=== PATIENT | female | born 1930 | race Hispanic/Latino ===

== ENCOUNTER 2016-10-19 17:15 | Inpatient (IN) | payer MEDICARE, OTHER ==
[2016-10-19 17:26] VITALS: BMI 28.2
[2016-10-19 17:57] LABS: ADD MANUAL DIFF? NO
[2016-10-19 18:07] LABS: VENOUS BLOOD GAS BASE EXCESS -6.6 mmol/L (0.0-2.0); VENOUS BLOOD PH 7.24 (7.32-7.43)
[2016-10-19 18:10] LABS: BASO # 0.01 K/mm3 (0.0-2.0); BASO % 0.1 % (0.0-3.0); EOS # 0.1 (0.0-0.7); EOS % 1.3 % (1.5-5.0); GRAN # 5.33 (1.4-6.5); GRAN % 69.1 % (50.0-68.0); HEMATOCRIT 28.4 % (36.0-48.0); LYMPH # 1.7 (1.2-3.4); LYMPH % 21.8 % (22.0-35.0); MEAN CORPUSCULAR HEMOGLOBIN 30.8 pg (25.0-35.0); MEAN CORPUSCULAR HGB CONC 33.8 g/dl (31.0-37.0); MEAN PLATELET VOLUME 12.5 fl (7.0-11.0); MONO # 0.6 (0.1-0.6); MONO % 7.7 % (1.0-6.0); PLATELET COUNT 69 10^3/uL (120.0-450.0); RED CELL DISTRIBUTION WIDTH 15.6 % (11.5-14.5); WHITE BLOOD COUNT 7.7 10^3/ul (4.5-11.0)
[2016-10-19] MEDS ORDERED: Sodium Chloride 0.9% 1,000 ML IV ONE (18:12)
[2016-10-19 18:20] LABS: INR 1.22 (0.93-1.08); PARTIAL THROMBOPLASTIN TIME 26.6 Seconds (23.7-30.8)
[2016-10-19 18:22] LABS: ALB/GLOB RATIO 0.7 (1.1-1.8); ALKALINE PHOSPHATASE 144 U/L (38-133); ALT/SGPT 47 U/L (7-56); AMYLASE 74 U/L (35-125); AST/SGOT 49 U/L (15-39); BILIRUBIN,TOTAL 0.9 mg/dL (0.2-1.3); BLOOD UREA NITROGEN 19 mg/dL (7-21); CALCIUM 8.6 mg/dL (8.4-10.5); CARBON DIOXIDE 21 mmol/L (21-33); CHLORIDE 110 mmol/L (98-107); GFR AFRICAN-AMERICAN > 60; GLUCOSE,RANDOM 102 mg/dL (70-110); LIPASE 15 U/L (23-300); POTASSIUM 3.9 mmol/L (3.6-5.0); SODIUM 141 mmol/L (132-148); TOTAL PROTEIN 7.7 g/dL (5.8-8.3)
[2016-10-19 18:25] LABS: PH,URINE 5.5 (4.7-8.0); URINE BILIRUBIN NEGATIVE (NEGATIVE); URINE BLOOD TRACE-LYSED (NEGATIVE); URINE GLUCOSE (UA) NEGATIVE (NEGATIVE); URINE KETONE NEGATIVE (NEGATIVE); URINE LEUKOCYTE ESTERASE MODERATE Leu/uL (NEGATIVE); URINE PROTEIN NEGATIVE mg/dL (<30 mg/dL); URINE UROBILINOGEN 0.2 E.U./dL (<1 E.U./dL)
[2016-10-19 18:36] LABS: TROPONIN I < 0.01 ng/mL
[2016-10-19 18:53] LABS: URINE APPEARANCE SL CLOUDY (CLEAR); URINE COLOR YELLOW (YELLOW)
[2016-10-19 18:57] LABS: URINE RBC 0 - 2 /hpf (0-2)
[2016-10-19 18:58] LABS: URINE BACTERIA MANY (NEG); URINE EPITHELIAL CELLS 0 - 2 /hpf (0-5); URINE WBC TNTC /hpf (0-6)
[2016-10-19] MEDS ORDERED: Meropenem 1g/NS 100mL IVPB 100 ML IVPB STA (19:19)
[2016-10-19] MEDS ORDERED: Acetaminophen 160 mg/5 ml UD PO STA (19:27)
--- NOTE | 2016-10-19 19:29 | ED PDOC ---
Arrival/HPI - General Chief Complaint: Abdominal Pain Time Seen by Provider: 10/19/16 17:22 Historian: Patient - History of Present Illness Narrative History of Present Illness (Text): 10/19/16 19:25 86yo female with PMHx of myelodysplastic syndrome, Pancytopenia, hypertension, diabetes, hypothyroid BIBA for complaint of abdominal pain, chills, fever. the daughter states she was recently discharged from [facility]. States she complained of abdominal pain while she was there and was given PO abx for 4days. According to the daughter the pain became worse at home and she started having fever and chills today. Also complain of leg pain, which she states is chronic for her. Denies chest pain, SOB, cough, calf pain, nausea, vomiting, hematuria, dysuria. Past Medical History - Provider Review Nursing Documentation Reviewed: Yes - Infectious Disease Hx of Infectious Diseases: None - Tetanus Immunization Tetanus Immunization: Unknown - Reproductive Menopause: Yes - Cardiac Hx Cardiac Disorders: Yes Hx Hypertension: Yes - Pulmonary Hx Respiratory Disorders: Yes Hx Pneumonia: Yes - Neurological Hx Dizziness: Yes Hx Transient Ischemic Attacks (TIA): No - HEENT Hx HEENT Disorder: No - Renal Hx Renal Disorder: Yes Other/Comment: uti - Endocrine/Metabolic Hx Diabetes Mellitus Type 2: Yes Hx Hypothyroidism: Yes - Hematological/Oncological Hx Blood Disorders: Yes (MDS) Hx Anemia: Yes Hx Cirrhosis: Yes Other/Comment: thromocytopenia, myelodysplastic syndromehypomagnesia/ pancytopenia - Integumentary Hx Dermatological Disorder: Yes Other/Comment: 07-23-16 edema b/l lower legs +2 NON PITTING, ble redness to lower legs, 2nd toe left ft crooked had sx yrs ago took out bone, stage 2 x 2 2 CM IN DM BOTH UPPER BUTTOCKS AREA. surrounded by red skin.SACRAL PRESSURE ULCER STAGE 1. - Musculoskeletal/Rheumatological Hx Falls: Yes - Gastrointestinal Hx Gastrointestinal Disorders: Yes (GERD,CROHNS,CHOLECYSTECTOMY,ULCER) Hx Gastritis: Yes - Genitourinary/Gynecological Hx Genitourinary Disorders: Yes (VRE,ESBL,INCONTINENT,RETENTION) Hx Reproductive Disorders: No Other/Comment: hx urosepsis - Psychiatric Hx Psychophysiologic Disorder: Yes Hx Anxiety: Yes Hx Substance Use: No - Surgical History Hx Cholecystectomy: Yes Hx Orthopedic Surgery: Yes (r hip fx) - Anesthesia Hx Anesthesia: No Hx Anesthesia Reactions: No Hx Malignant Hyperthermia: No - Suicidal Assessment Feels Threatened In Home Enviroment: No Family/Social History - Physician Review Nursing Documentation Reviewed: Yes Family/Social History: Unknown Family HX Smoking Status: Never Smoked Hx Alcohol Use: Yes (WINE WITH DINNER SOMETIMES) Hx Substance Use: No Hx Substance Use Treatment: No Allergies/Home Meds Allergies/Adverse Reactions: Allergies levofloxacin [From Levaquin] Allergy (Intermediate, Verified 08/31/16 00:31) RASH Penicillins Allergy (Verified 08/31/16 00:31) URTICARIA lev Allergy (Uncoded 08/31/16 00:31) ITCHING Home Medications: Home Meds Medication Instructions Recorded Confirmed Ferrous Fumarate [Manju-Sequel] 1 tab PO DAILY 10/10/15 08/31/16 Levothyroxine [Synthroid] 75 mcg PO DAILY 10/13/15 08/31/16 Lisinopril [Zestril] 20 mg PO DAILY 10/24/15 08/31/16 Magnesium Oxide [Magnesium] 400 mg PO BID 10/24/15 08/31/16 Pantoprazole [Protonix EC Tab] 40 mg PO DAILY 10/24/15 08/31/16 rifAXIMin [Xifaxan] 550 mg PO BID 11/07/15 08/31/16 Potassium Chloride [K-Dur 20 mEq 20 meq PO DAILY 12/17/15 08/31/16 ER Tab] Spironolactone [Aldactone] 50 mg PO DAILY 12/17/15 08/31/16 Furosemide [Lasix] 20 mg PO DAILY 08/31/16 08/31/16 Review of Systems - Physician Review All systems were reviewed & negative as marked: Yes - Review of Systems Constitutional: Normal Eyes: Normal ENT: Normal Respiratory: Normal Cardiovascular: Normal Gastrointestinal: Abdominal Pain. absent: Constipation, Diarrhea, Nausea, Vomiting, Hematochezia, Hematemesis Genitourinary Female: absent: Dysuria, Frequency, Hematuria Musculoskeletal: Arthralgias (B/L leg pain) Skin: Normal Neurological: Normal Endocrine: Normal Hemo/Lymphatic: Normal Psychiatric: Normal Physical Exam Vital Signs Reviewed: Yes Vital Signs Temp Pulse Resp BP Pulse Ox 10/19/16 17:15 99.8 F H 108 H 22 162/75 H 94 L Temperature: Febrile Blood Pressure: Normal Pulse: Tachycardic Respiratory Rate: Normal Appearance: Positive for: Well-Appearing, Non-Toxic, Comfortable Pain Distress: None Mental Status: Positive for: Alert and Oriented X 3 - Systems Exam Head: Present: Atraumatic, Normocephalic Pupils: Present: PERRL Extroacular Muscles: Present: EOMI Conjunctiva: Present: Normal Mouth: Present: Moist Mucous Membranes Neck: Present: Normal Range of Motion Respiratory/Chest: Present: Clear to Auscultation, Good Air Exchange. No: Respiratory Distress, Accessory Muscle Use Cardiovascular: Present: Regular Rate and Rhythm, Normal S1, S2. No: Murmurs Abdomen: Present: Normal Bowel Sounds, Other (Soft). No: Tenderness, Distention , Peritoneal Signs, Rebound, Guarding, McBurney's Point Tender, Rovsing's Sign Present Back: Present: Normal Inspection Upper Extremity: Present: Normal Inspection. No: Cyanosis, Edema Lower Extremity: Present: Edema (3+ bipedal edema), Neurovascularly Intact. No : CALF TENDERNESS, Tenderness, Temperature Abnormalties Neurological: Present: GCS=15, CN II-XII Intact, Speech Normal Skin: Present: Warm, Dry, Normal Color. No: Rashes Psychiatric: Present: Alert, Oriented x 3, Normal Insight, Normal Concentration Medical Decision Making ED Course and Treatment: 10/19/16 19:33 Pt in ED for stated history. She was febrile in ED and Tylenol was ordered. Lab was reviewed with pancytopenia noted which is patient's baseline. Patient have UTI in the UA. She was hydrated. Will admit her for UTI. Case was DW Dr. Pena. she accepted pt to her service. Request Drs. Byrne and casie for consult Meropenem was ordered Result and plan was DW both pt and the daughter and they agreed. 10/19/16 19:56 CXR NAD - Lab Interpretations Lab Results: 10/19/16 17:45 10/19/16 17:45 Lab Results 10/19/16 18:15: Urine Color Yellow, Urine Appearance Sl cloudy, Urine pH 5.5, Ur Specific [place] 1.020, Urine Protein Negative, Urine Glucose (UA) Negative, Urine Ketones Negative, Urine Blood Trace-lysed H, Urine Nitrate Negative, Urine Bilirubin Negative, Urine Urobilinogen 0.2, Ur Leukocyte Esterase Moderate H, Urine RBC 0 - 2, Urine WBC Tntc, Ur Epithelial Cells 0 - 2, Urine Bacteria Many 10/19/16 17:45: WBC 7.7 D, RBC 3.12 L, Hgb 9.6 L, Hct 28.4 L, MCV 91.0, MCH 30.8, MCHC 33.8, RDW 15.6 H, Plt Count 69 L, MPV 12.5 H, Gran % 69.1 H, Lymph % (Auto) 21.8 L, [place] % (Auto) 7.7 H, Eos % (Auto) 1.3 L, Baso % (Auto) 0.1, Gran # 5.33, Lymph # 1.7, [place] # 0.6, Eos # 0.1, Baso # 0.01, PT 13.2 H, INR 1.22 H, APTT 26.6, pO2 46, VBG pH 7.24 L, VBG pCO2 49.0, VBG HCO3 21.0, VBG Total CO2 22.5, VBG O2 Sat (Calc) 82.6 H, VBG Base Excess -6.6 L, VBG Potassium 4.0, Glucose 101, Lactate 2.4 H, FiO2 21.0, Sodium 141.0, Potassium 3.9, Chloride 118.0 H, Carbon Dioxide 21, Anion Gap 14, BUN 19, Creatinine 1.0, Est GFR ( Amer) > 60, Est GFR (Non-Af Amer) 52, Random Glucose 102, Calcium 8.6, Total Bilirubin 0.9, AST 49 H, ALT 47, Alkaline Phosphatase 144 H, Lactate Dehydrogenase 439, Total Creatine Kinase < 20 L, Troponin I < 0.01, Total Protein 7.7, Albumin 3.2, Globulin 4.5, Albumin/Globulin Ratio 0.7 L, Amylase 74 , Lipase 15 L, Venous Blood Potassium 4.0 - RAD Interpretation Radiology Orders: 10/19/16 18:20 CHEST PORTABLE [RAD] Stat - Medication Orders Current Medication Orders: Sodium Chloride (Sodium Chloride 0.9%) 1,000 mls @ 250 mls/hr IV .Q4H ONE Stop: 10/19/16 22:11 Last Admin: 10/19/16 18:19 Dose: 250 MLS/HR eMAR Start Stop Document 04/18/17 18:19 SRE (Rec: 10/19/16 18:20 SRE [facility] [id number] Intravenous Solution Start Date 10/19/16 Start Time 18:20 End Date 10/19/16 End time 22:30 Total Infusion Time 250 Meropenem 1g/NS 100mL IVPB (Meropenem 1g/Ns 100ml Ivpb) 100 mls @ 100 mls/hr IVPB STAT STA PRN Reason: Protocol Stop: 10/19/16 20:18 Last Admin: 10/19/16 19:37 Dose: 100 MLS/HR eMAR Start Stop Document 10/19/16 19:37 KKL (Rec: 10/19/16 19:37 KKL [facility] [id number] Intravenous Solution Start Date 10/19/16 Start Time 19:37 Discontinued Medications Acetaminophen (Tylenol 160mg/5ml Oral Soln) 640 mg PO ONCE STA Stop: 10/19/16 19:28 Last Admin: 10/19/16 19:37 Dose: 640 MG Disposition/Present on Arrival - Present on Arrival Any Indicators Present on Arrival: No History of DVT/PE: No History of Uncontrolled Diabetes: No Urinary Catheter: No History of Decub. Ulcer: No History Surgical Site Infection Following: None - Disposition Have Diagnosis and Disposition been Completed?: Yes Diagnosis: Urinary tract infection, Fever, Anemia, Thrombocytopenia Disposition: HOSPITALIZED Disposition Time: 19:10 Patient Problems: Current Active Problems Problem Status Diagnosed Anemia Acute Community acquired pneumonia Acute Fever Acute Thrombocytopenia Acute Urinary tract infection Acute Condition: FAIR
[2016-10-19] MEDS ORDERED: Non Formulary Medication (Magnesium Oxide [Magnesium] 400 MG) PO SCH (20:30)
[2016-10-19] MEDS ORDERED: Pneumococcal 23-Valent Vaccine IM ONE (22:07)
--- NOTE | 2016-10-19 22:28 | HP ---
HISTORY OF PRESENT ILLNESS: The patient is an 86-year-old, known to me from multiple previous admiss ions, was recently discharged from [facility]. The patient's daughter who was accompanied by the patient and the patient states that she was having some abdominal discomfort, suprapubic discomf ort with chills. When she came home to this past Tuesday, her symptoms got worse. She was given some p.o. antibiotic upon discharge; the name is unknown. According to the daughter, the pain got worse and she started to have fever and chills. She also has leg pain, so she brought her to [facility] for further evaluation and denies any nausea or vomiting, no hemoptysis, no hematemesis. PAST MEDICAL HISTORY: Significant for: 1. Autoimmune Hepatitis. 2. Hypertension. 3. Hyperlipidemia. 4. Pancytopenia. 5. Recurrent urinary tract infection. 6. Multiple admissions for ESBL positive Escherichia coli urinary tract infection. 7. History of hepatic encephalopathy. 8. Bilateral leg chronic cellulitis and stasis dermatitis. 9. History of cirrhosis of liver. 10. Electrolyte imbalance. ALLERGIES: SHE IS ALLERGIC TO LEVAQUIN AND PENICILLIN. MEDICATIONS AT HOME: She is on Xifaxan 550 twice a day, Aldactone 50 mg daily, potassium 20 mEq ileana y, Protonix 40 daily, magnesium 400 twice a day, lisinopril 240 mg daily, levothyroxine 75 mcg daily, ferrous sulfate 325 daily. SOCIAL HISTORY: She is single, lives with her daughter who is very supportive and caring. She denie s smoking or drinking. She used to smoke when she was a teenager. REVIEW OF SYSTEMS: Significant for generalized weakness, leg pain with fever and chills and suprapub ic discomfort. PHYSICAL EXAMINATION: GENERAL: She is awake and alert, communicative, not in any acute distress. VITAL SIGNS: She has temperature 99.5, pulse 108, respirations 22, blood pressure 162/75. LUNGS: Bilateral good airflow, no rhonchi or crackle. HEART: S1, S2 audible. ABDOMEN: Soft, obese, nontender, no rebound, no guarding. NEUROLOGIC: She is awake and alert, communicative. EXTREMITIES: Bilateral leg +1 edema. LABORATORY DATA: WBC 7.7, hemoglobin 9.6, hematocrit 28.4, platelets 69. PT 13.2, INR 1.22. Chemis try: Sodium 141, potassium 3.9, chloride 110, CO2 of 21, BUN 19, creatinine 1.0, blood sugar 102. L FTs are within normal limits. AST 49, alkaline phosphatase is 144. CPK less than 20. BNP 680. Uri nalysis shows blood and moderate leukocyte, wbc's too numerous to count leg. ASSESSMENT AND PLAN: 1. Fever and chills, positive urine positive for leukocyte and wbc's, source is probably urosepsis. 2. Pancytopenia. 3. Myelodysplastic syndrome. 4. Cirrhosis of liver. 5. Hepatic encephalopathy. 6. History of hypertension. 7. Electrolyte imbalance. PLAN: The patient will be admitted on Med/Surg. Blood culture and urine cultures are sent. Since t he patient has a history of ESBL positive urinary tract infection, we will start her on meropenem. I will resume her usual medication. Out of bed to chair. Encourage physical therapy. Continue her m edication as prior coming, continue her home medications that include Xifaxan, lactulose, spironolact one 50 mg daily. Continue her on potassium 20 mEq daily, Protonix 40 daily, and magnesium 400 twice a day, lisinopril 20 mg daily, levothyroxine 75 mcg daily and Lasix [address] Byrne for consult and we will get a urology evaluation by Dr. Moore and I will reevaluate in a.m. and make fu rther recommendation. Kamaljit Pena MD cc: [phone] TT: 10/19/2016 22:27:30 me
[2016-10-19] MEDS ORDERED: Vancomycin 1gm in NS 250ml 250 ML IVPB STA (22:37)
[2016-10-20 06:54] LABS: ADD MANUAL DIFF? NO
[2016-10-20 07:07] LABS: BASO # 0.01 K/mm3 (0.0-2.0); BASO % 0.2 % (0.0-3.0); EOS # 0.1 (0.0-0.7); GRAN # 3.64 (1.4-6.5); GRAN % 73.9 % (50.0-68.0); LYMPH # 0.8 (1.2-3.4); LYMPH % 15.4 % (22.0-35.0); MEAN CELL VOLUME 90.4 fL (80.0-105.0); MEAN CORPUSCULAR HEMOGLOBIN 30.8 pg (25.0-35.0); MEAN PLATELET VOLUME 12.8 fl (7.0-11.0); MONO # 0.5 (0.1-0.6); MONO % 9.5 % (1.0-6.0); PLATELET COUNT 35 10^3/uL (120.0-450.0); RED CELL DISTRIBUTION WIDTH 15.5 % (11.5-14.5); WHITE BLOOD COUNT 4.9 10^3/ul (4.5-11.0)
[2016-10-20 07:16] LABS: BILIRUBIN,TOTAL 0.8 mg/dL (0.2-1.3); CALCIUM 7.7 mg/dL (8.4-10.5); MAGNESIUM 1.6 mg/dL (1.7-2.2); POTASSIUM 3.6 mmol/L (3.6-5.0); TOTAL PROTEIN 6.4 g/dL (5.8-8.3)
[2016-10-20 07:19] LABS: HEMATOCRIT 23.5 % (36.0-48.0)
[2016-10-20 07:22] LABS: ALB/GLOB RATIO 0.6 (1.1-1.8)
--- NOTE | 2016-10-20 08:50 | CARD ---
APPROVED REPORT EKG Measurement Heart [id number] CT 182P25 [id number] <Conclusion> Normal sinus rhythm with sinus arrhythmia Left axis deviation Right bundle branch block Septal infarct, age undetermined Abnormal ECG
[2016-10-20] MEDS: Meropenem 1g/NS 100mL IVPB 100 ML IVPB SCH ×2 (09:47→21:19)
[2016-10-20] MEDS: Pantoprazole 40 mg EC Tab PO SCH (09:49)
[2016-10-20] MEDS: Potassium Chloride 20 mEq ER Tab PO SCH (09:49)
[2016-10-20] MEDS: Levothyroxine 75 MCG TAB PO SCH (09:49)
[2016-10-20] MEDS: Magnesium Oxide 400 mg Tab UD PO SCH ×2 (09:49→17:34)
[2016-10-20] MEDS: FERROUS FUMARATE PO SCH (09:53)
--- NOTE | 2016-10-20 10:02 | RAD ---
HISTORY: admission COMPARISON: 08/09/2016 FINDINGS: LUNGS: No active pulmonary disease. PLEURA: No significant pleural effusion identified, no pneumothorax apparent. CARDIOVASCULAR: Normal. OSSEOUS STRUCTURES: No significant abnormalities. VISUALIZED UPPER ABDOMEN: Normal. OTHER FINDINGS: None. IMPRESSION: No active disease.
--- NOTE | 2016-10-20 13:22 | PN ---
DATE: 10/20/2016 SUBJECTIVE: The patient is seen and examined, lying in bed, does not look in any distress. PHYSICAL EXAMINATION: VITAL SIGNS: She is afebrile, pulse 80, respirations 20, blood pressure 116/55. LUNGS: Bilateral fair airflow, no rhonchi or crackle. HEART: S1, S2 audible. ABDOMEN: Soft, obese, nontender, no rebound, no guarding. NEUROLOGIC: The patient is awake and alert, communicative. EXTREMITIES: Bilateral leg +1 edema. LABORATORY EXAMINATION: WBC is 4.9, hemoglobin 8.0, hematocrit 23.5, platelet of 35. Chemistry: So dium 139, potassium 3.6, chloride 112, CO2 of 20, BUN 18, creatinine 1.1, blood sugar of 110, magnesi um is 1.6. Her urine culture showed gram-negative rods. ASSESSMENT: 1. Pancytopenia. 2. Myelodysplastic syndrome. 3. Chronic anemia, chronic thrombocytopenia. 4. Escherichia coli urinary tract infection. 5. History of hypertension. 6. Bilateral leg edema. PLAN: We will continue on spironolactone. She is on lactulose for autoimmune hepatitis and hepatic encephalopathy. She has been evaluated by ID and started on meropenem. We will maintain her on Xifa yaakov. We will reevaluate the patient in a.m. Kamaljit Pena MD cc: [phone] TT: 10/20/2016 13:21:12 Confirmation # [id number] Dictation # [id number] sn
--- NOTE | 2016-10-20 18:07 | CP.PCM.CON ---
History of Present Illness - History of Present Illness History of Present Illness: 86 year old female with PMH of UTI with Hafnei alvei, Myelodysplastic syndrome, DM, HTN, Hypothyroidism, history of right hip surgery, S/P cholecystectomy, liver cirrhosis, GERD, history of ESBL-producing E. coli UTI was recently admitted in a assisted. Shortly after she was discharged from there, she started complaining of abdominal pain and was given PO antibiotics which did not help. She started having fevers and chills yesterday. She denies headache or dizziness, no chest pain, no nausea or vomiting, no diarrhea. She has some dysuria, but denies flank pain. Urine cx were done which showed gram negative bacilli. Infectious Diseases consult is requested to further evaluate and manage. Review of Systems - Review of Systems All systems: reviewed and no additional remarkable complaints except (as per HPI ) Past Patient History - Infectious Disease Hx of Infectious Diseases: None - Tetanus Immunizations Tetanus Immunization: Unknown - Past Social History Smoking Status: Never Smoked - CARDIAC Hx Cardiac Disorders: Yes Hx Hypertension: Yes Hx Peripheral Edema: Yes (+3 pitting edema ble) Hx Peripheral Vascular Disease: Yes - PULMONARY Hx Respiratory Disorders: Yes Hx Pneumonia: Yes - NEUROLOGICAL Hx Neurological Disorder: (syncope) Hx Dizziness: Yes Hx Transient Ischemic Attacks (TIA): No - HEENT Hx HEENT Problems: No - RENAL Hx Chronic Kidney Disease: Yes Other/Comment: uti - ENDOCRINE/METABOLIC Hx Diabetes Mellitus Type 2: Yes Hx Hypothyroidism: Yes - HEMATOLOGICAL/ONCOLOGICAL Hx Blood Disorders: Yes (MDS) Hx Anemia: Yes Hx Cirrhosis: Yes Other/Comment: thromocytopenia, myelodysplastic syndrome, hypomagnesia/ pancytopenia - INTEGUMENTARY Hx Dermatological Problems: Yes Other/Comment: +3 pitting edema ble, ble ski discolorations, 2nd toe l ft crooked, bone removed yrs ago, stage 2 pressure ulcer r sacrum 2.5cm x 1.5cm red open wound, stage 2 left sacrum open wound 3cm x 2.5cm wound bed red and slough small 0.5cm tear in skin bed is red, multiple skin discolorations b/l arms thin skin - MUSCULOSKELETAL/RHEUMATOLOGICAL Hx Falls: Yes (past) Hx Unsteady Gait: Yes (walker) - GASTROINTESTINAL Hx Gastrointestinal Disorders: Yes (GERD,CROHNS,CHOLECYSTECTOMY,ULCER) Hx Diverticulitis: Yes Other/Comment: gastritis - GENITOURINARY/GYNECOLOGICAL Hx Genitourinary Disorders: Yes (VRE,ESBL,INCONTINENT,RETENTION) Hx Urinary Tract Infection: Yes Other/Comment: hx urosepsis - PSYCHIATRIC Hx Psychophysiologic Disorder: Yes Hx Anxiety: Yes Hx Substance Use: No - SURGICAL HISTORY Hx Cholecystectomy: Yes Hx Orthopedic Surgery: Yes (r hip fx) - ANESTHESIA Hx Anesthesia: No Hx Anesthesia Reactions: No Hx Malignant Hyperthermia: No Meds Allergies/Adverse Reactions: Allergies Allergy/AdvReac Type Severity Reaction Status Date / Time levofloxacin [From Levaquin] Allergy Intermediate RASH Verified 08/31/16 00:31 Penicillins Allergy URTICARIA Verified 08/31/16 00:31 lev Allergy ITCHING Uncoded 08/31/16 00:31 - Medications Medications: Current Medications Acetaminophen (Tylenol 325mg Tab) 650 mg PO Q6H PRN PRN Reason: Fever >100.4 F Furosemide (Lasix) 20 mg PO DAILY HEMANT Meropenem 1g/NS 100mL IVPB (Meropenem 1g/Ns 100ml Ivpb) 100 mls @ 100 mls/hr IVPB Q12 HEMANT PRN Reason: Protocol Stop: 10/27/16 10:01 Lactulose (Enulose) 20 gm PO HS HEMANT Levothyroxine Sodium (Synthroid) 75 mcg PO DAILY HEMANT Lisinopril (Zestril) 20 mg PO DAILY HEMANT Magnesium Oxide (Mag-Ox) 400 mg PO BID HEMANT Non-Formulary Medication (Ferrous Fumarate [Manju-Sequel]) 1 tab PO DAILY HEMANT Pantoprazole Sodium (Protonix Ec Tab) 40 mg PO DAILY HEMANT Potassium Chloride (K-Dur 20 Meq Er Tab) 20 meq PO DAILY HEMANT Rifaximin (Xifaxan) 550 mg PO BID HEMANT PRN Reason: Protocol Spironolactone (Aldactone) 50 mg PO DAILY HEMANT Physical Exam - Constitutional Appears: Non-toxic, No Acute Distress - Head Exam Head Exam: NORMAL INSPECTION - ENT Exam ENT Exam: Mucous Membranes Moist - Neck Exam Neck exam: Negative for: Lymphadenopathy, Meningismus - Respiratory Exam Respiratory Exam: Decreased Breath Sounds - Cardiovascular Exam Cardiovascular Exam: +S1, +S2 - GI/Abdominal Exam GI & Abdominal Exam: Soft. absent: Tenderness Results - Vital Signs Recent Vital Signs: Last Vital Signs Temp 99.8 F H 10/19/16 21:40 Pulse 108 H 10/19/16 21:40 Resp 22 10/19/16 21:40 BP 162/75 H 10/19/16 21:40 Pulse Ox 95 10/19/16 21:01 - Labs Result Diagrams: 10/20/16 06:45 10/20/16 06:45 Assessment & Plan - Assessment and Plan (Free Text) Plan: Assessment Sepsis secondary to gram negative bacilli UTI history of urinary tract infection with Citrobacter and Enterobacter, S/P treatment and clinically better history of E. faecium UTI history of healthcare-associated pneumonia history of chronic thrombocytopenia history of urinary tract infection with ESBL E. coli S/P UTI with Hafnei alvei Myelodysplastic syndrome DM HTN Hypothyroidism history of right hip surgery S/P cholecystectomy liver cirrhosis GERD Plan started MErrem pending blood and urine cx; follow up renal ultrasound Will follow clinically
[2016-10-21] MEDS: Magnesium Oxide 400 mg Tab UD PO SCH ×2 (09:32→17:29)
[2016-10-21] MEDS: Meropenem 1g/NS 100mL IVPB 100 ML IVPB SCH ×2 (09:32→21:56)
[2016-10-21] MEDS: Pantoprazole 40 mg EC Tab PO SCH (09:33)
[2016-10-21] MEDS: Levothyroxine 75 MCG TAB PO SCH (09:33)
[2016-10-21] MEDS: Potassium Chloride 20 mEq ER Tab PO SCH (09:33)
[2016-10-21] MEDS: FERROUS FUMARATE PO SCH (09:34)
--- NOTE | 2016-10-21 11:48 | RAD ---
HISTORY: stones/uti COMPARISON: No prior. FINDINGS: There are no calcifications overlying the renal silhouette, along the expected course of the ureters or in the pelvis. BOWEL: Normal. No obstruction. No free air. BONES: Normal. OTHER FINDINGS: Surgical clips in the right upper quadrant are related to prior cholecystectomy. IMPRESSION: Limited examination due to gas and fecal material overlying the renal silhouette, allowing for this, no definite radiographic evidence for nephrourolithiasis.
[2016-10-21 12:30] LABS: ADD MANUAL DIFF? NO
[2016-10-21 12:35] LABS: BASO # 0.02 K/mm3 (0.0-2.0); BASO % 0.5 % (0.0-3.0); EOS # 0.2 (0.0-0.7); EOS % 4.1 % (1.5-5.0); GRAN # 2.09 (1.4-6.5); GRAN % 54.2 % (50.0-68.0); HEMATOCRIT 25.4 % (36.0-48.0); LYMPH # 1.2 (1.2-3.4); LYMPH % 29.8 % (22.0-35.0); MEAN CORPUSCULAR HEMOGLOBIN 30.8 pg (25.0-35.0); MEAN CORPUSCULAR HGB CONC 33.9 g/dl (31.0-37.0); MEAN PLATELET VOLUME 12.9 fl (7.0-11.0); MONO # 0.4 (0.1-0.6); MONO % 11.4 % (1.0-6.0); PLATELET COUNT 46 10^3/uL (120.0-450.0); RED CELL DISTRIBUTION WIDTH 15.4 % (11.5-14.5); WHITE BLOOD COUNT 3.9 10^3/ul (4.5-11.0)
[2016-10-21 12:43] LABS: ALB/GLOB RATIO 0.6 (1.1-1.8); ALKALINE PHOSPHATASE 105 U/L (38-133); ALT/SGPT 38 U/L (7-56); AST/SGOT 30 U/L (15-39); BILIRUBIN,TOTAL 0.8 mg/dL (0.2-1.3); BLOOD UREA NITROGEN 17 mg/dL (7-21); CALCIUM 7.9 mg/dL (8.4-10.5); CARBON DIOXIDE 21 mmol/L (21-33); CHLORIDE 109 mmol/L (98-107); GFR AFRICAN-AMERICAN > 60; GLUCOSE,RANDOM 114 mg/dL (70-110); MAGNESIUM 1.7 mg/dL (1.7-2.2); POTASSIUM 3.9 mmol/L (3.6-5.0); SODIUM 138 mmol/L (132-148)
--- NOTE | 2016-10-21 13:27 | US ---
PROCEDURE: Ultrasound of the Kidneys HISTORY: UTI / stones COMPARISON: None available. TECHNIQUE: Grayscale imaging was performed. FINDINGS: RIGHT KIDNEY: Measures: 10.8 cm. Normal in size, contour and echogenicity. No stone, solid mass lesion or hydronephrosis visualized. LEFT KIDNEY: Measures: 11.0 cm. Normal in size, contour and echogenicity. No stone, solid mass lesion or hydronephrosis visualized. OTHER FINDINGS: None. IMPRESSION: No evidence of nephrolithiasis or hydronephrosis.
--- NOTE | 2016-10-21 13:30 | US ---
PROCEDURE: Ultrasound of the Bladder HISTORY: UTI/retention? COMPARISON: None available. TECHNIQUE: Grayscale imaging was performed. FINDINGS: The urinary bladder is partially distended. No free fluid in pelvis. Bilateral ureteral jets are not visualized on color flow imaging. Prevoid Volume: 175.2 cc. The patient was unable to void. IMPRESSION: Limited evaluation of the urinary bladder due to partial distention. The prevoid urinary volume is 175.2 cc. The patient was unable to void.
--- NOTE | 2016-10-21 13:45 | PN ---
DATE: 10/21/2016 SUBJECTIVE: The patient is 86 years old, seen and examined sitting in chair. Seems to be comfortabl e, not in any distress, eating and tolerating. PHYSICAL EXAMINATION: VITAL SIGNS: She is afebrile, pulse 66, respirations 20, blood pressure 108/56. LUNGS: Bilateral fair airflow, no rhonchi or crackle. HEART: S1, S2 audible. ABDOMEN: Soft, obese, nontender, no rebound, no guarding. NEUROLOGIC: She is awake and alert, communicative. EXTREMITIES: Bilateral leg +3 edema. LABORATORY EXAMINATION: There is no new lab available today. Her urine cultures are positive for Kl ebsiella pneumoniae, ESBL negative, sensitive to Cipro and cefazolin and Bactrim. She had bladder an d renal ultrasound done, the results are pending. ASSESSMENT AND PLAN: 1. Klebsiella pneumoniae urinary tract infection, extended-spectrum beta-lactamase negative. 2. Recurrent urinary tract infection. 3. Autoimmune hepatitis. 4. Multiple admissions for hepatic encephalopathy. 5. Pancytopenia. 6. Myelodysplastic syndrome. 7. History of hypertension. PLAN: We will continue on ferrous sulfate, spironolactone. She is on lactulose. She is on potassiu m supplementation, meropenem, Protonix, ____, levothyroxine. Her blood pressure is running on the lo w side, just give her 10 mg of lisinopril and we will hold if her blood pressure is below 110. Kamaljit Pena MD cc: [phone] TT: 10/21/2016 13:44:08 Confirmation # [id number] Dictation # [id number] sn
--- NOTE | 2016-10-21 21:12 | CP.PCM.PN ---
Subjective - Date & Time of Evaluation Date of Evaluation: 10/21/16 Time of Evaluation: 09:00 - Subjective Subjective: Comfortable in bed, not in distress, afebrile overnight. Objective - Vital Signs/Intake and Output Vital Signs (last 24 hours): Temp Pulse Resp BP Pulse Ox 98.4 F 72 20 121/51 L 100 10/21/16 16:00 10/21/16 16:00 10/21/16 16:00 10/21/16 16:00 10/21/16 16:00 Intake and Output: 10/21/16 10/22/16 18:59 06:59 Intake Total 740 Balance 740 - Medications Medications: Current Medications Acetaminophen (Tylenol 325mg Tab) 650 mg PO Q6H PRN PRN Reason: Fever >100.4 F Furosemide (Lasix) 20 mg PO DAILY [facility] Last Admin: 10/21/16 09:34 Dose: Not Given Meropenem 1g/NS 100mL IVPB (Meropenem 1g/Ns 100ml Ivpb) 100 mls @ 100 mls/hr IVPB Q12 [facility] PRN Reason: Protocol Stop: 10/27/16 10:01 Last Admin: 10/21/16 09:32 Dose: 100 mls/hr Lactulose (Enulose) 20 gm PO HS [facility] Last Admin: 10/20/16 21:29 Dose: 20 gm Levothyroxine Sodium (Synthroid) 75 mcg PO DAILY [facility] Last Admin: 10/21/16 09:33 Dose: 75 mcg Lisinopril (Zestril) 10 mg PO DAILY [facility] Magnesium Oxide (Mag-Ox) 400 mg PO BID [facility] Last Admin: 10/21/16 17:29 Dose: Not Given Non-Formulary Medication (Ferrous Fumarate [Manju-Sequel]) 1 tab PO DAILY [facility] Last Admin: 10/21/16 09:34 Dose: Not Given Pantoprazole Sodium (Protonix Ec Tab) 40 mg PO DAILY [facility] Last Admin: 10/21/16 09:33 Dose: 40 mg Potassium Chloride (K-Dur 20 Meq Er Tab) 20 meq PO DAILY [facility] Last Admin: 10/21/16 09:33 Dose: 20 meq Rifaximin (Xifaxan) 550 mg PO BID [facility] PRN Reason: Protocol Last Admin: 10/21/16 17:29 Dose: Not Given Spironolactone (Aldactone) 50 mg PO DAILY [facility] Last Admin: 10/21/16 09:35 Dose: Not Given - Labs Labs: 10/21/16 12:15 10/21/16 12:15 PT 13.2 Seconds (9.9-11.8) H 10/19/16 17:45 INR 1.22 (0.93-1.08) H 10/19/16 17:45 APTT 26.6 Seconds (23.7-30.8) 10/19/16 17:45 - Constitutional Appears: Non-toxic, No Acute Distress - Head Exam Head Exam: NORMAL INSPECTION - ENT Exam ENT Exam: Mucous Membranes Moist - Neck Exam Neck Exam: absent: Lymphadenopathy, Meningismus - Respiratory Exam Respiratory Exam: Decreased Breath Sounds - Cardiovascular Exam Cardiovascular Exam: +S1, +S2 - GI/Abdominal Exam GI & Abdominal Exam: Soft. absent: Tenderness Assessment and Plan - Assessment and Plan (Free Text) Plan: Assessment Sepsis secondary to Klebsiella UTI history of urinary tract infection with Citrobacter and Enterobacter, S/P treatment and clinically better history of E. faecium UTI history of healthcare-associated pneumonia history of chronic thrombocytopenia history of urinary tract infection with ESBL E. coli S/P UTI with Hafnei alvei Myelodysplastic syndrome DM HTN Hypothyroidism history of right hip surgery S/P cholecystectomy liver cirrhosis GERD Plan continue Merrem day 2; patient is refusing renal ultrasound Will continue to follow clinically
[2016-10-22] MEDS: FERROUS FUMARATE PO SCH (09:11)
--- NOTE | 2016-10-22 09:24 | PCM.URO ---
Urology Progress Note - Objective Lab Results Last 24 Hours: Laboratory Results - last 24 hr 10/21/16 12:15 WBC 3.9 L D RBC 2.79 L Hgb 8.6 L Hct 25.4 L MCV 91.0 MCH 30.8 MCHC 33.9 RDW 15.4 H Plt Count 46 L* MPV 12.9 H Gran % 54.2 Lymph % (Auto) 29.8 [place] % (Auto) 11.4 H Eos % (Auto) 4.1 Baso % (Auto) 0.5 Gran # 2.09 Lymph # 1.2 [place] # 0.4 Eos # 0.2 Baso # 0.02 Sodium 138 Potassium 3.9 Chloride 109 H Carbon Dioxide 21 Anion Gap 12 BUN 17 Creatinine 1.0 Est GFR ( Amer) > 60 Est GFR (Non-Af Amer) 52 Random Glucose 114 H Calcium 7.9 L Magnesium 1.7 Total Bilirubin 0.8 AST 30 ALT 38 Alkaline Phosphatase 105 Total Protein 7.0 Albumin 2.7 L Globulin 4.3 Albumin/Globulin Ratio 0.6 L Intake & Output: Intake & Output 10/21/16 10/22/16 10/22/16 18:59 06:59 18:59 Intake Total 740 540 Output Total 3 Balance 740 537 Intake: IV 100 Right Forearm 100 Oral 640 540 Output: Urine 3 Urine, Voided 3 Other: Voiding Method Incontinent Incontinent # Voids Urine, Voided 3 # Bowel Movements 1 1 Vital Signs: Vital Signs - 24 hr 10/21/16 10/21/16 09:34 16:00 Temperature 98.4 F Pulse Rate 72 Respiratory 20 Rate Blood Pressure 108/56 L 121/51 L O2 Sat by Pulse 100 Oximetry
[2016-10-22] MEDS: Meropenem 1g/NS 100mL IVPB 100 ML IVPB SCH (09:25)
[2016-10-22] MEDS ORDERED: POLYETHYLENE GLYCOL 3350 17 GM/Dose PACKET PO SCH (10:00)
[2016-10-22] MEDS: Potassium Chloride 20 mEq ER Tab PO SCH ×2 (10:26→10:56)
[2016-10-22] MEDS: Magnesium Oxide 400 mg Tab UD PO SCH ×3 (10:33→17:16)
[2016-10-22] MEDS: Pantoprazole 40 mg EC Tab PO SCH ×2 (10:34→11:00)
[2016-10-22] MEDS: Levothyroxine 75 MCG TAB PO SCH ×2 (10:34→11:00)
--- NOTE | 2016-10-22 13:01 | DS ---
The patient is an 86-year-old, seen and examined, lying in bed. Complained of feeling weak. Accordi ng to nurse, she refused this morning's medication. She states she is on too many medications and is protesting not to have any. PHYSICAL EXAMINATION: VITAL SIGNS: The patient is afebrile, pulse 72, respirations 20, blood pressure 121/51. LUNGS: Bilateral fair airflow, no rhonchi or crackle. HEART: S1, S2 audible. ABDOMEN: Soft, nontender, no rebound, no guarding. NEUROLOGIC: The patient is awake and alert, able to communicate. EXTREMITIES: Bilateral legs +2 edema. LABORATORY EXAMINATION: WBCs 3.9, hemoglobin 8.6, hematocrit 25.4, platelet is 46. Chemistry: [place] um 138, potassium 3.9, chloride 109, CO2 21, BUN 17, creatinine 1.0, blood sugar is 114, magnesium is 1.6. Her urine cultures are positive for E. coli, negative for ESBL. ASSESSMENT: 1. Pancytopenia. 2. Myelodysplastic syndrome. 3. Recurrent urinary tract infection. 4. Hypertension. 5. Electrolyte imbalance. 6. Deconditioning, difficulty walking. 7. Bilateral leg edema. PLAN: The patient is currently on antibiotic as recommended by ID. That is meropenem and she is get ting Protonix. She is on levothyroxine, Xifaxan and will cut down iron supplementation for now. The patient does not want to take oral medication. I will change her Lasix to IV. Continue on spironol actone. We will hold iron supplementation for now. We will reevaluate patient in a.m. Kamaljit Pena MD cc: [phone] TT: 10/22/2016 12:58:53 en
[2016-10-22 15:57] VITALS: BP 125/58; PULSE 65; RESP 18; TEMP 98.1; O2SAT 93
--- NOTE | 2016-10-22 23:05 | CP.PCM.PN ---
Subjective - Date & Time of Evaluation Date of Evaluation: 10/22/16 Time of Evaluation: 09:30 - Subjective Subjective: Comfortable in bed, not in distress, no fevers. Objective - Vital Signs/Intake and Output Vital Signs (last 24 hours): Temp Pulse Resp BP Pulse Ox 98.1 F 65 18 125/58 L 93 L 10/22/16 15:56 10/22/16 15:56 10/22/16 15:56 10/22/16 15:56 10/22/16 15:56 Intake and Output: 10/22/16 10/23/16 18:59 06:59 Intake Total 360 Balance 360 - Labs Labs: 10/21/16 12:15 10/21/16 12:15 PT 13.2 Seconds (9.9-11.8) H 10/19/16 17:45 INR 1.22 (0.93-1.08) H 10/19/16 17:45 APTT 26.6 Seconds (23.7-30.8) 10/19/16 17:45 - Constitutional Appears: Non-toxic, No Acute Distress - Head Exam Head Exam: NORMAL INSPECTION - ENT Exam ENT Exam: Mucous Membranes Moist - Neck Exam Neck Exam: absent: Lymphadenopathy, Meningismus - Respiratory Exam Respiratory Exam: Decreased Breath Sounds - Cardiovascular Exam Cardiovascular Exam: +S1, +S2 - GI/Abdominal Exam GI & Abdominal Exam: Soft. absent: Tenderness Assessment and Plan - Assessment and Plan (Free Text) Plan: Assessment Sepsis secondary to Klebsiella UTI history of urinary tract infection with Citrobacter and Enterobacter, S/P treatment and clinically better history of E. faecium UTI history of healthcare-associated pneumonia history of chronic thrombocytopenia history of urinary tract infection with ESBL E. coli S/P UTI with Hafnei alvei Myelodysplastic syndrome DM HTN Hypothyroidism history of right hip surgery S/P cholecystectomy liver cirrhosis GERD Plan continue Merrem day 3; patient is refusing renal ultrasound; would target at least 7-10 days of antibiotics Will continue to follow clinically
== END 2016-10-22 20:34 | DRG 872 ==
LOC: ED 17:15 → ERH 19:15 → 5RNO 21:15
PROVIDERS: ADMIT Internal Medicine; ATTEND Internal Medicine
DX: A41.9 Sepsis, unspecified organism (principal); N39.0 Urinary tract infection, site not specified; B96.1 Klebsiella pneumoniae [K. pneumoniae] as the cause of diseases classified elsewhere; D61.818 Other pancytopenia; K74.60 Unspecified cirrhosis of liver; K75.4 Autoimmune hepatitis; D46.9 Myelodysplastic syndrome, unspecified; I10 Essential (primary) hypertension; K21.9 Gastro-esophageal reflux disease without esophagitis; E78.5 Hyperlipidemia, unspecified; I87.2 Venous insufficiency (chronic) (peripheral); E03.9 Hypothyroidism, unspecified; R26.2 Difficulty in walking, not elsewhere classified; E11.9 Type 2 diabetes mellitus without complications; Z87.440 Personal history of urinary (tract) infections; Z87.01 Personal history of pneumonia (recurrent); Z90.49 Acquired absence of other specified parts of digestive tract; Z87.891 Personal history of nicotine dependence

== ENCOUNTER 2016-10-22 20:17 | Inpatient (IN) | payer OTHER ==
[2016-10-22] MEDS ORDERED: Meropenem 1g/NS 100mL IVPB 100 ML IVPB SCH (22:00)
[2016-10-22 23:55] VITALS: BMI 28.1
[2016-10-23] MEDS: Levothyroxine 75 MCG TAB PO SCH (05:37)
[2016-10-23] MEDS: Pantoprazole 40 mg EC Tab PO SCH (05:37)
[2016-10-23] MEDS ORDERED: FERROUS FUMARATE PO SCH (10:00)
[2016-10-23] MEDS ORDERED: Non Formulary Medication (Magnesium Oxide [Magnesium] 400 MG) PO SCH (10:00)
[2016-10-23] MEDS: Potassium Chloride 20 mEq ER Tab PO SCH (10:15)
[2016-10-23] MEDS: Magnesium Oxide 400 mg Tab UD PO SCH ×2 (10:16→17:19)
[2016-10-23] MEDS ORDERED: Meropenem 1g/NS 100mL IVPB 100 ML IVPB SCH (10:30)
--- NOTE | 2016-10-23 12:16 | HP ---
HISTORY OF PRESENT ILLNESS: The patient is an 86-year-old, seen and examined. The patient was admit bianca with fever and chills. She was found to have Klebsiella pneumoniae UTI sensitive to some p.o. an d IV antibiotics, so transferred to TCU for rehab and continuation of her antibiotic. PAST MEDICAL HISTORY Significant for: 1. Pancytopenia. 2. Myelodysplastic syndrome. 3. Chronic anemia. 4. Electrolyte imbalance. 5. Hypertension. 6. Morbid obesity. 7. Chronic bilateral leg edema. ALLERGIES: SHE IS ALLERGIC TO LEVAQUIN AND PENICILLIN. MEDICATIONS AT HOME: She is on Cefaxone for autoimmune hepatitis and hepatic encephalopathy, Aldacto ne 50 mg daily, potassium chloride 20 mEq daily, Protonix 40 daily, magnesium oxide 400 twice a day, lisinopril 20 mg daily, levothyroxine 75 mcg daily, Lasix 20 mg daily and nebulizer treatment. SOCIAL HISTORY: She lives with her daughter. History of smoking in the remote past. Drinks wine wi th dinner off and on. PHYSICAL EXAMINATION: GENERAL: She is awake and alert, communicative, anxious to go home. VITAL SIGNS: She is afebrile, pulse 70, respirations 18, blood pressure 121/58. LUNGS: Bilateral fair airflow, no rhonchi or crackle. HEART: S1, S2 audible. ABDOMEN: Soft, nontender, no rebound, no guarding. NEUROLOGIC: She is awake and alert, communicative. EXTREMITIES: Bilateral leg +2 edema. LABORATORY EXAM: There is no new lab available today. I will order one for Tuesday. ASSESSMENT: 1. Klebsiella pneumoniae urinary tract infection. 2. Hypertension. 3. Hyperlipidemia. 4. Autoimmune hepatitis. 5. History of hepatic encephalopathy. 6. Pancytopenia. 7. Myelodysplastic syndrome. 8. Hypothyroidism. PLAN: The patient MAR reviewed and found to be appropriate. Continue current medication. Blood wor k, CBC, CMP, magnesium for Tuesday. Kamaljit Pena MD cc: [phone] TT: 10/23/2016 12:15:43
--- NOTE | 2016-10-23 22:16 | CP.PCM.CON ---
History of Present Illness - History of Present Illness History of Present Illness: 86 year old female with PMH of UTI with Hafnei alvei, Myelodysplastic syndrome, DM, HTN, Hypothyroidism, history of right hip surgery, S/P cholecystectomy, liver cirrhosis, GERD, history of ESBL-producing E. coli UTI was initially admitted in [facility] because of fever and weakness. She was found to have Klebsiella UTI and was doing well with antibiotics. She is now transferred to [facility] for continued medical therapy and physical rehabilitation. Infectious Diseases consult is requested to continue her antibiotic therapy. Currently she is comfortable in bed. She denies fever or chills, no nausea or vomiting, no chest pain, no headache or dizziness, no dysuria currently or flank pain, no hematuria, no abdominal pain, no SOB, no cough or colds. Review of Systems - Review of Systems All systems: reviewed and no additional remarkable complaints except (as per HPI ) Past Patient History - Infectious Disease Hx of Infectious Diseases: None - Tetanus Immunizations Tetanus Immunization: Unknown - Past Social History Smoking Status: Never Smoked - CARDIAC Hx Cardiac Disorders: Yes Hx Hypertension: Yes - PULMONARY Hx Respiratory Disorders: Yes Hx Pneumonia: Yes - NEUROLOGICAL Hx Neurological Disorder: (syncope) Hx Dizziness: Yes Hx Transient Ischemic Attacks (TIA): No - HEENT Hx HEENT Problems: No - RENAL Hx Chronic Kidney Disease: Yes Other/Comment: uti - ENDOCRINE/METABOLIC Hx Diabetes Mellitus Type 2: Yes Hx Hypothyroidism: Yes - HEMATOLOGICAL/ONCOLOGICAL Hx Blood Disorders: Yes (MDS) Hx Anemia: Yes Hx Cirrhosis: Yes Other/Comment: thromocytopenia, myelodysplastic syndrome, hypomagnesia/ pancytopenia - INTEGUMENTARY Hx Dermatological Problems: Yes Other/Comment: +3 pitting edema ble, ble ski discolorations, 2nd toe l ft crooked, bone removed yrs ago, stage 2 pressure ulcer r sacrum 2.5cm x 1.5cm red open wound, stage 2 left sacrum open wound 3cm x 2.5cm wound bed red and slough small 0.5cm tear in skin bed is red, multiple skin discolorations b/l arms thin skin - MUSCULOSKELETAL/RHEUMATOLOGICAL Hx Falls: No - GASTROINTESTINAL Hx Gastrointestinal Disorders: Yes (GERD,CROHNS,CHOLECYSTECTOMY,ULCER) Hx Diverticulitis: Yes Other/Comment: gastritis - GENITOURINARY/GYNECOLOGICAL Hx Genitourinary Disorders: Yes (VRE,ESBL,INCONTINENT,RETENTION) Hx Urinary Tract Infection: Yes Other/Comment: hx urosepsis - PSYCHIATRIC Hx Psychophysiologic Disorder: Yes Hx Anxiety: Yes - SURGICAL HISTORY Hx Cholecystectomy: Yes Hx Orthopedic Surgery: Yes (r hip fx) - ANESTHESIA Hx Anesthesia: No Hx Anesthesia Reactions: No Hx Malignant Hyperthermia: No Meds Allergies/Adverse Reactions: Allergies Allergy/AdvReac Type Severity Reaction Status Date / Time levofloxacin [From Levaquin] Allergy Intermediate RASH Verified 10/22/16 21:10 Penicillins Allergy URTICARIA Verified 10/22/16 21:10 lev Allergy ITCHING Uncoded 10/22/16 21:10 - Medications Medications: Current Medications Acetaminophen (Tylenol 325mg Tab) 650 mg PO Q6H PRN PRN Reason: Fever >100.4 F Furosemide (Lasix) 20 mg PO DAILY [facility] Last Admin: 10/23/16 10:15 Dose: 20 mg Lactulose (Enulose) 20 gm PO [facility] Last Admin: 10/22/16 22:11 Dose: Not Given Levothyroxine Sodium (Synthroid) 75 mcg PO 0630 [facility] Last Admin: 10/23/16 05:37 Dose: 75 mcg Lisinopril (Zestril) 10 mg PO DAILY [facility] Last Admin: 10/23/16 10:17 Dose: 10 mg Magnesium Oxide (Mag-Ox) 400 mg PO BID [facility] Last Admin: 10/23/16 10:16 Dose: 400 mg Non-Formulary Medication (Ferrous Fumarate [Manju-Sequel]) 1 tab PO DAILY [facility] Pantoprazole Sodium (Protonix Ec Tab) 40 mg PO 0630 [facility] Last Admin: 10/23/16 05:37 Dose: 40 mg Potassium Chloride (K-Dur 20 Meq Er Tab) 20 meq PO DAILY [facility] Last Admin: 10/23/16 10:15 Dose: 20 meq Rifaximin (Xifaxan) 550 mg PO BID [facility] PRN Reason: Protocol Last Admin: 10/23/16 10:17 Dose: 550 mg Spironolactone (Aldactone) 50 mg PO DAILY [facility] Last Admin: 10/23/16 10:15 Dose: 50 mg Physical Exam - Constitutional Appears: Non-toxic, No Acute Distress - Head Exam Head Exam: NORMAL INSPECTION - ENT Exam ENT Exam: Mucous Membranes Moist - Neck Exam Neck exam: Negative for: Lymphadenopathy, Meningismus - Respiratory Exam Respiratory Exam: Decreased Breath Sounds - Cardiovascular Exam Cardiovascular Exam: +S1, +S2 - GI/Abdominal Exam GI & Abdominal Exam: Soft. absent: Tenderness Results - Vital Signs Recent Vital Signs: Last Vital Signs Temp 98.3 F 10/23/16 10:00 Pulse 70 10/23/16 10:17 Resp 18 10/23/16 10:00 BP 121/58 L 10/23/16 10:17 Pulse Ox 99 10/23/16 05:55 Assessment & Plan - Assessment and Plan (Free Text) Plan: Assessment Sepsis secondary to Klebsiella UTI history of urinary tract infection with Citrobacter and Enterobacter, S/P treatment and clinically better history of E. faecium UTI history of healthcare-associated pneumonia history of chronic thrombocytopenia history of urinary tract infection with ESBL E. coli S/P UTI with Hafnei alvei Myelodysplastic syndrome DM HTN Hypothyroidism history of right hip surgery S/P cholecystectomy liver cirrhosis GERD Plan continue Merrem day 4; patient is refusing renal ultrasound; would target at least 7-10 days of antibiotics Will continue to follow clinically
[2016-10-24] MEDS: Meropenem 1g/NS 100mL IVPB 100 ML IVPB SCH ×2 (05:32→17:22)
[2016-10-24] MEDS: Pantoprazole 40 mg EC Tab PO SCH (05:33)
[2016-10-24] MEDS: Levothyroxine 75 MCG TAB PO SCH (05:33)
[2016-10-24] MEDS: Potassium Chloride 20 mEq ER Tab PO SCH (10:42)
[2016-10-24] MEDS: Magnesium Oxide 400 mg Tab UD PO SCH ×2 (10:43→17:22)
--- NOTE | 2016-10-24 13:19 | CP.PCM.PN ---
Subjective - Date & Time of Evaluation Date of Evaluation: 10/24/16 Time of Evaluation: 11:55 - Subjective Subjective: Comfortable in bed, not in distress, no fevers overnight, no diarrhea. Objective - Vital Signs/Intake and Output Vital Signs (last 24 hours): Temp Pulse Resp BP Pulse Ox 97.4 F L 70 20 104/48 L 96 10/23/16 17:00 10/23/16 17:00 10/23/16 17:00 10/24/16 11:00 10/23/16 17:00 - Medications Medications: Current Medications Acetaminophen (Tylenol 325mg Tab) 650 mg PO Q6H PRN PRN Reason: Fever >100.4 F Furosemide (Lasix) 20 mg PO DAILY [facility] Last Admin: 10/24/16 11:00 Dose: 20 mg Meropenem 1g/NS 100mL IVPB (Meropenem 1g/Ns 100ml Ivpb) 100 mls @ 100 mls/hr IVPB 0600,1800 [facility] PRN Reason: Protocol Stop: 11/01/16 06:01 Last Admin: 10/24/16 05:32 Dose: 100 mls/hr Lactulose (Enulose) 20 gm PO HS [facility] Last Admin: 10/23/16 23:27 Dose: Not Given Levothyroxine Sodium (Synthroid) 75 mcg PO 0630 [facility] Last Admin: 10/24/16 05:33 Dose: 75 mcg Lisinopril (Zestril) 10 mg PO DAILY [facility] Last Admin: 10/24/16 11:00 Dose: Not Given Magnesium Oxide (Mag-Ox) 400 mg PO BID [facility] Last Admin: 10/24/16 10:43 Dose: 400 mg Non-Formulary Medication (Ferrous Fumarate [Manju-Sequel]) 1 tab PO DAILY [facility] Last Admin: 10/23/16 17:18 Dose: Not Given Pantoprazole Sodium (Protonix Ec Tab) 40 mg PO 0630 [facility] Last Admin: 10/24/16 05:33 Dose: 40 mg Potassium Chloride (K-Dur 20 Meq Er Tab) 20 meq PO DAILY [facility] Last Admin: 10/24/16 10:42 Dose: 20 meq Rifaximin (Xifaxan) 550 mg PO BID [facility] PRN Reason: Protocol Last Admin: 10/24/16 10:44 Dose: 550 mg Spironolactone (Aldactone) 50 mg PO DAILY [facility] Last Admin: 10/24/16 10:42 Dose: 50 mg - Constitutional Appears: Non-toxic, No Acute Distress - Head Exam Head Exam: NORMAL INSPECTION - ENT Exam ENT Exam: Mucous Membranes Moist - Neck Exam Neck Exam: absent: Lymphadenopathy, Meningismus - Respiratory Exam Respiratory Exam: Decreased Breath Sounds - Cardiovascular Exam Cardiovascular Exam: +S1, +S2 - GI/Abdominal Exam GI & Abdominal Exam: Soft. absent: Tenderness Assessment and Plan - Assessment and Plan (Free Text) Plan: Assessment Sepsis secondary to Klebsiella UTI, slowly improving history of urinary tract infection with Citrobacter and Enterobacter, S/P treatment and clinically better history of E. faecium UTI history of healthcare-associated pneumonia history of chronic thrombocytopenia history of urinary tract infection with ESBL E. coli S/P UTI with Hafnei alvei Myelodysplastic syndrome DM HTN Hypothyroidism history of right hip surgery S/P cholecystectomy liver cirrhosis GERD Plan continue Merrem day 5; patient is refusing renal ultrasound; would target at least 7-10 days of antibiotics Will continue to follow clinically
[2016-10-25] MEDS: Levothyroxine 75 MCG TAB PO SCH (05:45)
[2016-10-25] MEDS: Pantoprazole 40 mg EC Tab PO SCH (05:45)
[2016-10-25] MEDS: Meropenem 1g/NS 100mL IVPB 100 ML IVPB SCH ×2 (05:46→17:40)
[2016-10-25 07:46] LABS: ADD MANUAL DIFF? NO
[2016-10-25 07:49] LABS: BASO # 0.01 K/mm3 (0.0-2.0); BASO % 0.3 % (0.0-3.0); EOS # 0.1 (0.0-0.7); EOS % 2.9 % (1.5-5.0); GRAN # 1.51 (1.4-6.5); GRAN % 49.4 % (50.0-68.0); LYMPH # 1.2 (1.2-3.4); LYMPH % 37.6 % (22.0-35.0); MEAN CELL VOLUME 90.7 fL (80.0-105.0); MEAN CORPUSCULAR HGB CONC 34.2 g/dl (31.0-37.0); MEAN PLATELET VOLUME 11.9 fl (7.0-11.0); MONO # 0.3 (0.1-0.6); MONO % 9.8 % (1.0-6.0); PLATELET COUNT 50 10^3/uL (120.0-450.0); RED CELL DISTRIBUTION WIDTH 15.4 % (11.5-14.5); WHITE BLOOD COUNT 3.1 10^3/ul (4.5-11.0)
[2016-10-25 08:09] LABS: ALB/GLOB RATIO 0.6 (1.1-1.8); ALKALINE PHOSPHATASE 109 U/L (38-133); ALT/SGPT 43 U/L (7-56); AST/SGOT 48 U/L (15-39); BILIRUBIN,TOTAL 0.5 mg/dL (0.2-1.3); BLOOD UREA NITROGEN 24 mg/dL (7-21); CALCIUM 8.1 mg/dL (8.4-10.5); CARBON DIOXIDE 24 mmol/L (21-33); CHLORIDE 113 mmol/L (95-110); GFR AFRICAN-AMERICAN > 60; GLUCOSE,RANDOM 86 mg/dL (70-110); HEMATOCRIT 22.5 % (36.0-48.0); MAGNESIUM 1.5 mg/dL (1.7-2.2); POTASSIUM 4.9 mmol/L (3.6-5.0); SODIUM 144 mmol/L (132-148); TOTAL PROTEIN 6.4 g/dL (5.8-8.3)
[2016-10-25] MEDS: Potassium Chloride 20 mEq ER Tab PO SCH (10:34)
[2016-10-25] MEDS: Magnesium Oxide 400 mg Tab UD PO SCH ×2 (10:34→17:39)
[2016-10-25 12:37] LABS: HEMATOCRIT 22.6 % (36.0-48.0)
--- NOTE | 2016-10-25 13:04 | PN ---
DATE: 10/25/2016 The patient is an 86-year-old, seen and examined, very uncomfortable because complained of perineal i tch, burning. Does not want blood transfusion. She states "why I have to take it". Although her he moglobin was found to be low 7.7, that is being repeated just to exclude the lab error. PHYSICAL EXAMINATION: VITAL SIGNS: She is afebrile, pulse 70, respirations 18, blood pressure 123/48. LUNGS: Bilateral fair airflow, no rhonchi or crackle. HEART: S1, S2 audible. ABDOMEN: Soft, obese, nontender, no rebound, no guarding. NEUROLOGIC: The patient is awake and alert, communicative, moves all extremities. EXTREMITIES: Bilateral legs +2 edema. LABORATORY EXAMINATION: WBCs 3.1, hemoglobin 7.7, hematocrit 22.5, a repeat one is 7.7 with 22.6 of hematocrit. Chemistry: Sodium 144, potassium 4.9, chloride 113, CO2 24, BUN 24, creatinine 0.9, blo od sugar of 86, magnesium 1.5, calcium 8.1. ASSESSMENT: 1. Pancytopenia. 2. Symptomatic anemia. 3. Hypertension. 4. Hyperlipidemia. 5. Electrolyte imbalance. PLAN: We will continue patient on ferrous sulfate. We can increase her Aldactone to 50 b.i.d. and c an discontinue K-Dur. She will get 2 blood transfusions. Daughter by the bedside, who agreed for it and signed the consent, who is power of district attorney. Kamaljit Pena MD cc: [phone] TT: 10/25/2016 13:03:26 Confirmation # [id number] Dictation # [id number] en
--- NOTE | 2016-10-25 21:41 | CP.PCM.PN ---
Subjective - Date & Time of Evaluation Date of Evaluation: 10/25/16 Time of Evaluation: 11:20 - Subjective Subjective: Comfortable in bed, not in distress, afebrile. Objective - Vital Signs/Intake and Output Vital Signs (last 24 hours): Temp Pulse Resp BP Pulse Ox 98.2 F 67 18 123/67 100 10/25/16 16:00 10/25/16 16:00 10/25/16 16:00 10/25/16 16:00 10/25/16 16:00 Intake and Output: 10/25/16 10/26/16 18:59 06:59 Intake Total 420 Balance 420 - Medications Medications: Current Medications Acetaminophen (Tylenol 325mg Tab) 650 mg PO Q6H PRN PRN Reason: Fever >100.4 F Furosemide (Lasix) 20 mg PO DAILY [facility] Last Admin: 10/25/16 10:34 Dose: Not Given Meropenem 1g/NS 100mL IVPB (Meropenem 1g/Ns 100ml Ivpb) 100 mls @ 100 mls/hr IVPB 0600,1800 [facility] PRN Reason: Protocol Stop: 11/01/16 06:01 Last Admin: 10/25/16 17:40 Dose: 100 mls/hr Lactulose (Enulose) 20 gm PO HS [facility] Last Admin: 10/24/16 21:46 Dose: 20 gm Levothyroxine Sodium (Synthroid) 75 mcg PO 0630 [facility] Last Admin: 10/25/16 05:45 Dose: 75 mcg Lisinopril (Zestril) 10 mg PO DAILY [facility] Last Admin: 10/25/16 10:34 Dose: 10 mg Magnesium Oxide (Mag-Ox) 400 mg PO BID [facility] Last Admin: 10/25/16 17:39 Dose: 400 mg Non-Formulary Medication (Ferrous Fumarate [Manju-Sequel]) 1 tab PO DAILY [facility] Last Admin: 10/23/16 17:18 Dose: Not Given Pantoprazole Sodium (Protonix Ec Tab) 40 mg PO 0630 [facility] Last Admin: 10/25/16 05:45 Dose: 40 mg Potassium Chloride (K-Dur 20 Meq Er Tab) 20 meq PO DAILY [facility] Last Admin: 10/25/16 10:34 Dose: 20 meq Rifaximin (Xifaxan) 550 mg PO BID [facility] PRN Reason: Protocol Last Admin: 10/25/16 17:40 Dose: 550 mg Spironolactone (Aldactone) 50 mg PO BID [facility] Last Admin: 10/25/16 17:39 Dose: 50 mg - Labs Labs: 10/25/16 11:59 10/25/16 07:30 - Constitutional Appears: Non-toxic, No Acute Distress - Head Exam Head Exam: NORMAL INSPECTION - ENT Exam ENT Exam: Mucous Membranes Moist - Neck Exam Neck Exam: absent: Lymphadenopathy, Meningismus - Respiratory Exam Respiratory Exam: Decreased Breath Sounds - Cardiovascular Exam Cardiovascular Exam: +S1, +S2 - GI/Abdominal Exam GI & Abdominal Exam: Soft. absent: Tenderness Assessment and Plan - Assessment and Plan (Free Text) Plan: Assessment Sepsis secondary to Klebsiella UTI, slowly improving history of urinary tract infection with Citrobacter and Enterobacter, S/P treatment and clinically better history of E. faecium UTI history of healthcare-associated pneumonia history of chronic thrombocytopenia history of urinary tract infection with ESBL E. coli S/P UTI with Hafnei alvei Myelodysplastic syndrome DM HTN Hypothyroidism history of right hip surgery S/P cholecystectomy liver cirrhosis GERD Plan continue Merrem day 6; patient is refusing renal ultrasound; would continue to target at least 7-10 days of antibiotics Will continue to follow clinically
[2016-10-26] MEDS: Potassium Chloride 20 mEq ER Tab PO SCH (10:01)
[2016-10-26] MEDS: Magnesium Oxide 400 mg Tab UD PO SCH ×2 (10:02→17:24)
--- NOTE | 2016-10-26 10:53 | CP.PCM.PN ---
Subjective - Date & Time of Evaluation Date of Evaluation: 10/26/16 Time of Evaluation: 10:53 - Subjective Subjective: pt needs angiocath insertion . Objective - Vital Signs/Intake and Output Vital Signs (last 24 hours): Temp Pulse Resp BP Pulse Ox 98.2 F 67 18 123/67 100 10/25/16 16:00 10/25/16 16:00 10/25/16 16:00 10/25/16 16:00 10/25/16 16:00 - Medications Medications: Current Medications Acetaminophen (Tylenol 325mg Tab) 650 mg PO Q6H PRN PRN Reason: Fever >100.4 F Furosemide (Lasix) 20 mg PO DAILY [facility] Last Admin: 10/25/16 10:34 Dose: Not Given Meropenem 1g/NS 100mL IVPB (Meropenem 1g/Ns 100ml Ivpb) 100 mls @ 100 mls/hr IVPB 0600,1800 [facility] PRN Reason: Protocol Stop: 11/01/16 06:01 Last Admin: 10/25/16 17:40 Dose: 100 mls/hr Lactulose (Enulose) 20 gm PO HS [facility] Last Admin: 10/25/16 21:33 Dose: Not Given Levothyroxine Sodium (Synthroid) 75 mcg PO 0630 [facility] Last Admin: 10/25/16 05:45 Dose: 75 mcg Lisinopril (Zestril) 10 mg PO DAILY [facility] Last Admin: 10/25/16 10:34 Dose: 10 mg Magnesium Oxide (Mag-Ox) 400 mg PO BID [facility] Last Admin: 10/25/16 17:39 Dose: 400 mg Non-Formulary Medication (Ferrous Fumarate [Manju-Sequel]) 1 tab PO DAILY [facility] Last Admin: 10/23/16 17:18 Dose: Not Given Pantoprazole Sodium (Protonix Ec Tab) 40 mg PO 0630 [facility] Last Admin: 10/25/16 05:45 Dose: 40 mg Potassium Chloride (K-Dur 20 Meq Er Tab) 20 meq PO DAILY [facility] Last Admin: 10/25/16 10:34 Dose: 20 meq Rifaximin (Xifaxan) 550 mg PO BID [facility] PRN Reason: Protocol Last Admin: 10/25/16 17:40 Dose: 550 mg Spironolactone (Aldactone) 50 mg PO BID [facility] Last Admin: 10/25/16 17:39 Dose: 50 mg - Labs Labs: 10/25/16 11:59 10/25/16 07:30 Assessment and Plan - Assessment and Plan (Free Text) Assessment: 22 guage angiocath inserted in rt arm.
[2016-10-26] MEDS: Meropenem 1g/NS 100mL IVPB 100 ML IVPB SCH (17:25)
--- NOTE | 2016-10-26 19:07 | CP.PCM.PN ---
Subjective - Date & Time of Evaluation Date of Evaluation: 10/26/16 Time of Evaluation: 12:30 - Subjective Subjective: Comfortable in bed, afebrile, not in distress. Objective - Vital Signs/Intake and Output Vital Signs (last 24 hours): Temp Pulse Resp BP Pulse Ox 98 F 60 18 141/52 L 97 10/26/16 10:00 10/26/16 10:02 10/26/16 10:00 10/26/16 10:02 10/26/16 10:00 - Medications Medications: Current Medications Acetaminophen (Tylenol 325mg Tab) 650 mg PO Q6H PRN PRN Reason: Fever >100.4 F Furosemide (Lasix) 20 mg PO DAILY [facility] Last Admin: 10/26/16 10:01 Dose: 20 mg Meropenem 1g/NS 100mL IVPB (Meropenem 1g/Ns 100ml Ivpb) 100 mls @ 100 mls/hr IVPB 0600,1800 [facility] PRN Reason: Protocol Stop: 11/01/16 06:01 Last Admin: 10/26/16 17:25 Dose: 100 mls/hr Lactulose (Enulose) 20 gm PO HS [facility] Last Admin: 10/25/16 21:33 Dose: Not Given Levothyroxine Sodium (Synthroid) 75 mcg PO 0630 [facility] Last Admin: 10/25/16 05:45 Dose: 75 mcg Lisinopril (Zestril) 10 mg PO DAILY [facility] Last Admin: 10/26/16 10:02 Dose: 10 mg Magnesium Oxide (Mag-Ox) 400 mg PO BID [facility] Last Admin: 10/26/16 17:24 Dose: 400 mg Non-Formulary Medication (Ferrous Fumarate [Manju-Sequel]) 1 tab PO DAILY [facility] Last Admin: 10/23/16 17:18 Dose: Not Given Pantoprazole Sodium (Protonix Ec Tab) 40 mg PO 0630 [facility] Last Admin: 10/25/16 05:45 Dose: 40 mg Potassium Chloride (K-Dur 20 Meq Er Tab) 20 meq PO DAILY [facility] Last Admin: 10/26/16 10:01 Dose: 20 meq Rifaximin (Xifaxan) 550 mg PO BID [facility] PRN Reason: Protocol Last Admin: 10/26/16 17:25 Dose: 550 mg Spironolactone (Aldactone) 50 mg PO BID [facility] Last Admin: 10/26/16 17:24 Dose: 50 mg - Labs Labs: 10/25/16 11:59 10/25/16 07:30 - Constitutional Appears: Non-toxic, No Acute Distress - Head Exam Head Exam: NORMAL INSPECTION - Respiratory Exam Respiratory Exam: Decreased Breath Sounds - Cardiovascular Exam Cardiovascular Exam: +S1, +S2 - GI/Abdominal Exam GI & Abdominal Exam: Soft. absent: Tenderness Assessment and Plan - Assessment and Plan (Free Text) Plan: Assessment Sepsis secondary to Klebsiella UTI, slowly improving history of urinary tract infection with Citrobacter and Enterobacter, S/P treatment and clinically better history of E. faecium UTI history of healthcare-associated pneumonia history of chronic thrombocytopenia history of urinary tract infection with ESBL E. coli S/P UTI with Hafnei alvei Myelodysplastic syndrome DM HTN Hypothyroidism history of right hip surgery S/P cholecystectomy liver cirrhosis GERD Plan continue Merrem day 7; patient is refusing renal ultrasound; would continue to target at least 7-10 days of antibiotics Will continue to follow clinically
--- NOTE | 2016-10-26 19:49 | PN ---
DATE: 10/26/2016 HISTORY OF PRESENT ILLNESS: The patient is an 86-year-old, seen and examined, lying in bed. She see ms to be comfortable. No more residual or urinary discomfort. [facility] PHYSICAL EXAMINATION: VITAL SIGNS: She is afebrile, pulse 60, respirations 18, blood pressure 141/52. LUNGS: Bilateral fair airflow, no rhonchi or crackles. HEART: S1, S2 audible. ABDOMEN: Soft, nontender, no rebound, no guarding. NEUROLOGIC: The patient is awake and alert, communicative. LABORATORY DATA: There is no new lab available today. ASSESSMENT: 1. Pancytopenia. 2. Escherichia coli urinary tract infection. 3. Klebsiella pneumoniae urinary tract infection. 4. Pancytopenia. 5. Myelodysplastic syndrome. 6. Electrolyte imbalance. PLAN: Will continue patient on current medical treatment. Continue her on spironolactone, magnesium oxide, potassium. She is receiving meropenem. She is on levothyroxine and . She has a histor y of hepatic encephalopathy. The patient does not like getting poked, so I will hold for blood work for tomorrow. Will order Chem-7 and CBC for day after tomorrow. Kamaljit Pena MD cc: [phone] TT: 10/26/2016 19:48:55 Confirmation # [id number] Dictation # [id number] dn
[2016-10-27] MEDS: Meropenem 1g/NS 100mL IVPB 100 ML IVPB SCH ×3 (05:51→18:28)
[2016-10-27] MEDS: Levothyroxine 75 MCG TAB PO SCH (05:52)
[2016-10-27] MEDS: Pantoprazole 40 mg EC Tab PO SCH (05:52)
[2016-10-27] MEDS ORDERED: FERROUS FUMARATE PO SCH (08:00)
[2016-10-27] MEDS: Potassium Chloride 20 mEq ER Tab PO SCH (10:10)
[2016-10-27] MEDS: Magnesium Oxide 400 mg Tab UD PO SCH ×2 (10:11→18:24)
--- NOTE | 2016-10-27 19:56 | PN ---
DATE: 10/27/2016 SUBJECTIVE: The patient is an 86-year-old, seen and examined, sitting in chair, was upset about yest noemy's incident. She had to wait too long to get blood transfusion, however, she is doing well. PHYSICAL EXAMINATION: VITAL SIGNS: She is afebrile, pulse 71, respirations 15, blood pressure 126/55. LUNGS: Bilateral good airflow, no rhonchi or crackle. HEART: S1, S2 audible. ABDOMEN: Soft, obese, nontender, no rebound, no guarding. NEUROLOGIC: The patient is awake and alert, communicative. EXTREMITIES: Bilateral legs +2 edema. ASSESSMENT: 1. Pancytopenia. 2. Myelodysplastic syndrome. 3. Hypertension. 4. Electrolyte imbalance. PLAN: Today is day #8 of her antibiotic that she will be finishing course of 10 days on Tuesday and s he can be discharged home on either Tuesday or Tuesday. The patient also has a history of hepatic en cephalopathy and autoimmune hepatitis. Will order for CBC and CMP in a.m. and make further recommend ations after we get the results. Kamaljit Pena MD cc: [phone] TT: 10/27/2016 19:55:25 Confirmation # [id number] Dictation # [id number] kwame
--- NOTE | 2016-10-27 23:11 | CP.PCM.PN ---
Subjective - Date & Time of Evaluation Date of Evaluation: 10/27/16 Time of Evaluation: 14:20 - Subjective Subjective: Comfortable, afebrile, not in distress. Objective - Vital Signs/Intake and Output Vital Signs (last 24 hours): Temp Pulse Resp BP Pulse Ox 98.2 F 71 15 126/55 L 99 10/27/16 16:00 10/27/16 16:00 10/27/16 16:00 10/27/16 16:00 10/27/16 16:00 - Medications Medications: Current Medications Acetaminophen (Tylenol 325mg Tab) 650 mg PO Q6H PRN PRN Reason: Fever >100.4 F Furosemide (Lasix) 20 mg PO DAILY [facility] Last Admin: 10/27/16 10:10 Dose: 20 mg Meropenem 1g/NS 100mL IVPB (Meropenem 1g/Ns 100ml Ivpb) 100 mls @ 100 mls/hr IVPB 0600,1800 [facility] PRN Reason: Protocol Stop: 11/01/16 06:01 Last Admin: 10/27/16 18:28 Dose: 100 mls/hr Lactulose (Enulose) 20 gm PO HS [facility] Last Admin: 10/27/16 21:58 Dose: Not Given Levothyroxine Sodium (Synthroid) 75 mcg PO 0630 [facility] Last Admin: 10/27/16 05:52 Dose: 75 mcg Lisinopril (Zestril) 10 mg PO DAILY [facility] Last Admin: 10/27/16 10:11 Dose: Not Given Magnesium Oxide (Mag-Ox) 400 mg PO BID [facility] Last Admin: 10/27/16 18:24 Dose: 400 mg Non-Formulary Medication (Ferrous Fumarate [Manju-Sequel]) 1 tab PO 0800 [facility] Pantoprazole Sodium (Protonix Ec Tab) 40 mg PO 0630 [facility] Last Admin: 10/27/16 05:52 Dose: 40 mg Potassium Chloride (K-Dur 20 Meq Er Tab) 20 meq PO DAILY [facility] Last Admin: 10/27/16 10:10 Dose: 20 meq Rifaximin (Xifaxan) 550 mg PO BID [facility] PRN Reason: Protocol Last Admin: 10/27/16 18:25 Dose: 550 mg Spironolactone (Aldactone) 50 mg PO BID [facility] Last Admin: 10/27/16 18:23 Dose: 50 mg - Labs Labs: 10/25/16 11:59 10/25/16 07:30 - Constitutional Appears: Non-toxic, No Acute Distress - Head Exam Head Exam: NORMAL INSPECTION - ENT Exam ENT Exam: Mucous Membranes Moist - Neck Exam Neck Exam: absent: Lymphadenopathy, Meningismus - Respiratory Exam Respiratory Exam: Decreased Breath Sounds - Cardiovascular Exam Cardiovascular Exam: +S1, +S2 - GI/Abdominal Exam GI & Abdominal Exam: Soft. absent: Tenderness Assessment and Plan - Assessment and Plan (Free Text) Plan: Assessment Sepsis secondary to Klebsiella UTI, slowly improving history of urinary tract infection with Citrobacter and Enterobacter, S/P treatment and clinically better history of E. faecium UTI history of healthcare-associated pneumonia history of chronic thrombocytopenia history of urinary tract infection with ESBL E. coli S/P UTI with Hafnei alvei Myelodysplastic syndrome DM HTN Hypothyroidism history of right hip surgery S/P cholecystectomy liver cirrhosis GERD Plan continue Merrem day 8; patient is refusing renal ultrasound; should complete 7- 10 days of antibiotics Will continue to follow clinically
[2016-10-28] MEDS: Meropenem 1g/NS 100mL IVPB 100 ML IVPB SCH ×2 (05:30→17:16)
[2016-10-28] MEDS: Pantoprazole 40 mg EC Tab PO SCH (05:31)
[2016-10-28] MEDS: Levothyroxine 75 MCG TAB PO SCH (05:32)
[2016-10-28 07:03] LABS: ADD MANUAL DIFF? NO
[2016-10-28 07:18] LABS: BASO # 0.02 K/mm3 (0.0-2.0); BASO % 0.6 % (0.0-3.0); EOS # 0.1 (0.0-0.7); EOS % 2.5 % (1.5-5.0); GRAN # 1.89 (1.4-6.5); GRAN % 52.5 % (50.0-68.0); LYMPH # 1.2 (1.2-3.4); LYMPH % 33.6 % (22.0-35.0); MEAN CELL VOLUME 89.6 fL (80.0-105.0); MEAN CORPUSCULAR HEMOGLOBIN 29.8 pg (25.0-35.0); MEAN CORPUSCULAR HGB CONC 33.2 g/dl (31.0-37.0); MEAN PLATELET VOLUME 13.3 fl (7.0-11.0); MONO # 0.4 (0.1-0.6); MONO % 10.8 % (1.0-6.0); PLATELET COUNT 43 10^3/uL (120.0-450.0); RED CELL DISTRIBUTION WIDTH 16.3 % (11.5-14.5); WHITE BLOOD COUNT 3.6 10^3/ul (4.5-11.0)
[2016-10-28 07:41] LABS: ALB/GLOB RATIO 0.6 (1.1-1.8); BILIRUBIN,TOTAL 1.1 mg/dL (0.2-1.3); CALCIUM 8.2 mg/dL (8.4-10.5); POTASSIUM 5.4 mmol/L (3.6-5.0); TOTAL PROTEIN 6.9 g/dL (5.8-8.3)
[2016-10-28] MEDS: Potassium Chloride 20 mEq ER Tab PO SCH (09:50)
[2016-10-28] MEDS: Magnesium Oxide 400 mg Tab UD PO SCH ×2 (09:52→17:09)
--- NOTE | 2016-10-28 18:29 | PN ---
DATE: 10/28/2016 SUBJECTIVE: The patient is an 86-year-old, seen and examined, lying in bed, seems to be comfortable. PHYSICAL EXAMINATION: VITAL SIGNS: The patient is afebrile, pulse 68, respirations 14, blood pressure 138/63. LUNGS: Bilateral good airflow, no rhonchi or crackle. HEART: S1, S2 audible. ABDOMEN: Soft, obese, nontender, no rebound, no guarding. NEUROLOGIC: She is awake and alert, communicative, moves all extremities. EXTREMITIES: Bilateral leg +4 edema. LABORATORY EXAMINATION: WBC is 3.6, hemoglobin 10.3, hematocrit 31.0, platelet of 43. Chemistry: S odium 141, potassium 5.4, chloride 112, CO2 24, BUN 25, creatinine 1.1, blood sugar of 47. ASSESSMENT: 1. Pancytopenia. 2. Myelodysplastic syndrome. 3. Recurrent urinary tract infection. 4. History of Escherichia coli urinary tract infection. 5. Electrolyte imbalance. 6. Hypokalemia . 7. Hypothyroidism. PLAN: Continue antibiotic as recommended by ID. I will hold her spironolactone for now and continue her on Xifaxan, lisinopril, meropenem and will follow up electrolyte and CBC intermittently. Kamaljit Pena MD cc: [phone] TT: 10/28/2016 18:28:42 Confirmation # [id number] Dictation # [id number] cn
--- NOTE | 2016-10-28 22:30 | PN ---
DATE: 10/28/2016 The patient is in bed, no acute distress, nontoxic, was seen earlier today in room 321. PHYSICAL EXAMINATION: VITAL SIGNS: Temperature is 97, blood pressure is 130/60, respiratory rate of 16. HEENT: Unremarkable. NECK: Supple. LUNGS: Have decreased breath sounds. HEART: Normal S1, S2. ABDOMEN: Soft, nontender. LABORATORY DATA: Reveals the patient to have a white count of 3.6, hemoglobin of 10. Chemistries re veal the BUN of 25, creatinine of 1.1. ASSESSMENT AND PLAN: This is an 86-year-old who was seen earlier this morning in room 321 with sepsi s secondary to Klebsiella urinary tract infection, slowly improving, history of urinary tract infecti on with citrobacter enterobacter, currently on meropenem day #9. Would complete 7-10 days. Review o f the orders reveals the patient's meropenem to be active. Arden Byrne MD cc: [id number] TT: 10/28/2016 22:28:34 Confirmation # [id number] Dictation # [id number] umer
[2016-10-29] MEDS: Levothyroxine 75 MCG TAB PO SCH (05:31)
[2016-10-29] MEDS: Pantoprazole 40 mg EC Tab PO SCH (05:31)
[2016-10-29] MEDS: Meropenem 1g/NS 100mL IVPB 100 ML IVPB SCH (05:32)
[2016-10-29] MEDS: Potassium Chloride 20 mEq ER Tab PO SCH (10:38)
[2016-10-29] MEDS: Magnesium Oxide 400 mg Tab UD PO SCH ×2 (10:40→18:14)
[2016-10-29 16:04] VITALS: RESP 18; O2SAT 100
--- NOTE | 2016-10-29 18:13 | PN ---
DATE: 10/29/2016 SUBJECTIVE: The patient is an 86-year-old, seen and examined, lying in bed, seems to be comfortable, eating and tolerating. No nausea, vomiting, no diarrhea. PHYSICAL EXAMINATION: VITAL SIGNS: She is afebrile, pulse 70, respirations 18, blood pressure . LUNGS: Bilateral fair airflow, no rhonchi or crackle. HEART: S1, S2 audible. ABDOMEN: Soft, obese, nontender, no rebound, no guarding. NEUROLOGIC: The patient is awake and alert, communicative, moves all extremities. EXTREMITIES: Bilateral leg +1 edema. LABORATORY EXAMINATION: There is no new lab available today. ASSESSMENT: 1. Pancytopenia. 2. Klebsiella pneumoniae urinary tract infection, symptoms resolving. 3. Hypertension. 4. Autoimmune hepatitis. 5. Multiple admissions for hepatic encephalopathy. PLAN: We are going to discontinue meropenem after tonight's dose. We will continue on small dose of Lasix and iron supplementation. She takes lactulose at night. Continue her on Synthroid. . Kamaljit Pena MD cc: [phone] TT: 10/29/2016 18:12:52 Confirmation # [id number] Dictation # [id number] dn
--- NOTE | 2016-10-29 19:32 | PN ---
DATE: 10/29/2016 The patient is in bed in no acute distress, nontoxic, was seen earlier today. PHYSICAL EXAMINATION: VITAL SIGNS: Temperature is 98, blood pressure is 140/70, respiratory rate of 16. HEENT: Unremarkable. NECK: Supple. LUNGS: Decreased breath sounds. HEART: Normal S1, S2. ABDOMEN: Soft, nontender. LABORATORY DATA: Reveals a white count of 3.6, hemoglobin of 10, platelets of 43. Chemistries are B UN of 25, creatinine of 1.1. ASSESSMENT AND PLAN: An 86-year-old with sepsis, secondary to Klebsiella urinary tract infection, im proving, with a history of Citrobacter urinary tract infection, currently on day #10 meropenem. Revi ew of the orders reveals the patient's meropenem is now. Has completed adequate therapy. Arden Byrne MD cc: [phone] TT: 10/29/2016 19:31:58 Confirmation # [id number] Dictation # [id number] kwame
[2016-10-30] MEDS: Levothyroxine 75 MCG TAB PO SCH (05:49)
[2016-10-30] MEDS: Pantoprazole 40 mg EC Tab PO SCH (05:49)
[2016-10-30] MEDS: Magnesium Oxide 400 mg Tab UD PO SCH (10:04)
[2016-10-30 10:05] VITALS: BP 121/58
[2016-10-30 12:29] VITALS: PULSE 76; TEMP 98
--- NOTE | 2016-10-30 18:00 | PN ---
DATE: 10/30/2016 SUBJECTIVE: The patient seen earlier today in room 321, bed 1. The patient is awake and alert, doin g well and wants to be discharged today. PHYSICAL EXAMINATION: VITAL SIGNS: Temperature is 98, blood pressure is 120/50, respiratory rate of 16. HEENT: Unremarkable. NECK: Supple. LUNGS: Have decreased breath sounds. HEART: Normal S1, S2. ABDOMEN: Soft. LABORATORY DATA: Reveals the patient's white count of 3.6. Chemistries: BUN of 25, creatinine of 1 .1. Cultures are reviewed. ASSESSMENT AND PLAN: She is an 86-year-old female who was seen earlier this morning in transitional care with Klebsiella urinary tract infection that has resolved and has completed 10 days of meropenem , currently off of antibiotics, for discharge today. Long-term prognosis is poor. Arden Byrne MD cc: 350 TT: 10/30/2016 17:59:56 Confirmation # [id number] Dictation # [id number] [email or web address]
--- NOTE | 2016-10-30 22:51 | DS ---
The patient is an 86-year-old, known to me from multiple previous admissions, came in with nausea, vo miting, diarrhea, fever, chills, vaginal burning; she was found to have Klebsiella urinary tract infe ction with multidrug resistant. She was given initially meropenem and then she was transferred to [facility] to complete her course of antibiotics. PHYSICAL EXAMINATION: GENERAL: The patient is awake and alert, communicative. VITAL SIGNS: The patient is afebrile. Pulse 76, respirations 18, blood pressure 121/50. LUNGS: Bilateral good airflow, no rhonchi or crackle. HEART: S1, S2 audible. No murmur. ABDOMEN: Soft, obese, nontender, no rebound, no guarding. NEUROLOGIC: She is awake and alert, communicative. Moves all extremities. EXTREMITIES: Bilateral leg +1 edema. ASSESSMENT: 1. Multidrug resistant Klebsiella urinary tract infection. 2. Myelodysplastic syndrome. 3. Pancytopenia. 4. Autoimmune hepatitis. 5. Status post multiple admissions for hepatic encephalopathy. PLAN: The patient is being discharged home. She finished her course of antibiotic. Her lisinopril has been discontinued. We will continue on cephalexin, lactulose, magnesium oxide, levothyroxine and will follow her up as outpatient. Kamaljit Pena MD cc: [phone] TT: 10/30/2016 22:50:51 wa
== END 2016-10-30 12:57 | disposition home or self-care (01) | DRG 872 ==
LOC: TRCU 20:17
PROVIDERS: ADMIT Internal Medicine; ATTEND Internal Medicine
PROC: F07Z9FZ Gait Training/Functional Ambulation Treatment using Assistive, Adaptive, Supportive or Protective Equipment (ICD-10-PCS; principal; 2016-10-23)
PROC: F07M6ZZ Therapeutic Exercise Treatment of Musculoskeletal System - Whole Body (ICD-10-PCS; 2016-10-23)
PROC: F08Z2ZZ Grooming/Personal Hygiene Treatment (ICD-10-PCS; 2016-10-27)
DX: A41.59 Other Gram-negative sepsis (principal); L89.152 Pressure ulcer of sacral region, stage 2; D61.818 Other pancytopenia; E11.22 Type 2 diabetes mellitus with diabetic chronic kidney disease; E87.8 Other disorders of electrolyte and fluid balance, not elsewhere classified; K50.90 Crohn's disease, unspecified, without complications; D69.6 Thrombocytopenia, unspecified; N39.0 Urinary tract infection, site not specified; K57.92 Diverticulitis of intestine, part unspecified, without perforation or abscess without bleeding; E66.01 Morbid (severe) obesity due to excess calories; K74.60 Unspecified cirrhosis of liver; D46.9 Myelodysplastic syndrome, unspecified; I12.9 Hypertensive chronic kidney disease with stage 1 through stage 4 chronic kidney disease, or unspecified chronic kidney disease; K75.4 Autoimmune hepatitis; B96.20 Unspecified Escherichia coli [E. coli] as the cause of diseases classified elsewhere; E03.9 Hypothyroidism, unspecified; K21.9 Gastro-esophageal reflux disease without esophagitis; B96.1 Klebsiella pneumoniae [K. pneumoniae] as the cause of diseases classified elsewhere; Z87.440 Personal history of urinary (tract) infections; Z87.01 Personal history of pneumonia (recurrent); E78.5 Hyperlipidemia, unspecified; E87.6 Hypokalemia; N18.9 Chronic kidney disease, unspecified; Z16.24 Resistance to multiple antibiotics; Z79.899 Other long term (current) drug therapy; K72.90 Hepatic failure, unspecified without coma; Z87.891 Personal history of nicotine dependence; Z90.49 Acquired absence of other specified parts of digestive tract; R60.0 Localized edema; R55 Syncope and collapse; R42 Dizziness and giddiness; E83.42 Hypomagnesemia; K29.70 Gastritis, unspecified, without bleeding; B95.2 Enterococcus as the cause of diseases classified elsewhere; Z16.21 Resistance to vancomycin; R32 Unspecified urinary incontinence; R33.9 Retention of urine, unspecified; F41.9 Anxiety disorder, unspecified; Z87.81 Personal history of (healed) traumatic fracture; Z88.1 Allergy status to other antibiotic agents; Z88.0 Allergy status to penicillin

== ENCOUNTER 2017-04-21 10:56 | Inpatient (IN) | payer MEDICARE, OTHER ==
--- NOTE | 2017-04-21 11:26 | ED PDOC ---
Arrival/HPI - General Chief Complaint: Trauma Time Seen by Provider: 04/21/17 11:05 Historian: Patient, Family - History of Present Illness Narrative History of Present Illness (Text): 04/21/17 11:22 A 87 year old female, whose past medical history includes hypomagnesemia, pneumonia, anemia, hypokalemia, myelodysplastic syndrome, hypertension, and hyperlipidema, presents to the emergency department accompanied by family for a fall, which occured last night. The patient states she was attempting to get out of bed when she realized her legs were weaker than she thought and she slipped and fell. The patient is complaining of left hip and knee pain. The patient denies loss of consciousness or trauma to her head. She states she wants to walk, but can not. The patient denies feeling light headed, dizzy, chest pain, palpitations, shortness of breath, headaches, abdominal pain, cva tenderness, or any other complaints at this time. Time/Duration: 24 hours (x last night ) Symptom Onset: Sudden Symptom Course: Unchanged Activities at Onset: Significant (trying to get out of bed) Context: Home Past Medical History - Provider Review Nursing Documentation Reviewed: Yes - Infectious Disease Hx of Infectious Diseases: None - Tetanus Immunization Tetanus Immunization: Unknown - Cardiac Hx Hypertension: Yes - Pulmonary Hx Respiratory Disorders: Yes Hx Pneumonia: Yes - Neurological Hx Neurological Disorder: (syncope) Hx Dizziness: Yes Hx Transient Ischemic Attacks (TIA): No - HEENT Hx HEENT Disorder: No - Renal Hx Renal Disorder: Yes Other/Comment: uti - Endocrine/Metabolic Hx Hypothyroidism: Yes - Hematological/Oncological Hx Blood Disorders: Yes (MDS) Hx Anemia: Yes Hx Cirrhosis: Yes Other/Comment: thromocytopenia, myelodysplastic syndrome, hypomagnesia/ pancytopenia - Integumentary Hx Dermatological Disorder: Yes Other/Comment: +3 pitting edema ble, ble ski discolorations, 2nd toe l ft crooked, bone removed yrs ago, stage 2 pressure ulcer r sacrum 2.5cm x 1.5cm red open wound, stage 2 left sacrum open wound 3cm x 2.5cm wound bed red and slough small 0.5cm tear in skin bed is red, multiple skin discolorations b/l arms thin skin - Musculoskeletal/Rheumatological Hx Falls: No - Gastrointestinal Hx Gastrointestinal Disorders: Yes (GERD,CROHNS,CHOLECYSTECTOMY,ULCER) Hx Diverticulitis: Yes Other/Comment: gastritis - Genitourinary/Gynecological Hx Genitourinary Disorders: Yes (VRE,ESBL,INCONTINENT,RETENTION) Hx Urinary Tract Infection: Yes Other/Comment: hx urosepsis - Psychiatric Hx Psychophysiologic Disorder: Yes Hx Anxiety: Yes Hx Substance Use: No - Surgical History Hx Cholecystectomy: Yes Hx Orthopedic Surgery: Yes (r hip fx) - Anesthesia Hx Anesthesia: No Hx Anesthesia Reactions: No Hx Malignant Hyperthermia: No - Suicidal Assessment Feels Threatened In Home Enviroment: No Family/Social History - Physician Review Nursing Documentation Reviewed: Yes Family/Social History: Unknown Family HX Smoking Status: Never Smoked Hx Alcohol Use: Yes (occasional wine with dinner) Hx Substance Use: No Hx Substance Use Treatment: No Allergies/Home Meds Allergies/Adverse Reactions: Allergies levofloxacin [From Levaquin] Allergy (Intermediate, Verified 04/21/17 11:08) RASH Penicillins Allergy (Verified 04/21/17 11:08) URTICARIA lev Allergy (Uncoded 04/21/17 11:08) ITCHING Home Medications: Home Meds Medication Instructions Recorded Confirmed Ferrous Sulfate [Feosol] 325 mg PO DAILY 04/21/17 04/21/17 Furosemide [Lasix] 20 mg PO DAILY 04/21/17 04/21/17 Lactulose 20 gm PO BID 04/21/17 04/21/17 Levothyroxine [Synthroid] 75 mcg PO DAILY 04/21/17 04/21/17 Magnesium Oxide [Mag-Ox] 400 mg PO BID 04/21/17 04/21/17 Spironolactone [Aldactone] 50 mg PO DAILY 04/21/17 04/21/17 rifAXIMin [Xifaxan] 550 mg PO BID 04/21/17 04/21/17 Review of Systems - Physician Review All systems were reviewed & negative as marked: Yes - Review of Systems Constitutional: absent: Fevers Respiratory: absent: SOB Cardiovascular: absent: Chest Pain, Palpitations Gastrointestinal: absent: Abdominal Pain Musculoskeletal: Other (left hip and left knee pain ) Neurological: absent: Headache, Dizziness Physical Exam Vital Signs Reviewed: Yes Vital Signs Temp Pulse Resp BP Pulse Ox 04/21/17 13:54 75 18 108/78 99 04/21/17 12:36 79 18 106/74 99 04/21/17 11:07 97.8 F 83 17 104/81 99 Temperature: Afebrile Blood Pressure: Normal Pulse: Regular Respiratory Rate: Normal Appearance: Positive for: Well-Appearing, Non-Toxic, Comfortable Pain Distress: None Mental Status: Positive for: Alert and Oriented X 3 - Systems Exam Head: Present: Atraumatic, Normocephalic. No: Tenderness, Contusion, Swelling, Ecchymosis, Abrasion, Laceration Pupils: Present: PERRL Extroacular Muscles: Present: EOMI Conjunctiva: Present: Normal Mouth: Present: Moist Mucous Membranes Neck: Present: Normal Range of Motion. No: Meningeal Signs, MIDLINE TENDERNESS , Paraspinal Tenderness Respiratory/Chest: Present: Clear to Auscultation, Good Air Exchange. No: Respiratory Distress, Accessory Muscle Use Cardiovascular: Present: Regular Rate and Rhythm, Normal S1, S2. No: Murmurs Abdomen: Present: Normal Bowel Sounds. No: Tenderness, Distention, Peritoneal Signs Back: Present: Normal Inspection. No: CVA Tenderness, Midline Tenderness, Paraspinal Tenderness, Pain with Leg Raise Upper Extremity: Present: Normal Inspection. No: Cyanosis, Edema Lower Extremity: Present: Edema (bilateral edema ), Other (left hip tenderness; left knee tenderness; decreased ROM) Neurological: Present: GCS=15, CN II-XII Intact, Speech Normal Skin: Present: Warm, Dry, Normal Color. No: Rashes Psychiatric: Present: Alert, Oriented x 3, Normal Insight, Normal Concentration Medical Decision Making ED Course and Treatment: 04/21/17 11:26 Impression: 87 year old female with tenderness to left hip and knee. Differential Diagnosis included but are not limited to: Fall with hip / knee pain r/o fracture Plan: -- Head CT -- Pelvis CT -- Radiology: Hip left, Knee left -- Labs -- Acetaminophen -- Reassess and disposition Progress Notes: 04/21/17 12:58 PROCEDURE: CT HEAD WITHOUT CONTRAST. Licensed Occupational Therapy Assistant : Jair Cui MD Report Date : 04/21/2017 12:22:50 COMPARISON: Head CT without contrast 08/16/2016 as well as from 10/24/2015. FINDINGS: HEMORRHAGE:No intracranial hemorrhage. BRAIN:Diffuse expansion of the ventriculosulcal and cisternal spaces is appreciated with white matter lucency compatible with diffuse cerebral atrophy and chronic microangiopathy. The pattern is not significantly changed in the interval. No masses identified and dense falcine calcifications seen anteriorly with 1.6 x 1.3 cm partially calcified meningioma again appreciated at the posterior falx near the vertex, unchanged in size and appearance. There is no suspicious extra-axial fluid collection identified. Midline brain and appears stable. Posterior fossa contents remain unremarkable grossly. VENTRICLES:Unremarkable. No hydrocephalus. CALVARIUM:Unremarkable. PARANASAL SINUSES:Limited left ethmoid sinusitis is identified. MASTOID AIR CELLS:Unremarkable as visualized. No inflammatory changes. OTHER FINDINGS:None. IMPRESSION: Stable age related neuro degenerative changes are identified with dense anterior falcine calcifications again noted and likely stable 1.6 cm benign meningioma related to the posterior falx. No definite acute intracranial findings. Follow-up CT or MRI are available as clinically indicated. 04/21/17 13:03 EKG: Ordered, reviewed, and independently interpreted the EKG. Rate : 78 BPM Rhythm : NSR Interpretation : RBBB Comparison : No previous EKG for comparison. 04/21/17 13:02 Patient unable to walk. Pain controlled. Potassium and Calcium replaced. Discussed case with Dr. Pena who agrees to admit patient under her service. - Lab Interpretations Lab Results: 04/21/17 11:45 04/21/17 11:45 Lab Results 04/21/17 11:45: Blood Type A POSITIVE, Antibody Screen Negative, BBK History Checked Patient has bt 04/21/17 11:45: Sodium 144, Potassium 2.9 L* D, Chloride 110 H, Carbon Dioxide 24, Anion Gap 13, BUN 13, Creatinine 0.9, Est GFR ( Amer) > 60, Est GFR ( Non-Af Amer) 59, Random Glucose 138 H, Calcium 7.5 L 04/21/17 11:45: PT 19.1 H, INR 1.72 H, APTT 35.5 04/21/17 11:45: WBC 6.1 D, RBC 2.86 L, Hgb 9.3 L, Hct 26.6 L, MCV 93.0, MCH 32.5, MCHC 35.0, RDW 15.6 H, Plt Count 51 L, MPV 13.2 H, Gran % 61.8, Lymph % ( Auto) 26.6, [place] % (Auto) 9.6 H, Eos % (Auto) 1.7, Baso % (Auto) 0.3, Gran # 3.74, Lymph # 1.6, [place] # 0.6, Eos # 0.1, Baso # 0.02 - RAD Interpretation Radiology Orders: 04/21/17 11:16 HEAD W/O CONTRAST [CT] Stat PELVIS W/O PO OR IV CONTRAST [CT] Stat KNEE LEFT 2 VIEWS (AP & LAT) [RAD] Stat 04/21/17 11:18 Hip Left [HIP MIN 2V W/ PELVIS LT] [RAD] Stat - Medication Orders Current Medication Orders: Ferrous Sulfate (Feosol) 324 mg PO DAILY HEMANT Lactulose (Enulose) 20 gm PO HS HEMANT Levothyroxine Sodium (Synthroid) 75 mcg PO ACB HEMANT Magnesium Oxide (Mag-Ox) 400 mg PO BID HEMANT Rifaximin (Xifaxan) 550 mg PO BID HEMANT PRN Reason: Protocol Spironolactone (Aldactone) 50 mg PO DAILY HEMANT Discontinued Medications Acetaminophen (Tylenol 325mg Tab) 650 mg PO STAT STA Stop: 04/21/17 11:19 Last Admin: 04/21/17 12:38 Dose: 650 mg MAR Pain/Vitals Document 04/21/17 12:38 EQ (Rec: 04/21/17 12:38 EQ [facility] [id number]) Pain Reassessment Is This A Pain ReAssessment? No Sleep Is patient sleeping during reassessment? No Presence of Pain Presence of Pain Yes Pain Scale Used Pain Scale Used Numeric Calcium Gluconate (Calcium Gluconate Iv) 1,000 mg IVP ONCE ONE Stop: 04/21/17 12:16 Last Admin: 04/21/17 14:10 Dose: 1,000 mg IVP Administration Document 04/21/17 14:10 EQ (Rec: 04/21/17 14:31 EQ [facility] [id number]) Charges for Administration # of IVP Administrations 1 Potassium Chloride (Potassium Chloride 10 Meq/100 Ml) 10 meq in 100 mls @ 100 mls/hr IVPB ONCE ONE Stop: 04/21/17 13:39 Last Admin: 04/21/17 14:31 Dose: 100 mls/hr eMAR Start Stop Document 04/21/17 14:31 EQ (Rec: 04/21/17 14:31 EQ [facility] [id number]) Intravenous Solution Start Date 04/21/17 Start Time 14:10 Potassium Chloride (Potassium Chloride Oral Soln) 40 meq PO STAT STA Stop: 04/21/17 12:41 Last Admin: 04/21/17 14:10 Dose: 40 meq - Scribe Statement The provider has reviewed the documentation as recorded by the Rinku Elias Provider Scribe Attestation: All medical record entries made by the Scribe were at my direction and personally dictated by me. I have reviewed the chart and agree that the record accurately reflects my personal performance of the history, physical exam, medical decision making, and the department course for this patient. I have also personally directed, reviewed, and agree with the discharge instructions and disposition.? Disposition/Present on Arrival - Present on Arrival Any Indicators Present on Arrival: No History of DVT/PE: No History of Uncontrolled Diabetes: No Urinary Catheter: No History of Decub. Ulcer: No History Surgical Site Infection Following: None - Disposition Have Diagnosis and Disposition been Completed?: Yes Diagnosis: Hypokalemia, Hypocalcemia, Fall, Hip pain Disposition: HOSPITALIZED Disposition Time: 13:02 Patient Plan: Admission Condition: FAIR
[2017-04-21 12:03] LABS: BASO # 0.02 K/mm3 (0.0-2.0); BASO % 0.3 % (0.0-3.0); EOS # 0.1 (0.0-0.7); EOS % 1.7 % (1.5-5.0); GRAN # 3.74 (1.4-6.5); GRAN % 61.8 % (50.0-68.0); HEMATOCRIT 26.6 % (36.0-48.0); LYMPH # 1.6 (1.2-3.4); LYMPH % 26.6 % (22.0-35.0); MEAN CORPUSCULAR HEMOGLOBIN 32.5 pg (25.0-35.0); MEAN PLATELET VOLUME 13.2 fl (7.0-11.0); MONO # 0.6 (0.1-0.6); MONO % 9.6 % (1.0-6.0); RED CELL DISTRIBUTION WIDTH 15.6 % (11.5-14.5); WHITE BLOOD COUNT 6.1 10^3/ul (4.5-11.0)
[2017-04-21 12:07] LABS: BLOOD UREA NITROGEN 13 mg/dL (7-21); CALCIUM 7.5 mg/dL (8.4-10.5); CARBON DIOXIDE 24 mmol/L (21-33); CHLORIDE 110 mmol/L (98-107); GFR AFRICAN-AMERICAN > 60; GLUCOSE,RANDOM 138 mg/dL (70-110); SODIUM 144 mmol/L (132-148)
[2017-04-21 12:10] LABS: POTASSIUM 2.9 mmol/L (3.6-5.0)
[2017-04-21] MEDS ORDERED: Potassium Chloride 20 mEq ER Tab PO STA (12:14)
[2017-04-21 12:22] LABS: INR 1.72 (0.93-1.08)
[2017-04-21 12:23] LABS: PARTIAL THROMBOPLASTIN TIME 35.5 Seconds (25.1-36.5)
--- NOTE | 2017-04-21 12:24 | CT ---
PROCEDURE: CT HEAD WITHOUT CONTRAST. HISTORY: leg weakness COMPARISON: Head CT without contrast 08/16/2016 as well as from 10/24/2015. TECHNIQUE: Axial computed tomography images were obtained through the head/brain without intravenous contrast. Radiation dose: Total exam DLP = 770.10 mGy-cm. This CT exam was performed using one or more of the following dose reduction techniques: Automated exposure control, adjustment of the mA and/or kV according to patient size, and/or use of iterative reconstruction technique. FINDINGS: HEMORRHAGE: No intracranial hemorrhage. BRAIN: Diffuse expansion of the ventriculosulcal and cisternal spaces is appreciated with white matter lucency compatible with diffuse cerebral atrophy and chronic microangiopathy. The pattern is not significantly changed in the interval. No masses identified and dense falcine calcifications seen anteriorly with 1.6 x 1.3 cm partially calcified meningioma again appreciated at the posterior falx near the vertex, unchanged in size and appearance. There is no suspicious extra-axial fluid collection identified. Midline brain and appears stable. Posterior fossa contents remain unremarkable grossly. VENTRICLES: Unremarkable. No hydrocephalus. CALVARIUM: Unremarkable. PARANASAL SINUSES: Limited left ethmoid sinusitis is identified. MASTOID AIR CELLS: Unremarkable as visualized. No inflammatory changes. OTHER FINDINGS: None. IMPRESSION: Stable age related neuro degenerative changes are identified with dense anterior falcine calcifications again noted and likely stable 1.6 cm benign meningioma related to the posterior falx. No definite acute intracranial findings. Follow-up CT or MRI are available as clinically indicated.
--- NOTE | 2017-04-21 12:34 | CT ---
PROCEDURE: CT Pelvis without contrast HISTORY: fall, left hip pain r/o fx COMPARISON: None. TECHNIQUE: Contiguous axial images of the pelvis . No intravenous or oral contrast given. Coronal and sagittal reformats generated. Radiation dose: Total exam DLP = 780.95 mGy-cm. This CT exam was performed using one or more of the following dose reduction techniques: Automated exposure control, adjustment of the mA and/or kV according to patient size, and/or use of iterative reconstruction technique. FINDINGS: BLADDER: Trace gas identified in the nondependent urinary bladder. Clinically correlate for recent instrumentation potentially. REPRODUCTIVE ORGANS: Unremarkable. VISUALIZED BOWEL: Unremarkable. PERITONEUM: Limited pelvic ascites of uncertain origin. Midline infraumbilical abdominal hernia noted with questionable postoperative changes. LYMPH NODES: Unremarkable. No enlarged lymph nodes. BONES: Diffuse osteopenia suggests osteoporosis. No displaced fracture is appreciated with left total hip replacement hardware appearing adequately positioned at this time. No dislocation or subluxation of the hip replacement harder or the right hip joint either. degenerative changes seen at advanced at the bilateral sacroiliac joints and right hip joint. No destructive bony lesions appreciated throughout. An old healed right superior pubic ramus fracture is suspected though this is not definite. The pubic symphysis appears intact. Evaluation of the local musculature reveals no definite suspicious findings in the abductor, adductor, flexor or extensor compartments as imaged. Relatively prominent streaky changes seen in the bilateral hip subcutaneous fat in the right lower quadrant anterior abdominal wall as well as the visualized bilateral flank subcutaneous fat diffusely. Clinically correlate further. Anasarca is not excluded. Lateral thigh streaky subcutaneous fatty changes are also identified. Ground-glass opacity at the central bowel mesenteric may indicate mesenteric adenitis. No gross lymphadenopathy evident however. VASCULATURE: Mildly atherosclerotic inferior aortoiliac arterial changes without aneurysm formation. OTHER FINDINGS: None. IMPRESSION: 1. Prior left hip replacement intact grossly. No acute fracture, subluxation dislocation throughout pelvic ring. Advanced degenerative changes seen at the bilateral sacroiliac and right hip joints. 2. Mild nonspecific pelvic ascites. No definite hemoperitoneum. Ground-glass opacity at the central visualize mesenteric may reflect mesenteric adenitis. 3. Trace gas noted in the urinary bladder. Consider recent instrumentation or other etiologies. 4. Relatively prominent subcutaneous streaky changes seen in the bilateral visualized flank, hip and thigh subcutaneous fat diffusely. Possible anasarca.
[2017-04-21] MEDS ORDERED: Potassium Chloride 40 mEq/30 ml LIQ UD PO STA (12:40)
--- NOTE | 2017-04-21 14:20 | RAD ---
PROCEDURE: Left Hip and pelvis X-ray Radiographs. HISTORY: fall r/o fx COMPARISON: None. FINDINGS: BONES: Normal. No fracture. JOINTS: Left prosthesis with no fracture or loosening SOFT TISSUES: Normal. OTHER FINDINGS: None. IMPRESSION: No acute findings
--- NOTE | 2017-04-21 14:21 | RAD ---
PROCEDURE: Left Knee Radiographs. HISTORY: Pain. COMPARISON: None. FINDINGS: BONES: Normal. No fracture. JOINTS: Normal. No osteoarthritis. JOINT EFFUSION: None. OTHER FINDINGS: None. IMPRESSION: Normal radiographs of the left knee.
[2017-04-21] MEDS ORDERED: Non Formulary Medication (Ferrous Sulfate [Feosol] 325 MG) PO SCH (16:45)
[2017-04-21] MEDS: Levothyroxine 75 MCG TAB PO SCH (18:05)
[2017-04-21] MEDS: Magnesium Oxide 400 mg Tab UD PO SCH (18:05)
[2017-04-21 19:06] VITALS: BMI 32.2
--- NOTE | 2017-04-21 20:44 | CARD ---
APPROVED REPORT EKG Measurement Heart [id number] [id number] <Conclusion> Normal sinus rhythm Left axis deviation Right bundle branch block Possible Lateral infarct, age undetermined Abnormal ECG
--- NOTE | 2017-04-22 04:04 | HP ---
HISTORY OF PRESENT ILLNESS: The patient is an 87-year-old known to me from multiple previous admissions. According to daughter, she was watching TV and her remote control went underneath her, she thought it is on the table, she tried to get out of bed, she lost her balance and she fell on her knees, was complaining of pain in both knees, left more than the right. Injury happened last night when she was watching [employer]. The patient also complained of left hip pain, left knee pain. There is no history of loss of consciousness. No history of head trauma. Does not complain of feeling dizzy or lightheaded. No acute chest pain. No shortness of breath. No nausea or vomiting. No diarrhea. PAST MEDICAL HISTORY: Significant for: 1. Hypertension. 2. History of cirrhosis liver. 3. 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 4. Myelodysplastic syndrome. 5. pancytopenia. 6. Chronic anemia. 7. Chronic electrolyte imbalance. 8. Morbid obesity. 9. Chronic bilateral leg edema. ALLERGIES: SHE IS ALLERGIC TO LEVAQUIN AND PENICILLIN. MEDICATIONS AT HOME: She is on: 1. Xifaxan for intermittent hepatic encephalopathy. 2. Aldactone 50 mg daily. 3. Potassium 20 mEq daily. 4. Protonix 40 mg daily. 5. Magnesium 400 twice a day. 6. Lisinopril 20 mg daily. 7. Levothyroxine 75 mcg daily. 8. Lasix 20 mg daily. SOCIAL HISTORY: She is single lives with her daughter. History of smoking when she was young. She states she drinks wine dinner off and on. REVIEW OF SYSTEMS: Significant for left knee pain and difficulty walking. PHYSICAL EXAMINATION GENERAL: She is awake, alert and oriented. Communicative. VITAL SIGNS: She is afebrile, pulse 73, respirations 18 and blood pressure 145/60. LUNGS: Bilateral fair airflow. No rhonchi or crackle. HEART: S1 and S2 audible. ABDOMEN: Soft, obese and nontender. No rebound. No guarding. NEUROLOGIC: The patient is awake, alert and oriented. Able to answer questions. EXTREMITIES: She had left knee decreased range of motion secondary to pain. LABORATORY DATA: WBC 6.1, hemoglobin 9.3, hematocrit 26 and platelets of 51. PT 19.1, INR 1.72 and PTT 35.5. Chemistry; sodium 144, potassium 2.9, chloride 110, CO2 of 24, BUN 13, creatinine 0.9 and blood sugar 138. She has x-ray of the hip and pelvis and the knee done that shows no acute findings. CT of the pelvis shows prior left hip replacement that is intact. No acute fracture or subluxation, advanced degenerative changes and mild nonspecific pelvic ascites. No definite hemoperitoneum. X-ray of the knee, normal radiograph of the left knee and CT scan of the head; stable age related neurodegenerative changes. ASSESSMENT: 1. Status post fall, that is mechanical. 2. Left knee sprain. 3. History of hepatic encephalopathy. 4. Recurrent urinary tract infection. 5. Hypertension. 6. Bilateral leg edema. 7. Deconditioning and difficulty walking. PLAN: We will admit the patient to med/surg. The patient is deconditioned, will need TCU evaluation. Will start her on diuretics. Supplement her potassium. Followup electrolyte in a.m. Physical therapy evaluation has been requested. Kamaljit Pena MD
[2017-04-22 07:07] LABS: BASO # 0.03 K/mm3 (0.0-2.0); BASO % 0.6 % (0.0-3.0); EOS # 0.3 (0.0-0.7); EOS % 4.9 % (1.5-5.0); GRAN # 2.37 (1.4-6.5); GRAN % 46.7 % (50.0-68.0); LYMPH # 1.9 (1.2-3.4); LYMPH % 37.6 % (22.0-35.0); MEAN CELL VOLUME 93.3 fl (80.0-105.0); MEAN CORPUSCULAR HEMOGLOBIN 32.1 pg (25.0-35.0); MEAN CORPUSCULAR HGB CONC 34.5 g/dl (31.0-37.0); MEAN PLATELET VOLUME 12.7 fl (7.0-11.0); MONO # 0.5 (0.1-0.6); MONO % 10.2 % (1.0-6.0); RED CELL DISTRIBUTION WIDTH 15.8 % (11.5-14.5); WHITE BLOOD COUNT 5.1 10^3/ul (4.5-11.0)
[2017-04-22 07:16] LABS: ALB/GLOB RATIO 0.5 (1.1-1.8); ALKALINE PHOSPHATASE 137 U/L (38-126); ALT/SGPT 34 U/L (7-56); AST/SGOT 50 U/L (14-36); BILIRUBIN,TOTAL 1.8 mg/dL (0.2-1.3); BLOOD UREA NITROGEN 13 mg/dL (7-21); CALCIUM 7.5 mg/dL (8.4-10.5); CARBON DIOXIDE 27 mmol/L (21-33); CHLORIDE 111 mmol/L (98-107); GFR AFRICAN-AMERICAN > 60; GLUCOSE,RANDOM 104 mg/dL (70-110); MAGNESIUM 1.5 mg/dL (1.7-2.2); POTASSIUM 3.4 mmol/L (3.6-5.0); SODIUM 143 mmol/L (132-148); TOTAL PROTEIN 6.2 g/dL (5.8-8.3)
[2017-04-22 07:29] LABS: FREE T4 1.62 ng/dL (0.78-2.19)
[2017-04-22 07:42] LABS: HEMATOCRIT 23.5 % (36.0-48.0)
[2017-04-22 07:43] LABS: THYROID STIMULATING HORMONE 7.25 mIU/mL (0.46-4.68)
[2017-04-22] MEDS: Magnesium Oxide 400 mg Tab UD PO SCH ×2 (09:33→17:11)
[2017-04-22] MEDS: Levothyroxine 75 MCG TAB PO SCH (09:34)
[2017-04-22] MEDS ORDERED: Magnesium Sulfate 1 gm in D5W 1 GM/100 ML BAG IVPB ONE (10:04)
[2017-04-22] MEDS ORDERED: Potassium Chloride 20 mEq ER Tab PO ONE (10:05)
[2017-04-22] MEDS ORDERED: MethylPREDNISolone Depo 40 mg/ml Inj IM ONE (12:23)
[2017-04-22] MEDS ORDERED: Bupivacaine 0.5% Inj(30mL) IJ ONE (12:23)
[2017-04-22 12:53] LABS: IRON 118 ug/dL (45-180)
--- NOTE | 2017-04-22 16:59 | PN ---
DATE: SUBJECTIVE: The patient is an 87-year-old seen and examined, complaining of left knee pain, hurts to move. No nausea or vomiting. No weakness. No numbness, but has generalized weakness. PHYSICAL EXAMINATION: VITAL SIGNS: The patient is afebrile, pulse 77, respiration 20, blood pressure 133/61. LUNGS: Bilateral fair air flow. No rhonchi or crackles. HEART: S1 and S2 audible. ABDOMEN: Soft, obese, and nontender. No rebound. No guarding. NEUROLOGICAL: She is awake and alert, able to communicate. LABORATORY DATA: WBC is 5.1, hemoglobin 8.1, hematocrit 23.5, platelet 45. PT 19.1, INR 1.72. Chemistry: Sodium 143, potassium 3.4, chloride 111, CO2 27, BUN 13, creatinine 1.0, blood sugar 104, magnesium 1.5, total bilirubin 1.8. ASSESSMENT AND PLAN: 1. Status post fall. 2. Intractable left knee pain. 3. Hypertension. 4. Hypothyroidism. 5. Autoimmune hepatitis. 6. Cirrhosis of liver. 7. History of hepatic encephalopathy. PLAN: We will start the patient on magnesium supplementation. One dose of potassium has been given. We will continue on spironolactone. I will request for Dr. Leach to evaluate the patient. All her x-rays were reviewed. There is no report of fracture. The patient is going to need long rehab because she was not in great shape to begin with. She was hardly walking from bed to chair and chair to bed. We will follow up her electrolytes in a.m. Discuss with social organization professor to make arrangements for subacute rehab in where the family want. Kamaljit Pena MD
--- NOTE | 2017-04-22 21:06 | CON ---
DATE: 04/22/2017 ORTHOPEDIC CONSULTATION HISTORY OF PRESENT ILLNESS: An 87-year-old female being seen on 04/22/2017. The patient is complaining of left hip pain and left knee pain since she fell two days ago at home. X-rays of the knee showed osteoarthritis of the medial joint line of the left knee and her hip has a well-placed bipolar hip prosthesis done 15 years ago. When she fell on it, it looks like she broke the greater trochanter, it was consistent with a stable fracture, this is not severely displaced and in six weeks it should heal and that when her pain is tolerable she could get up out of bed and then may be in two to three weeks start to ambulate with a walker, but she has a stable greater trochanteric fracture left hip, otherwise the prosthesis is in good position. I will order physical therapy to up out of bed when the pain is much less, probably in a couple of days, but she should go to a subacute rehab for prolonged physical therapy until the fracture heals so she could be more independent. FINAL DIAGNOSES: Greater trochanter fracture of the left hip, paraprosthetic hip replacement, and osteoarthritis of the left knee. Giancarlo Leach DO
[2017-04-23] MEDS: Levothyroxine 100 MCG TAB PO SCH (08:38)
[2017-04-23] MEDS: Magnesium Oxide 400 mg Tab UD PO SCH ×2 (09:38→17:53)
[2017-04-23] MEDS: Potassium Chloride 20 mEq ER Tab PO SCH (11:38)
[2017-04-23 12:26] LABS: BLOOD UREA NITROGEN 13 mg/dL (7-21); CALCIUM 7.3 mg/dL (8.4-10.5); CARBON DIOXIDE 25 mmol/L (21-33); CHLORIDE 109 mmol/L (98-107); GFR AFRICAN-AMERICAN > 60; GLUCOSE,RANDOM 154 mg/dL (70-110); MAGNESIUM 1.8 mg/dL (1.7-2.2); POTASSIUM 3.6 mmol/L (3.6-5.0); SODIUM 141 mmol/L (132-148)
--- NOTE | 2017-04-23 13:35 | PN ---
DATE: SUBJECTIVE: The patient is an 87-year-old, seen and examined, lying in bed, seems to be comfortable, still has left leg pain, bilateral leg edema. PHYSICAL EXAMINATION VITAL SIGNS: The patient is afebrile, pulse 86, respirations 20, blood pressure 145/59. LUNGS: Bilateral fair airflow. No rhonchi or crackles. HEART: S1 and S2 audible. ABDOMEN: Soft, nontender. No rebound. No guarding. NEUROLOGIC: The patient is awake, alert, oriented. EXTREMITIES: Bilateral leg +2 edema. Has limited range of motion in the left knee, able to move right knee better than the left. LABORATORY DATA: WBC is 5.1, hemoglobin 8.1, hematocrit 23.5, and platelets of 45. Chemistry; sodium 143, potassium 3.4. Iron 118, TIBC 160, TSH is 7.25. ASSESSMENT: 1. Status post fall. 2. Status post hip replacement. 3. Bilateral knee osteoarthritis. 4. Autoimmune hepatitis. 5. Cirrhosis of liver. 6. History of hepatic encephalopathy. 7. Electrolyte imbalance. PLAN: We will continue the patient on magnesium supplementation and start her on potassium supplementation. Hemoglobin is 8.1 that is almost back to her baseline. We will keep on monitoring intermittently. Discharge plan for Tuesday to subacute rehab and daughter's preference is [facility]. Kamaljit Pena MD
[2017-04-24] MEDS: Potassium Chloride 20 mEq ER Tab PO SCH (09:24)
[2017-04-24] MEDS: Levothyroxine 100 MCG TAB PO SCH (09:24)
[2017-04-24] MEDS: Magnesium Oxide 400 mg Tab UD PO SCH ×2 (11:07→17:26)
--- NOTE | 2017-04-24 12:39 | PN ---
SUBJECTIVE: The patient has no complaints of any chest pain. No shortness of breath. No headaches. PHYSICAL EXAMINATION: VITAL SIGNS: Temperature is 98.5, pulse of 84, blood pressure is 130/66, respiration is 20. GENERAL: The patient is lying in bed, flat, comfortable. HEENT: No oral lesion. Anicteric sclerae. Moist mucosa. NECK: No JVD, adenopathy, or thyromegaly. CARDIOVASCULAR: S1 and S2, regular. No murmurs, rubs, or gallops. LUNGS: Clear to auscultation bilaterally. No wheeze, rales, or rhonchi. ABDOMEN: Bowel sounds are positive, soft, nontender and nondistended. EXTREMITIES: No cyanosis, clubbing or edema. LABORATORY DATA: White count of 5.1, hemoglobin 8.1 and platelet is 45. Creatinine is 0.9. ASSESSMENT: 1. Thrombocytopenia. 2. Fall. 3. Bilateral osteoarthritis of the knee. 4. Autoimmune hepatitis. 5. Cirrhosis of the liver. 6. Anemia, chronic. 7. Hypokalemia, improved. 8. Hypomagnesemia, improved. PLAN: The patient has significantly elevated saturation of iron. I do not think that the patient has received blood transfusion. The patient may need to be evaluated for hemochromatosis if not done so in the past. The patient is being followed by Dr. Leach. The patient is on Synthroid for hypothyroidism. She is on rifaximin. She is going to continue with lactulose. Heart healthy diet has been ordered as well. TCU evaluation is pending. John Mejía MD
[2017-04-25] MEDS: Potassium Chloride 20 mEq ER Tab PO SCH (09:39)
[2017-04-25] MEDS: Levothyroxine 100 MCG TAB PO SCH (09:40)
[2017-04-25] MEDS: Magnesium Oxide 400 mg Tab UD PO SCH ×2 (09:40→17:21)
[2017-04-25 11:15] LABS: MEAN CELL VOLUME 95.4 fl (80.0-105.0); MEAN CORPUSCULAR HEMOGLOBIN 32.5 pg (25.0-35.0); MEAN CORPUSCULAR HGB CONC 34.1 g/dl (31.0-37.0); MEAN PLATELET VOLUME 11.8 fl (7.0-11.0); RED CELL DISTRIBUTION WIDTH 15.8 % (11.5-14.5); WHITE BLOOD COUNT 5.1 10^3/ul (4.5-11.0)
[2017-04-25 11:19] LABS: HEMATOCRIT 22.9 % (36.0-48.0)
[2017-04-25 11:25] LABS: ALB/GLOB RATIO 0.5 (1.1-1.8); ALKALINE PHOSPHATASE 130 U/L (38-126); ALT/SGPT 30 U/L (7-56); AST/SGOT 45 U/L (14-36); BILIRUBIN,TOTAL 1.7 mg/dL (0.2-1.3); BLOOD UREA NITROGEN 17 mg/dL (7-21); CALCIUM 7.4 mg/dL (8.4-10.5); CARBON DIOXIDE 24 mmol/L (21-33); CHLORIDE 109 mmol/L (98-107); GFR AFRICAN-AMERICAN > 60; GLUCOSE,RANDOM 161 mg/dL (70-110); POTASSIUM 4.4 mmol/L (3.6-5.0); SODIUM 139 mmol/L (132-148); TOTAL PROTEIN 6.1 g/dL (5.8-8.3)
[2017-04-25 16:15] VITALS: RESP 20
[2017-04-25 17:02] VITALS: BP 150/70; PULSE 85; TEMP 98.7
[2017-04-25 17:39] VITALS: O2SAT 99
--- NOTE | 2017-04-26 04:02 | DS ---
SUBJECTIVE: The patient is an 87-year-old seen and examined, complaining of left leg pain; otherwise eating and tolerating. Complaining of generalized weakness. PHYSICAL EXAMINATION: VITAL SIGNS: She is afebrile. Pulse 79, respirations 20 and blood pressure 127/62. LUNGS: Bilateral good airflow. HEART: S1 and S2 audible. ABDOMEN: Soft, obese, nontender. No rebound, no guarding. NEUROLOGIC: She is awake and alert, has generalized weakness. Difficulty moving the left leg; however, can move right leg. Has bilateral leg edema. LABORATORY DATA: WBC is 5.1, hemoglobin 7.8, hematocrit 22.9 and platelet of 36. Chemistry: Sodium 139, potassium 4.4, chloride 109, CO2 of 24, BUN 17, creatinine 0.9, blood sugar of 161 and total bili is 1.4. ASSESSMENT AND PLAN: 1. Status post fall. 2. Left knee sprain, status post intra-articular steroid injection. 3. Deconditioning and difficulty walking. 4. Autoimmune hepatitis. 5. History of hepatic encephalopathy. 6. Pancytopenia. 7. Myelodysplastic syndrome. 8. Chronic hypokalemia. PLAN: We will transfuse the patient 1 packed RBC's. Since she becomes weak and dizzy when she goes for a physical therapy, she might feel dizzy, lightheaded and fall. Since the patient's MDS is transfusion dependent, she will get one transfusion. After that, she will be transferred to [facility]. Kamaljit Pena MD
== END 2017-04-25 18:18 | DRG 563 ==
LOC: ED 10:56 → ERH 13:02 → 3RNO 14:26
PROVIDERS: ADMIT Internal Medicine; ATTEND Internal Medicine
DX: S83.92XA Sprain of unspecified site of left knee, initial encounter (principal); L89.152 Pressure ulcer of sacral region, stage 2; D61.818 Other pancytopenia; K74.60 Unspecified cirrhosis of liver; N39.0 Urinary tract infection, site not specified; K75.4 Autoimmune hepatitis; D46.9 Myelodysplastic syndrome, unspecified; I10 Essential (primary) hypertension; W18.39XA Other fall on same level, initial encounter; E66.01 Morbid (severe) obesity due to excess calories; E83.42 Hypomagnesemia; K72.90 Hepatic failure, unspecified without coma; E03.9 Hypothyroidism, unspecified; M17.0 Bilateral primary osteoarthritis of knee; E87.6 Hypokalemia; R53.1 Weakness; D32.9 Benign neoplasm of meninges, unspecified; Z87.440 Personal history of urinary (tract) infections; Y93.89 Activity, other specified; Y92.003 Bedroom of unspecified non-institutional (private) residence as the place of occurrence of the external cause; Z87.891 Personal history of nicotine dependence; Z96.642 Presence of left artificial hip joint

== ENCOUNTER 2017-06-17 10:35 | Inpatient (IN) | payer MEDICARE, OTHER ==
[2017-06-17 10:35] VITALS: BMI 32.2
[2017-06-17] MEDS ORDERED: Sodium Chloride 0.9% 500 ML IV STA (11:39)
[2017-06-17 12:06] LABS: BASO # 0.01 K/mm3 (0.0-2.0); BASO % 0.1 % (0.0-3.0); EOS # 0.1 (0.0-0.7); EOS % 0.6 % (1.5-5.0); GRAN # 5.91 (1.4-6.5); HEMATOCRIT 30.6 % (36.0-48.0); LYMPH # 1.9 (1.2-3.4); LYMPH % 22.3 % (22.0-35.0); MEAN CELL VOLUME 97.5 fl (80.0-105.0); MEAN CORPUSCULAR HEMOGLOBIN 31.8 pg (25.0-35.0); MEAN CORPUSCULAR HGB CONC 32.7 g/dl (31.0-37.0); MEAN PLATELET VOLUME 12.5 fl (7.0-11.0); MONO # 0.6 (0.1-0.6); RED CELL DISTRIBUTION WIDTH 15.2 % (11.5-14.5); WHITE BLOOD COUNT 8.4 10^3/ul (4.5-11.0)
[2017-06-17 12:13] LABS: ALKALINE PHOSPHATASE 168 U/L (38-126); ALT/SGPT 33 U/L (7-56); AST/SGOT 50 U/L (14-36); BILIRUBIN,TOTAL 1.8 mg/dL (0.2-1.3); BLOOD UREA NITROGEN 15 mg/dL (7-21); CALCIUM 7.9 mg/dL (8.4-10.5); CARBON DIOXIDE 21 mmol/L (21-33); CHLORIDE 112 mmol/L (98-107); GFR AFRICAN-AMERICAN 51; GLUCOSE,RANDOM 83 mg/dL (70-110); POTASSIUM 4.2 mmol/L (3.6-5.0); SODIUM 141 mmol/L (132-148); TOTAL PROTEIN 7.4 g/dL (5.8-8.3)
[2017-06-17 12:20] LABS: ALB/GLOB RATIO 0.5 (1.1-1.8); LIPASE < 10 U/L (23-300)
[2017-06-17 12:21] LABS: INR 1.71 (0.93-1.08); PARTIAL THROMBOPLASTIN TIME 32.2 Seconds (25.1-36.5)
--- NOTE | 2017-06-17 12:25 | ED PDOC ---
Arrival/HPI - General Chief Complaint: Abdominal Pain Time Seen by Provider: 06/17/17 11:04 Historian: Patient - History of Present Illness Narrative History of Present Illness (Text): 06/17/17 12:10 Iona Nunes is an 87 year old female, whose past medical history includes hypertension, PNA, multiple UTI's, hypothyroidism, thromocytopenia, myelodysplastic syndrome, hypomagnesia/pancytopenia, who presents to the emergency department complaining of waking up with generalized body myalgia. She reports having 1x episode of diarrhea after taking Laxative. Patient denies shortness of breath, chest pain, abdominal pain, nausea, vomiting, or other complaints. Time/Duration: 4-6 hours Symptom Onset: Sudden Symptom Course: Unchanged Quality: Aching Activities at Onset: Rest Context: Home Past Medical History - Provider Review Nursing Documentation Reviewed: Yes - Infectious Disease Hx of Infectious Diseases: None - Tetanus Immunization Tetanus Immunization: Unknown - Cardiac Hx Hypertension: Yes - Pulmonary Hx Respiratory Disorders: Yes Hx Pneumonia: Yes - Neurological Hx Neurological Disorder: (syncope) Hx Dizziness: Yes Hx Transient Ischemic Attacks (TIA): No - HEENT Hx HEENT Disorder: No - Renal Hx Renal Disorder: Yes Other/Comment: uti - Endocrine/Metabolic Hx Hypothyroidism: Yes - Hematological/Oncological Hx Blood Disorders: Yes (MDS) Hx Anemia: Yes Hx Cirrhosis: Yes Other/Comment: thromocytopenia, myelodysplastic syndrome, hypomagnesia/ pancytopenia - Integumentary Hx Dermatological Disorder: Yes Other/Comment: +3 pitting edema ble, ble ski discolorations, 2nd toe l ft crooked, bone removed yrs ago, stage 2 pressure ulcer r sacrum 2.5cm x 1.5cm red open wound, stage 2 left sacrum open wound 3cm x 2.5cm wound bed red and slough small 0.5cm tear in skin bed is red, multiple skin discolorations b/l arms thin skin - Musculoskeletal/Rheumatological Hx Falls: No - Gastrointestinal Hx Gastrointestinal Disorders: Yes (GERD,CROHNS,CHOLECYSTECTOMY,ULCER) Hx Diverticulitis: Yes Other/Comment: gastritis - Genitourinary/Gynecological Hx Genitourinary Disorders: Yes (VRE,ESBL,INCONTINENT,RETENTION) Hx Urinary Tract Infection: Yes Other/Comment: hx urosepsis - Psychiatric Hx Psychophysiologic Disorder: Yes Hx Anxiety: Yes Hx Substance Use: No - Surgical History Hx Cholecystectomy: Yes Hx Orthopedic Surgery: Yes (r hip fx) - Anesthesia Hx Anesthesia: No Hx Anesthesia Reactions: No Hx Malignant Hyperthermia: No - Suicidal Assessment Feels Threatened In Home Enviroment: No Family/Social History - Physician Review Nursing Documentation Reviewed: Yes Family/Social History: Unknown Family HX Smoking Status: Never Smoked Hx Alcohol Use: Yes (occasional wine with dinner) Hx Substance Use: No Hx Substance Use Treatment: No Allergies/Home Meds Allergies/Adverse Reactions: Allergies levofloxacin [From Levaquin] Allergy (Intermediate, Verified 04/21/17 11:08) RASH Penicillins Allergy (Verified 04/21/17 11:08) URTICARIA lev Allergy (Uncoded 04/21/17 11:08) ITCHING Home Medications: Home Meds Medication Instructions Recorded Confirmed Ferrous Sulfate [Feosol] 325 mg PO DAILY 04/21/17 04/21/17 Furosemide [Lasix] 20 mg PO DAILY 04/21/17 04/21/17 Lactulose 20 gm PO BID 04/21/17 04/21/17 Levothyroxine [Synthroid] 75 mcg PO DAILY 04/21/17 04/21/17 Magnesium Oxide [Mag-Ox] 400 mg PO BID 04/21/17 04/21/17 Spironolactone [Aldactone] 50 mg PO DAILY 04/21/17 04/21/17 rifAXIMin [Xifaxan] 550 mg PO BID 04/21/17 04/21/17 Review of Systems - Review of Systems Constitutional: Fatigue. absent: Fevers Respiratory: absent: SOB Gastrointestinal: Diarrhea. absent: Abdominal Pain, Nausea, Vomiting Genitourinary Female: absent: Dysuria, Frequency Musculoskeletal: Myalgias Neurological: absent: Headache Endocrine: absent: Diaphoresis, Polyuria Physical Exam Vital Signs Reviewed: Yes Vital Signs Temp Pulse Resp BP Pulse Ox 06/17/17 10:35 97.6 F 64 20 104/43 L 100 Temperature: Afebrile Blood Pressure: Hypotensive Pulse: Regular Respiratory Rate: Normal Appearance: Positive for: Well-Appearing, Non-Toxic, Comfortable Pain Distress: None Mental Status: Positive for: Alert and Oriented X 3 - Systems Exam Head: Present: Atraumatic, Normocephalic Pupils: Present: PERRL Extroacular Muscles: Present: EOMI Conjunctiva: Present: Normal Respiratory/Chest: Present: Clear to Auscultation, Decreased Breath Sounds ((+) decreased breath bibasilar). No: Good Air Exchange, Respiratory Distress, Accessory Muscle Use Cardiovascular: Present: Murmurs. No: Regular Rate and Rhythm, Normal S1, S2 Abdomen: Present: Distention (distended tympanitic abdomen), Normal Bowel Sounds , Hernias (soft reducible hernia in midline). No: Tenderness, Peritoneal Signs Upper Extremity: Present: Normal Inspection, Normal ROM, NORMAL PULSES, Other ( chronic cellulitis bilaterally distally ). No: Cyanosis, Edema Lower Extremity: Present: Normal Inspection, Edema (1+ pedal edema bilaterally) Neurological: Present: GCS=15, CN II-XII Intact, Speech Normal Skin: Present: Warm, Dry, Normal Color. No: Rashes Psychiatric: Present: Alert, Oriented x 3, Normal Insight, Normal Concentration Medical Decision Making ED Course and Treatment: 06/17/17 Impression: 87 year old female with distended tympanitic abdomen, (+) decreased breath bibasilar, soft reducible hernia in midline, chronic cellulitis bilaterally distally, and 1+ pedal edema bilaterally on exam. Plan: -- EKG -- Chest X-ray -- Labs -- Urinalysis -- Tylenol, Zofran, and Sodium Chloride -- Reassess and disposition Progress Notes: - Lab Interpretations Lab Results: 06/17/17 11:45 Lab Results 06/17/17 11:45: Sodium 141, Potassium 4.2, Chloride 112 H, Carbon Dioxide 21, Anion Gap 12, BUN 15, Creatinine 1.2, Est GFR ( Amer) 51, Est GFR (Non- Af Amer) 42, Random Glucose 83, Calcium 7.9 L, Total Bilirubin 1.8 H, AST 50 H, ALT 33, Alkaline Phosphatase 168 H D, Total Protein 7.4, Albumin 2.6 L, Globulin Pending, Albumin/Globulin Ratio Pending, Lipase Pending I have reviewed the lab results: Yes - RAD Interpretation Radiology Orders: 06/17/17 12:10 obstructive series [ABD 2 VIEWS (FLAT/UP OR DECUB)] [RAD] Stat Seed Cutter: Radiologist - EKG Interpretation Interpreted by ED Physician: Yes Type: 12 lead EKG - Medication Orders Current Medication Orders: Discontinued Medications Acetaminophen (Tylenol 325mg Tab) 650 mg PO STAT STA Stop: 06/17/17 11:42 Sodium Chloride (Sodium Chloride 0.9%) 500 mls @ 999 mls/hr IV .Q31M STA Stop: 06/17/17 12:09 Ondansetron HCl (Zofran Inj) 4 mg IVP STAT STA Stop: 06/17/17 11:40 - Scribe Statement The provider has reviewed the documentation as recorded by the Scribe Julianne Warner Provider Scribe Attestation: All medical record entries made by the Scribe were at my direction and personally dictated by me. I have reviewed the chart and agree that the record accurately reflects my personal performance of the history, physical exam, medical decision making, and the department course for this patient. I have also personally directed, reviewed, and agree with the discharge instructions and disposition. Disposition/Present on Arrival - Present on Arrival History of DVT/PE: No History of Uncontrolled Diabetes: No Urinary Catheter: No History of Decub. Ulcer: Yes History Surgical Site Infection Following: None - Disposition Referrals: Shira Fonseca, [Primary Care Provider] - Follow up with primary
[2017-06-17 12:28] LABS: URINE BILIRUBIN NEGATIVE (NEGATIVE); URINE BLOOD TRACE-INTACT (NEGATIVE); URINE GLUCOSE (UA) NEGATIVE (NEGATIVE); URINE KETONE NEGATIVE (NEGATIVE); URINE LEUKOCYTE ESTERASE LARGE Leu/uL (NEGATIVE); URINE PROTEIN TRACE mg/dL (<30 mg/dL); URINE UROBILINOGEN 0.2 E.U./dL (<1 E.U./dL)
[2017-06-17 12:30] LABS: URINE APPEARANCE CLEAR (CLEAR); URINE COLOR YELLOW (YELLOW)
[2017-06-17 12:47] LABS: URINE AMORPHOUS SEDIMENT FEW; URINE BACTERIA MANY (NEG); URINE WBC TNTC /hpf (0-6)
[2017-06-17] MEDS ORDERED: Aztreonam 1 Gm in NS 100mL 100 ML IVPB STA (13:33)
[2017-06-17] MEDS ORDERED: Vancomycin 1gm in NS 250ml 1 GM/250 ML BAG IVPB STA (13:34)
--- NOTE | 2017-06-17 14:38 | RAD ---
HISTORY: routine med exam COMPARISON: 10/19/2016 FINDINGS: LUNGS: No active pulmonary disease. PLEURA: No significant pleural effusion identified, no pneumothorax apparent. CARDIOVASCULAR: Normal. OSSEOUS STRUCTURES: No significant abnormalities. VISUALIZED UPPER ABDOMEN: Normal. OTHER FINDINGS: None. IMPRESSION: No active disease.
--- NOTE | 2017-06-17 14:41 | RAD ---
HISTORY: examine gas pattern COMPARISON: No prior. FINDINGS: BOWEL: Normal. No obstruction. No free air. BONES: Normal. OTHER FINDINGS: None. IMPRESSION: No active disease.
[2017-06-17] MEDS ORDERED: Influenza Vaccine 60 mcg/0.5 mL SYR (4YR UP) IM ONE (17:02)
[2017-06-17] MEDS ORDERED: Pneumococcal 23-Valent Vaccine IM ONE (17:02)
[2017-06-17] MEDS: Levothyroxine 75 MCG TAB PO SCH (17:36)
[2017-06-17] MEDS: Magnesium Oxide 400 mg Tab UD PO SCH (17:36)
--- NOTE | 2017-06-17 18:16 | CARD ---
APPROVED REPORT EKG Measurement Heart [id number] <Conclusion> Sinus rhythm Right bundle branch block Left anterior fascicular block Bifascicular block Possible Lateral infarct, age undetermined Abnormal ECG
[2017-06-17] MEDS: Meropenem 500 MG in Sodium Chloride 0.9% 100 ML IVPB SCH (22:44)
--- NOTE | 2017-06-18 02:33 | HP ---
HISTORY OF PRESENT ILLNESS: The patient is an 87-year-old, known to me from multiple previous admissions, was brought to emergency room because of generalized aches and pains, having chills. She has episode of diarrhea. No history of shortness of breath. The patient is incontinent of urine. Denies any hematuria. PAST MEDICAL HISTORY: Significant for; 1. Hypertension. 2. Recurrent UTI. 3. Hypothyroidism. 4. Thrombocytopenia. 5. Autoimmune hepatitis. 6. Myelodysplastic syndrome. 7. Electrolyte imbalance. ALLERGIES: SHE IS ALLERGIC TO LEVAQUIN AND PENICILLIN. SOCIAL HISTORY: She is single, lives with her daughter. Denies smoking, drinking, or alcohol use. She used to smoke in the remote past. MEDICATIONS: At home she is on; 1. Xifaxan 550 twice a day. 2. Aldactone 50 mg daily. 3. Potassium 20 mEq daily. 4. Protonix 40 daily. 5. Magnesium 400 twice a day. 6. Lisinopril 20 mg daily. 7. Levothyroxine 75 daily. 8. Lasix 20 mg daily. REVIEW OF SYSTEMS: Significant for generalized weakness and body aches and pain. PHYSICAL EXAMINATION: GENERAL: She is awake, alert, oriented, communicative. VITAL SIGNS: She is afebrile. Pulse 86, respirations 18, and blood pressure 125/54. LUNGS: Bilateral fair airflow. No rhonchi or crackle. HEART: S1 and S2 audible. ABDOMEN: Soft, suprapubic discomfort, obese. NEUROLOGIC: The patient is awake, alert, oriented, able to communicate. EXTREMITIES: Bilateral legs, she has chronic stasis dermatitis, +2 edema. LABORATORY DATA: WBC is 8.4, hemoglobin 10, hematocrit 30.6, platelets of 32. PT 19.0, INR 1.71, PTT 32.2. Sodium 141, potassium 4.2, chloride 112, CO2 of 21, BUN 15, creatinine 1.2, blood sugar of 83. LFTs are within normal limits. Total bili is 1.5, albumin 2.6. ASSESSMENT: 1. Probably urosepsis. 2. Autoimmune hepatitis. 3. Hypertension. 4. Hyperlipidemia. 5. Bilateral leg edema. PLAN: We will start her on Azactam. Blood culture has been sent. Urine culture has been sent. We will monitor her electrolyte in a.m. ID consult by Dr. Byrne has been requested and will reevaluate the patient in a.m. Kamaljit Pena MD
[2017-06-18 07:41] LABS: BASO # 0.02 K/mm3 (0.0-2.0); BASO % 0.3 % (0.0-3.0); EOS # 0.1 (0.0-0.7); EOS % 1.9 % (1.5-5.0); GRAN # 4.06 (1.4-6.5); GRAN % 69.5 % (50.0-68.0); LYMPH # 1.2 (1.2-3.4); LYMPH % 19.9 % (22.0-35.0); MEAN CELL VOLUME 97.4 fl (80.0-105.0); MEAN CORPUSCULAR HEMOGLOBIN 32.5 pg (25.0-35.0); MEAN CORPUSCULAR HGB CONC 33.3 g/dl (31.0-37.0); MEAN PLATELET VOLUME 12.4 fl (7.0-11.0); MONO # 0.5 (0.1-0.6); MONO % 8.4 % (1.0-6.0); RED CELL DISTRIBUTION WIDTH 15.2 % (11.5-14.5); WHITE BLOOD COUNT 5.8 10^3/ul (4.5-11.0)
[2017-06-18 08:19] LABS: ALB/GLOB RATIO 0.5 (1.1-1.8); BILIRUBIN,TOTAL 1.4 mg/dL (0.2-1.3); CALCIUM 7.4 mg/dL (8.4-10.5); MAGNESIUM 1.3 mg/dL (1.7-2.2); POTASSIUM 4.1 mmol/L (3.6-5.0); TOTAL PROTEIN 5.9 g/dL (5.8-8.3)
[2017-06-18 08:29] LABS: HEMATOCRIT 22.5 % (36.0-48.0); PLATELET COUNT 17 10^3/uL (120.0-450.0)
[2017-06-18] MEDS: Meropenem 500 MG in Sodium Chloride 0.9% 100 ML IVPB SCH ×2 (09:00→21:47)
[2017-06-18] MEDS ORDERED: Magnesium Sulfate 1 gm in D5W 1 GM/100 ML BAG IV ONE (09:42)
[2017-06-18] MEDS: Magnesium Oxide 400 mg Tab UD PO SCH ×2 (10:07→17:43)
[2017-06-18] MEDS: Levothyroxine 75 MCG TAB PO SCH (10:07)
--- NOTE | 2017-06-18 21:45 | PN ---
DATE: SUBJECTIVE: The patient is 87-year-old, seen and examined, seemed to be confused and disoriented, wants to go home, although she was admitted last night, she thinks she is here for too long. Denies any nausea or vomiting. Eating and tolerating. Somewhat confused. PHYSICAL EXAMINATION: VITAL SIGNS: She is afebrile. Pulse 73, respirations 20, blood pressure 126/57. LUNGS: Bilateral fair airflow. No rhonchi or crackle. HEART: S1, S2 audible. ABDOMEN: Soft, obese, nontender. No rebound. No guarding. NEUROLOGIC: The patient is awake and alert, but somewhat confused and disoriented. LABORATORY EXAMINATION: WBC is 5.8, hemoglobin 7.5, hematocrit 22.5, platelet of 17. Chemistries: Sodium 136, potassium 4.1, chloride 110, CO2 of 22, BUN 17, creatinine 1.2, blood sugar 103, magnesium 1.3, total bilirubin 1.4. Urine is growing gram-negative rods and gram-positive cocci. ASSESSMENT: 1. Probably, urosepsis. 2. Autoimmune hepatitis. 3. Myelodysplastic syndrome. 4. Pancytopenia. 5. Electrolyte imbalance. 6. Hypomagnesemia. 7. Bilateral leg cellulitis. PLAN: She will be given 1 blood transfusion. Continue her on meropenem. ID consult by Dr. Byrne has been requested. We will follow up her electrolyte in a.m. Kamaljit Pena MD
[2017-06-19] MEDS: Magnesium Oxide 400 mg Tab UD PO SCH ×2 (10:44→18:36)
[2017-06-19] MEDS: Levothyroxine 75 MCG TAB PO SCH (10:44)
[2017-06-19] MEDS: Meropenem IV 1 gm in NS 50 ML IVPB SCH ×2 (10:51→21:36)
[2017-06-19 12:45] LABS: BASO # 0.01 K/mm3 (0.0-2.0); BASO % 0.1 % (0.0-3.0); EOS # 0.2 (0.0-0.7); EOS % 3.2 % (1.5-5.0); GRAN # 4.78 (1.4-6.5); GRAN % 70.3 % (50.0-68.0); HEMATOCRIT 26.1 % (36.0-48.0); LYMPH # 1.4 (1.2-3.4); LYMPH % 19.8 % (22.0-35.0); MEAN CELL VOLUME 93.5 fl (80.0-105.0); MEAN CORPUSCULAR HEMOGLOBIN 31.5 pg (25.0-35.0); MEAN CORPUSCULAR HGB CONC 33.7 g/dl (31.0-37.0); MONO # 0.5 (0.1-0.6); MONO % 6.6 % (1.0-6.0); RED CELL DISTRIBUTION WIDTH 16.9 % (11.5-14.5); WHITE BLOOD COUNT 6.8 10^3/ul (4.5-11.0)
[2017-06-19 12:47] LABS: PLATELET COUNT 18 10^3/uL (120.0-450.0)
[2017-06-19 12:54] LABS: BILIRUBIN,TOTAL 1.9 mg/dL (0.2-1.3); CALCIUM 7.7 mg/dL (8.4-10.5); MAGNESIUM 1.4 mg/dL (1.7-2.2); POTASSIUM 3.7 mmol/L (3.6-5.0); TOTAL PROTEIN 6.7 g/dL (5.8-8.3)
[2017-06-19 13:02] LABS: ALB/GLOB RATIO 0.5 (1.1-1.8)
--- NOTE | 2017-06-19 17:18 | PN ---
DATE: SUBJECTIVE: The patient is an 87-year-old, seen and examined, lying in bed, seems to be comfortable. No nausea or vomiting. No diarrhea. Eating and tolerating the food that her daughter brought from outside. She did receive blood transfusion yesterday. Refused to have blood work done this morning; however, daughter convinced her and she got later on. PHYSICAL EXAMINATION: VITAL SIGNS: She is afebrile, pulse 84, respirations 22, and blood pressure 117/62. LUNGS: Bilateral fair airflow. No rhonchi or crackle. HEART: S1 and S2 audible. ABDOMEN: Soft, obese, and nontender. No rebound. No guarding. NEUROLOGIC: The patient is awake, alert, but confused and somewhat disoriented. LABORATORY DATA: WBC 6.8, hemoglobin 8.8, hematocrit 26, and platelet of 18. Chemistries, sodium 136, potassium 3.7, chloride 109, CO2 of 22, BUN 17, creatinine 1.3, and blood sugar of 97. She is growing Klebsiella pneumoniae and enterococcus faecalis on urine culture and ESBL negative, fortunately sensitive to Cipro. THE PATIENT IS ALLERGIC TO LEVAQUIN AND PENICILLIN. ASSESSMENT: 1. Status post altered mental status. 2. Urinary tract infection with Klebsiella pneumoniae and enterococcus faecalis. 3. Myelodysplastic syndrome. 4. Hypertension. 5. Electrolyte imbalance. 6. Bilateral leg edema. 7. Deconditioning and difficulty walking. PLAN: We will continue the patient on current medications. She is on meropenem. I will request for TCU evaluation. If she is excepted, she can be transfer there to complete her course of antibiotic. Kamaljit Pena MD
--- NOTE | 2017-06-19 19:12 | CON ---
DATE: 06/19/2017 The patient is seen in room 362 bed 1. CHIEF COMPLAINT: Generalized aches and pains and chills times several days. HISTORY OF PRESENT ILLNESS: This is an 87-year-old female with hypertension, recurrent urinary tract infections, hypothyroidism, autoimmune hepatitis, myelodysplastic syndrome with multiple hospitalizations for urinary tract infections who was admitted also with a history of diabetes and liver cirrhosis, history of ESBL E. Coli urinary tract infection and the patient denies any fevers and she states she had low grade fevers, but she is complaining of chills. No chest pain, mild shortness of breath, minimal cough. No abdominal pain and no headaches. PAST MEDICAL HISTORY: Significant for diabetes mellitus, hypertension, liver cirrhosis, autoimmune hepatitis, myelodysplastic syndrome, ESBL E. Coli urinary tract infection, and hypertension. PAST SURGICAL HISTORY: Significant for cholecystectomy and right hip surgery. ALLERGIES: THE PATIENT IS ALLERGIC TO PENICILLIN AND LEVAQUIN, TYPE OF IS RASH, QUESTIONABLE RASH. MEDICATIONS AT HOME: Include the patient to be on Aldactone, Synthroid, and Lasix. PHYSICAL EXAMINATION: GENERAL: The patient is in bed in no acute distress. VITAL SIGNS: Temperature of 98, T-max was 99.5, heart rate of 70, it was up to 97, respiratory of 20, it was up to 22 and blood pressure of 121/50. HEENT: Unremarkable. NECK: Supple. LUNGS: Have decreased breath sounds. HEART: Normal S1, S2. ABDOMEN: Soft, nontender. LABORATORY EXAMINATION: Reveals the patient has a white count of 8.4, hemoglobin of 10, platelets of 32,000. The patient has 70% granulocytosis. Coagulation is noted. Chemistries reveals a BUN of 12, creatinine is 1.2 and urinalysis reveals too numerous to count WBCs and many bacteria. The patient's creatinine prior to this admission was 0.9 on and the patient's platelets prior to this admission were always low from a myelodysplastic syndrome. Review of the microbiology is a Gram-negative mary and Gram-positive cocci from 06/17/2017. The urine culture from October shows a pansensitive Klebsiella and she has had E. Coli which is ESBL in the past. The patient had a chest x-ray which shows no active disease. ASSESSMENT AND PLAN: This is an 87-year-old female with diabetes, hypertension, history of extended-spectrum beta-lactamases urinary tract infection and Escherichia coli and liver disease and recent urinary tract infections and autoimmune hepatitis and myelodysplastic syndrome who is ALLERGIC TO PENICILLIN AND LEVAQUIN, admitted with dysuria or frequency, low grade fevers and complaining of chills, mild dyspnea, mild tachycardia with number one is sepsis with Gram-negative mary and a Gram-positive cocci in the urine as the source. We will treat the patient with meropenem 1 g q. 12 h. and repeat the urinalysis and urine culture. Pending blood and urine culture results. We will follow closely with you. Arden Byrne MD
--- NOTE | 2017-06-20 09:11 | PQF UROSEP ---
This form is a permanent part of the medical record Clarification of your documentation is requested to better reflect the severity of illness and intensity of treatment of your patient. Indicators present 06/19 Urosepsis is not acceptable dx. It is either UTI, or Sepsis w/ urine as source. ID- notes- Sepsis w/ gram neg mary ^ Gram + cocci w/ urine as source. Please clarify your principle DX [] Documentation of UROSEPSIS [] Fever or hypothermia [] WBC count > 12,000/mm3 or <4000/mm3 or 10% immature neutrophils [x] Hypotension [x] Tachycardia [x] Altered mental status/confusion [x] + Urine/Blood Cultures [] Other: [] Location in the medical record that reflects the above clinical findings: [x]ID consult Treatment Provided: [x] IV Merrem PHYSICIAN'S RESPONSE Based on your medical judgment of the clinical indicators outlined above, are you treating this patient for a known or suspected: [] Sepsis from a Urinary Source [] Localized Urinary Tract Infection - pyuria or bacteria in the urine [] Other, please indicate [] [] If unable to determine, please check the box, sign and date. Present On Admission (POA) Indicator: [] Present at the time of admission [] Not present at the time of admission [] Clinically Undetermined In responding to this query, please exercise your independent professional judgment. The fact that a question is asked does not imply that any particular answer is desired or expected. Thank you for your clarification on this documentation. If you have any questions please call:[ ][phone] * Thank you, [ ]Leann Chris RN CDS personal care assistant KATIANA
[2017-06-20] MEDS: Magnesium Oxide 400 mg Tab UD PO SCH ×3 (10:15→17:14)
[2017-06-20] MEDS: Levothyroxine 75 MCG TAB PO SCH ×2 (10:15→10:38)
[2017-06-20] MEDS: Meropenem IV 1 gm in NS 50 ML IVPB SCH ×2 (10:16→22:27)
[2017-06-20 10:39] LABS: HEMATOCRIT 27.2 % (36.0-48.0); MEAN CELL VOLUME 94.4 fl (80.0-105.0); MEAN CORPUSCULAR HEMOGLOBIN 31.9 pg (25.0-35.0); MEAN CORPUSCULAR HGB CONC 33.8 g/dl (31.0-37.0); RED CELL DISTRIBUTION WIDTH 16.8 % (11.5-14.5); WHITE BLOOD COUNT 5.3 10^3/ul (4.5-11.0)
[2017-06-20 10:42] LABS: PLATELET COUNT 29 10^3/uL (120.0-450.0)
[2017-06-20 10:48] LABS: BILIRUBIN,TOTAL 1.5 mg/dL (0.2-1.3); CALCIUM 7.6 mg/dL (8.4-10.5); POTASSIUM 3.8 mmol/L (3.6-5.0); TOTAL PROTEIN 6.6 g/dL (5.8-8.3)
[2017-06-20 10:50] LABS: ALB/GLOB RATIO 0.5 (1.1-1.8)
--- NOTE | 2017-06-20 13:10 | PN ---
DATE: 06/20/2017 LOCATION: The patient is seen in room 362, bed 1. SUBJECTIVE: The patient is in no acute distress. The patient was seen earlier this morning. No fevers. No chills. PHYSICAL EXAMINATION: VITAL SIGNS: Temperature is 98, blood pressure is 120/70, and respiratory rate of 16. HEENT: Unremarkable. NECK: Supple. LUNGS: Have decreased breath sounds. HEART: Normal S1 and S2. ABDOMEN: Abdominal examination is soft and nontender. LABORATORY DATA: Laboratory examination reveals white count of 5.3, hemoglobin of 9, and platelets of 29. Chemistry reveals BUN of 19 and creatinine of 1.2. Lipase is noted. Urinalysis is reviewed. Microbiology reveals the patient has Klebsiella pneumoniae species in the urine and Enterococcus. The Klebsiella is rudd-sensitive and the Enterococcus is sensitive to ampicillin. Klebsiella pneumoniae is rudd-sensitive also to ceftriaxone. The patient is ALLERGIC TO LEVAQUIN AND PENICILLIN. ASSESSMENT AND PLAN: An 87-year-old female, with hypertension, recurrent urinary tract infection, hypothyroidism, autoimmune hepatitis, myelodysplastic syndrome, multiple hospitalizations, and urinary tract infection, was admitted with diabetes, liver cirrhosis, and history of extended-spectrum beta-lactamases, and Escherichia coli urinary tract infection now. The patient is admitted on this admission with dysuria and frequency, low-grade fevers, chills, dyspnea, and tachypnea with sepsis with gram-negative mary and gram-positive cocci identified as Enterococcus and Klebsiella in the urine. The patient is on meropenem day #2, we will treat for 7 to 10 days. Arden Byrne MD
--- NOTE | 2017-06-21 03:59 | DS ---
HISTORY OF PRESENT ILLNESS: The patient is an 87-year-old, seen and examined, doing well, eating and tolerating. No fever, no chills. Back to her baseline status. PHYSICAL EXAMINATION: VITAL SIGNS: She is afebrile. Pulse 73, respirations 20, blood pressure 117/56. LUNGS: Bilateral fair airflow. No rhonchi or crackle. HEART: S1, S2 audible. NEUROLOGIC: The patient is awake and alert. Able to communicate. EXTREMITIES: Bilateral leg, +1 edema. No ulcers. LABORATORY EXAM: WBC 5.3, hemoglobin 9.2, hematocrit 27.2, platelet 29. Chemistry; sodium 138, potassium 3.8, chloride 109, CO2 of 24, BUN 19, creatinine 1.2. Blood sugar of 155. Magnesium is 1.4. ASSESSMENT: 1. Klebsiella urinary tract infection. 2. Altered mental status seems to be back to her baseline. 3. Myelodysplastic syndrome. 4. Pancytopenia. 5. History of hypertension. 6. Electrolyte imbalance improving. 7. Bilateral edema improving. 8. Deconditioning and difficulty walking. PLAN: The patient is being discharged to TCU where she completed a course of antibiotics and received physical therapy. We will continue to monitor her electrolytes. Kamaljit Pena MD
[2017-06-21] MEDS: Magnesium Oxide 400 mg Tab UD PO SCH ×3 (09:57→19:05)
[2017-06-21] MEDS: Meropenem IV 1 gm in NS 50 ML IVPB SCH ×2 (10:00→21:06)
[2017-06-21] MEDS: Levothyroxine 75 MCG TAB PO SCH ×2 (10:00→10:40)
[2017-06-21] MEDS ORDERED: Magnesium Sulfate 1 gm in D5W 1 GM/100 ML BAG IVPB ONE (11:27)
--- NOTE | 2017-06-21 14:17 | PN ---
DATE: 06/21/2017 SUBJECTIVE: The patient is in bed in no acute distress, nontoxic. PHYSICAL EXAMINATION: VITAL SIGNS: Temperature is 98, blood pressure is 108/50, and respiratory rate of 18. HEENT: Unremarkable. NECK: Supple. LUNGS: Have decreased breath sounds. HEART: Normal S1 and S2. ABDOMEN: Soft and nontender. LABORATORY DATA: Reveals white count of 5.3, hemoglobin of 9, and platelets of 29. Chemistries are noted, BUN of 19 and creatinine of 1.2. Urinalysis is noted. ASSESSMENT AND PLAN: This is an 87-year-old female with hypertension, recurrent urinary tract infection, hypothyroidism, autoimmune hepatitis, myelodysplastic syndrome, and multiple hospitalizations, admitted with diabetes. There is cirrhosis and extended-spectrum beta-lactamases Escherichia coli in the urine with dysuria, frequency, low-grade fever, and sepsis with Enterococcus and Klebsiella, day #3 of meropenem, we will treat 7-10 days. Arden Byrne MD
--- NOTE | 2017-06-21 18:55 | PN ---
DATE: SUBJECTIVE: The patient is an 87-year-old, seen and examined, lying in bed, and seems to be comfortable. No nausea or vomiting. No diarrhea. Eating and tolerating. PHYSICAL EXAMINATION: VITAL SIGNS: The patient is afebrile, pulse 74, respirations 20, and blood pressure 105/58. LUNGS: Bilateral fair airflow. No rhonchi or crackle. HEART: S1 and S2 audible. ABDOMEN: Soft and nontender. No rebound. No guarding. NEUROLOGIC: She is awake, alert, oriented, and communicative. EXTREMITIES: Bilateral leg +1 edema with erythema. No significant ulceration. LABORATORY DATA: WBC 5.3, hemoglobin 9.2, hematocrit 27, and platelet 29. Magnesium is 1.4. She has urine culture positive for Klebsiella pneumoniae and Enterococcus faecalis. ASSESSMENT: 1. Klebsiella pneumoniae urinary tract infection. 2. Enterococcus faecalis urinary tract infection. 3. Bilateral leg edema. 4. Myelodysplastic syndrome. 5. Pancytopenia. 6. Symptomatic anemia, status post blood transfusion. PLAN: The patient is currently on IV Lasix. We will monitor her electrolyte and continue her on meropenem and Xifaxan. We will follow for CMP and magnesium level in a.m. Kamaljit Pena MD
[2017-06-22 06:55] LABS: ALB/GLOB RATIO 0.5 (1.1-1.8); BILIRUBIN,TOTAL 1.1 mg/dL (0.2-1.3); CALCIUM 7.6 mg/dL (8.4-10.5); MAGNESIUM 1.4 mg/dL (1.7-2.2); POTASSIUM 4.4 mmol/L (3.6-5.0); TOTAL PROTEIN 6.3 g/dL (5.8-8.3)
[2017-06-22 09:33] VITALS: BP 127/57; PULSE 69; RESP 18; TEMP 98; O2SAT 97
[2017-06-22] MEDS: Levothyroxine 75 MCG TAB PO SCH (09:59)
[2017-06-22] MEDS: Magnesium Oxide 400 mg Tab UD PO SCH (10:00)
[2017-06-22] MEDS: Meropenem IV 1 gm in NS 50 ML IVPB SCH (10:06)
[2017-06-22] MEDS ORDERED: Magnesium Oxide 400 mg Tab UD PO SCH (14:00)
--- NOTE | 2017-06-22 22:49 | PN ---
DATE: 06/22/2017 SUBJECTIVE: The patient is seen in bed, in no acute distress, nontoxic, was seen early this morning in room 362, bed 1, and doing much better. PHYSICAL EXAMINATION: VITAL SIGNS: Temperature is 98, blood pressure is 112/70, respiratory rate of 18. HEENT: Unremarkable. NECK: Supple. LUNGS: Have decreased breath sounds. HEART: Normal S1 and S2. ABDOMEN: Soft and nontender. LABORATORY DATA: Reveals the patient's white count is 5.3, hemoglobin of 9, and coagulation is noted and chemistries are noted. Microbiology is reviewed. Klebsiella and Enterococcus in the urine. Blood cultures are negative. ASSESSMENT AND PLAN: This is an 87-year-old female with hypertension, recurrent urinary tract infection, hypothyroidism, autoimmune hepatitis, myelodysplastic syndrome, multiple hospitalizations, admitted with diabetes, cirrhosis, extended-spectrum beta-lactamases Escherichia coli in the urine and dysuria, frequency, and sepsis with Enterococcus and Klebsiella, day number 4 of therapy, will complete 7 to 10 days. Arden Byrne MD
--- NOTE | 2017-06-23 07:36 | DS ---
HISTORY OF PRESENT ILLNESS: The patient is 87 years old, seen and examined, lying in bed, seems to be comfortable. No nausea, vomiting, or diarrhea. Eating and tolerating. PHYSICAL EXAMINATION: VITAL SIGNS: She is afebrile, pulse 69, respirations 18, blood pressure 127/57. LUNGS: Bilateral fair airflow. No rhonchi or crackle. HEART: S1, S2 audible. ABDOMEN: Soft, nontender. No rebound. No guarding. NEUROLOGIC: The patient is awake, alert, oriented, and communicative. LABORATORY DATA: Sodium 139, potassium 4.4, chloride 110, CO2 of 25, BUN 17, creatinine 1.1, blood sugar of 81, magnesium is 1.4. ASSESSMENT AND PLAN: 1. Klebsiella pneumoniae urinary tract infection. 2. Enterococcus faecalis urinary tract infection. 3. History of hypertension. 4. Autoimmune hepatitis. 5. History of encephalopathy. 6. Myelodysplastic syndrome. 7. Symptomatic anemia, status post blood transfusion. 8. Electrolyte imbalance. 9. History of cirrhosis liver. PLAN: The patient is on meropenem. She will be receiving seven days of meropenem. She had midline placed and will complete her course of antibiotic at home. Insurance company has been contacted and arrangements has been made, so she will be discharged today. Finish the course of antibiotic at home. Kamaljit Pena MD
--- NOTE | 2017-06-23 11:45 | PQF SEPSIS ---
This form is a permanent part of the medical record DR. SILVERIO, Please clarify if Sepsis is present on admission. Clarification of your documentation is requested to better reflect the severity of illness and intensity of treatment of your patient. Indicators present [] Temp < 96.8 or > 100.4 [] WBC count > 12,000/mm3 or <000/mm3 or 10% immature neutrophils [] Heart Rate > 90 [] Respiratory Rate > 20 [] Fever or hypothermia [] Chills [] Positive blood cultures [] Hypotension [] Metabolic acidosis (Elevated lactate level, anion gap or reduced blood pH) [] Acute confusion /Altered Mental Status [] Shock [] Other: [] Location in the medical record that reflects the above clinical findings: [] ID consult and PN Treatment Provided: [] PHYSICIAN'S RESPONSE Based on your medical judgment of the clinical indicators outlined above, are you treating this patient for a known or suspected: [] Sepsis / Septicemia Please specify organism if known [] [] SIRS (Systemic Inflammatory Response Syndrome) [] Severe Sepsis (Sepsis with Associated Organ Dysfunction) [] Fever of Unknown Origin [] Other, please indicate: [] [] If Unable to Determine, please check the box, sign and date. Present On Admission (POA) Indicator: [] Present at the time of admission [] Not present at the time of admission [] Clinically Undetermined In responding to this query, please exercise your independent professional judgment. The fact that a question is asked does not imply that any particular answer is desired or expected. Thank you for your clarification on this documentation. If you have any questions please call:[ ] * Thank you, [X ] JAVI WOMACKcollection manager KATIANA
== END 2017-06-22 15:59 | disposition home or self-care (01) | DRG 872 ==
LOC: ED 10:35 → ERH 13:50 → 3RSO 15:24 → 3RNO 06-18 19:41
PROVIDERS: ADMIT Internal Medicine; ATTEND Internal Medicine
PROC: 05H633Z Insertion of Infusion Device into Left Subclavian Vein, Percutaneous Approach (ICD-10-PCS; principal; 2017-06-22)
PROC: B547ZZA Ultrasonography of Left Subclavian Vein, Guidance (ICD-10-PCS; 2017-06-22)
DX: A41.9 Sepsis, unspecified organism (principal); L89.152 Pressure ulcer of sacral region, stage 2; D61.818 Other pancytopenia; L03.115 Cellulitis of right lower limb; E83.42 Hypomagnesemia; E11.9 Type 2 diabetes mellitus without complications; D46.9 Myelodysplastic syndrome, unspecified; K75.4 Autoimmune hepatitis; N39.0 Urinary tract infection, site not specified; L03.116 Cellulitis of left lower limb; B96.1 Klebsiella pneumoniae [K. pneumoniae] as the cause of diseases classified elsewhere; E03.9 Hypothyroidism, unspecified; I10 Essential (primary) hypertension; R26.2 Difficulty in walking, not elsewhere classified; E78.5 Hyperlipidemia, unspecified; B95.2 Enterococcus as the cause of diseases classified elsewhere; K74.60 Unspecified cirrhosis of liver; Z87.440 Personal history of urinary (tract) infections; Z87.01 Personal history of pneumonia (recurrent); Z87.891 Personal history of nicotine dependence; Z88.0 Allergy status to penicillin

== ENCOUNTER 2017-07-24 19:21 | Inpatient (IN) | payer MEDICARE, OTHER ==
[2017-07-24 19:32] VITALS: BMI 28.8
[2017-07-24] MEDS ORDERED: Morphine 2 mg/ml ISec IVP STA (19:52)
[2017-07-24] MEDS: Sodium Chloride 0.9% 1,000 ML IV SCH (20:33)
[2017-07-24 20:41] LABS: VENOUS BLOOD GAS BASE EXCESS -3.1 mmol/L (0.0-2.0); VENOUS BLOOD GAS PO2 35 mm/Hg (30-55); VENOUS BLOOD PH 7.24 (7.32-7.43)
[2017-07-24 20:43] LABS: BASO # 0.01 K/mm3 (0.0-2.0); BASO % 0.2 % (0.0-3.0); EOS # 0.2 (0.0-0.7); EOS % 3.1 % (1.5-5.0); GRAN # 3.24 (1.4-6.5); GRAN % 56.4 % (50.0-68.0); HEMOGLOBIN 9.5 g/dL (12.0-16.0); LYMPH # 2.1 (1.2-3.4); LYMPH % 36.6 % (22.0-35.0); MEAN CELL VOLUME 93.1 fl (80.0-105.0); MEAN CORPUSCULAR HGB CONC 33.3 g/dl (31.0-37.0); MEAN PLATELET VOLUME 13.1 fl (7.0-11.0); MONO # 0.2 (0.1-0.6); MONO % 3.7 % (1.0-6.0); RBC 3.06 10^6/uL (3.5-6.1); RED CELL DISTRIBUTION WIDTH 15.5 % (11.5-14.5); WHITE BLOOD COUNT 5.7 10^3/ul (4.5-11.0)
[2017-07-24 20:59] LABS: INR 1.74 (0.93-1.08); PARTIAL THROMBOPLASTIN TIME 26.4 Seconds (25.1-36.5); PROTHROMBIN TIME 20.1 SECONDS (9.4-12.5)
[2017-07-24 21:03] LABS: TROPONIN I 0.02 ng/mL
[2017-07-24] MEDS ORDERED: Vancomycin 1gm in NS 250ml 1 GM/250 ML BAG IVPB STA (21:04)
[2017-07-24] MEDS ORDERED: Aztreonam 1 Gm in NS 100mL 100 ML IVPB STA (21:04)
[2017-07-24 21:08] LABS: ALB/GLOB RATIO 0.5 (1.1-1.8); ALBUMIN 2.5 g/dL (3.0-4.8)
--- NOTE | 2017-07-24 21:12 | ED PDOC ---
Arrival/HPI - General Historian: Patient - History of Present Illness Symptom Onset: Gradual Symptom Course: Unchanged Activities at Onset: Light Context: Home - General Chief Complaint: Abdominal Pain Time Seen by Provider: 07/24/17 19:24 - History of Present Illness Narrative History of Present Illness (Text): 07/24/17 19:35 Iona Nunes is an 87 year old female, whose past medical history includes hypertensino, recurrent UTIs, hypothyroidism, thrombocytopenia, autoimmune hepatitis, myelodysplastic syndrome, and diabetes, who presents to the Emergency department complaining of abdominal pain. Patient states she has been experiencing RLQ abdominal pain since 16:00 today with associated nausea and vomiting. Patient was recently admitted to the hospital for 06/17/2017 for UTI. Patient denies any fever, chills, chest pain, shortness of breath, diarrhea, urinary symptoms, back pain, neck pain, headache, dizziness, or any other complaints. ([place]) Past Medical History - Provider Review Nursing Documentation Reviewed: Yes - Infectious Disease Hx of Infectious Diseases: None - Tetanus Immunization Tetanus Immunization: Unknown - Cardiac Hx Hypertension: Yes - Pulmonary Hx Respiratory Disorders: Yes Hx Pneumonia: Yes - Neurological Hx Neurological Disorder: (syncope) Hx Dizziness: Yes Hx Transient Ischemic Attacks (TIA): No - HEENT Hx HEENT Disorder: No - Renal Hx Renal Disorder: Yes Other/Comment: uti - Endocrine/Metabolic Hx Hypothyroidism: Yes - Hematological/Oncological Hx Blood Disorders: Yes (MDS) Hx Anemia: Yes Hx Cirrhosis: Yes Other/Comment: thromocytopenia, myelodysplastic syndrome, hypomagnesia/ pancytopenia - Integumentary Hx Dermatological Disorder: Yes Other/Comment: +3 pitting edema ble, ble ski discolorations, 2nd toe l ft crooked, bone removed yrs ago, stage 2 pressure ulcer r sacrum 2.5cm x 1.5cm red open wound, stage 2 left sacrum open wound 3cm x 2.5cm wound bed red and slough small 0.5cm tear in skin bed is red, multiple skin discolorations b/l arms thin skin - Musculoskeletal/Rheumatological Hx Falls: No - Gastrointestinal Hx Gastrointestinal Disorders: Yes (GERD,CROHNS,CHOLECYSTECTOMY,ULCER) Hx Diverticulitis: Yes Other/Comment: gastritis - Genitourinary/Gynecological Hx Genitourinary Disorders: Yes (VRE,ESBL,INCONTINENT,RETENTION) Hx Urinary Tract Infection: Yes Other/Comment: hx urosepsis - Psychiatric Hx Psychophysiologic Disorder: Yes Hx Anxiety: Yes Hx Substance Use: No - Surgical History Hx Cholecystectomy: Yes Hx Orthopedic Surgery: Yes (r hip fx) - Anesthesia Hx Anesthesia: No Hx Anesthesia Reactions: No Hx Malignant Hyperthermia: No - Suicidal Assessment Feels Threatened In Home Enviroment: No Family/Social History - Physician Review Nursing Documentation Reviewed: Yes Family/Social History: Unknown Family HX Smoking Status: Never Smoked Hx Alcohol Use: Yes (occasional wine with dinner) Hx Substance Use: No Hx Substance Use Treatment: No Allergies/Home Meds Allergies/Adverse Reactions: Allergies levofloxacin [From Levaquin] Allergy (Intermediate, Verified 04/21/17 11:08) RASH Penicillins Allergy (Verified 04/21/17 11:08) URTICARIA lev Allergy (Uncoded 04/21/17 11:08) ITCHING Home Medications: Home Meds Medication Instructions Recorded Confirmed Ferrous Sulfate [Feosol] 325 mg PO DAILY 04/21/17 07/24/17 Furosemide [Lasix] 20 mg PO DAILY 04/21/17 07/24/17 Lactulose 20 gm PO BID 04/21/17 07/24/17 Levothyroxine [Synthroid] 75 mcg PO DAILY 04/21/17 07/24/17 Magnesium Oxide [Mag-Ox] 400 mg PO BID 04/21/17 07/24/17 Spironolactone [Aldactone] 50 mg PO DAILY 04/21/17 07/24/17 rifAXIMin [Xifaxan] 550 mg PO BID 04/21/17 07/24/17 Review of Systems - Physician Review All systems were reviewed & negative as marked: Yes - Review of Systems Constitutional: Normal. absent: Fevers Eyes: Normal ENT: Normal Respiratory: Normal. absent: SOB, Cough Cardiovascular: Normal Gastrointestinal: Abdominal Pain, Nausea, Vomiting. absent: Diarrhea Genitourinary Female: Normal. absent: Dysuria, Frequency, Hematuria, Urine Output Changes Musculoskeletal: Normal. absent: Back Pain, Neck Pain Skin: Normal. absent: Rash Neurological: Normal. absent: Headache, Dizziness Endocrine: Normal Hemo/Lymphatic: Normal Psychiatric: Normal Physical Exam Vital Signs Reviewed: Yes Temperature: Afebrile Blood Pressure: Hypotensive Pulse: Regular Respiratory Rate: Normal Appearance: Positive for: Well-Appearing, Non-Toxic, Comfortable Pain Distress: None Mental Status: Positive for: Alert and Oriented X 3 - Systems Exam Head: Present: Atraumatic, Normocephalic Pupils: Present: PERRL Extroacular Muscles: Present: EOMI Conjunctiva: Present: Normal Mouth: Present: Moist Mucous Membranes Neck: Present: Normal Range of Motion Respiratory/Chest: Present: Clear to Auscultation, Good Air Exchange. No: Respiratory Distress, Accessory Muscle Use Cardiovascular: Present: Regular Rate and Rhythm, Normal S1, S2. No: Murmurs Abdomen: Present: Tenderness (RLQ tenderness), Normal Bowel Sounds. No: Distention, Peritoneal Signs Back: Present: Normal Inspection Upper Extremity: Present: Normal Inspection. No: Cyanosis, Edema Lower Extremity: Present: Normal Inspection. No: Edema Neurological: Present: GCS=15, CN II-XII Intact, Speech Normal Skin: Present: Warm, Dry, Normal Color. No: Rashes Psychiatric: Present: Alert, Oriented x 3, Normal Insight, Normal Concentration Vital Signs Temp Pulse Pulse Resp BP Pulse Ox 07/25/17 18:34 99.3 F 81 20 120/55 L 95 07/25/17 18:00 82 07/25/17 17:20 87 110/50 L 07/25/17 15:49 98.3 F 71 68 20 122/59 L 07/25/17 12:10 84 100/43 L 07/25/17 08:05 89 90/43 L 07/25/17 06:18 84 18 85/40 L 96 07/25/17 05:32 100 H 18 85/50 L 95 07/25/17 04:15 100.2 F H 07/25/17 03:00 100.2 F H 105 H 18 100/43 L 100 07/25/17 01:19 109 H 18 107/50 L 100 07/24/17 22:01 110 H 18 140/56 L 97 07/24/17 20:54 101.9 F H 07/24/17 19:34 77 20 113/34 L 97 Medical Decision Making - Lab Interpretations I have reviewed the lab results: Yes - RAD Interpretation Art Glass Setter: Radiologist - EKG Interpretation Interpreted by ED Physician: Yes Type: 12 lead EKG ED Course and Treatment: 07/25/17 07:30 Patient has been admitted. Seen by ICU staff. Additional IV fluids requested and ordered. (Tushar Ansari) 07/24/17 19:35 Impression: 87 year old female complaining of RLQ pain, nausea, and vomiting. Differential Diagnosis included but are not limited to: UTI vs. sepsis Plan: -- CT Abdomen and Pelvis -- EKG -- Chest X-ray -- Labs, blood cultures -- Urinalysis, urine cultures -- IV fluids -- Zofran -- Morphine -- Reassess and disposition Prior Visits: Notes and results from previous visits were reviewed. On 06/17/2017, pt was seen in the Emergency department for generalized body aches and diarrhea. Pt was admitted to the hospital for further evaluation of UTI. Progress Notes: Reviewed EKG, sinus rhythm at 66 bpm. Sinus arrhythmia. LAD. RBBB. Non-specific ST/T wave changes. 07/24/17 20:30 Chest X-ray reviewed, shows no acute processes. 07/24/17 20:54 Code Sepsis called. 07/24/17 22:[address] Mejía, who is aware and agrees with plan. Accepts pt in to his service. Pt will be admitted to Telemetry for sepsis. 07/25/17 02:06 CT Abdomen and Pelvis shows: Limitations: Lack of intravenous contrast. Motion artifact - mild. Lower thorax: Mild cardiomegaly. Coronary artery calcifications. Minimal atelectasis/scarring. Small hiatal hernia. ABDOMEN: Liver: Unremarkable. Gallbladder and bile ducts: Cholecystectomy. No significant ductal dilation. Pancreas: Unremarkable. No ductal dilation. Spleen: Borderline splenomegaly, AP dimension. Adrenals: No mass. Kidneys and ureters: Too small to characterize lesion within LEFT kidney. No renal calculi. No hydronephrosis. Stomach and bowel: [id number] mural thickening of large bowel. No obstruction. Appendix: No definite findings to suggest acute appendicitis. PELVIS: Bladder: Collapsed bladder around Baltazar catheter. No stones. Reproductive: Unremarkable as visualized. Subperitoneal space: Minimal stranding in presacral space. ABDOMEN and PELVIS: Intraperitoneal space: Small free fluid within abdomen and pelvis. No free air. Moderate to extensive stranding throughout mesentery. Bones/joints: Mild degenerative changes of spine. LEFT hip arthroplasty. No acute fracture. Soft tissues: Focal eventration midline anterior abdominal wall with postsurgical changes, stable. Moderate to extensive diffuse stranding within subcutaneous tissues. Vasculature: Unremarkable. No aneurysm. Lymph nodes: No pathologically enlarged lymph nodes. Other findings: IMPRESSION: 1. Colitis, nonspecific. Consider inflammatory or infectious etiologies. 2. Diffuse anasarca. 3. Incidental/non-acute findings are described above. pt refused repeat vbg 07/25/17 07:18 ([place]) - Lab Interpretations Microbiology Results: Microbiology Results 07/24/17 21:40 Urine,Clean Catch Urine Culture - Final Escherichia Coli Enterococcus Faecalis 07/24/17 20:00 Blood-Venous Blood Culture - Preliminary NO GROWTH AFTER 48 HOURS 07/24/17 20:25 Blood-Venous Blood Culture - Preliminary NO GROWTH AFTER 48 HOURS Lab Results: 07/24/17 20:25 07/24/17 20:25 Lab Results 07/24/17 21:40: Urine Color Yellow, Urine Appearance Clear, Urine pH 6.0, Ur Specific [place] 1.015, Urine Protein Negative, Urine Glucose (UA) Negative, Urine Ketones Negative, Urine Blood Negative, Urine Nitrate Negative, Urine Bilirubin Negative, Urine Urobilinogen 0.2, Ur Leukocyte Esterase Small H, Urine RBC Negative, Urine WBC 5 - 10, Ur Epithelial Cells 3 - 4, Urine Bacteria Many 07/24/17 20:25: pO2 35, VBG pH 7.24 L, VBG pCO2 59.0, VBG HCO3 25.3, VBG Total CO2 27.1, VBG O2 Sat (Calc) 61.5, VBG Base Excess -3.1 L, VBG Potassium 2.5 L*, Sodium 141.0, Chloride 112.0 H, Glucose 165 H, Lactate 4.8 H*, FiO2 21.0, Venous Blood Potassium 2.5 L* 07/24/17 20:25: Sodium 142, Chloride 109 H, Potassium 2.6 L* D, Carbon Dioxide 22, Anion Gap 13, BUN 14, Creatinine 1.3 H, Est GFR ( Amer) 47, Est GFR ( Non-Af Amer) 39, Random Glucose 156 H, Calcium 8.0 L, Total Bilirubin 1.5 H, AST 47 H, ALT 34, Alkaline Phosphatase 149 H, Lactate Dehydrogenase 443, Total Creatine Kinase 21 L, Troponin I 0.02 D, Total Protein 7.7, Albumin 2.5 L, Globulin 5.2, Albumin/Globulin Ratio 0.5 L, Amylase 81, Lipase 18 L 07/24/17 20:25: PT 20.1 H, INR 1.74 H, APTT 26.4 07/24/17 20:25: WBC 5.7, RBC 3.06 L, Hgb 9.5 L, Hct 28.5 L, MCV 93.1, MCH 31.0, MCHC 33.3, RDW 15.5 H, Plt Count 52 L, MPV 13.1 H, Gran % 56.4, Lymph % (Auto) 36.6 H, [place] % (Auto) 3.7, Eos % (Auto) 3.1, Baso % (Auto) 0.2, Gran # 3.24, Lymph # 2.1, [place] # 0.2, Eos # 0.2, Baso # 0.01 - RAD Interpretation Radiology Orders: 07/24/17 19:38 CHEST PORTABLE [RAD] Stat 07/24/17 19:51 ABD & PELVIS W/O PO OR IV CONT [CT] Stat - Medication Orders Current Medication Orders: Acetaminophen (Tylenol 325mg Tab) 650 mg PO Q4H PRN PRN Reason: Fever >100.5 F Last Admin: 07/25/17 04:15 Dose: 650 mg MAR Pain/Vitals Document 07/25/17 04:15 AD (Rec: 07/25/17 05:39 AD [id number]) Vitals Temperature (97.6 F-99.6 F) 100.2 F Temperature Source Oral Furosemide (Lasix) 20 mg PO DAILY HEMANT Meropenem 500 mg/ Sodium (Chloride) 100 mls @ 100 mls/hr IVPB Q12 HEMANT PRN Reason: Protocol Last Admin: 07/27/17 10:08 Dose: 100 mls/hr eMAR Start Stop Document 07/27/17 10:08 ML (Rec: 07/27/17 10:08 ML [id number]) Intravenous Solution Start Date 07/27/17 Start Time 10:08 End Date 07/27/17 End time 10:35 Total Infusion Time 27 Levalbuterol HCl (Xopenex) 0.63 mg IH TIDRESP COUNTS INCLUDE 234 BEDS AT THE [facility] Last Admin: 07/27/17 14:15 Dose: 0.63 mg Levothyroxine Sodium (Synthroid) 75 mcg PO ACB COUNTS INCLUDE 234 BEDS AT THE [facility] Last Admin: 07/27/17 09:55 Dose: 75 mcg Magnesium Oxide (Mag-Ox) 400 mg PO DAILY COUNTS INCLUDE 234 BEDS AT THE [facility] Last Admin: 07/27/17 09:55 Dose: 400 mg Ondansetron HCl (Zofran Inj) 4 mg IVP Q6H PRN PRN Reason: Nausea/Vomiting Pantoprazole Sodium (Protonix Ec Tab) 40 mg PO ACB HEMANT Potassium Phos/Sodium Phos (Neutra-Phos) 1 pkt PO BID COUNTS INCLUDE 234 BEDS AT THE [facility] Last Admin: 07/27/17 09:55 Dose: 1 pkt Vancomycin HCl (Vancocin 25 Mg/Ml (Oral Use)) 125 mg PO QID HEMANT PRN Reason: Protocol Last Admin: 07/27/17 15:34 Dose: Not Given Non-Admin Reason: Patient Refused Discontinued Medications Furosemide (Lasix) 40 mg IVP ONCE ONE Stop: 07/27/17 09:28 Last Admin: 07/27/17 09:56 Dose: 40 mg MAR Blood Pressure Document 07/27/17 09:56 ML (Rec: 07/27/17 09:56 ML [id number]) Blood Pressure Blood Pressure (100/60-150/90) 142/76 IVP Administration Document 07/27/17 09:56 ML (Rec: 07/27/17 09:56 ML [id number]) Charges for Administration # of IVP Administrations 1 Sodium Chloride (Sodium Chloride 0.9%) 1,000 mls @ 80 mls/hr IV .[id number] COUNTS INCLUDE 234 BEDS AT THE [facility] Last Admin: 07/26/17 22:00 Dose: Aztreonam (Azactam 1 Gm) 100 mls @ 100 mls/hr IVPB STAT STA PRN Reason: Protocol Stop: 07/24/17 22:03 Last Admin: 07/24/17 21:10 Dose: 100 mls/hr eMAR Start Stop Document 07/24/17 21:10 OCS (Rec: 07/24/17 21:29 OCS [id number]) Intravenous Solution Start Date 07/24/17 Start Time 21:28 End Date 07/24/17 End time 22:28 Total Infusion Time 60 Vancomycin HCl (Vancomycin 1gm) 1 gm in 250 mls @ 167 mls/hr IVPB STAT STA PRN Reason: Protocol Stop: 07/24/17 22:33 Last Admin: 07/24/17 22:52 Dose: 167 mls/hr eMAR Start Stop Document 07/24/17 22:52 OCS (Rec: 07/24/17 22:54 OCS [id number]) Intravenous Solution Start Date 07/24/17 Start Time 22:52 End Date 07/25/17 End time 00:22 Total Infusion Time 90 Potassium Chloride (Potassium Chloride 20 Meq/100 Ml) 20 meq in 100 mls @ 50 mls/hr IVPB Q2H HEMANT Stop: 07/25/17 01:44 Last Admin: 07/25/17 01:00 Dose: 50 mls/hr eMAR Start Stop Document 07/25/17 01:00 AD (Rec: 07/25/17 01:00 AD [id number]) Intravenous Solution Start Date 07/25/17 Start Time 01:00 Metronidazole (Flagyl) 500 mg in 100 mls @ 100 mls/hr IVPB STAT STA PRN Reason: Protocol Stop: 07/25/17 03:05 Last Admin: 07/25/17 03:40 Dose: 100 mls/hr eMAR Start Stop Document 07/25/17 03:40 AD (Rec: 07/25/17 03:41 AD [id number]) Intravenous Solution Start Date 07/25/17 Start Time 03:41 Sodium Chloride (Sodium Chloride 0.9%) 1,000 mls @ 100 mls/hr IV .Q10H STA Stop: 07/25/17 13:45 Last Admin: 07/25/17 03:46 Dose: 100 mls/hr eMAR Start Stop Document 07/25/17 03:46 AD (Rec: 07/25/17 04:23 AD [id number]) Intravenous Solution Start Date 07/25/17 Start Time 03:46 Lactated Ringer's (Lactated Ringer's) 1,000 mls @ 1,000 mls/hr IV .Q1H HEMANT Stop: 07/25/17 07:15 Last Admin: 07/25/17 07:15 Dose: Lactated Ringer's (Lactated Ringer's) 1,000 mls @ 1,000 mls/hr IV .Q1H ONE Stop: 07/25/17 08:29 Last Admin: 07/25/17 08:48 Dose: 1,000 mls/hr eMAR Start Stop Document 07/25/17 08:48 RDS (Rec: 07/25/17 08:48 RDS [id number]) Intravenous Solution Start Date 07/25/17 Start Time 08:48 Potassium Chloride (Potassium Chloride 10 Meq/100 Ml) 10 meq in 100 mls @ 50 mls/hr IVPB ONCE ONE Stop: 07/25/17 21:02 Last Admin: 07/25/17 23:30 Dose: 50 mls/hr eMAR Start Stop Document 07/25/17 23:30 CDL (Rec: 07/26/17 00:53 CDL [id number]) Intravenous Solution Start Date 07/25/17 Start Time 23:30 End Date 07/26/17 End time 01:30 Total Infusion Time 120 Magnesium Sulfate 2 gm/ Sodium (Chloride) 104 mls @ 102 mls/hr IVPB Q2H HEMANT Stop: 07/26/17 12:02 Last Admin: 07/26/17 11:27 Dose: 102 mls/hr eMAR Start Stop Document 07/26/17 11:27 MM (Rec: 07/26/17 11:27 MM [id number]) Intravenous Solution Start Date 07/26/17 Start Time 11:27 End Date 07/26/17 End time 12:27 Total Infusion Time 60 Metronidazole (Flagyl) 500 mg in 100 mls @ 100 mls/hr IVPB Q8 HEMANT PRN Reason: Protocol Last Admin: 07/26/17 11:26 Dose: 100 mls/hr eMAR Start Stop Document 07/26/17 11:26 MM (Rec: 07/26/17 11:26 MM [id number]) Intravenous Solution Start Date 07/26/17 Start Time 11:26 End Date 07/26/17 End time 12:26 Total Infusion Time 60 Potassium Chloride (Potassium Chloride 10 Meq/100 Ml) 10 meq in 100 mls @ 50 mls/hr IVPB ONCE ONE Stop: 07/27/17 12:28 Last Admin: 07/27/17 12:51 Dose: Not Given Non-Admin Reason: Patient Refused Levothyroxine Sodium (Synthroid) 75 mcg PO DAILY COUNTS INCLUDE 234 BEDS AT THE [facility] Last Admin: 07/25/17 19:01 Dose: 75 mcg Lorazepam (Ativan) 1 mg PO ONCE ONE PRN Reason: Protocol Stop: 07/25/17 00:12 Last Admin: 07/25/17 01:01 Dose: 1 mg Magnesium Oxide (Mag-Ox) 400 mg PO TID COUNTS INCLUDE 234 BEDS AT THE [facility] Last Admin: 07/26/17 18:22 Dose: Not Given Non-Admin Reason: Patient Refused Morphine Sulfate (Morphine) 2 mg IVP STAT STA Stop: 07/24/17 19:53 Last Admin: 07/24/17 20:34 Dose: 2 mg MAR Pain Assessment Document 07/24/17 20:34 OCS (Rec: 07/24/17 20:34 OCS [id number]) Pain Reassessment Is this a pain reassessment? Yes Sleep Is patient sleeping during reassessment? No Presence of Pain Presence of Pain Yes Location Pain Location Body Site Abdomen Description Description Constant Intensity of Pain at present 10 Aggravating Factors ADL's IVP Administration Document 07/24/17 20:34 OCS (Rec: 07/24/17 20:34 OCS [id number]) Charges for Administration # of IVP Administrations 1 Ondansetron HCl (Zofran Inj) 4 mg IVP STAT STA Stop: 07/24/17 19:41 Last Admin: 07/24/17 20:34 Dose: 4 mg IVP Administration Document 07/24/17 20:34 OCS (Rec: 07/24/17 20:34 OCS [id number]) Charges for Administration # of IVP Administrations 1 Pantoprazole Sodium (Protonix Inj) 40 mg IVP DAILY COUNTS INCLUDE 234 BEDS AT THE [facility] Last Admin: 07/27/17 09:56 Dose: 40 mg IVP Administration Document 07/27/17 09:56 ML (Rec: 07/27/17 09:56 ML [id number]) Charges for Administration # of IVP Administrations 1 Potassium Chloride (K-Dur 20 Meq Er Tab) 40 meq PO ONCE ONE Stop: 07/26/17 09:02 Last Admin: 07/26/17 11:47 Dose: 40 meq Potassium Chloride (K-Dur 20 Meq Er Tab) 40 meq PO ONCE ONE Stop: 07/27/17 09:19 Last Admin: 07/27/17 11:44 Dose: 40 meq Vancomycin HCl (Vancocin 25 Mg/Ml (Oral Use)) 125 mg PO QID COUNTS INCLUDE 234 BEDS AT THE [facility] PRN Reason: Protocol Last Admin: 07/26/17 22:30 Dose: 125 mg - Scribe Statement The provider has reviewed the documentation as recorded by the Scribe - Scribe Statement Leeanne Meza All medical record entries made by the Scribe were at my direction and personally dictated by me. I have reviewed the chart and agree that the record accurately reflects my personal performance of the history, physical exam, medical decision making, and the department course for this patient. I have also personally directed, reviewed, and agree with the discharge instructions and disposition. ([place]) Disposition/Present on Arrival - Present on Arrival Any Indicators Present on Arrival: No History of DVT/PE: No History of Uncontrolled Diabetes: No Urinary Catheter: No History of Decub. Ulcer: No History Surgical Site Infection Following: None - Disposition Have Diagnosis and Disposition been Completed?: Yes Disposition Time: 22:15 - Disposition Diagnosis: Dehydration, Abdominal pain, Hypokalemia, Sepsis Disposition: HOSPITALIZED Condition: SERIOUS
[2017-07-24 22:26] LABS: URINE BILIRUBIN NEGATIVE (NEGATIVE); URINE BLOOD NEGATIVE (NEGATIVE); URINE GLUCOSE (UA) NEGATIVE (NEGATIVE); URINE LEUKOCYTE ESTERASE SMALL Leu/uL (NEGATIVE); URINE NITRATE NEGATIVE (NEGATIVE); URINE PROTEIN NEGATIVE mg/dL (<30 mg/dL); URINE UROBILINOGEN 0.2 E.U./dL (<1 E.U./dL)
[2017-07-24 22:34] LABS: URINE APPEARANCE CLEAR (CLEAR); URINE COLOR YELLOW (YELLOW)
[2017-07-24 22:55] LABS: URINE BACTERIA MANY (NEG); URINE RBC NEGATIVE /hpf (0-2)
--- NOTE | 2017-07-25 02:02 | CT ---
EXAM: CT Abdomen and Pelvis Without Intravenous Contrast CLINICAL HISTORY: 87 years old, female; Pain; Abdominal pain; Generalized; Prior surgery; Additional info: Abd pain TECHNIQUE: Axial computed tomography images of the abdomen and pelvis without intravenous contrast. All CT scans at this facility use one or more dose reduction techniques, viz.: automated exposure control; ma/kV adjustment per patient size (including targeted exams where dose is matched to indication; i.e. head); or iterative reconstruction technique. Coronal and sagittal reformatted images were created and reviewed. COMPARISON: CT - 07/24/2016 FINDINGS: Limitations: Lack of intravenous contrast. Motion artifact - mild. Lower thorax: Mild cardiomegaly. Coronary artery calcifications. Minimal atelectasis/scarring. Small hiatal hernia. ABDOMEN: Liver: Unremarkable. Gallbladder and bile ducts: Cholecystectomy. No significant ductal dilation. Pancreas: Unremarkable. No ductal dilation. Spleen: Borderline splenomegaly, AP dimension. Adrenals: No mass. Kidneys and ureters: Too small to characterize lesion within LEFT kidney. No renal calculi. No hydronephrosis. Stomach and bowel: [id number] mural thickening of large bowel. No obstruction. Appendix: No definite findings to suggest acute appendicitis. PELVIS: Bladder: Collapsed bladder around Baltazar catheter. No stones. Reproductive: Unremarkable as visualized. Subperitoneal space: Minimal stranding in presacral space. ABDOMEN and PELVIS: Intraperitoneal space: Small free fluid within abdomen and pelvis. No free air. Moderate to extensive stranding throughout mesentery. Bones/joints: Mild degenerative changes of spine. LEFT hip arthroplasty. No acute fracture. Soft tissues: Focal eventration midline anterior abdominal wall with postsurgical changes, stable. Moderate to extensive diffuse stranding within subcutaneous tissues. Vasculature: Unremarkable. No aneurysm. Lymph nodes: No pathologically enlarged lymph nodes. Other findings: IMPRESSION: 1. Colitis, nonspecific. Consider inflammatory or infectious etiologies. 2. Diffuse anasarca. 3. Incidental/non-acute findings are described above.
[2017-07-25] MEDS ORDERED: metroNIDAZOLE IV 500 mg/100 ml 500 MG/100 ML BAG IVPB STA (02:06)
[2017-07-25] MEDS ORDERED: Sodium Chloride 0.9% 1,000 ML IV STA ×2 (03:46→07:30)
[2017-07-25] MEDS: Lactated Ringer's 1,000 ML IV SCH ×2 (06:17→07:15)
[2017-07-25] MEDS ORDERED: Lactated Ringer's 1,000 ML IV ONE (07:30)
--- NOTE | 2017-07-25 07:53 | CP.PCM.CON ---
<Makayla Alvarez - Last Filed: 07/25/17 07:44> History of Present Illness - History of Present Illness History of Present Illness: ICU Consult Note for Owen Pathak PGY2 This is a 87yo F with PMH of HTN, hypothyroidism, autoimmune hepatitis, MDS, DM who came to ED for abdominal pain x 2 days. It is located in the RLQ and patient complains of nausea and vomiting. She denies any bloody or bilious fluid in her emesis. Patient was resting comfortably in bed and is A&O x 3. She denies having chest pain, shortness of breath, fever/chills, dizziness, headache , diarrhea, numbness/tingling, dysuria or hematuria. In the ED, patient was found to be dehydrated, but responsive to fluids. CT abd/pelvis was indicative for colitis with diffuse anasarca. Past medical history: HTN, hypothyrodism, MDS, DM, recurrent UTI, thrombocytopenia and autoimmune hepatitis. Past surgical history: cholecystectomy, R Hip fracture s/p Home meds: As per MAR Allergies: PCN, levaquin Social history: Denies tobacco or drug use. Drinks 1 glass of wine occasionally. Lives with daughter Review of Systems - Review of Systems Review of Systems: 12 point ROS reviewed As per HPI Past Patient History - Infectious Disease Hx of Infectious Diseases: None - Tetanus Immunizations Tetanus Immunization: Unknown - Past Social History Smoking Status: Never Smoked - CARDIAC Hx Hypertension: Yes - PULMONARY Hx Respiratory Disorders: Yes Hx Pneumonia: Yes - NEUROLOGICAL Hx Neurological Disorder: (syncope) Hx Dizziness: Yes Hx Transient Ischemic Attacks (TIA): No - HEENT Hx HEENT Problems: No - RENAL Hx Chronic Kidney Disease: Yes Other/Comment: uti - ENDOCRINE/METABOLIC Hx Hypothyroidism: Yes - HEMATOLOGICAL/ONCOLOGICAL Hx Blood Disorders: Yes (MDS) Hx Anemia: Yes Hx Cirrhosis: Yes Other/Comment: thromocytopenia, myelodysplastic syndrome, hypomagnesia/ pancytopenia - INTEGUMENTARY Hx Dermatological Problems: Yes Other/Comment: +3 pitting edema ble, ble ski discolorations, 2nd toe l ft crooked, bone removed yrs ago, stage 2 pressure ulcer r sacrum 2.5cm x 1.5cm red open wound, stage 2 left sacrum open wound 3cm x 2.5cm wound bed red and slough small 0.5cm tear in skin bed is red, multiple skin discolorations b/l arms thin skin - MUSCULOSKELETAL/RHEUMATOLOGICAL Hx Falls: No - GASTROINTESTINAL Hx Gastrointestinal Disorders: Yes (GERD,CROHNS,CHOLECYSTECTOMY,ULCER) Hx Diverticulitis: Yes Other/Comment: gastritis - GENITOURINARY/GYNECOLOGICAL Hx Genitourinary Disorders: Yes (VRE,ESBL,INCONTINENT,RETENTION) Hx Urinary Tract Infection: Yes Other/Comment: hx urosepsis - PSYCHIATRIC Hx Psychophysiologic Disorder: Yes Hx Anxiety: Yes Hx Substance Use: No - SURGICAL HISTORY Hx Cholecystectomy: Yes Hx Orthopedic Surgery: Yes (r hip fx) - ANESTHESIA Hx Anesthesia: No Hx Anesthesia Reactions: No Hx Malignant Hyperthermia: No Meds Allergies/Adverse Reactions: Allergies Allergy/AdvReac Type Severity Reaction Status Date / Time levofloxacin [From Levaquin] Allergy Intermediate RASH Verified 04/21/17 11:08 Penicillins Allergy URTICARIA Verified 04/21/17 11:08 lev Allergy ITCHING Uncoded 04/21/17 11:08 - Medications Medications: Current Medications Acetaminophen (Tylenol 325mg Tab) 650 mg PO Q4H PRN PRN Reason: Fever >100.5 F Last Admin: 07/25/17 04:15 Dose: 650 mg Sodium Chloride (Sodium Chloride 0.9%) 1,000 mls @ 80 mls/hr IV .[id number] HEMANT Last Admin: 07/24/17 20:33 Dose: 80 mls/hr Sodium Chloride (Sodium Chloride 0.9%) 1,000 mls @ 100 mls/hr IV .Q10H STA Stop: 07/25/17 13:45 Last Admin: 07/25/17 03:46 Dose: 100 mls/hr Lactated Ringer's (Lactated Ringer's) 1,000 mls @ 1,000 mls/hr IV .Q1H ONE Stop: 07/25/17 08:29 Sodium Chloride (Sodium Chloride 0.9%) 1,000 mls @ 999 mls/hr IV .Q1H1M STA Stop: 07/25/17 08:30 Ondansetron HCl (Zofran Inj) 4 mg IVP Q6H PRN PRN Reason: Nausea/Vomiting Physical Exam - Constitutional Appears: No Acute Distress - Head Exam Head Exam: ATRAUMATIC, NORMAL INSPECTION, NORMOCEPHALIC - Eye Exam Eye Exam: Normal appearance, PERRL Pupil Exam: NORMAL ACCOMODATION, PERRL - ENT Exam ENT Exam: Mucous Membranes Dry - Respiratory Exam Respiratory Exam: Clear to Auscultation Bilateral, NORMAL BREATHING PATTERN. absent: Rales, Rhonchi, Wheezes - Cardiovascular Exam Cardiovascular Exam: REGULAR RHYTHM, +S1, +S2. absent: Gallop, Rubs, Systolic Murmur - GI/Abdominal Exam GI & Abdominal Exam: Hyperactive Bowel Sounds, Soft, Tenderness (diffuse ). absent: Mass, Rebound, Rigid - Extremities Exam Extremities exam: Positive for: pedal edema Additional comments: chronic venous stasis. - Neurological Exam Neurological exam: Alert, CN II-XII Intact, Oriented x3 - Psychiatric Exam Psychiatric exam: Normal Affect, Normal Mood - Skin Skin Exam: Dry, Warm Results - Vital Signs Recent Vital Signs: Last Vital Signs Temp 100.2 F H 07/25/17 04:15 Pulse 84 07/25/17 06:18 Resp 18 07/25/17 06:18 BP 85/40 L 07/25/17 06:18 Pulse Ox 96 07/25/17 06:18 - Labs Result Diagrams: 07/24/17 20:25 07/24/17 20:25 Assessment & Plan - Assessment and Plan (Free Text) Assessment: This is a 87yo F with PMH of HTN, hypothyroidism, autoimmune hepatitis, MDS, DM who came to ED for abdominal pain x 2 days who was found to have colitis and diffuse anasarca on CT. Upon evaluation, her SBP was in the 90s-100s and patient appeared dry. She is mentating well and comfortable on room air. We recommend to repeat lactate, continue IV fluids, antibiotics for her colitis. Patient is hemodynamically stable and does not require ICU at this time. Case seen, discussed and reviewed with attending. Owen Alvarez PGY2 <Rodolfo Porter - Last Filed: 07/25/17 08:06> Meds - Medications Medications: Current Medications Acetaminophen (Tylenol 325mg Tab) 650 mg PO Q4H PRN PRN Reason: Fever >100.5 F Last Admin: 07/25/17 04:15 Dose: 650 mg Sodium Chloride (Sodium Chloride 0.9%) 1,000 mls @ 80 mls/hr IV .[id number] [facility] Last Admin: 07/24/17 20:33 Dose: 80 mls/hr Sodium Chloride (Sodium Chloride 0.9%) 1,000 mls @ 100 mls/hr IV .Q10H STA Stop: 07/25/17 13:45 Last Admin: 07/25/17 03:46 Dose: 100 mls/hr Lactated Ringer's (Lactated Ringer's) 1,000 mls @ 1,000 mls/hr IV .Q1H ONE Stop: 07/25/17 08:29 Sodium Chloride (Sodium Chloride 0.9%) 1,000 mls @ 999 mls/hr IV .Q1H1M STA Stop: 07/25/17 08:30 Ondansetron HCl (Zofran Inj) 4 mg IVP Q6H PRN PRN Reason: Nausea/Vomiting Results - Vital Signs Recent Vital Signs: Last Vital Signs Temp 100.2 F H 07/25/17 04:15 Pulse 84 07/25/17 06:18 Resp 18 07/25/17 06:18 BP 85/40 L 07/25/17 06:18 Pulse Ox 96 07/25/17 06:18 - Labs Result Diagrams: 07/24/17 20:25 07/24/17 20:25 Assessment & Plan - Assessment and Plan (Free Text) Assessment: Patient seen and examined, with resident, agree with note with following additions/exceptions: Patient is 87yo female with PMHx HTN, hypothyroidism, autoimmune hepatitis, MDS , DM who came to ED for abdominal pain x 2 days, found ot have colitis. Currently afebrile, HD stable, SBP 90-100, AAox2, NAD, comfortable. Recommend: Aggressive IVF hydration, pt clinically markedly dry, IV Antibiotics, erpeat lactate, Fortune I/Os, stable, monitor on telemetry.
--- NOTE | 2017-07-25 08:26 | RAD ---
HISTORY: abd pain COMPARISON: 06/17/2017. FINDINGS: LUNGS: Low lung volumes which may be related to poor inspiratory effort. There is mild pulmonary venous congestion. No focal consolidation. PLEURA: No significant pleural effusion identified, no pneumothorax apparent. CARDIOVASCULAR: There is persistent mild cardiomegaly. OSSEOUS STRUCTURES: No significant abnormalities. VISUALIZED UPPER ABDOMEN: Normal. OTHER FINDINGS: None. IMPRESSION: No active pulmonary disease. Mild cardiomegaly and pulmonary venous congestion.
--- NOTE | 2017-07-25 09:46 | CARD ---
APPROVED REPORT EKG Measurement Heart [id number] <Conclusion> Sinus rhythm RBBB LAD PRWP V 1 - 6. Possible ALMI, old NSSTW changes No change
[2017-07-25] MEDS: Sodium Chloride 0.9% 1,000 ML IV SCH ×3 (10:12→23:08)
[2017-07-25] MEDS ORDERED: Levothyroxine 75 MCG TAB PO SCH (16:00)
[2017-07-25] MEDS ORDERED: Aztreonam 1 Gm in NS 100mL 100 ML IVPB SCH (22:00)
[2017-07-25] MEDS: Meropenem 500 MG in Sodium Chloride 0.9% 100 ML IVPB SCH (23:07)
--- NOTE | 2017-07-26 02:02 | HP ---
HISTORY OF PRESENT ILLNESS: The patient is [id number], known to me from multiple previous admission. The patient stated she has good supper last night, but after couple of hours, she vomited. Since than, she has been feeling very weak, dizzy, and she almost passed out, so daughter called ambulance and she was brought to emergency room. Denies any chest pain. No shortness of breath. Right now complained of feeling weak and dizzy and having no appetite. The patient is incontinent. No complain of diarrhea now. PAST MEDICAL HISTORY: Significant for; 1. Hypertension. 2. Electrolyte imbalance. 3. Hypothyroidism. 4. Autoimmune hepatitis. 5. Myelodysplastic syndrome. 6. Recurrent UTI. 7. Thrombocytopenia. 8. Chronic anemia. PAST SURGICAL HISTORY: Significant for ; 1. Right hip fracture status post open reduction and internal fixation. 2. Status post cholecystectomy. ALLERGIES: SHE IS ALLERGIC TO PENICILLIN AND LEVAQUIN. MEDICATION AT: At home, she is on spironolactone, Suboxone, lactulose, ferrous sulfate, magnesium oxide and levothyroxine. SOCIAL HISTORY: She is single, lives with her daughter. History of smoking in the past and drinks wine with her dinner. PHYSICAL EXAMINATION: GENERAL: She is awake, alert, and oriented. VITAL SIGNS: She is afebrile. Pulse 81, respirations 20, and blood pressure 120/55. LUNGS: Bilateral fair airflow. No rhonchi or crackles. HEART: S1 and S2 audible. ABDOMEN: Soft and nontender. Slight suprapubic and left lower quadrant discomfort. NEUROLOGICAL: She is awake, alert, oriented, communicative. LABORATORY DATA: WBC 5.7, hemoglobin 11.5, hematocrit 28.5, and platelet 52. Chemistry; sodium 142, potassium 2.6, chloride 109, CO2 22, BUN 14, creatinine 1.3, blood sugar of 156. Total bili 1.5, alk phos 149, albumin 2.5. Urinalysis, small leukocyte. CT scan of the abdomen and pelvis shows colitis with diffuse anasarca. ASSESSMENT: 1. Colitis with history of episode of nausea, vomiting and dehydration. 2. Electrolyte imbalance. 3. Hypokalemia. 4. Autoimmune hepatitis. 5. Hypertension. 6. Hypothyroidism. PLAN: We will sent stool for C. diff. Start her on Azactam and Flagyl, will supplement her potassium. We will follow up electrolytes in a.m., GI consult for Dr. Davis has been requested. Kamaljit Pena MD
[2017-07-26 06:33] LABS: BASO # 0.02 K/mm3 (0.0-2.0); BASO % 0.3 % (0.0-3.0); EOS # 0.1 (0.0-0.7); EOS % 1.9 % (1.5-5.0); GRAN # 5.72 (1.4-6.5); GRAN % 76.8 % (50.0-68.0); LYMPH % 13.3 % (22.0-35.0); MEAN CELL VOLUME 93.4 fl (80.0-105.0); MEAN CORPUSCULAR HEMOGLOBIN 31.3 pg (25.0-35.0); MEAN CORPUSCULAR HGB CONC 33.5 g/dl (31.0-37.0); MEAN PLATELET VOLUME 12.7 fl (7.0-11.0); MONO # 0.6 (0.1-0.6); MONO % 7.7 % (1.0-6.0); RBC 2.43 10^6/uL (3.5-6.1); WHITE BLOOD COUNT 7.4 10^3/ul (4.5-11.0)
[2017-07-26 07:08] LABS: HEMOGLOBIN 7.6 g/dL (12.0-16.0)
[2017-07-26 07:11] LABS: ALB/GLOB RATIO 0.4 (1.1-1.8); ALBUMIN 1.9 g/dL (3.0-4.8); CALCIUM 6.9 mg/dL (8.4-10.5)
[2017-07-26] MEDS: Levothyroxine 75 MCG TAB PO SCH (08:16)
[2017-07-26] MEDS ORDERED: Potassium Chloride 20 mEq ER Tab PO ONE (09:01)
[2017-07-26] MEDS ORDERED: metroNIDAZOLE IV 500 mg/100 ml 500 MG/100 ML BAG IVPB SCH (09:15)
[2017-07-26 09:41] LABS: HEMOGLOBIN 8.6 g/dL (12.0-16.0)
[2017-07-26] MEDS: Magnesium Sulfate 2 GM in Sodium Chloride 0.9% 100 ML IVPB SCH ×2 (11:26→11:27)
[2017-07-26] MEDS: Magnesium Oxide 400 mg Tab UD PO SCH ×3 (11:26→18:22)
[2017-07-26 12:17] LABS: TOTAL IRON BINDING CAPACITY 134 ug/dL (265-497)
[2017-07-26 12:18] LABS: IRON 42 ug/dL (45-180)
[2017-07-26 12:19] LABS: T4 3.6 ug/dL (5.5-11.0)
[2017-07-26 12:50] LABS: % IRON SATURATION 31 % (20-55)
--- NOTE | 2017-07-26 13:24 | CP.PCM.CON ---
<Melinda Nieves - Last Filed: 07/26/17 13:24> History of Present Illness - History of Present Illness History of Present Illness: seen and examined at the bedside earlier today, chart reviewed. Request for GI consult is for colitis. HPI: This is an 87-year-old female with a past medical history of autoimmune hepatitis, myelodysplastic syndrome, thrombocytopenia, chronic anemia and hypertension known to our service from the various admissions was brought to the emergency room with complaints of vomiting. The patient tolerated dinner and after a couple hours had episodes of vomiting. The patient complained of feeling weak and dizzy and she was brought to the emergency room by ambulance. The patient is awake alert and aware of surroundings but a poor historian. History obtained from chart and an nursing. The patient did state she did have abdominal pain currently denying diarrhea but as per staff patient is having diarrhea. No reports of melena or bright red blood per rectum. The patient did have nausea yesterday but denies any nausea today and abdominal pain has improved. Patient reports having a bowel movement this morning. Denies shortness of breath, chest pain, weight loss or loss of appetite. On admission the patient had a CT scan of abdomen and pelvis with no contrast, reports reviewed and this revealed nonspecific colitis, there was mild to moderate mural thickening of the large bowel obstruction. Consider inflammatory or infectious etiologies. The patient denies any recent illnesses or antibiotic use. Also noted to have diffuse anasarca , no pathological enlarged lymph nodes , the liver was unremarkable. See [employer] for full report. Past medical history: GERD, hypothyroidism, thrombocytopenia, or go in the liver cirrhosis, chronic anemia, diabetes mellitus, recurrent UTI, hypertension , myelodysplastic syndrome Past surgical history: Cholecystectomy, right hip fracture with open reduction and internal fixation Allergies: Penicillin and Levaquin Social history: History of smoking, occasional wine with dinner, denies drugs. Family history: Noncontributory at this time Medications: Reviewed as per MAR ROS: Systems reviewed positive findings see HPI Past Patient History - Infectious Disease Hx of Infectious Diseases: None - Tetanus Immunizations Tetanus Immunization: Unknown - Past Social History Smoking Status: Smoker Currrent Status Unknown - CARDIAC Hx Cardiac Disorders: Yes Hx Circulatory Problems: Yes Hx Hypercholesterolemia: Yes Hx Hypertension: Yes Hx Peripheral Edema: Yes Hx Peripheral Vascular Disease: Yes - PULMONARY Hx Respiratory Disorders: Yes Hx Pneumonia: Yes - NEUROLOGICAL Hx Neurological Disorder: Yes (syncope) Hx Dizziness: Yes - HEENT Hx HEENT Problems: No - RENAL Hx Chronic Kidney Disease: Yes Hx Renal Failure: Yes Other/Comment: uti - ENDOCRINE/METABOLIC Hx Endocrine Disorders: Yes Hx Diabetes Mellitus Type 2: Yes Hx Hypothyroidism: Yes - HEMATOLOGICAL/ONCOLOGICAL Hx Blood Disorders: Yes (MDS) Hx Anemia: Yes Hx Cirrhosis: Yes Other/Comment: thromocytopenia, myelodysplastic syndrome, hypomagnesia/ pancytopenia - INTEGUMENTARY Hx Dermatological Problems: Yes Other/Comment: +3 pitting edema ble, ble ski discolorations, 2nd toe l ft crooked, bone removed yrs ago,pressure ulcer sacrum, multiple skin discolorations b/l arms thin skin - MUSCULOSKELETAL/RHEUMATOLOGICAL Hx Musculoskeletal Disorders: Yes Hx Falls: No Hx Unsteady Gait: Yes - GASTROINTESTINAL Hx Gastrointestinal Disorders: Yes (GERD,CROHNS,CHOLECYSTECTOMY,ULCER) Hx Diverticulitis: Yes Other/Comment: gastritis - GENITOURINARY/GYNECOLOGICAL Hx Genitourinary Disorders: Yes (VRE,ESBL,INCONTINENT,RETENTION) Hx Urinary Tract Infection: Yes Other/Comment: hx urosepsis - PSYCHIATRIC Hx Psychophysiologic Disorder: Yes Hx Anxiety: Yes Other/Comment: ALCOHOL USE OCCASIONALLY - SURGICAL HISTORY Hx Cholecystectomy: Yes Hx Orthopedic Surgery: Yes (r hip fx) - ANESTHESIA Hx Anesthesia: No Hx Anesthesia Reactions: No Hx Malignant Hyperthermia: No Meds Allergies/Adverse Reactions: Allergies Allergy/AdvReac Type Severity Reaction Status Date / Time levofloxacin [From Levaquin] Allergy Intermediate RASH Verified 04/21/17 11:08 Penicillins Allergy URTICARIA Verified 04/21/17 11:08 lev Allergy ITCHING Uncoded 04/21/17 11:08 - Medications Medications: Current Medications Acetaminophen (Tylenol 325mg Tab) 650 mg PO Q4H PRN PRN Reason: Fever >100.5 F Last Admin: 07/25/17 04:15 Dose: 650 mg Sodium Chloride (Sodium Chloride 0.9%) 1,000 mls @ 80 mls/hr IV .[id number] HEM[facility] Last Admin: 07/25/17 23:08 Dose: 80 mls/hr Meropenem 500 mg/ Sodium (Chloride) 100 mls @ 100 mls/hr IVPB Q12 [facility] PRN Reason: Protocol Last Admin: 07/25/17 23:07 Dose: 100 mls/hr Metronidazole (Flagyl) 500 mg in 100 mls @ 100 mls/hr IVPB Q8 [facility] PRN Reason: Protocol Last Admin: 07/26/17 11:26 Dose: 100 mls/hr Levothyroxine Sodium (Synthroid) 75 mcg PO ACB [facility] Last Admin: 07/26/17 08:16 Dose: 75 mcg Magnesium Oxide (Mag-Ox) 400 mg PO TID [facility] Last Admin: 07/26/17 11:26 Dose: 400 mg Ondansetron HCl (Zofran Inj) 4 mg IVP Q6H PRN PRN Reason: Nausea/Vomiting Pantoprazole Sodium (Protonix Inj) 40 mg IVP DAILY [facility] Last Admin: 07/26/17 11:26 Dose: 40 mg Physical Exam - Constitutional Appears: No Acute Distress - Head Exam Head Exam: NORMOCEPHALIC - Eye Exam Eye Exam: Normal appearance. absent: Scleral icterus - ENT Exam ENT Exam: Mucous Membranes Moist - Neck Exam Neck exam: Positive for: Normal Inspection - Respiratory Exam Respiratory Exam: Decreased Breath Sounds, NORMAL BREATHING PATTERN. absent: Respiratory Distress - Cardiovascular Exam Cardiovascular Exam: +S1, +S2 - GI/Abdominal Exam GI & Abdominal Exam: Distended, Hernia (umbilical, soft nontender), Normal Bowel Sounds, Soft, Tenderness (midabdominal). absent: Guarding ( no rebound or gding), Organomegaly, Rebound - Extremities Exam Extremities exam: Positive for: pedal pulses present. Negative for: calf tenderness (chronic lower extremity edema with erythema) - Neurological Exam Neurological exam: Alert, Oriented x3 - Skin Skin Exam: Dry, Warm Results - Vital Signs Recent Vital Signs: Last Vital Signs Temp 98.2 F 07/26/17 12:00 Pulse 75 07/26/17 12:00 Resp 21 07/26/17 12:00 BP 124/61 07/26/17 12:00 Pulse Ox 99 07/26/17 06:00 - Labs Result Diagrams: 07/26/17 08:59 07/26/17 05:20 Labs: Laboratory Results - last 24 hr 07/26/17 07/26/17 07/26/17 05:20 05:20 08:59 WBC 7.4 D RBC 2.43 L Hgb 7.6 L 8.6 L Hct 22.7 L 25.9 L MCV 93.4 MCH 31.3 MCHC 33.5 RDW 16.0 H Plt Count 36 L* MPV 12.7 H Gran % 76.8 H Lymph % (Auto) 13.3 L [place] % (Auto) 7.7 H Eos % (Auto) 1.9 Baso % (Auto) 0.3 Gran # 5.72 Lymph # 1.0 L [place] # 0.6 Eos # 0.1 Baso # 0.02 Sodium 140 Potassium 3.1 L Chloride 113 H Carbon Dioxide 21 Anion Gap 9 L BUN 22 H Creatinine 1.6 H Est GFR ( Amer) 37 Est GFR (Non-Af Amer) 30 Random Glucose 86 Lactic Acid Calcium 6.9 L* Magnesium 1.0 L* Iron TIBC % Saturation Total Bilirubin 1.5 H AST 39 H ALT 24 Alkaline Phosphatase 87 Total Protein 6.3 Albumin 1.9 L Globulin 4.4 Albumin/Globulin Ratio 0.4 L Thyroxine (T4) TSH 3rd Generation Crossmatch BBK History Checked 07/26/17 07/26/17 07/26/17 11:30 11:30 11:30 WBC RBC Hgb Hct MCV MCH MCHC RDW Plt Count MPV Gran % Lymph % (Auto) [place] % (Auto) Eos % (Auto) Baso % (Auto) Gran # Lymph # [place] # Eos # Baso # Sodium Potassium Chloride Carbon Dioxide Anion Gap BUN Creatinine Est GFR ( Amer) Est GFR (Non-Af Amer) Random Glucose Lactic Acid 2.7 H Calcium Magnesium Iron 42 L TIBC 134 L % Saturation 31 Total Bilirubin AST ALT Alkaline Phosphatase Total Protein Albumin Globulin Albumin/Globulin Ratio Thyroxine (T4) TSH 3rd Generation Crossmatch See Detail BBK History Checked Patient has bt 07/26/17 11:30 WBC RBC Hgb Hct MCV MCH MCHC RDW Plt Count MPV Gran % Lymph % (Auto) [place] % (Auto) Eos % (Auto) Baso % (Auto) Gran # Lymph # [place] # Eos # Baso # Sodium Potassium Chloride Carbon Dioxide Anion Gap BUN Creatinine Est GFR ( Amer) Est GFR (Non-Af Amer) Random Glucose Lactic Acid Calcium Magnesium Iron TIBC % Saturation Total Bilirubin AST ALT Alkaline Phosphatase Total Protein Albumin Globulin Albumin/Globulin Ratio Thyroxine (T4) 3.6 L TSH 3rd Generation 2.63 Crossmatch BBK History Checked Assessment & Plan - Assessment and Plan (Free Text) Assessment: Assessment: Colitis, rule out infectious versus inflammatory, patient had episodes of vomiting and nausea and having loose stools rule out C. difficile Electrolyte imbalance Chronic anemia, patient's hemoglobin noted a decrease, could be dilutional, patient is for repeat H&H Autoimmune hepatitis History of diabetes mellitus Hypertension Thrombocytopenia History of myelodysplastic syndrome Plan: Continue clear liquid diet, patient continues consider advancing diet slowly monitor H&H and transfuse as necessary and monitor for GI bleed Continue antibiotics as per ID, on meropenem on oral vancomycin Continue GI prophylaxis Continue DVT prophylaxis Stool for C. difficile pending Thank you for this consult and for allowing us to participate in your patient's care, further recommendations upon clinical course. Seen and discussed with Dr. Davis. <Rocael Davis V - Last Filed: 07/27/17 22:22> Meds - Medications Medications: Current Medications Acetaminophen (Tylenol 325mg Tab) 650 mg PO Q4H PRN PRN Reason: Fever >100.5 F Last Admin: 07/25/17 04:15 Dose: 650 mg Sodium Chloride (Sodium Chloride 0.9%) 1,000 mls @ 80 mls/hr IV .[id number] [facility] Last Admin: 07/25/17 23:08 Dose: 80 mls/hr Meropenem 500 mg/ Sodium (Chloride) 100 mls @ 100 mls/hr IVPB Q12 [facility] PRN Reason: Protocol Last Admin: 07/26/17 22:30 Dose: 100 mls/hr Levothyroxine Sodium (Synthroid) 75 mcg PO ACB [facility] Last Admin: 07/26/17 08:16 Dose: 75 mcg Magnesium Oxide (Mag-Ox) 400 mg PO TID [facility] Last Admin: 07/26/17 18:22 Dose: Not Given Ondansetron HCl (Zofran Inj) 4 mg IVP Q6H PRN PRN Reason: Nausea/Vomiting Pantoprazole Sodium (Protonix Inj) 40 mg IVP DAILY [facility] Last Admin: 07/26/17 11:26 Dose: 40 mg Vancomycin HCl (Vancocin 25 Mg/Ml (Oral Use)) 125 mg PO QID [facility] PRN Reason: Protocol Last Admin: 07/26/17 22:30 Dose: 125 mg Results - Vital Signs Recent Vital Signs: Last Vital Signs Temp 97.9 F 07/27/17 00:01 Pulse 84 07/27/17 00:01 Resp 19 07/27/17 00:01 BP 139/59 L 07/27/17 00:01 Pulse Ox 99 07/27/17 00:01 - Labs Result Diagrams: 07/27/17 06:45 07/27/17 06:45 Labs: Laboratory Results - last 24 hr 07/26/17 07/26/17 07/26/17 05:20 05:20 06:30 WBC 7.4 D RBC 2.43 L Hgb 7.6 L Hct 22.7 L MCV 93.4 MCH 31.3 MCHC 33.5 RDW 16.0 H Plt Count 36 L* MPV 12.7 H Gran % 76.8 H Lymph % (Auto) 13.3 L [place] % (Auto) 7.7 H Eos % (Auto) 1.9 Baso % (Auto) 0.3 Gran # 5.72 Lymph # 1.0 L [place] # 0.6 Eos # 0.1 Baso # 0.02 Sodium 140 Potassium 3.1 L Chloride 113 H Carbon Dioxide 21 Anion Gap 9 L BUN 22 H Creatinine 1.6 H Est GFR ( Amer) 37 Est GFR (Non-Af Amer) 30 Random Glucose 86 Lactic Acid Calcium 6.9 L* Magnesium 1.0 L* Iron TIBC % Saturation Ferritin 207.0 Total Bilirubin 1.5 H AST 39 H ALT 24 Alkaline Phosphatase 87 Total Protein 6.3 Albumin 1.9 L Globulin 4.4 Albumin/Globulin Ratio 0.4 L Vitamin B12 740 Folate 18.6 Procalcitonin Thyroxine (T4) TSH 3rd Generation Influenza Typ A,B (EIA) Blood Type Antibody Screen Crossmatch BBK History Checked 07/26/17 07/26/17 07/26/17 08:59 11:30 11:30 WBC RBC Hgb 8.6 L Hct 25.9 L MCV MCH MCHC RDW Plt Count MPV Gran % Lymph % (Auto) [place] % (Auto) Eos % (Auto) Baso % (Auto) Gran # Lymph # [place] # Eos # Baso # Sodium Potassium Chloride Carbon Dioxide Anion Gap BUN Creatinine Est GFR ( Amer) Est GFR (Non-Af Amer) Random Glucose Lactic Acid Calcium Magnesium Iron 42 L TIBC 134 L % Saturation 31 Ferritin Total Bilirubin AST ALT Alkaline Phosphatase Total Protein Albumin Globulin Albumin/Globulin Ratio Vitamin B12 Folate Procalcitonin Thyroxine (T4) TSH 3rd Generation Influenza Typ A,B (EIA) Blood Type A POSITIVE Antibody Screen Negative Crossmatch See Detail BBK History Checked Patient has bt 07/26/17 07/26/17 07/26/17 11:30 11:30 11:30 WBC RBC Hgb Hct MCV MCH MCHC RDW Plt Count MPV Gran % Lymph % (Auto) [place] % (Auto) Eos % (Auto) Baso % (Auto) Gran # Lymph # [place] # Eos # Baso # Sodium Potassium Chloride Carbon Dioxide Anion Gap BUN Creatinine Est GFR ( Amer) Est GFR (Non-Af Amer) Random Glucose Lactic Acid 2.7 H Calcium Magnesium Iron TIBC % Saturation Ferritin Total Bilirubin AST ALT Alkaline Phosphatase Total Protein Albumin Globulin Albumin/Globulin Ratio Vitamin B12 Folate Procalcitonin 8.66 H Thyroxine (T4) 3.6 L TSH 3rd Generation 2.63 Influenza Typ A,B (EIA) Blood Type Antibody Screen Crossmatch BBK History Checked 07/26/17 15:05 WBC RBC Hgb Hct MCV MCH MCHC RDW Plt Count MPV Gran % Lymph % (Auto) [place] % (Auto) Eos % (Auto) Baso % (Auto) Gran # Lymph # [place] # Eos # Baso # Sodium Potassium Chloride Carbon Dioxide Anion Gap BUN Creatinine Est GFR ( Amer) Est GFR (Non-Af Amer) Random Glucose Lactic Acid Calcium Magnesium Iron TIBC % Saturation Ferritin Total Bilirubin AST ALT Alkaline Phosphatase Total Protein Albumin Globulin Albumin/Globulin Ratio Vitamin B12 Folate Procalcitonin Thyroxine (T4) TSH 3rd Generation Influenza Typ A,B (EIA) Negative for flu a/b Blood Type Antibody Screen Crossmatch BBK History Checked Attending/Attestation - Attestation I have personally seen and examined this patient.: Yes I have fully participated in the care of the patient.: Yes I have reviewed all pertinent clinical information: Yes Notes (Text): This is an addendum to GI consult report dictated by Melinda Nieves APN.The patient was seen and examined earlier. Medical records, lab studies, imagings were reviewed. Last 24 hours events reviewed. Agreed with the above treatment plan as outlined in Melinda Nieves APN's notes the with the addition of the following on examination abdomen softly distended mild tenderness in the suprapubic and right lower quadrant area on deep palpation CT scan was reviewed Requested for stool for C. difficile pending Agree with the empiric by mouth antibiotics episode of vomiting earlier Etiology of cirrhosis is unclear autoimmune markers and hepatitis profile was negative. 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
[2017-07-26] MEDS: Vancomycin 25 MG/ML PO SCH ×3 (14:08→22:30)
--- NOTE | 2017-07-26 14:48 | PN ---
DATE: SUBJECTIVE: The patient is an 87-year-old seen and examined, lying in bed, seems to be doing better. No more nausea. Wants to eat, still has abdominal pain but no episode of vomiting anymore. Does not have diarrhea, has Indwelling catheter draining clear urine. PHYSICAL EXAMINATION: VITAL SIGNS: The patient is afebrile. Pulse 75, respirations 21, blood pressure 124/61. LUNGS: Bilateral good airflow. No rhonchi or crackle. HEART: S1 and S2, audible. ABDOMEN: Soft. Slight right lower and right quadrant palpable discomfort. NEUROLOGIC: She is awake and alert. Able to communicate. EXTREMITIES: Bilateral legs +1 edema. LABORATORY DATA: WBC 7.4, hemoglobin 7.6, hematocrit 22.7, and platelet of 36. Chemistry; sodium 140, potassium 3.1, chloride 113, CO2 21, BUN 22, creatinine 1.6, blood sugar of 86, calcium 6.9, magnesium 1.0. Blood cultures are negative. ASSESSMENT: 1. Nonspecific colitis. 2. Electrolyte imbalance. 3. Myelodysplastic syndrome. 4. Pancytopenia. PLAN: Currently, the patient is on metronidazole. Stool for C. diff is pending. Continue her on IV fluid. Followup her electrolytes. She is on meropenem. We will start her on clear liquid diet and we will advance as tolerated. Kamaljit Pena MD
[2017-07-26 17:38] LABS: FOLATE 18.6 ng/mL
[2017-07-26] MEDS: Sodium Chloride 0.9% 1,000 ML IV SCH (22:00)
[2017-07-26] MEDS: Meropenem 500 MG in Sodium Chloride 0.9% 100 ML IVPB SCH (22:30)
--- NOTE | 2017-07-27 06:29 | CON ---
DATE: 07/26/2017 LOCATION: The patient in bed, seen earlier this morning, in [facility], bed 1. CHIEF COMPLAINT: Weakness times several days. HISTORY OF PRESENT ILLNESS: This is an 87-year-old female with hypertension, recurrent urinary tract infections, hypothyroidism, autoimmune hepatitis, myelodysplastic syndrome and history of ESBL E. coli urinary tract infection and has a history of cholecystectomy, right hip surgery, ALLERGIC TO PENICILLIN AND LEVAQUIN, questionable rash, who was admitted to the emergency room with a diagnosis of sepsis. The patient this morning states that she is feeling weak and she did have fevers and occasional chills. No chest pain. No shortness of breath. There is no abdominal pain. However, she did vomit, had been feeling weak and dizzy, but no chest pain and . No shortness of breath. No dysuria or frequency at this time. No diarrhea. She does complain of urinary incontinence. PAST MEDICAL HISTORY: Significant for hypertension, hypothyroidism, autoimmune hepatitis and myelodysplastic syndrome, anemia, recurrent urinary tract infection, ESBL E. coli urinary tract infection. PAST SURGICAL HISTORY: Significant for right hip surgery and cholecystectomy. The patient is ALLERGIC TO PENICILLIN AND LEVAQUIN. PHYSICAL EXAMINATION: VITAL SIGNS: Temperature is 101.9, respiratory rate of 21, heart rate was up to 110 down to 90 and blood pressure is noted at 120/50. HEENT: Unremarkable. NECK: Supple. LUNGS: Have decreased breath sounds. HEART: Normal S1 and S2. ABDOMEN: Soft, nontender. LABORATORY DATA: Laboratory examination reveals the patient's white count is 7.4, hemoglobin of 7.6, platelets of 36,000. Chemistries reveals a BUN of 22, creatinine is 1.6 and it was 1.3, but prior to that the patient's creatinine had been essentially normal. LFTs are noted. Procalcitonin is 8.66. The patient's urinalysis is noted, 5 to 10, and the serology, influenza is negative. Microbiology reveals that blood cultures are no growth. Urine cultures, gram negative mary and a gram positive cocci. The patient had a CAT scan of the abdomen, which revealed colitis, diffuse anasarca and the chest x-ray was noted to be poor inspiratory effort. No focal consolidation. ASSESSMENT AND PLAN: This is an 87-year-old female with hypertension, recurrent urinary tract infection, hypothyroidism, autoimmune hepatitis and myelodysplastic syndrome, anemia with tachycardia, dyspnea, fevers, positive urine cultures, urinary symptoms with sepsis with urine as the source. We will repeat a urinalysis and we will treat the patient with meropenem. The patient also started on vancomycin and stool for Clostridium difficile. She did have an episode of diarrhea earlier. We will repeat urinalysis and urine culture. We will make further recommendations. We will follow with you. Arden Byrne MD
[2017-07-27 07:03] LABS: PH,URINE 5.5 (4.7-8.0); URINE BILIRUBIN NEGATIVE (NEGATIVE); URINE BLOOD SMALL (NEGATIVE); URINE GLUCOSE (UA) NEGATIVE (NEGATIVE); URINE LEUKOCYTE ESTERASE LARGE Leu/uL (NEGATIVE); URINE NITRATE NEGATIVE (NEGATIVE); URINE PROTEIN NEGATIVE mg/dL (<30 mg/dL); URINE UROBILINOGEN 0.2 E.U./dL (<1 E.U./dL)
[2017-07-27 07:04] LABS: URINE COLOR DARK YELLOW (YELLOW)
[2017-07-27 07:05] LABS: URINE APPEARANCE SL CLOUDY (CLEAR)
[2017-07-27 07:22] LABS: BASO # 0.01 K/mm3 (0.0-2.0); BASO % 0.2 % (0.0-3.0); EOS # 0.5 (0.0-0.7); EOS % 7.1 % (1.5-5.0); GRAN # 4.03 (1.4-6.5); GRAN % 62.1 % (50.0-68.0); LYMPH # 1.4 (1.2-3.4); LYMPH % 21.6 % (22.0-35.0); MEAN CELL VOLUME 91.1 fl (80.0-105.0); MEAN CORPUSCULAR HEMOGLOBIN 30.8 pg (25.0-35.0); MEAN CORPUSCULAR HGB CONC 33.8 g/dl (31.0-37.0); MEAN PLATELET VOLUME 12.9 fl (7.0-11.0); MONO # 0.6 (0.1-0.6); RBC 2.47 10^6/uL (3.5-6.1); WHITE BLOOD COUNT 6.5 10^3/ul (4.5-11.0)
[2017-07-27 07:40] LABS: HEMOGLOBIN 7.6 g/dL (12.0-16.0)
[2017-07-27 07:42] LABS: URINE BACTERIA MOD (NEG); URINE WBC 25 - 30 /hpf (0-6)
[2017-07-27 07:44] LABS: URINE COARSE GRANULAR CAST TRACE /hpf (0-2); URINE FINE GRANULAR CAST 0 - 2 /hpf (0-2)
[2017-07-27 07:45] LABS: ALB/GLOB RATIO 0.4 (1.1-1.8); ALBUMIN 1.8 g/dL (3.0-4.8); CALCIUM 7.1 mg/dL (8.4-10.5); MAGNESIUM 1.8 mg/dL (1.7-2.2)
[2017-07-27] MEDS ORDERED: Potassium Chloride 20 mEq ER Tab PO ONE (09:18)
[2017-07-27] MEDS: Potassium & Sodium Phosphate PO SCH ×3 (09:55→18:13)
[2017-07-27] MEDS: Magnesium Oxide 400 mg Tab UD PO SCH (09:55)
[2017-07-27] MEDS: Levothyroxine 75 MCG TAB PO SCH (09:55)
[2017-07-27] MEDS ORDERED: Magnesium Oxide 400 mg Tab UD PO SCH (10:00)
[2017-07-27] MEDS: Meropenem 500 MG in Sodium Chloride 0.9% 100 ML IVPB SCH ×2 (10:08→21:40)
[2017-07-27] MEDS: Levalbuterol 0.63 MG/3 ML Inhal Soln UD IH SCH ×3 (14:15→21:10)
--- NOTE | 2017-07-27 14:21 | CP.PCM.PN ---
<Melinda Nieves - Last Filed: 07/27/17 14:20> Subjective - Date & Time of Evaluation Date of Evaluation: 07/27/17 Time of Evaluation: 09:45 - Subjective Subjective: Seen and examined at the bedside earlier today, chart review. Patient denies nausea, vomiting, no abdominal pain, patient reports his better. No reports of diarrhea, tolerating clear liquid. Patient at times uncooperative with blood work. Objective - Vital Signs/Intake and Output Vital Signs (last 24 hours): Temp Pulse Resp BP Pulse Ox 98.4 F 91 H 17 138/62 98 07/27/17 12:40 07/27/17 14:00 07/27/17 12:40 07/27/17 12:40 07/27/17 06:00 Intake and Output: 07/27/17 07/27/17 06:59 18:59 Intake Total 140 Output Total 400 Balance -260 - Medications Medications: Current Medications Acetaminophen (Tylenol 325mg Tab) 650 mg PO Q4H PRN PRN Reason: Fever >100.5 F Last Admin: 07/25/17 04:15 Dose: 650 mg Furosemide (Lasix) 20 mg PO DAILY [facility] Meropenem 500 mg/ Sodium (Chloride) 100 mls @ 100 mls/hr IVPB Q12 [facility] PRN Reason: Protocol Last Admin: 07/27/17 10:08 Dose: 100 mls/hr Levalbuterol HCl (Xopenex) 0.63 mg IH TIDRESP [facility] Levothyroxine Sodium (Synthroid) 75 mcg PO ACB [facility] Last Admin: 07/27/17 09:55 Dose: 75 mcg Magnesium Oxide (Mag-Ox) 400 mg PO DAILY [facility] Last Admin: 07/27/17 09:55 Dose: 400 mg Ondansetron HCl (Zofran Inj) 4 mg IVP Q6H PRN PRN Reason: Nausea/Vomiting Pantoprazole Sodium (Protonix Ec Tab) 40 mg PO ACB [facility] Potassium Phos/Sodium Phos (Neutra-Phos) 1 pkt PO BID [facility] Last Admin: 07/27/17 09:55 Dose: 1 pkt Vancomycin HCl (Vancocin 25 Mg/Ml (Oral Use)) 125 mg PO QID [facility] PRN Reason: Protocol - Labs Labs: 07/27/17 06:45 07/27/17 06:45 PT 20.1 SECONDS (9.4-12.5) H 07/24/17 20:25 INR 1.74 (0.93-1.08) H 07/24/17 20:25 APTT 26.4 Seconds (25.1-36.5) 07/24/17 20:25 - Constitutional Appears: No Acute Distress - Head Exam Head Exam: NORMOCEPHALIC - Eye Exam Eye Exam: Normal appearance. absent: Scleral icterus - ENT Exam ENT Exam: Mucous Membranes Moist - Respiratory Exam Respiratory Exam: NORMAL BREATHING PATTERN. absent: Respiratory Distress - Cardiovascular Exam Cardiovascular Exam: +S2 - GI/Abdominal Exam GI & Abdominal Exam: Distended, Soft, Hernia (umbilical hernia, nontender on palpation), Normal Bowel Sounds. absent: Guarding, Tenderness, Rebound - Extremities Exam Extremities Exam: absent: Calf Tenderness Additional comments: bilateral lower leg's edema with discoloration, this is chronic - Neurological Exam Neurological Exam: Alert, Awake, Oriented x3 (noncompliant at times) - Skin Skin Exam: Dry, Warm Assessment and Plan - Assessment and Plan (Free Text) Assessment: Assessment: Colitis, rule out infectious versus inflammatory, patient had episodes of vomiting and nausea and having loose stools rule out C. difficile UTI, positive Escherichia coli Electrolyte imbalance Chronic anemia, patient's hemoglobin noted a decrease, could be dilutional, patient is for repeat H&H Autoimmune hepatitis History of diabetes mellitus Hypertension Thrombocytopenia History of myelodysplastic syndrome Plan: on clears, advance diet as tolerated we will try full liquids for lunch monitor H&H and transfuse as necessary and monitor for GI bleed Continue antibiotics as per ID, on meropenem on oral vancomycin Continue GI prophylaxis Continue DVT prophylaxis Stool for C. difficile pending check ammonia level this a.m. Pending 1 unit of packed RBC transfusion As per ID Seen and discussed with Dr. Davis. <Rocael Davis V - Last Filed: 07/27/17 22:20> Objective - Vital Signs/Intake and Output Vital Signs (last 24 hours): Temp Pulse Resp BP Pulse Ox 98.6 F 82 18 134/62 98 07/27/17 14:51 07/27/17 14:51 07/27/17 14:51 07/27/17 14:51 07/27/17 06:00 Intake and Output: 07/27/17 07/28/17 18:59 06:59 Intake Total 995 Output Total 1350 Balance -355 - Medications Medications: Current Medications Acetaminophen (Tylenol 325mg Tab) 650 mg PO Q4H PRN PRN Reason: Fever >100.5 F Last Admin: 07/25/17 04:15 Dose: 650 mg Furosemide (Lasix) 20 mg PO DAILY [facility] Meropenem 500 mg/ Sodium (Chloride) 100 mls @ 100 mls/hr IVPB Q12 [facility] PRN Reason: Protocol Last Admin: 07/27/17 21:40 Dose: 100 mls/hr Levalbuterol HCl (Xopenex) 0.63 mg IH TIDRESP [facility] Last Admin: 07/27/17 14:15 Dose: 0.63 mg Levothyroxine Sodium (Synthroid) 75 mcg PO ACB [facility] Last Admin: 07/27/17 09:55 Dose: 75 mcg Magnesium Oxide (Mag-Ox) 400 mg PO DAILY [facility] Last Admin: 07/27/17 09:55 Dose: 400 mg Ondansetron HCl (Zofran Inj) 4 mg IVP Q6H PRN PRN Reason: Nausea/Vomiting Pantoprazole Sodium (Protonix Ec Tab) 40 mg PO ACB [facility] Potassium Phos/Sodium Phos (Neutra-Phos) 1 pkt PO BID [facility] Last Admin: 07/27/17 18:13 Dose: Not Given Vancomycin HCl (Vancocin 25 Mg/Ml (Oral Use)) 125 mg PO QID [facility] PRN Reason: Protocol Last Admin: 07/27/17 21:33 Dose: Not Given - Labs Labs: 07/27/17 06:45 07/27/17 06:45 PT 20.1 SECONDS (9.4-12.5) H 07/24/17 20:25 INR 1.74 (0.93-1.08) H 07/24/17 20:25 APTT 26.4 Seconds (25.1-36.5) 07/24/17 20:25 Attending/Attestation - Attestation I have personally seen and examined this patient.: Yes I have fully participated in the care of the patient.: Yes I have reviewed all pertinent clinical information, including history, physical exam and plan: Yes Notes (Text): This is an addendum to GI progress report dictated by Melinda Nieves APN.The patient was seen and examined earlier. Medical records, lab studies, imagings were reviewed. Last 24 hours events reviewed. Agreed with the above treatment plan as outlined in Melinda Nieves APN's notes the with the addition of the following Patient's son was at bedside at the time of examination Abdomen softly distended mild tenderness right lower quadrant and suprapubic area on deep palpation The etiology for cirrhosis is unclear R Kleeman markers and hepatitis profile Negative Refused blood blood test today. Requested ammonia level Stool for C differential still pending patient is empirically on vancomycin by mouth 07/27/17 22:18
[2017-07-27 14:52] VITALS: RESP 18
[2017-07-27] MEDS: Vancomycin 25 MG/ML PO SCH ×4 (15:34→21:33)
--- NOTE | 2017-07-27 18:17 | PN ---
DATE: SUBJECTIVE: The patient is an 87-year-old, seen and examined, lying in bed, frustrated, wants to eat, says she is hungry, no bowel movements since she came in, no diarrhea, no nausea. PHYSICAL EXAMINATION: VITAL SIGNS: She is afebrile, pulse 70, respirations 18, blood pressure 131/56. LUNGS: Bilateral fair airflow. No rhonchi or crackles. HEART: S1 and S2 audible. ABDOMEN: Soft, nontender. No rebound. Bowel sounds are positive. NEUROLOGIC: She is awake and alert, able to communicate. LABORATORY EXAMINATION: WBC 6.5, hemoglobin 7.6, hematocrit 32.5, platelet of 40. Chemistry: Sodium 138, potassium 3.5, chloride 114, CO2 of 20, BUN 23, creatinine 1.5, blood sugar of 71. ASSESSMENT: 1. Nonspecific colitis. 2. Gastritis. 3. E. coli and Enterococcus urinary tract infection. 4. Autoimmune hepatitis. 5. Pancytopenia. 6. Myelodysplastic syndrome. 7. Electrolyte imbalance. PLAN: We will supplement her potassium, give her magnesium, she is on meropenem. We will advance her diet and we will discontinue her telemetry, and we will follow up her electrolytes in a.m. Kamaljit Pena MD
--- NOTE | 2017-07-27 23:48 | PN ---
DATE: 07/24/2017 SUBJECTIVE: The patient in seen earlier today in 275, bed 1, in no acute distress. Nontoxic. No fevers. No chills. PHYSICAL EXAMINATION: VITAL SIGNS: Temperature is 98, blood pressure is 130/80, respiratory rate 18, heart rate 83. HEENT: Unremarkable. NECK: Supple. LUNGS: Have decreased breath sounds. HEART: Normal S1 and S2. ABDOMEN: Soft, nontender. LABORATORY DATA: Reveals a white count of 6.5, hemoglobin 7, and platelets of 40. Anticoagulation is noted and chemistries reveal a BUN of 23, creatinine of 1.5 and procalcitonin is 8.66. Urinalysis is negative, wbc's 25 to 30. Influenza is negative. Microbiology reveals a urine culture has E. coli and enterococcus. The blood cultures are no growth at three days. The E. coli is sensitive to cefazolin and Cipro and cefepime and enterococcus faecalis sensitive to ampicillin. ALLERGIES: THE PATIENT IS ALLERGIC TO PENICILLIN AND LEVAQUIN. MEDICATIONS: The patient is on meropenem and p.o. vancomycin. ASSESSMENT AND PLAN: An 87-year-old female with hypertension, recurrent urinary tract infection, hypothyroidism, autoimmune hepatitis, myelodysplastic syndrome, history of extended-spectrum beta-lactamase Escherichia coli urinary tract infection, history of cholecystectomy, right hip surgery, allergic to penicillin and Levaquin, questionable rash who was admitted to emergency room with a diagnosis of sepsis and the patient was found to have dyspnea, fevers, tachycardia. Sepsis with Escherichia coli and enterococcus in urine as the source, currently on vancomycin and meropenem. The patient with limited options as the patient is allergic to penicillin and Levaquin. This cystitis will need 7 days of antibiotics, if pyelonephritis will need 14 days of antibiotics. We will follow closely with you. Arden Byrne MD
[2017-07-28 06:27] LABS: BASO # 0.02 K/mm3 (0.0-2.0); BASO % 0.3 % (0.0-3.0); EOS # 0.4 (0.0-0.7); EOS % 6.3 % (1.5-5.0); GRAN # 4.04 (1.4-6.5); HEMOGLOBIN 9.2 g/dL (12.0-16.0); LYMPH # 1.3 (1.2-3.4); LYMPH % 21.3 % (22.0-35.0); MEAN CELL VOLUME 92.5 fl (80.0-105.0); MEAN CORPUSCULAR HEMOGLOBIN 31.5 pg (25.0-35.0); MEAN CORPUSCULAR HGB CONC 34.1 g/dl (31.0-37.0); MEAN PLATELET VOLUME 13.1 fl (7.0-11.0); MONO # 0.4 (0.1-0.6); MONO % 7.1 % (1.0-6.0); RBC 2.92 10^6/uL (3.5-6.1); WHITE BLOOD COUNT 6.2 10^3/ul (4.5-11.0)
[2017-07-28 07:02] LABS: ALB/GLOB RATIO 0.5 (1.1-1.8); ALBUMIN 1.9 g/dL (3.0-4.8); CALCIUM 7.4 mg/dL (8.4-10.5); MAGNESIUM 1.7 mg/dL (1.7-2.2)
[2017-07-28] MEDS: Levalbuterol 0.63 MG/3 ML Inhal Soln UD IH SCH ×3 (07:55→21:40)
[2017-07-28] MEDS: Pantoprazole 40 mg EC Tab PO SCH (08:45)
[2017-07-28] MEDS: Levothyroxine 75 MCG TAB PO SCH (08:46)
[2017-07-28] MEDS: Meropenem 500 MG in Sodium Chloride 0.9% 100 ML IVPB SCH ×2 (10:10→22:03)
[2017-07-28] MEDS: Potassium & Sodium Phosphate PO SCH ×2 (10:11→17:12)
[2017-07-28] MEDS: Magnesium Oxide 400 mg Tab UD PO SCH (10:11)
[2017-07-28] MEDS: Vancomycin 25 MG/ML PO SCH ×4 (10:11→22:01)
--- NOTE | 2017-07-28 12:44 | PN ---
DATE: SUBJECTIVE: The patient is an 87-year-old, seen and examined, lying in bed. She states she does not have bowel movements for 3 days. She is awake and alert, able to communicate and answer appropriately. Does not have abdominal pain. Craving for regular food. Her daughter bring out . PHYSICAL EXAMINATION: VITAL SIGNS: She is afebrile, pulse is 83, respirations are 18, and blood pressure is 120/60. LUNGS: Bilateral fair airflow. No rhonchi or crackles. HEART: S1 and S2 audible. ABDOMEN: Soft. Bowel sounds are positive. No rebound or guarding. NEUROLOGIC: She is awake and alert, able to communicate. EXTREMITIES: Bilateral legs +2 edema. LABORATORY EXAMINATION: WBC of 6.2, hemoglobin of 9.2, hematocrit of 27, and platelet of 44. Chemistry: Sodium of 137, potassium of 4.6, chloride of 113, CO2 of 21, BUN of 22, creatinine of 1.4, blood sugar of 127, and phosphorus of 2.4. Urine positive for Escherichia coli and Enterococcus faecalis. ESBL negative. ASSESSMENT AND PLAN: 1. Colitis improving. 2. Autoimmune hepatitis. 3. History of hepatic encephalopathy. 4. Electrolyte imbalance. 5. Pancytopenia. 6. Enterococcus faecalis urinary tract infection. PLAN: We will supplement potassium and start her on lactulose. She has been started on cefixime and we will monitor electrolytes. We will follow up the patient in a.m. According to daughter, she is going to have surgery next week and she want mother to be in subacute rehab or anyone . Kamaljit Pena MD
--- NOTE | 2017-07-28 14:14 | PN ---
DATE: 07/28/2017 SUBJECTIVE: The patient is in bed in no acute distress. The patient is seen earlier today. PHYSICAL EXAMINATION: VITAL SIGNS: Temperature is 98, blood pressure is 140/70, and respiratory rate is 18. HEENT: Unremarkable. NECK: Supple. LUNGS: Have decreased breath sounds. HEART: Normal S1 and S2. ABDOMEN: Soft and nontender. LABORATORY EXAMINATION: Reveals white count of 6.2 and hemoglobin of 9. Chemistries reveals BUN of 22 and creatinine of 1.4. Procalcitonin is 8.6. Urinalysis is noted and serology is noted. Microbiology reveals urine culture is E. coli and Enterococcus. Blood cultures are no growth. ASSESSMENT AND PLAN: An 87-year-old female with hypertension, recurrent urinary tract infection, hypothyroidism, autoimmune hepatitis, myelodysplastic syndrome, history of extended-spectrum beta-lactamase Escherichia coli urinary tract infection, history of cholecystectomy, right hip surgery, ALLERGY TO PENICILLIN AND LEVAQUIN, and questionable rash, was admitted with the diagnosis of: 1. Sepsis where the patient found to have dyspnea, fever, and tachycardia with Escherichia coli and Enterococcus and urine as the source. The patient is currently on vancomycin and meropenem due to her ALLERGIES TO PENICILLIN AND LEVAQUIN, and the patient is on p.o. vancomycin for the Clostridium difficile that the patient had and IV meropenem day #4, will complete 7 days of therapy, day #4, 7 days of meropenem. I am going to treat with p.o. vancomycin x14 days if the stool for C. diff is positive. Stool workup is still pending. Arden Byrne MD
--- NOTE | 2017-07-28 15:38 | CP.PCM.PN ---
<Melinda Nieves - Last Filed: 07/28/17 15:38> Subjective - Date & Time of Evaluation Date of Evaluation: 07/28/17 Time of Evaluation: 10:00 - Subjective Subjective: Seen and examined at the bedside earlier today, chart review. Patient denies nausea or vomiting no reports of bowel movement or diarrhea. Ammonia level this morning is 44. Patient denies shortness of breath chest pain, abdominal pain getting better. No acute overnight events reported. Patient refuses oral Vancomycin. Objective - Vital Signs/Intake and Output Vital Signs (last 24 hours): Temp Pulse Resp BP Pulse Ox 97.8 F 86 18 141/79 96 07/28/17 12:00 07/28/17 12:00 07/28/17 12:00 07/28/17 12:00 07/28/17 06:00 Intake and Output: 07/28/17 07/28/17 06:59 18:59 Intake Total 100 Output Total 700 Balance -600 - Medications Medications: Current Medications Acetaminophen (Tylenol 325mg Tab) 650 mg PO Q4H PRN PRN Reason: Fever >100.5 F Last Admin: 07/25/17 04:15 Dose: 650 mg Furosemide (Lasix) 20 mg PO DAILY [facility] Last Admin: 07/28/17 10:10 Dose: 20 mg Meropenem 500 mg/ Sodium (Chloride) 100 mls @ 100 mls/hr IVPB Q12 [facility] PRN Reason: Protocol Last Admin: 07/28/17 10:10 Dose: 100 mls/hr Levalbuterol HCl (Xopenex) 0.63 mg IH TIDRESP [facility] Last Admin: 07/28/17 14:02 Dose: 0.63 mg Levothyroxine Sodium (Synthroid) 75 mcg PO ACB [facility] Last Admin: 07/28/17 08:46 Dose: 75 mcg Magnesium Oxide (Mag-Ox) 400 mg PO DAILY [facility] Last Admin: 07/28/17 10:11 Dose: 400 mg Ondansetron HCl (Zofran Inj) 4 mg IVP Q6H PRN PRN Reason: Nausea/Vomiting Pantoprazole Sodium (Protonix Ec Tab) 40 mg PO ACB [facility] Last Admin: 07/28/17 08:45 Dose: 40 mg Potassium Phos/Sodium Phos (Neutra-Phos) 1 pkt PO BID [facility] Last Admin: 07/28/17 10:11 Dose: 1 pkt Rifaximin (Xifaxan) 550 mg PO BID [facility] PRN Reason: Protocol Last Admin: 07/28/17 11:58 Dose: 550 mg Vancomycin HCl (Vancocin 25 Mg/Ml (Oral Use)) 125 mg PO QID [facility] PRN Reason: Protocol Last Admin: 07/28/17 13:52 Dose: 125 mg - Labs Labs: 07/28/17 05:10 07/28/17 05:10 PT 20.1 SECONDS (9.4-12.5) H 07/24/17 20:25 INR 1.74 (0.93-1.08) H 07/24/17 20:25 APTT 26.4 Seconds (25.1-36.5) 07/24/17 20:25 - Constitutional Appears: No Acute Distress - Eye Exam Eye Exam: Normal appearance. absent: Scleral icterus - Neck Exam Neck Exam: Normal Inspection - Respiratory Exam Respiratory Exam: NORMAL BREATHING PATTERN. absent: Respiratory Distress - Cardiovascular Exam Cardiovascular Exam: +S1, +S2 - GI/Abdominal Exam GI & Abdominal Exam: Soft, Normal Bowel Sounds. absent: Guarding, Tenderness, Rebound - Extremities Exam Extremities Exam: absent: Calf Tenderness Additional comments: bilateral lower extremity edema - Neurological Exam Neurological Exam: Alert, Awake, Oriented x3 Additional comments: no asterixis Assessment and Plan - Assessment and Plan (Free Text) Assessment: Assessment: Colitis, rule out infectious versus inflammatory, patient had episodes of vomiting and nausea and having loose stools rule out C. difficile Elevated ammonia UTI, positive Escherichia coli Electrolyte imbalance Chronic anemia, patient's hemoglobin noted a decrease, could be dilutional, patient is for repeat H&H Autoimmune hepatitis History of diabetes mellitus Hypertension Thrombocytopenia History of myelodysplastic syndrome Plan: on heart healthy monitor H&H and transfuse as necessary and monitor for GI bleed Continue antibiotics as per ID, on meropenem give dose of lactulose and start Xifaxan 550 mg twice a day on oral vancomycin Continue GI prophylaxis Continue DVT prophylaxis check ammonia level a.m. case discussed with Dr. Pena. Seen and discussed with Dr. Davis. <Rocael Davis V - Last Filed: 07/28/17 22:12> Objective - Vital Signs/Intake and Output Vital Signs (last 24 hours): Temp Pulse Resp BP Pulse Ox 97.8 F 86 18 141/79 96 07/28/17 12:00 07/28/17 12:00 07/28/17 12:00 07/28/17 12:00 07/28/17 06:00 - Medications Medications: Current Medications Acetaminophen (Tylenol 325mg Tab) 650 mg PO Q4H PRN PRN Reason: Fever >100.5 F Last Admin: 07/25/17 04:15 Dose: 650 mg Furosemide (Lasix) 20 mg PO DAILY [facility] Last Admin: 07/28/17 10:10 Dose: 20 mg Meropenem 500 mg/ Sodium (Chloride) 100 mls @ 100 mls/hr IVPB Q12 [facility] PRN Reason: Protocol Last Admin: 07/28/17 10:10 Dose: 100 mls/hr Levalbuterol HCl (Xopenex) 0.63 mg IH TIDRESP [facility] Last Admin: 07/28/17 14:02 Dose: 0.63 mg Levothyroxine Sodium (Synthroid) 75 mcg PO ACB [facility] Last Admin: 07/28/17 08:46 Dose: 75 mcg Magnesium Oxide (Mag-Ox) 400 mg PO DAILY [facility] Last Admin: 07/28/17 10:11 Dose: 400 mg Ondansetron HCl (Zofran Inj) 4 mg IVP Q6H PRN PRN Reason: Nausea/Vomiting Pantoprazole Sodium (Protonix Ec Tab) 40 mg PO ACB [facility] Last Admin: 07/28/17 08:45 Dose: 40 mg Potassium Phos/Sodium Phos (Neutra-Phos) 1 pkt PO BID [facility] Last Admin: 07/28/17 17:12 Dose: 1 pkt Rifaximin (Xifaxan) 550 mg PO BID [facility] PRN Reason: Protocol Last Admin: 07/28/17 17:12 Dose: 550 mg Vancomycin HCl (Vancocin 25 Mg/Ml (Oral Use)) 125 mg PO QID [facility] PRN Reason: Protocol Last Admin: 07/28/17 17:12 Dose: 125 mg - Labs Labs: 07/28/17 05:10 07/28/17 05:10 PT 20.1 SECONDS (9.4-12.5) H 07/24/17 20:25 INR 1.74 (0.93-1.08) H 07/24/17 20:25 APTT 26.4 Seconds (25.1-36.5) 07/24/17 20:25 Attending/Attestation - Attestation I have personally seen and examined this patient.: Yes I have fully participated in the care of the patient.: Yes I have reviewed all pertinent clinical information, including history, physical exam and plan: Yes Notes (Text): This is an addendum to GI progress report dictated by Melinda Nieves APN.The patient was seen and examined earlier. Medical records, lab studies, imagings were reviewed. Last 24 hours events reviewed. Agreed with the above treatment plan as outlined in Melinda Nieves APN's notes the with the addition of the following Elevated ammonia level Clinically no asterixis Abdomen softly distended no tenderness No further episodes of diarrhea We will give 1 dose of lactulose then followed by xifaxan History of recurrent UTI and taken antibiotics as per ID Cryptogenic cirrhosis autoimmune markers and hepatitis profile were negative 07/28/17 22:07
[2017-07-29 04:54] VITALS: PULSE 83; TEMP 98; O2SAT 97
[2017-07-29] MEDS: Levalbuterol 0.63 MG/3 ML Inhal Soln UD IH SCH ×2 (07:55→13:27)
[2017-07-29] MEDS: Pantoprazole 40 mg EC Tab PO SCH (08:43)
[2017-07-29] MEDS: Levothyroxine 75 MCG TAB PO SCH (08:43)
--- NOTE | 2017-07-29 10:22 | CP.PCM.PN ---
Subjective - Date & Time of Evaluation Date of Evaluation: 07/29/17 Time of Evaluation: 09:15 - Subjective Subjective: S&E at bedside, chart reviewed, no acute event reported last night. Patient denies diarrhea, and nursing unaware of any BM, patient given dose of Lactulose yesterday, and on xifaxin. Ammonia < 9 today. Abdominal pain better. Tolerating oral intake, no SOB, CP, N/V or overt GI bleeding. Objective - Vital Signs/Intake and Output Vital Signs (last 24 hours): Temp Pulse Resp BP Pulse Ox 98.0 F 83 18 124/60 97 07/29/17 04:53 07/29/17 04:53 07/29/17 04:53 07/29/17 04:53 07/29/17 04:53 Intake and Output: 07/29/17 07/29/17 06:59 18:59 Output Total 500 Balance -500 - Medications Medications: Current Medications Acetaminophen (Tylenol 325mg Tab) 650 mg PO Q4H PRN PRN Reason: Fever >100.5 F Last Admin: 07/29/17 02:07 Dose: 650 mg Furosemide (Lasix) 20 mg PO DAILY [facility] Last Admin: 07/28/17 10:10 Dose: 20 mg Meropenem 500 mg/ Sodium (Chloride) 100 mls @ 100 mls/hr IVPB Q12 [facility] PRN Reason: Protocol Last Admin: 07/28/17 22:03 Dose: 100 mls/hr Levalbuterol HCl (Xopenex) 0.63 mg IH TIDRESP [facility] Last Admin: 07/29/17 07:55 Dose: 0.63 mg Levothyroxine Sodium (Synthroid) 75 mcg PO ACB [facility] Last Admin: 07/29/17 08:43 Dose: 75 mcg Magnesium Oxide (Mag-Ox) 400 mg PO DAILY [facility] Last Admin: 07/28/17 10:11 Dose: 400 mg Ondansetron HCl (Zofran Inj) 4 mg IVP Q6H PRN PRN Reason: Nausea/Vomiting Pantoprazole Sodium (Protonix Ec Tab) 40 mg PO ACB [facility] Last Admin: 07/29/17 08:43 Dose: 40 mg Potassium Phos/Sodium Phos (Neutra-Phos) 1 pkt PO BID [facility] Last Admin: 07/28/17 17:12 Dose: 1 pkt Rifaximin (Xifaxan) 550 mg PO BID [facility] PRN Reason: Protocol Last Admin: 07/28/17 17:12 Dose: 550 mg Vancomycin HCl (Vancocin 25 Mg/Ml (Oral Use)) 125 mg PO QID [facility] PRN Reason: Protocol Last Admin: 07/28/17 22:01 Dose: 125 mg - Labs Labs: 07/28/17 05:10 07/28/17 05:10 PT 20.1 SECONDS (9.4-12.5) H 07/24/17 20:25 INR 1.74 (0.93-1.08) H 07/24/17 20:25 APTT 26.4 Seconds (25.1-36.5) 07/24/17 20:25 - Constitutional Appears: No Acute Distress - Eye Exam Eye Exam: Normal appearance. absent: Scleral icterus - ENT Exam ENT Exam: Mucous Membranes Moist - Neck Exam Neck Exam: Normal Inspection - Respiratory Exam Respiratory Exam: Decreased Breath Sounds, NORMAL BREATHING PATTERN. absent: Respiratory Distress - Cardiovascular Exam Cardiovascular Exam: +S1, +S2 - GI/Abdominal Exam GI & Abdominal Exam: Soft, Tenderness (mild mid abdomen tenderness, no rebound or guarding), Normal Bowel Sounds. absent: Guarding, Rebound - Extremities Exam Extremities Exam: Pedal Edema. absent: Calf Tenderness Additional comments: bilateral lower extermity edema - Neurological Exam Neurological Exam: Alert, Awake, Oriented x3 - Skin Skin Exam: Dry, Warm Assessment and Plan - Assessment and Plan (Free Text) Assessment: Assessment: Colitis, rule out infectious versus inflammatory, patient had episodes of vomiting and nausea and having loose stools rule out C. difficile Elevated ammonia UTI, positive Escherichia coli Electrolyte imbalance Chronic anemia, patient's hemoglobin noted a decrease, could be dilutional, patient is for repeat H&H Autoimmune hepatitis History of diabetes mellitus Hypertension Thrombocytopenia History of myelodysplastic syndrome Plan: on heart healthy monitor H&H and transfuse as necessary and monitor for GI bleed Continue antibiotics as per ID, on meropenem continue Xifaxan 550 mg twice a day on oral vancomycin Continue GI prophylaxis Continue DVT prophylaxis Seen and discussed with Dr. Davis.
[2017-07-29] MEDS: Meropenem 500 MG in Sodium Chloride 0.9% 100 ML IVPB SCH (12:19)
[2017-07-29] MEDS: Potassium & Sodium Phosphate PO SCH (12:19)
[2017-07-29] MEDS: Magnesium Oxide 400 mg Tab UD PO SCH (12:20)
[2017-07-29] MEDS: Vancomycin 25 MG/ML PO SCH (12:22)
[2017-07-29 12:28] VITALS: BP 100/71
--- NOTE | 2017-07-29 19:11 | CP.PCM.PN ---
Subjective - Date & Time of Evaluation Date of Evaluation: 07/29/17 Time of Evaluation: 10:20 - Subjective Subjective: Complaining of occasional abdominal pain, no fevers. Objective - Vital Signs/Intake and Output Vital Signs (last 24 hours): Temp Pulse Resp BP Pulse Ox 98.0 F 83 18 124/60 97 07/29/17 04:53 07/29/17 04:53 07/29/17 04:53 07/29/17 04:53 07/29/17 04:53 Intake and Output: 07/29/17 07/29/17 06:59 18:59 Output Total 500 Balance -500 - Medications Medications: Current Medications Acetaminophen (Tylenol 325mg Tab) 650 mg PO Q4H PRN PRN Reason: Fever >100.5 F Last Admin: 07/29/17 02:07 Dose: 650 mg Furosemide (Lasix) 20 mg PO DAILY [facility] Last Admin: 07/28/17 10:10 Dose: 20 mg Meropenem 500 mg/ Sodium (Chloride) 100 mls @ 100 mls/hr IVPB Q12 [facility] PRN Reason: Protocol Last Admin: 07/28/17 22:03 Dose: 100 mls/hr Levalbuterol HCl (Xopenex) 0.63 mg IH TIDRESP [facility] Last Admin: 07/29/17 07:55 Dose: 0.63 mg Levothyroxine Sodium (Synthroid) 75 mcg PO ACB [facility] Last Admin: 07/29/17 08:43 Dose: 75 mcg Magnesium Oxide (Mag-Ox) 400 mg PO DAILY [facility] Last Admin: 07/28/17 10:11 Dose: 400 mg Ondansetron HCl (Zofran Inj) 4 mg IVP Q6H PRN PRN Reason: Nausea/Vomiting Pantoprazole Sodium (Protonix Ec Tab) 40 mg PO ACB [facility] Last Admin: 07/29/17 08:43 Dose: 40 mg Potassium Phos/Sodium Phos (Neutra-Phos) 1 pkt PO BID [facility] Last Admin: 07/28/17 17:12 Dose: 1 pkt Rifaximin (Xifaxan) 550 mg PO BID [facility] PRN Reason: Protocol Last Admin: 07/28/17 17:12 Dose: 550 mg Vancomycin HCl (Vancocin 25 Mg/Ml (Oral Use)) 125 mg PO QID [facility] PRN Reason: Protocol Last Admin: 07/28/17 22:01 Dose: 125 mg - Labs Labs: 07/28/17 05:10 07/28/17 05:10 PT 20.1 SECONDS (9.4-12.5) H 07/24/17 20:25 INR 1.74 (0.93-1.08) H 07/24/17 20:25 APTT 26.4 Seconds (25.1-36.5) 07/24/17 20:25 - Constitutional Appears: Non-toxic - Head Exam Head Exam: NORMAL INSPECTION - ENT Exam ENT Exam: Mucous Membranes Moist - Neck Exam Neck Exam: absent: Meningismus - Respiratory Exam Respiratory Exam: Decreased Breath Sounds - Cardiovascular Exam Cardiovascular Exam: +S1, +S2 - GI/Abdominal Exam GI & Abdominal Exam: Soft. absent: Tenderness Assessment and Plan - Assessment and Plan (Free Text) Plan: Assessment Sepsis secondary to E. coli and E. faecalis UTI, slowly improving history of urinary tract infection with Citrobacter and Enterobacter, S/P treatment and clinically better history of E. faecium UTI history of healthcare-associated pneumonia history of chronic thrombocytopenia history of urinary tract infection with ESBL E. coli S/P UTI with Hafnei alvei Myelodysplastic syndrome DM HTN Hypothyroidism history of right hip surgery S/P cholecystectomy liver cirrhosis GERD Plan continue Merrem day 5 to complete 7 days of therapy
--- NOTE | 2017-07-30 00:55 | DS ---
HISTORY OF PRESENT ILLNESS: The patient is an 87-year-old, seen and examined, lying in bed, seems to be comfortable. Eating and tolerating. No nausea or vomiting. No diarrhea. Did not have bowel movement today. Seems to be comprehending, answering appropriately. PHYSICAL EXAMINATION: VITAL SIGNS: She is afebrile. Pulse 83, respirations 18 and blood pressure 124/60. LUNGS: Bilateral good airflow. No rhonchi or crackle. HEART: S1 and S2 audible. ABDOMEN: Soft, obese and nontender. No rebound. No guarding. NEUROLOGIC: She is awake and alert. Able to move all extremity. Has lower extremity weakness, because of not ambulating for some time. LABORATORY DATA: Her ammonia level is less than 9. Magnesium is 1.7. ASSESSMENT: 1. Nonspecific colitis. 2. History of autoimmune hepatitis. 3. Hypertension. 4. Bilateral leg edema. 5. Deconditioning and difficulty walking. 6. Pancytopenia. 7. Myelodysplastic syndrome. 8. Enterococcus faecalis and Escherichia coli, urinary tract infection. Repeat urine cultures are negative. PLAN: The patient is hemodynamically stable. She needs 3-4 more days of antibiotics. She has been accepted in [facility]. She will be transferred to [facility], where she will finish her course of antibiotic and she will resume all her medication as she was taking in [facility]. Kamaljit Pena MD
== END 2017-07-29 17:14 | DRG 872 ==
LOC: ED 19:21 → ERH 23:20 → 2RSO 07-25 18:11 → 2A 07-27 18:42
PROVIDERS: ADMIT Internal Medicine; ATTEND Internal Medicine
PROC: 30233N1 Transfusion of Nonautologous Red Blood Cells into Peripheral Vein, Percutaneous Approach (ICD-10-PCS; principal; 2017-07-27)
DX: A41.9 Sepsis, unspecified organism (principal); L89.152 Pressure ulcer of sacral region, stage 2; D61.818 Other pancytopenia; E11.22 Type 2 diabetes mellitus with diabetic chronic kidney disease; E11.51 Type 2 diabetes mellitus with diabetic peripheral angiopathy without gangrene; N30.90 Cystitis, unspecified without hematuria; D46.9 Myelodysplastic syndrome, unspecified; B96.20 Unspecified Escherichia coli [E. coli] as the cause of diseases classified elsewhere; K21.9 Gastro-esophageal reflux disease without esophagitis; I12.9 Hypertensive chronic kidney disease with stage 1 through stage 4 chronic kidney disease, or unspecified chronic kidney disease; E03.9 Hypothyroidism, unspecified; K52.9 Noninfective gastroenteritis and colitis, unspecified; K75.4 Autoimmune hepatitis; N18.9 Chronic kidney disease, unspecified; E87.6 Hypokalemia; K74.69 Other cirrhosis of liver; K29.70 Gastritis, unspecified, without bleeding; B95.2 Enterococcus as the cause of diseases classified elsewhere; R26.2 Difficulty in walking, not elsewhere classified; Z87.01 Personal history of pneumonia (recurrent); Z88.3 Allergy status to other anti-infective agents; Z88.0 Allergy status to penicillin; Z87.891 Personal history of nicotine dependence

== ENCOUNTER 2017-08-16 12:58 | Inpatient (IN) | payer MEDICARE, OTHER ==
[2017-08-16 13:08] VITALS: BMI 26.6
[2017-08-16] MEDS ORDERED: Sodium Chloride 0.9% 1,000 ML IV SCH (13:45)
[2017-08-16 13:59] LABS: BASO # 0.01 K/mm3 (0.0-2.0); BASO % 0.3 % (0.0-3.0); EOS # 0.2 (0.0-0.7); EOS % 4.4 % (1.5-5.0); GRAN # 1.44 (1.4-6.5); GRAN % 39.8 % (50.0-68.0); HEMOGLOBIN 9.1 g/dL (12.0-16.0); LYMPH # 1.8 (1.2-3.4); LYMPH % 48.6 % (22.0-35.0); MEAN CELL VOLUME 92.5 fl (80.0-105.0); MEAN CORPUSCULAR HEMOGLOBIN 30.8 pg (25.0-35.0); MEAN CORPUSCULAR HGB CONC 33.3 g/dl (31.0-37.0); MEAN PLATELET VOLUME 12.7 fl (7.0-11.0); MONO # 0.3 (0.1-0.6); MONO % 6.9 % (1.0-6.0); RBC 2.95 10^6/uL (3.5-6.1); RED CELL DISTRIBUTION WIDTH 15.3 % (11.5-14.5); WHITE BLOOD COUNT 3.6 10^3/ul (4.5-11.0)
[2017-08-16 14:01] LABS: VENOUS BLOOD GAS BASE EXCESS 1.4 mmol/L (0.0-2.0); VENOUS BLOOD GAS PO2 180 mm/Hg (30-55); VENOUS BLOOD PH 7.46 (7.32-7.43)
[2017-08-16 14:09] LABS: INR 1.69 (0.93-1.08); PROTHROMBIN TIME 19.7 SECONDS (9.4-12.5)
[2017-08-16 14:10] LABS: PARTIAL THROMBOPLASTIN TIME 36.1 Seconds (25.1-36.5)
[2017-08-16 14:13] LABS: ALB/GLOB RATIO 0.5 (1.1-1.8); ALBUMIN 2.3 g/dL (3.0-4.8); ALT/SGPT 49 U/L (7-56); AST/SGOT 72 U/L (14-36); BLOOD UREA NITROGEN 18 mg/dL (7-21); CALCIUM 8.1 mg/dL (8.4-10.5); GFR AFRICAN-AMERICAN > 60; GFR NON-AFRICAN AMERICAN 52; MAGNESIUM 1.4 mg/dL (1.7-2.2)
--- NOTE | 2017-08-16 14:15 | ED PDOC ---
Arrival/HPI - General Chief Complaint: Weakness/Neurological Deficit Time Seen by Provider: 08/16/17 13:02 Historian: Patient - History of Present Illness Narrative History of Present Illness (Text): 08/16/17 14:20 An 87 year old female, whose past medical history includes recurrent UTIs, hypothyroidism, thrombocytopenia, diabetes and hypertension, was sent [place] to the emergency department for evaluation of increased lethargy and decreased responsiveness. Patient with noted recent UTI and history of Cirrhosis from unknown cause. Family denies any recent fever. Denies any other complaints at this time. Symptom Onset: Sudden Symptom Course: Unchanged Activities at Onset: Rest Context: Other ([place]) Past Medical History - Provider Review Nursing Documentation Reviewed: Yes - Infectious Disease Hx of Infectious Diseases: None - Tetanus Immunization Tetanus Immunization: Unknown - Cardiac Hx Cardiac Disorders: Yes Hx Hypertension: Yes - Pulmonary Hx Respiratory Disorders: Yes Hx Pneumonia: Yes - Neurological Hx Neurological Disorder: (syncope) Hx Dizziness: Yes Hx Transient Ischemic Attacks (TIA): No - HEENT Hx HEENT Disorder: No - Renal Hx Renal Disorder: Yes Other/Comment: uti - Endocrine/Metabolic Hx Hypothyroidism: Yes - Hematological/Oncological Hx Blood Disorders: Yes (MDS) Hx Anemia: Yes Hx Cirrhosis: Yes Other/Comment: thromocytopenia, myelodysplastic syndrome, hypomagnesia/ pancytopenia - Integumentary Hx Dermatological Disorder: Yes - Musculoskeletal/Rheumatological Hx Musculoskeletal Disorders: Yes Hx Falls: Yes - Gastrointestinal Hx Gastrointestinal Disorders: Yes (GERD,CROHNS,CHOLECYSTECTOMY,ULCER) Hx Diverticulitis: Yes Other/Comment: gastritis - Genitourinary/Gynecological Hx Genitourinary Disorders: Yes (VRE,ESBL,INCONTINENT,RETENTION) Hx Urinary Tract Infection: Yes Other/Comment: hx urosepsis - Psychiatric Hx Psychophysiologic Disorder: Yes Hx Anxiety: Yes Hx Substance Use: No - Surgical History Hx Cholecystectomy: Yes Hx Orthopedic Surgery: Yes (r hip fx) - Anesthesia Hx Anesthesia: No Hx Anesthesia Reactions: No Hx Malignant Hyperthermia: No - Suicidal Assessment Feels Threatened In Home Enviroment: No Family/Social History - Physician Review Nursing Documentation Reviewed: Yes Family/Social History: No Known Family HX Smoking Status: Never Smoked Hx Alcohol Use: Yes (occasional wine with dinner) Hx Substance Use: No Hx Substance Use Treatment: No Allergies/Home Meds Allergies/Adverse Reactions: Allergies levofloxacin [From Levaquin] Allergy (Intermediate, Verified 08/16/17 13:30) RASH Penicillins Allergy (Verified 08/16/17 13:30) URTICARIA lev Allergy (Uncoded 08/16/17 13:30) ITCHING Home Medications: Home Meds Medication Instructions Recorded Confirmed Furosemide [Lasix] 20 mg PO DAILY 04/21/17 08/16/17 Lactulose 20 gm PO BID 04/21/17 08/16/17 Levothyroxine [Synthroid] 75 mcg PO DAILY 04/21/17 08/16/17 Magnesium Oxide [Mag-Ox] 400 mg PO BID 04/21/17 08/16/17 rifAXIMin [Xifaxan] 550 mg PO BID 04/21/17 08/16/17 Aluminum Hydroxide/Magnesium H 30 ml PO Q4 PRN 08/16/17 08/16/17 [Maalox 30 ml] Levalbuterol HCl [Xopenex] 3 ml NEB TID 08/16/17 08/16/17 Loperamide HCl [Anti-Diarrheal] 4 mg PO PRN PRN 08/16/17 08/16/17 Ondansetron [Zofran Tab] 4 mg PO Q4 PRN 08/16/17 08/16/17 Pantoprazole [Protonix EC Tab] 40 mg PO DAILY 08/16/17 08/16/17 Vancomycin [Vancocin (ORAL OR 125 mg PO QID 08/16/17 08/16/17 RECTAL USE)] Review of Systems - Physician Review All systems were reviewed & negative as marked: Yes - Review of Systems Systems not reviewed;Unavailable: Acuity of Condition Constitutional: Other (increased lethargy, decreased responsiveness). absent: Fevers Physical Exam Vital Signs Reviewed: Yes Vital Signs Temp Pulse Resp BP Pulse Ox 08/16/17 13:33 96.1 F L 82 18 170/72 H 97 Temperature: Afebrile Blood Pressure: Hypertensive Pulse: Regular Respiratory Rate: Normal Appearance: Positive for: Comfortable, Other (lethargic; slightly jaundiced; arousable) Pain Distress: None Mental Status: Positive for: other (arousable) Finger Stick Blood Glucose: 98 - Systems Exam Head: Present: Atraumatic, Normocephalic Mouth: Present: Dry Respiratory/Chest: Present: Other (decreased efforts). No: Respiratory Distress , Accessory Muscle Use Cardiovascular: Present: Regular Rate and Rhythm, Normal S1, S2. No: Murmurs Abdomen: Present: Normal Bowel Sounds, Other (no palpable masses; liver edge not palpable). No: Tenderness, Distention, Peritoneal Signs Upper Extremity: Present: Normal Inspection. No: Cyanosis, Edema Lower Extremity: Present: Other (minimal strength) Neurological: Present: GCS=15, CN II-XII Intact Skin: Present: Other (slightly jaundiced; decreased skin turgor) Psychiatric: Present: Lethargic (arousable) Medical Decision Making ED Course and Treatment: 08/16/17 14:12 Impression: An 87 year old female with increased lethargy and decreased responsiveness, sent from [place]. Plan: -- EKG -- chest xray -- Urinalysis -- labs -- IV fluids -- Reassess and disposition Prior Visits: Notes and results from previous visits were reviewed. Patient was last seen in the emergency department on 07/24/17 for evaluation of RLQ abdominal pain, nausea and vomiting. Progress Notes: 08/16/17 14:51 EKG: Ordered, reviewed, and independently interpreted the EKG. Rate : 62 BPM Rhythm : NSR Interpretation : right bundle branch block 08/16/17 14:58 chest xray Creator : Bette Mccracken MD IMPRESSION: Ill-defined airspace disease in the right mid lung could represent developing pneumonia. Follow-up is advised. Right PICC line terminates in the axillary vein. - Lab Interpretations Lab Results: 08/16/17 13:40 08/16/17 13:40 Lab Results 08/16/17 15:15: pCO2 31 L, pO2 104.0 H, HCO3 23.1, ABG pH 7.48 H, ABG Total CO2 24.1, ABG O2 Saturation 98.9 H, ABG O2 Content 11.2 L, ABG Base Excess -0.1, ABG Hemoglobin 8.1 L, ABG Carboxyhemoglobin 2.0 H, POC ABG HHb (Measured) 1.1, ABG Methemoglobin 0.2, ABG O2 Capacity 11.3 L, Hgb O2 Saturation 96.7, FiO2 21.0 08/16/17 14:45: Urine Color Yellow, Urine Appearance Clear, Urine pH 7.0, Ur Specific Call 1.015, Urine Protein Negative, Urine Glucose (UA) Negative, Urine Ketones 15 H, Urine Blood Negative, Urine Nitrate Negative, Urine Bilirubin Negative, Urine Urobilinogen 0.2, Ur Leukocyte Esterase Small H, Urine RBC 0 - 2, Urine WBC 25 - 30, Ur Epithelial Cells 4 - 5, Urine Bacteria Large 08/16/17 13:49: POC Glucose (mg/dL) 98 08/16/17 13:40: Ammonia 125 H 08/16/17 13:40: Sodium 142, Chloride 112 H, Potassium 4.1, Carbon Dioxide 23, Anion Gap 11, BUN 18, Creatinine 1.0, Est GFR ( Amer) > 60, Est GFR (Non- Af Amer) 52, Random Glucose 92, Calcium 8.1 L, Phosphorus 3.0, Magnesium 1.4 L, Total Bilirubin 1.6 H, AST 72 H D, ALT 49, Alkaline Phosphatase 148 H, Total Protein 7.1, Albumin 2.3 L, Globulin 4.8, Albumin/Globulin Ratio 0.5 L 08/16/17 13:40: pO2 180 H, VBG pH 7.46 H, VBG pCO2 35.0 L, VBG HCO3 24.9, VBG Total CO2 26.0, VBG O2 Sat (Calc) 99.2 H, VBG Base Excess 1.4, VBG Potassium 4.6 , Sodium 141.0, Chloride 114.0 H, Glucose 99, Lactate 1.4, FiO2 21.0, Venous Blood Potassium 4.6 08/16/17 13:40: PT 19.7 H, INR 1.69 H, APTT 36.1 08/16/17 13:40: WBC 3.6 L D, RBC 2.95 L, Hgb 9.1 L, Hct 27.3 L, MCV 92.5, MCH 30.8, MCHC 33.3, RDW 15.3 H, Plt Count 50 L, MPV 12.7 H, Gran % 39.8 L, Lymph % (Auto) 48.6 H, [place] % (Auto) 6.9 H, Eos % (Auto) 4.4, Baso % (Auto) 0.3, Gran # 1.44, Lymph # (Auto) 1.8, [place] # (Auto) 0.3, Eos # (Auto) 0.2, Baso # (Auto) 0.01 I have reviewed the lab results: Yes - RAD Interpretation Radiology Orders: 08/16/17 13:11 CHEST PORTABLE [RAD] Stat 08/16/17 15:39 HEAD W/O CONTRAST [CT] Stat - EKG Interpretation Interpreted by ED Physician: Yes Type: 12 lead EKG - Medication Orders Current Medication Orders: Sodium Chloride (Sodium Chloride 0.9%) 1,000 mls @ 100 mls/hr IV .Q10H [facility] Last Admin: 08/16/17 13:40 Dose: 100 mls/hr eMAR Start Stop Document 08/16/17 13:40 SZA (Rec: 08/16/17 14:10 SZA [id number]) Intravenous Solution Start Date 08/16/17 Start Time 13:40 Ciprofloxacin (Cipro 400mg/200ml Dsw) 400 mg in 200 mls @ 133.333 mls/hr IVPB Q12 [facility] PRN Reason: Protocol Stop: 08/17/17 15:16 Cefepime HCl (Maxipime 1gm) 1 gm in 100 mls @ 100 mls/hr IVPB [facility] PRN Reason: Protocol Stop: 08/16/17 16:14 Lactulose (Enulose) 10 gm PO STAT [facility] - Scribe Statement The provider has reviewed the documentation as recorded by the Rinku Duarte Provider Scribe Attestation: All medical record entries made by the Scribe were at my direction and personally dictated by me. I have reviewed the chart and agree that the record accurately reflects my personal performance of the history, physical exam, medical decision making, and the department course for this patient. I have also personally directed, reviewed, and agree with the discharge instructions and disposition. Disposition/Present on Arrival - Present on Arrival Any Indicators Present on Arrival: No History of DVT/PE: No History of Uncontrolled Diabetes: No Urinary Catheter: No History of Decub. Ulcer: Yes History Surgical Site Infection Following: None - Disposition Have Diagnosis and Disposition been Completed?: Yes Diagnosis: Urinary tract infection, Pneumonia, Hepatic encephalopathy Disposition: HOSPITALIZED Disposition Time: 14:00 Patient Plan: Discharge Condition: IMPROVED Forms: [employer] ([employer] ([place])
--- NOTE | 2017-08-16 14:56 | RAD ---
HISTORY: Sepsis Patient COMPARISON: 07/24/2017 FINDINGS: The right PICC line terminates in the axillary vein. LUNGS: There are low lung volumes. There is ill-defined airspace disease in the right mid lung. No focal consolidation. PLEURA: No significant pleural effusion identified, no pneumothorax apparent. CARDIOVASCULAR: Normal. OSSEOUS STRUCTURES: No significant abnormalities. VISUALIZED UPPER ABDOMEN: Normal. OTHER FINDINGS: None. IMPRESSION: Ill-defined airspace disease in the right mid lung could represent developing pneumonia. Follow-up is advised. Right PICC line terminates in the axillary vein.
[2017-08-16 15:07] LABS: URINE BILIRUBIN NEGATIVE (NEGATIVE); URINE BLOOD NEGATIVE (NEGATIVE); URINE GLUCOSE (UA) NEGATIVE (NEGATIVE); URINE LEUKOCYTE ESTERASE SMALL Leu/uL (NEGATIVE); URINE NITRATE NEGATIVE (NEGATIVE); URINE PROTEIN NEGATIVE mg/dL (<30 mg/dL); URINE UROBILINOGEN 0.2 E.U./dL (<1 E.U./dL)
[2017-08-16 15:14] LABS: URINE APPEARANCE CLEAR (CLEAR); URINE COLOR YELLOW (YELLOW)
[2017-08-16] MEDS ORDERED: Cefepime 1gm in NS 100ml 1 GM/100 ML BAG IVPB STA (15:15)
[2017-08-16 15:27] LABS: ARTERIAL BLOOD GAS HCO3 23.1 mmol/L (21-28); ARTERIAL BLOOD GAS HEMOGLOBIN 8.1 g/dL (11.7-17.4); ARTERIAL BLOOD GAS O2 CAPACITY 11.3 mL/dl (16-24); ARTERIAL BLOOD GAS O2 CONTENT 11.2 ML/dl (15-23); ARTERIAL BLOOD GAS O2 SAT 98.9 % (95-98); ARTERIAL BLOOD GAS PCO2 31 mm/Hg (35-45); ARTERIAL BLOOD GAS PH 7.48 (7.35-7.45); ARTERIAL BLOOD GAS TCO2 24.1 mmol.L (22-28)
[2017-08-16 15:44] LABS: URINE BACTERIA LARGE (NEG); URINE RBC 0 - 2 /hpf (0-2); URINE WBC 25 - 30 /hpf (0-6)
[2017-08-16] MEDS: Pantoprazole 40 mg EC Tab PO SCH (16:30)
[2017-08-16] MEDS ORDERED: NS IVPB SCH (16:30)
[2017-08-16] MEDS ORDERED: MEROPENEM IVPB SCH (16:30)
[2017-08-16] MEDS ORDERED: Meropenem 1g/100 mL NS IVPB IVPB SCH (16:45)
--- NOTE | 2017-08-16 16:45 | CT ---
PROCEDURE: CT HEAD WITHOUT CONTRAST. HISTORY: mental status change COMPARISON: None available. TECHNIQUE: Axial computed tomography images were obtained through the head/brain without intravenous contrast. Radiation dose: Total exam DLP = 1028.82 mGy-cm. This CT exam was performed using one or more of the following dose reduction techniques: Automated exposure control, adjustment of the mA and/or kV according to patient size, and/or use of iterative reconstruction technique. FINDINGS: HEMORRHAGE: No intracranial hemorrhage. BRAIN: Approximately 1.4 cm peripherally calcified mass arising from the superior falx cerebrum re- at the posterior vertex, unchanged from previous. Likely meningioma. No other intracranial mass identified. Moderate diffuse age-appropriate cerebral atrophy. No evidence of acute infarct. VENTRICLES: Mild ventricular dilatation proportionate to the degree of parenchymal atrophy. CALVARIUM: Unremarkable. PARANASAL SINUSES: Unremarkable as visualized. No significant inflammatory changes. MASTOID AIR CELLS: Unremarkable as visualized. No inflammatory changes. OTHER FINDINGS: None. IMPRESSION: Stable small peripherally calcified meningioma of the posterior falx cerebrum re-. No intra-axial mass. No intracranial hemorrhage or evidence of acute infarct.
[2017-08-16] MEDS: Levothyroxine 75 MCG TAB PO SCH (17:00)
[2017-08-16] MEDS ORDERED: Lactulose 10 gm/15 ml (Rectal Use) PR ONE (17:13)
[2017-08-16] MEDS ORDERED: Sodium Chloride 0.9% 1,000 ML IV STA (17:14)
[2017-08-16] MEDS: Magnesium Oxide 400 mg Tab UD PO SCH (20:31)
[2017-08-16] MEDS: Sodium Chloride 0.9% 1,000 ML IV SCH (21:28)
[2017-08-16] MEDS ORDERED: Ciprofloxacin 400mg/200ml D5W 400 MG/200 ML BAG IVPB SCH (22:00)
[2017-08-16] MEDS ORDERED: Meropenem 500 MG in Sodium Chloride 0.9% 50 ML IVPB SCH (22:00)
--- NOTE | 2017-08-17 03:36 | HP ---
HISTORY OF PRESENT ILLNESS: The patient is an 87-year-old known to me from multiple previous admissions, was recently sent to subacute rehab after she was had an episode of gastroenteritis and UTI. While the patient was in [facility], she was found to be lethargic and was found to have UTI, so was sent to the emergency room for further evaluation. It was getting hard to arouse her and since she has history of hepatic encephalopathy and multiple UTIs, so she was brought to the emergency room for further evaluation. PAST MEDICAL HISTORY: She has past medical history significant for; 1. Hypertension. 2. Recurrent UTI. 3. Pancytopenia. 4. Myelodysplastic syndrome. 5. Autoimmune hepatitis. 6. Hypothyroidism. 7. Electrolyte imbalance. 8. Deconditioning and difficulty walking. 9. Bilateral chronic leg edema, stasis dermatitis. ALLERGIES: SHE IS ALLERGIC TO LEVAQUIN AND SHE IS ALLERGIC TO PENICILLIN. MEDICATIONS: In the senior care; 1. She is on Xifaxan 550 twice a day. 2. She is on levothyroxine 75 mcg daily. 3. Protonix 40 mg daily. 4. Lactulose 20 g twice a day. 5. Loperamide as needed. SOCIAL HISTORY: She used to smoke, but quit many many years ago. Lives with her daughter. Currently, she was in subacute rehab. REVIEW OF SYSTEMS: Sleepy, but arousable. PHYSICAL EXAMINATION: VITAL SIGNS: She is afebrile. Pulse 82 and blood pressure 170/72. LUNGS: Bilateral good airflow. No rhonchi or crackle. HEART: S1 and S2, audible. ABDOMEN: Soft and nontender. No rebound. Obese. No hepatosplenomegaly. EXTREMITIES: Bilateral legs +2 edema. LABORATORY DATA: WBC is 3.6, hemoglobin 9.1, hematocrit 27.3, and platelets of 50. PT 19.7 and INR 1.69. Chemistry; sodium 142, potassium 4.1, chloride 112, CO2 of 23, BUN 18, creatinine 1.0 and blood sugar of 92. LFTs are within normal limits. ALT 49, AST 72, total bilirubin 1.6, magnesium 1.4. Urinalysis shows small leukocyte esterase and positive ketone, large bacteria. Ammonia level is 125. ASSESSMENT: 1. Hepatic encephalopathy. 2. Urinary tract infection. 3. Altered mental status. 4. Autoimmune hepatitis. 5. Hypertension. 6. Morbid obesity. 7. Deconditioning. 8. Pancytopenia. 9. Myelodysplastic syndrome. PLAN: So, the plan is we will start the patient on cefepime. ID consult by Dr. Byrne and resume her usual medications. Follow up electrolytes. Out of bed to chair. We will follow up the patient with you. Kamaljit Pena MD
--- NOTE | 2017-08-17 08:19 | CARD ---
APPROVED REPORT EKG Measurement Heart [id number] <Conclusion> Normal sinus rhythm Left axis deviation Right bundle branch block PRWP, possibly lead placement NSSTW changes
[2017-08-17] MEDS: Levothyroxine 75 MCG TAB PO SCH ×3 (09:39→11:53)
[2017-08-17] MEDS: Pantoprazole 40 mg EC Tab PO SCH ×3 (09:39→11:53)
[2017-08-17] MEDS: Magnesium Oxide 400 mg Tab UD PO SCH ×4 (09:39→18:52)
[2017-08-17 13:25] LABS: HEMOGLOBIN 8.9 g/dL (12.0-16.0); MEAN CELL VOLUME 93.9 fl (80.0-105.0); MEAN CORPUSCULAR HEMOGLOBIN 30.4 pg (25.0-35.0); MEAN CORPUSCULAR HGB CONC 32.4 g/dl (31.0-37.0); MEAN PLATELET VOLUME 12.9 fl (7.0-11.0); RBC 2.93 10^6/uL (3.5-6.1); RED CELL DISTRIBUTION WIDTH 15.2 % (11.5-14.5); WHITE BLOOD COUNT 4.9 10^3/ul (4.5-11.0)
[2017-08-17 13:37] LABS: ALB/GLOB RATIO 0.4 (1.1-1.8); ALBUMIN 2.1 g/dL (3.0-4.8); ALT/SGPT 39 U/L (7-56); AST/SGOT 61 U/L (14-36); BLOOD UREA NITROGEN 19 mg/dL (7-21); CALCIUM 8.2 mg/dL (8.4-10.5); GFR AFRICAN-AMERICAN > 60; GFR NON-AFRICAN AMERICAN 52
[2017-08-17] MEDS: Vancomycin 1gm in NS 250ml 1 GM/250 ML BAG IVPB SCH (20:48)
[2017-08-17] MEDS: Meropenem 1g/NS 100mL IVPB 1 GM/100 ML PIGGYBACK IVPB SCH (22:53)
--- NOTE | 2017-08-18 06:20 | CON ---
DATE: 08/17/2017 LOCATION: Patient is seen this morning in room 577, bed 2. CHIEF COMPLAINT: Weakness times several days. HISTORY OF PRESENT ILLNESS: This is an 87-year-old female with a history of hypothyroidism, thrombocytopenia, diabetes mellitus, hypertension, multiple recurrent urinary tract infections, and also with liver cirrhosis, history of ESBL E. coli urinary tract infection with a history of right hip surgery, history of cholecystectomy, ALLERGY TO PENICILLIN AND LEVAQUIN. Patient has a history of autoimmune hepatitis and myelodysplastic syndrome, admitted to the emergency room with the diagnoses of urinary tract infection, pneumonia. Infectious Disease consultation requested. Patient is a poor historian. There has been no fevers reported, although the patient has been reported to have hypothermia, and she was weak and has difficulty communicating. PAST MEDICAL HISTORY: Significant for myelodysplastic syndrome, hypertension, diabetes, recurrent urinary tract infections, autoimmune hepatitis, liver cirrhosis, and history of ESBL E. coli urinary tract infection. PAST SURGICAL HISTORY: Significant for right hip surgery, cholecystectomy. ALLERGIES: PATIENT IS ALLERGIC TO PENICILLIN AND LEVAQUIN. MEDICATIONS: Reveals the patient to be on Xopenex, loperamide, Zofran, Lasix, and Synthroid. PHYSICAL EXAMINATION: GENERAL: Patient is in bed, appearing chronically ill and weak. VITAL SIGNS: Temperature of 97.2, is down to 96.1, heart rate of 95, respiratory rate of 20, with a blood pressure of 160/80. HEENT: Unremarkable. NECK: Supple. LUNGS: Have decreased breath sounds. HEART: Normal S1 and S2. ABDOMEN: Soft and nontender. LABORATORY DATA: Reveals a white count of 3.6, hemoglobin of 9, platelets of 50,000. Coagulation is noted in the blood. Chemistry reveals a BUN of 19, creatinine of 1.0, ALT is mildly elevated at 61, alkaline phosphatase is 146. Urinalysis is noted to have large bacteria, 25-30 wbc's. The blood cultures are no growth. The urine cultures, Gram-positive cocci greater than 100,000 colonies. ASSESSMENT AND PLAN: This is an 87-year-old female with hypothyroidism, thrombocytopenia, diabetes, hypertension, recurrent urinary tract infections, liver cirrhosis, autoimmune hepatitis, extended-spectrum beta-lactamase Escherichia coli urinary tract infection, myelodysplastic syndrome, admitted with tachycardia and leukopenia, change in mental status with airspace disease in the mid-lung field and history of renal insufficiency. Had a CAT scan of the head. Positive urinalysis with sepsis with the urine as the source and healthcare associated pneumonia. We will treat the patient with vancomycin and meropenem. Pending rudd culture results, procalcitonin. We will adjust the vancomycin to once daily, as the patient has renal insufficiency. We will make further recommendations based on culture results and procalcitonin and clinical response. The patient's blood cultures and urine cultures are pending the Gram-positive cocci in the urine, and we will make further recommendations upon availability. Overall prognosis is quite poor for this patient who is end stage, we will consider hospice setting. Arden Byrne MD
[2017-08-18] MEDS: Meropenem 1g/NS 100mL IVPB 1 GM/100 ML PIGGYBACK IVPB SCH ×3 (06:32→21:32)
--- NOTE | 2017-08-18 08:46 | PN ---
DATE: 08/17/2017 SUBJECTIVE: Patient is 85-year-old, found to be unresponsive yesterday, ammonia level was 125, got lactulose and had bowel movements. Seemed to be more alert today, looks pale. PHYSICAL EXAMINATION: VITAL SIGNS: She is afebrile. Pulse 95, respirations 20, blood pressure 158/94. LUNGS: Bilateral fair airflow. No rhonchi or crackles. HEART: S1 and S2 audible. ABDOMEN: Soft, obese, nontender. No rebound. No guarding. NEUROLOGIC: She is awake and alert, able to communicate. EXTREMITIES: Bilateral legs, +1 edema. LABORATORY DATA: WBC is 4.9, hemoglobin 8.9, hematocrit 27.5, platelets of 52. Chemistry: Sodium 145, potassium 4.2, chloride 112, CO2 of 25, BUN 19, creatinine 1.0, and blood sugar is 88. Ammonia level is less than 9. Urine shows gram-positive cocci. Blood culture is negative. ASSESSMENT AND PLAN: 1. Hepatic encephalopathy. 2. Autoimmune hepatitis. 3. Pancytopenia. 4. Myelodysplastic syndrome. 5. Electrolyte imbalance. PLAN: So, we will continue the patient on lactulose for now. She is on meropenem and continue her on IV fluids. Has been started on liquid diet. We will get swallowing evaluation. If she can swallow better, we can advance her diet after swallowing evaluation. Kamaljit Pena MD
[2017-08-18] MEDS: Pantoprazole 40 mg EC Tab PO SCH (09:40)
[2017-08-18] MEDS: Levothyroxine 75 MCG TAB PO SCH (09:40)
[2017-08-18] MEDS: Magnesium Oxide 400 mg Tab UD PO SCH ×2 (09:40→17:55)
[2017-08-18] MEDS: Vancomycin 1gm in NS 250ml 1 GM/250 ML BAG IVPB SCH (09:40)
[2017-08-18] MEDS: Sodium Chloride 0.9% 1,000 ML IV SCH (09:42)
--- NOTE | 2017-08-18 09:54 | PQF SEPSIS ---
This form is a permanent part of the medical record Dr. Pena, ID furniture sales consultant noted sepsis due to UTI and pneumonia in his consult. Please refer to sepsis criteria sited in consult. Please document if you concur with this diagnosis POA, was it ruled out, undetermined. Clarification of your documentation is requested to better reflect the severity of illness and intensity of treatment of your patient. Indicators present [x] Temp < 96.8 or > 100.4 Temp 96.1 [x] WBC count > 12,000/mm3 or <000/mm3 or 10% immature neutrophils WBC of 3.6 [x] Heart Rate > 90 HR 95 [] Respiratory Rate > 20 [] Fever or hypothermia [] Chills [] Positive blood cultures [] Hypotension [] Metabolic acidosis (Elevated lactate level, anion gap or reduced blood pH) [x] Acute confusion /Altered Mental Status [] Shock [x] Other: Urine culture, pneumonia on CXR Location in the medical record that reflects the above clinical findings: [] Treatment Provided: [] PHYSICIAN'S RESPONSE Based on your medical judgment of the clinical indicators outlined above, are you treating this patient for a known or suspected: [] Sepsis / Septicemia Please specify organism if known [] [] SIRS (Systemic Inflammatory Response Syndrome) [] Severe Sepsis (Sepsis with Associated Organ Dysfunction) [] Fever of Unknown Origin [] Other, please indicate: [] [x] If Unable to Determine, please check the box, sign and date.confused because ofhepatic encephalopathy Present On Admission (POA) Indicator: [x] Present at the time of admission [] Not present at the time of admission [] Clinically Undetermined In responding to this query, please exercise your independent professional judgment. The fact that a question is asked does not imply that any particular answer is desired or expected. Thank you for your clarification on this documentation. If you have any questions please call:[ ] * Thank you, [ ]Dionicio Yousif [facility] #[id number] [employer] [place]
[2017-08-18 23:17] VITALS: O2SAT 98
--- NOTE | 2017-08-18 23:48 | PN ---
DATE: SUBJECTIVE: Patient is 87 years old, seen and examined, lying in bed, seemed to be comfortable. She is awake, alert, oriented, eating, demanding for solid food and does not like some liquid food. OBJECTIVE: VITAL SIGNS: She is afebrile, pulse 92, respirations 20, blood pressure 101/57. LUNGS: Bilateral fair airflow. No rhonchi or crackle. HEART: S1 and S2 audible. ABDOMEN: Soft, nontender. No rebound, no guarding. Obese. EXTREMITIES: Bilateral legs, +1 edema. LABORATORY DATA: Blood sugar is 191, procalcitonin is 0.18. Total bili 1.6. ASSESSMENT: 1. Hepatic encephalopathy. 2. Status post altered mental status. 3. Myelodysplastic syndrome. 4. Pancytopenia. 5. Hypertension. 6. Recurrent urinary tract infections. PLAN: So, plan is, we will advance the patient's diet, discontinue IV fluid, continue on Xifaxan and levothyroxine. We will monitor her magnesium and electrolyte in a.m. Patient's family does not want her to go to . The are demanding for . Discussed with social worker health services and we will make a plan for discharge in a.m. Kamaljit Pena MD
--- NOTE | 2017-08-19 02:11 | PN ---
DATE: 08/18/2017 SUBJECTIVE: Patient is in bed. Nontoxic. No fevers. No chills. PHYSICAL EXAMINATION: VITAL SIGNS: Temperature is 98, blood pressure is 150/70, respiratory rate is 20, heart rate of 90. HEENT: Unremarkable. NECK: Supple. LUNGS: Have decreased breath sounds. HEART: Normal S1 and S2. ABDOMEN: Soft. LABORATORY EXAMINATION: Reveals a white count of 4.9, hemoglobin of 8, platelets of 52. Chemistry revealed BUN of 19, creatinine of 1.0, procalcitonin is 0.18. Urinalysis is noted. Microbiology reveals VRE in the urine. The blood cultures are negative. Review of orders reveals the patient to be on vancomycin and meropenem. ASSESSMENT AND PLAN: This is an 87-year-old female who was seen earlier this morning, patient's daughter at the bedside, with a history of hypothyroidism, thrombocytopenia, diabetes, hypertension, multiple urinary tract infections, liver cirrhosis, history of extended-spectrum beta-lactamase Escherichia coli and myelodysplastic syndrome, admitted with change in mental status with airspace disease in mid lung and history of renal insufficiency, and a positive urinalysis with vancomycin-resistant enterococci in the urine, most likely not the pathogen that is causing it; and patient with sepsis and health-care associated pneumonia, possible vancomycin-resistant enterococci in the urine. Mental status is somewhat improved. Patient's procalcitonin is 0.18, speaks against bacterial pneumonia and we will continue with the meropenem for now. Patient with hepatic encephalopathy, autoimmune hepatitis, pancytopenia, myelodysplastic disorder, on day #2 of meropenem. We will discontinue the vancomycin and place the patient on vancomycin-resistant enterococci precautions. Long-term prognosis is poor; should consider hospice and supportive care . Arden Byrne MD
[2017-08-19 07:53] LABS: ALB/GLOB RATIO 0.4 (1.1-1.8); ALBUMIN 1.7 g/dL (3.0-4.8); CALCIUM 7.6 mg/dL (8.4-10.5); MAGNESIUM 1.4 mg/dL (1.7-2.2)
[2017-08-19 08:20] VITALS: BP 100/43; PULSE 86; RESP 20; TEMP 97.7
[2017-08-19] MEDS ORDERED: Magnesium Sulfate 1 gm in D5W 1 GM/100 ML BAG IVPB ONE (08:53)
[2017-08-19] MEDS: Magnesium Oxide 400 mg Tab UD PO SCH (10:53)
[2017-08-19] MEDS: Pantoprazole 40 mg EC Tab PO SCH (10:54)
[2017-08-19] MEDS: Meropenem 1g/NS 100mL IVPB 1 GM/100 ML PIGGYBACK IVPB SCH (10:54)
--- NOTE | 2017-08-19 23:26 | PN ---
DATE: 08/19/2017 SUBJECTIVE: Patient is in bed, in no acute distress. Patient was seen early this morning in room 571. PHYSICAL EXAMINATION: VITAL SIGNS: Temperature of 97, blood pressure is 100/40, respiratory rate of 16. HEENT: Unremarkable. NECK: Supple. LUNGS: Have decreased breath sounds. HEART: Normal S1 and S2. ABDOMEN: Soft, nontender. LABORATORY EXAMINATION: Reveals a white count of 4.9, hemoglobin of 8. BUN of 20, creatinine of 1.3, procalcitonin is 0.18. Urinalysis is noted. Microbiology reveals VRE in the urine. Her blood cultures are negative. ASSESSMENT AND PLAN: This is an 87-year-old female, who was seen early this morning, who is ALLERGIC TO PENICILLIN AND LEVAQUIN with a history of hypothyroidism, thrombocytopenia, diabetes, hypertension, multiple urinary tract infections, liver cirrhosis, history of extended-spectrum beta-lactamase Escherichia coli, myelodysplastic syndrome; admitted with change in mental status, airspace disease in mid lung, and history of renal insufficiency, positive urinalysis and vancomycin-resistant enterococci and patient considered being discharged home on hospice and supportive care and patient%s daughter agrees considering it and we will discuss with PMD. Arden Byrne MD
--- NOTE | 2017-08-20 08:16 | DS ---
HISTORY OF PRESENT ILLNESS: The patient is 87 years old, seen and examined lying in bed, seemed to be comfortable. No nausea or vomiting. No diarrhea. Eating and tolerating. PHYSICAL EXAMINATION: VITAL SIGNS: The patient is afebrile, pulse 86, respirations 20, blood pressure 100/43. LUNGS: Bilateral fair airflow. No rhonchi or crackle. HEART: S1 and S2 audible. ABDOMEN: Soft, obese, nontender. No rebound. No guarding. NEUROLOGIC: The patient is awake and alert, communicative. LABORATORY EXAM: Sodium 141, potassium 3.8, chloride 113, CO2 of 22, BUN 20, creatinine 1.3, blood sugar of 92. ASSESSMENT: 1. Status post metabolic encephalopathy. 2. Status post hepatic encephalopathy. 3. Autoimmune hepatitis. 4. Hypertension. 5. Pancytopenia. 6. Myelodysplastic syndrome. PLAN: The patient is back to her normal self. She will be discharged to subacute rehab that is [facility] and I will follow up the patient there. Kamaljit Pena MD
== END 2017-08-19 18:29 | disposition home or self-care (01) | DRG 871 ==
LOC: ED 12:58 → ERH 16:09 → 5RSO 08-17 02:46
PROVIDERS: ADMIT Internal Medicine; ATTEND Internal Medicine
DX: A41.9 Sepsis, unspecified organism (principal); J18.9 Pneumonia, unspecified organism; D61.818 Other pancytopenia; K50.90 Crohn's disease, unspecified, without complications; C94.6 Myelodysplastic disease, not elsewhere classified; E11.9 Type 2 diabetes mellitus without complications; E66.01 Morbid (severe) obesity due to excess calories; K72.90 Hepatic failure, unspecified without coma; N39.0 Urinary tract infection, site not specified; D46.9 Myelodysplastic syndrome, unspecified; E03.9 Hypothyroidism, unspecified; K21.9 Gastro-esophageal reflux disease without esophagitis; I10 Essential (primary) hypertension; I87.2 Venous insufficiency (chronic) (peripheral); K74.60 Unspecified cirrhosis of liver; K75.4 Autoimmune hepatitis; N28.9 Disorder of kidney and ureter, unspecified; Y95 Nosocomial condition; Z88.0 Allergy status to penicillin; Z90.49 Acquired absence of other specified parts of digestive tract; Z87.891 Personal history of nicotine dependence; Z87.440 Personal history of urinary (tract) infections; Z87.01 Personal history of pneumonia (recurrent); Z88.1 Allergy status to other antibiotic agents; Z68.26 Body mass index [BMI] 26.0-26.9, adult

== ENCOUNTER 2017-08-29 17:27 | Inpatient (IN) | payer MEDICARE, OTHER ==
[2017-08-29 17:27] VITALS: BMI 26.6
[2017-08-29] MEDS ORDERED: Vancomycin 1gm in NS 250ml 1 GM/250 ML BAG IVPB STA (17:52)
[2017-08-29] MEDS ORDERED: Meropenem 500 MG in Sodium Chloride 0.9% 100 ML IVPB STA (17:52)
--- NOTE | 2017-08-29 17:59 | ED PDOC ---
Arrival/HPI - General Time Seen by Provider: 08/29/17 17:40 Historian: Patient, EMS - History of Present Illness Narrative History of Present Illness (Text): 08/29/17 18:02 An 87 year old female, whose past medical history includes recurrent UTIs, thrombocytopenia, hypertension, liver cirrhosis, hepatic encephalopathy and diabetes, was brought in by EMS to the emergency department [facility]. Patient is baseline alert, but forgetful. Patient awake and confused. Limited history. Symptom Onset: Sudden Symptom Course: Unchanged Activities at Onset: Rest Context: Other ([facility]) Past Medical History - Provider Review Nursing Documentation Reviewed: Yes - Infectious Disease Hx of Infectious Diseases: None - Tetanus Immunization Tetanus Immunization: Unknown - Cardiac Hx Hypertension: Yes - Pulmonary Hx Respiratory Disorders: Yes Hx Pneumonia: Yes - Neurological Hx Neurological Disorder: (syncope) Hx Dizziness: Yes Hx Transient Ischemic Attacks (TIA): No - HEENT Hx HEENT Disorder: No - Renal Hx Renal Disorder: Yes Other/Comment: uti - Endocrine/Metabolic Hx Hypothyroidism: Yes - Hematological/Oncological Hx Blood Disorders: Yes (MDS) Hx Anemia: Yes Hx Cirrhosis: Yes Other/Comment: thromocytopenia, myelodysplastic syndrome, hypomagnesia/ pancytopenia - Integumentary Hx Dermatological Disorder: Yes - Musculoskeletal/Rheumatological Hx Falls: Yes - Gastrointestinal Hx Gastrointestinal Disorders: Yes (GERD,CROHNS,CHOLECYSTECTOMY,ULCER) Hx Diverticulitis: Yes Other/Comment: gastritis - Genitourinary/Gynecological Hx Genitourinary Disorders: Yes (VRE,ESBL,INCONTINENT,RETENTION) Hx Urinary Tract Infection: Yes Other/Comment: hx urosepsis - Psychiatric Hx Psychophysiologic Disorder: Yes Hx Anxiety: Yes Hx Substance Use: No - Surgical History Hx Cholecystectomy: Yes Hx Orthopedic Surgery: Yes (r hip fx) - Anesthesia Hx Anesthesia: No Hx Anesthesia Reactions: No Hx Malignant Hyperthermia: No - Suicidal Assessment Feels Threatened In Home Enviroment: No Family/Social History - Physician Review Nursing Documentation Reviewed: Yes Family/Social History: No Known Family HX Smoking Status: Unknown If Ever Smoked Hx Alcohol Use: Yes (occasional wine with dinner) Hx Substance Use: No Hx Substance Use Treatment: No Allergies/Home Meds Allergies/Adverse Reactions: Allergies levofloxacin [From Levaquin] Allergy (Intermediate, Verified 08/16/17 13:30) RASH Penicillins Allergy (Verified 08/16/17 13:30) URTICARIA lev Allergy (Uncoded 08/16/17 13:30) ITCHING Home Medications: Home Meds Medication Instructions Recorded Confirmed Lactulose 20 gm PO BID 04/21/17 08/29/17 Magnesium Oxide [Mag-Ox] 400 mg PO BID 04/21/17 08/29/17 rifAXIMin [Xifaxan] 550 mg PO BID 04/21/17 08/29/17 Ondansetron [Zofran Tab] 4 mg PO Q4 PRN 08/16/17 08/29/17 Pantoprazole [Protonix EC Tab] 40 mg PO DAILY 08/16/17 08/29/17 Review of Systems - Review of Systems Systems not reviewed;Unavailable: Altered Mental Status (confused) Physical Exam Vital Signs Reviewed: Yes Vital Signs Temp Pulse Resp BP Pulse Ox 08/29/17 17:54 98.9 F 83 18 150/74 100 Temperature: Afebrile Blood Pressure: Normal Pulse: Regular Respiratory Rate: Normal Appearance: Positive for: Comfortable Pain Distress: None Mental Status: Positive for: Confused (awake) Finger Stick Blood Glucose: 105 - Systems Exam Head: Present: Atraumatic, Normocephalic Pupils: Present: PERRL Extroacular Muscles: Present: EOMI Conjunctiva: Present: Normal Mouth: Present: Moist Mucous Membranes Neck: Present: Normal Range of Motion Respiratory/Chest: Present: Clear to Auscultation, Good Air Exchange. No: Respiratory Distress, Accessory Muscle Use Cardiovascular: Present: Regular Rate and Rhythm, Normal S1, S2. No: Murmurs Abdomen: Present: Normal Bowel Sounds. No: Tenderness, Distention, Peritoneal Signs Back: Present: Normal Inspection Upper Extremity: Present: Normal Inspection. No: Cyanosis, Edema Lower Extremity: Present: Edema (+3 edema b/l) Neurological: Present: GCS=15, CN II-XII Intact Skin: Present: Warm, Dry, Normal Color. No: Rashes Psychiatric: Present: Alert, Other (confused) Medical Decision Making ED Course and Treatment: 08/29/17 17:56 Impression: An 87 year old female with AMS. Plan: -- EKG -- chest xray -- CT head -- labs -- Urinalysis -- Merrem IV, Vancomycin -- Reassess and disposition Prior Visits: Notes and results from previous visits were reviewed. Patient was last seen in the emergency department on 08/16/17 for evaluation of increased lethargy and decreased responsiveness. Patient was admitted for UTI, PNA and hepatic encephalopathy. Progress Notes: 08/29/17 17:57 EKG: Ordered, reviewed, and independently interpreted the EKG. Rate : 84 BPM Rhythm : NSR Interpretation : right bundle branch block old Comparison : No interval change from previous EKG on 08/16/[address] Head Without Intravenous Contrast FINDINGS: Limitations: Motion artifact - mild. Brain: Moderate atrophy. No definite intracranial hemorrhage. 1.3 x 1.2 x 1.1 cm partially calcified mass along posterior falx, likely meningioma, grossly stable. Several scattered foci of decreased attenuation within periventricular/subcortical white matter. No definite edema. Ventricles: No hydrocephalus. Bones/joints: No acute fracture. Soft tissues: Small right parotid calcification. Vasculature: Atherosclerotic disease of intracranial arteries. Sinuses: No acute sinusitis. Mastoid air cells: No mastoid effusion. Orbits: Unremarkable as visualized. IMPRESSION: 1. Nonspecific white matter changes. Acute infarction may be CT occult within first 24 hours. If a focal deficit persists, consider followup CT or MRI for further evaluation. 2. Incidental/non-acute findings are described above. Dictated and Authenticated by: Dov Young MD 08/29/2017 9:26 PM Eastern Time ([place] & [place]) 08/29/17 22:03 Chest xray- No active disease, as read by me. 08/29/17 22:[address] vanessa khan for admission. emprica antibiotics ordered as per previous urine culture - Lab Interpretations Lab Results: 08/29/17 18:50 08/29/17 18:50 Lab Results 08/29/17 18:50: pO2 71 H, VBG pH 7.43, VBG pCO2 36.0 L, VBG HCO3 23.9, VBG Total CO2 25.0, VBG O2 Sat (Calc) 95.7 H, VBG Base Excess -0.1 L, VBG Potassium 5.6 H, Sodium 142.0, Chloride 117.0 H, Glucose 98, Lactate 1.8, FiO2 21.0, Venous Blood Potassium 5.6 H 08/29/17 18:50: Ammonia 54 H 08/29/17 18:50: Sodium 144, Chloride 114 H, Potassium 5.4 H, Carbon Dioxide 24, Anion Gap 12, BUN 27 H, Creatinine 1.2, Est GFR ( Amer) 51, Est GFR (Non- Af Amer) 42, Random Glucose 100, Calcium 8.7, Magnesium 1.7, Total Bilirubin 1.8 H, AST 76 H D, ALT 45, Alkaline Phosphatase 193 H D, Lactate Dehydrogenase 487, Total Creatine Kinase 24 L, Troponin I < 0.01 D, Total Protein 7.4, Albumin 2.2 L, Globulin 5.3, Albumin/Globulin Ratio 0.4 L 08/29/17 18:50: PT 17.5 H, INR 1.52 H, APTT 32.9 08/29/17 18:50: WBC 4.9, RBC 2.53 L, Hgb 7.9 L, Hct 23.8 L, MCV 94.1, MCH 31.2, MCHC 33.2, RDW 15.7 H, Plt Count 59 L, MPV 13.1 H, Gran % 59.0, Lymph % (Auto) 31.8, [place] % (Auto) 7.0 H, Eos % (Auto) 1.8, Baso % (Auto) 0.4, Gran # 2.87, Lymph # (Auto) 1.6, [place] # (Auto) 0.3, Eos # (Auto) 0.1, Baso # (Auto) 0.02 08/29/17 17:49: POC Glucose (mg/dL) 110 I have reviewed the lab results: Yes - RAD Interpretation Radiology Orders: 08/29/17 17:50 CHEST PORTABLE [RAD] Stat 08/29/17 17:51 HEAD W/O CONTRAST [CT] Stat - EKG Interpretation Interpreted by ED Physician: Yes Type: 12 lead EKG - Medication Orders Current Medication Orders: Lactulose (Enulose) 20 gm PO BID [facility] Last Admin: 08/29/17 21:24 Dose: Not Given Non-Admin Reason: Patient Lethargic Lisinopril (Zestril) 10 mg PO DAILY [facility] Magnesium Oxide (Mag-Ox) 400 mg PO BID [facility] Last Admin: 08/29/17 21:24 Dose: Not Given Non-Admin Reason: Patient Lethargic Pantoprazole Sodium (Protonix Ec Tab) 40 mg PO DAILY [facility] Rifaximin (Xifaxan) 550 mg PO BID [facility] PRN Reason: Protocol Last Admin: 08/29/17 21:24 Dose: Not Given Non-Admin Reason: Patient Lethargic Discontinued Medications Meropenem 500 mg/ Sodium (Chloride) 100 mls @ 100 mls/hr IVPB STAT STA PRN Reason: Protocol Stop: 08/29/17 18:51 Vancomycin HCl (Vancomycin 1gm) 1 gm in 250 mls @ 167 mls/hr IVPB STAT STA PRN Reason: Protocol Stop: 08/29/17 19:21 Last Admin: 08/29/17 19:00 Dose: 167 mls/hr eMAR Start Stop Document 08/29/17 19:00 GMI (Rec: 08/29/17 19:00 GMI [id number]) Intravenous Solution Start Date 08/29/17 Start Time 18:40 Lactulose (Enulose) 20 gm PO STAT ST[facility] Stop: 08/29/17 19:33 Last Admin: 08/29/17 19:45 Dose: Not Given Non-Admin Reason: Patient Lethargic - Scribe Statement The provider has reviewed the documentation as recorded by the Rinku Duarte Provider Scribe Attestation: All medical record entries made by the Rinku were at my direction and personally dictated by me. I have reviewed the chart and agree that the record accurately reflects my personal performance of the history, physical exam, medical decision making, and the department course for this patient. I have also personally directed, reviewed, and agree with the discharge instructions and disposition. Disposition/Present on Arrival - Present on Arrival Any Indicators Present on Arrival: No History of DVT/PE: No History of Uncontrolled Diabetes: No Urinary Catheter: No History Surgical Site Infection Following: None - Disposition Have Diagnosis and Disposition been Completed?: Yes Diagnosis: Hepatic encephalopathy, Altered mental status Disposition: HOSPITALIZED Disposition Time: 10:00 Condition: STABLE
[2017-08-29 19:07] LABS: BASO # 0.02 K/mm3 (0.0-2.0); BASO % 0.4 % (0.0-3.0); EOS # 0.1 (0.0-0.7); EOS % 1.8 % (1.5-5.0); GRAN # 2.87 (1.4-6.5); HEMOGLOBIN 7.9 g/dL (12.0-16.0); LYMPH # 1.6 (1.2-3.4); LYMPH % 31.8 % (22.0-35.0); MEAN CELL VOLUME 94.1 fl (80.0-105.0); MEAN CORPUSCULAR HEMOGLOBIN 31.2 pg (25.0-35.0); MEAN CORPUSCULAR HGB CONC 33.2 g/dl (31.0-37.0); MEAN PLATELET VOLUME 13.1 fl (7.0-11.0); MONO # 0.3 (0.1-0.6); RBC 2.53 10^6/uL (3.5-6.1); RED CELL DISTRIBUTION WIDTH 15.7 % (11.5-14.5); WHITE BLOOD COUNT 4.9 10^3/ul (4.5-11.0)
[2017-08-29 19:17] LABS: VENOUS BLOOD GAS BASE EXCESS -0.1 mmol/L (0.0-2.0); VENOUS BLOOD GAS PO2 71 mm/Hg (30-55); VENOUS BLOOD PH 7.43 (7.32-7.43)
[2017-08-29 19:19] LABS: INR 1.52 (0.93-1.08); PARTIAL THROMBOPLASTIN TIME 32.9 Seconds (25.1-36.5); PROTHROMBIN TIME 17.5 SECONDS (9.4-12.5)
[2017-08-29 19:22] LABS: ALB/GLOB RATIO 0.4 (1.1-1.8); ALBUMIN 2.2 g/dL (3.0-4.8); ALT/SGPT 45 U/L (7-56); AST/SGOT 76 U/L (14-36); BLOOD UREA NITROGEN 27 mg/dL (7-21); CALCIUM 8.7 mg/dL (8.4-10.5); GFR AFRICAN-AMERICAN 51; GFR NON-AFRICAN AMERICAN 42; MAGNESIUM 1.7 mg/dL (1.7-2.2)
[2017-08-29 19:31] LABS: TROPONIN I < 0.01 ng/mL
[2017-08-29] MEDS: Magnesium Oxide 400 mg Tab UD PO SCH (21:24)
--- NOTE | 2017-08-29 21:27 | CT ---
EXAM: CT Head Without Intravenous Contrast CLINICAL HISTORY: 87 years old, female; Signs and symptoms; Altered mental status/memory loss; Age related cognitive decline; Additional info: AMS TECHNIQUE: Axial computed tomography images of the head/brain without intravenous contrast. All CT scans at this facility use one or more dose reduction techniques, viz.: automated exposure control; ma/kV adjustment per patient size (including targeted exams where dose is matched to indication; i.e. head); or iterative reconstruction technique. Coronal and sagittal reformatted images were created and reviewed. COMPARISON: CT - HEAD W/O CONTRAST 2017-08-16 16:22 FINDINGS: Limitations: Motion artifact - mild. Brain: Moderate atrophy. No definite intracranial hemorrhage. 1.3 x 1.2 x 1.1 cm partially calcified mass along posterior falx, likely meningioma, grossly stable. Several scattered foci of decreased attenuation within periventricular/subcortical white matter. No definite edema. Ventricles: No hydrocephalus. Bones/joints: No acute fracture. Soft tissues: Small right parotid calcification. Vasculature: Atherosclerotic disease of intracranial arteries. Sinuses: No acute sinusitis. Mastoid air cells: No mastoid effusion. Orbits: Unremarkable as visualized. IMPRESSION: 1. Nonspecific white matter changes. Acute infarction may be CT occult within first 24 hours. If a focal deficit persists, consider followup CT or MRI for further evaluation. 2. Incidental/non-acute findings are described above.
--- NOTE | 2017-08-30 01:51 | CP.PCM.PN ---
Subjective - Date & Time of Evaluation Date of Evaluation: 08/30/17 Time of Evaluation: 01:34 - Subjective Subjective: S:Nurse calls and `requests to get a consent for blood transfusion. States that patient is confused and we have to get consent from a family member on phone. Medical record was reviewed. O: Last Vital Signs 3 Temp 98.9 F 08/29/17 17:54 Pulse 83 08/29/17 17:54 Resp 20 08/30/17 01:06 BP 150/74 08/29/17 17:54 Pulse Ox 100 08/29/17 17:54 Stable. Not in distress. LUNG: Normal breathing pattern. A: Anemia. Informed consent. P: A telephone consent was obtained from Alisia Nunes which was witnessed by primary nurse. Alisia had no questions to ask me after my discussion with her. Objective - Vital Signs/Intake and Output Vital Signs (last 24 hours): Temp Pulse Resp BP Pulse Ox 98.9 F 83 20 150/74 100 08/29/17 17:54 08/29/17 17:54 08/30/17 01:06 08/29/17 17:54 08/29/17 17:54 - Medications Medications: Current Medications Lactulose (Enulose) 20 gm PO BID [facility] Last Admin: 08/29/17 21:24 Dose: Not Given Lisinopril (Zestril) 10 mg PO DAILY [facility] Magnesium Oxide (Mag-Ox) 400 mg PO BID [facility] Last Admin: 08/29/17 21:24 Dose: Not Given Pantoprazole Sodium (Protonix Ec Tab) 40 mg PO DAILY [facility] Rifaximin (Xifaxan) 550 mg PO BID [facility] PRN Reason: Protocol Last Admin: 08/29/17 21:24 Dose: Not Given - Labs Labs: PT 17.5 SECONDS (9.4-12.5) H 08/29/17 18:50 INR 1.52 (0.93-1.08) H 08/29/17 18:50 APTT 32.9 Seconds (25.1-36.5) 08/29/17 18:50
--- NOTE | 2017-08-30 06:21 | HP ---
HISTORY OF PRESENT ILLNESS: The patient is an 87-year-old, who was recently transferred to [facility]. She was found to be lethargic, has been on lactulose. Her blood work was ordered, but this morning I got a call from the nurse that the patient is increasingly lethargic. So family was very concerned. Because of above reason, nurse was directed to sent her to Emergency Room. No history of nausea or vomiting. No history of diarrhea. She is having almost one bowel movement a day. No history of fever or chills. No hemoptysis, no hematemesis, no rectal bleeding. PAST MEDICAL HISTORY: Significant for, 1. Recurrent UTI. 2. Urinary incontinence. 3. Thrombocytopenia. 4. Pancytopenia. 5. Myelodysplastic syndrome. 6. Hypertension. 7. Cirrhosis of liver. 8. History of autoimmune hepatitis, multiple admission for hepatic encephalopathy. 9. Electrolyte imbalance. ALLERGIES: SHE IS ALLERGIC TO LEVAQUIN AND PENICILLIN. MEDICATIONS AT HOME: She is on Zofran 4 mg q. 6, Xifaxan 550 b.i.d., Protonix 40 mg daily, magnesium 400 mg daily, lisinopril 10 mg daily, lactulose 20 gm twice a day. SOCIAL HISTORY: She lives with her daughter. Occasionally drinks wine. She used to smoke in the remote past. PHYSICAL EXAMINATION: GENERAL: Sleepy, but arousable. VITAL SIGNS: She is afebrile, pulse 83, respirations 18, blood pressure 150/74. LUNGS: Bilateral good air flow. No rhonchi or crackles. HEART: S1 and S2 audible. ABDOMEN: Soft, nontender, no rebound, no guarding. NEUROLOGIC: She is sleepy, but arousable. Open eyes on verbal commands. EXTREMITIES: Bilateral legs, +2 edema. LABORATORY DATA: WBC 4.9, hemoglobin 7.9, hematocrit 23.8, platelets of 59. PT 17.5, INR 1.52 and PTT is 32.9. Chemistry: Sodium 144, potassium 5.4, chloride 114, CO2 of 24, BUN 27, creatinine 1.2, blood sugar of 100. LFTs are within normal limits. Total bilirubin 1.8, AST 76, alkaline phosphatase is 193. Ammonia is 54. ASSESSMENT AND PLAN: 1. Probably, hepatic encephalopathy, rule out underlying urinary tract infection. 2. Hypertension. 3. Pancytopenia. 4. Myelodysplastic syndrome. 5. Autoimmune hepatitis. 6. Morbid obesity. PLAN: The patient will be placed in observation, and follow up CT scan of the head, start her on her usual medications. We will follow up her ammonia level and electrolytes in a.m., and we will give her 1 blood transfusion. Kamaljit Pena MD
--- NOTE | 2017-08-30 07:37 | RAD ---
HISTORY: ams COMPARISON: Portable chest 08/16/2017 FINDINGS: Prior midline right PICC not identified. Clinically correlate. LUNGS: Patient slightly rotated toward the right with persistent low lung volume appreciated. Limited right perihilar patchy infiltrate remains difficult to exclude with none otherwise evident. PLEURA: No significant pleural effusion identified, no pneumothorax apparent. CARDIOVASCULAR: Stable cardiomediastinal silhouette. No pulmonary vascular derangement identified. OSSEOUS STRUCTURES: No significant abnormalities. VISUALIZED UPPER ABDOMEN: Surgical clips noted at the right upper quadrant abdomen. OTHER FINDINGS: None. IMPRESSION: Limited right perihilar infiltrate or atelectasis remains difficult to exclude with none otherwise evident. Right PICC not identified
[2017-08-30 07:41] LABS: BASO # 0.02 K/mm3 (0.0-2.0); BASO % 0.4 % (0.0-3.0); EOS # 0.1 (0.0-0.7); EOS % 2.6 % (1.5-5.0); GRAN # 3.25 (1.4-6.5); GRAN % 65.2 % (50.0-68.0); HEMOGLOBIN 8.5 g/dL (12.0-16.0); LYMPH # 1.2 (1.2-3.4); LYMPH % 24.8 % (22.0-35.0); MEAN CELL VOLUME 91.1 fl (80.0-105.0); MEAN CORPUSCULAR HEMOGLOBIN 30.2 pg (25.0-35.0); MEAN CORPUSCULAR HGB CONC 33.2 g/dl (31.0-37.0); MONO # 0.4 (0.1-0.6); RBC 2.81 10^6/uL (3.5-6.1); RED CELL DISTRIBUTION WIDTH 15.8 % (11.5-14.5)
[2017-08-30 07:55] LABS: ALB/GLOB RATIO 0.4 (1.1-1.8); CALCIUM 8.4 mg/dL (8.4-10.5)
[2017-08-30] MEDS: Sodium Chloride 0.9% 1,000 ML IV SCH (11:10)
[2017-08-30] MEDS: Magnesium Oxide 400 mg Tab UD PO SCH (11:31)
[2017-08-30] MEDS: Pantoprazole 40 mg EC Tab PO SCH (11:31)
[2017-08-30] MEDS ORDERED: Lactulose 10 gm/15 ml (Rectal Use) PR ONE (12:17)
--- NOTE | 2017-08-30 12:34 | CARD ---
APPROVED REPORT EKG Measurement Heart [id number] <Conclusion> Wide QRS rhythm Left axis deviation Right bundle branch block Possible Lateral infarct, age undetermined Abnormal ECG
--- NOTE | 2017-08-30 12:34 | RAD ---
HISTORY: RULE OUT pneumonia COMPARISON: 08/29/2017 FINDINGS: LUNGS: No active pulmonary disease. PLEURA: No significant pleural effusion identified, no pneumothorax apparent. CARDIOVASCULAR: Normal. OSSEOUS STRUCTURES: No significant abnormalities. VISUALIZED UPPER ABDOMEN: Normal. OTHER FINDINGS: None. IMPRESSION: No active disease.
[2017-08-30 15:11] LABS: URINE BILIRUBIN NEGATIVE (NEGATIVE); URINE BLOOD NEGATIVE (NEGATIVE); URINE GLUCOSE (UA) NEGATIVE (NEGATIVE); URINE LEUKOCYTE ESTERASE NEGATIVE Leu/uL (NEGATIVE); URINE NITRATE NEGATIVE (NEGATIVE); URINE PROTEIN NEGATIVE mg/dL (<30 mg/dL); URINE UROBILINOGEN 0.2 E.U./dL (<1 E.U./dL)
[2017-08-30 15:13] LABS: URINE APPEARANCE CLEAR (CLEAR); URINE COLOR YELLOW (YELLOW)
--- NOTE | 2017-08-30 15:24 | CP.PCM.CON ---
<Luiza Grijalva - Last Filed: 08/30/17 15:32> History of Present Illness - History of Present Illness History of Present Illness: Initial PGY4 GI Consult Iona Nunes is a 87F w/ hx of of autoimmune hepatitis, cryptogenic cirrhosis , myelodysplastic syndrome, thrombocytopenia, chronic anemia and hypertension who presented from the long term due to increase confusion and AMS. Pt is not able to give any information and all relevant information is obtained from EMR and staff. Pt was recently discharged from [facility] for colitis and UTI. She again came back to the ER for lethargy and confusion ~ 10days ago. Urine cultures from that time reveal VRE. Pt was diagnosed with colitis of unknown etiology on CT in Jul. She was subsequently treated with abx. There is no none prior endoscopies or colonoscopies. She was previously diagnosed with autoimmune hepatitis. Since admission, she was started on rectal lactulose. she is unable to take an PO meds due to aspiration risk. Currently, she cannot give any information due to AMS. RN denies any BRBPR, melena, or hematemesis. Pt had 1 large BM today as per RN. Her hgb was found to be 7.5, baseline 8.5-9. She received 1 unit PRBC. She is currently on merrem for VRE? Past medical history: GERD, hypothyroidism, thrombocytopenia, or go in the liver cirrhosis, chronic anemia, diabetes mellitus, recurrent UTI, hypertension , myelodysplastic syndrome Past surgical history: Cholecystectomy, right hip fracture with open reduction and internal fixation Social history: History of smoking, occasional wine with dinner, denies drugs. Family history: Noncontributory at this time Endoscopy Hx: unknown Past Patient History - Infectious Disease Hx of Infectious Diseases: None - Tetanus Immunizations Tetanus Immunization: Unknown - Past Social History Smoking Status: Unknown If Ever Smoked - CARDIAC Hx Hypertension: Yes - PULMONARY Hx Respiratory Disorders: Yes Hx Pneumonia: Yes - NEUROLOGICAL Hx Neurological Disorder: (syncope) Hx Dizziness: Yes Hx Transient Ischemic Attacks (TIA): No - HEENT Hx HEENT Problems: No - RENAL Hx Chronic Kidney Disease: Yes Other/Comment: uti - ENDOCRINE/METABOLIC Hx Hypothyroidism: Yes - HEMATOLOGICAL/ONCOLOGICAL Hx Blood Disorders: Yes (myelodysplastic syndrome) Hx Anemia: Yes Hx Cirrhosis: Yes (autoimmune hepatitis/hep encephalopathy) - INTEGUMENTARY Hx Dermatological Problems: Yes - MUSCULOSKELETAL/RHEUMATOLOGICAL Hx Falls: Yes - GASTROINTESTINAL Hx Gastrointestinal Disorders: Yes (GERD,CROHNS,CHOLECYSTECTOMY,ULCER) Hx Diverticulitis: Yes Other/Comment: gastritis - GENITOURINARY/GYNECOLOGICAL Hx Genitourinary Disorders: Yes (VRE,ESBL,INCONTINENT,RETENTION) Hx Urinary Tract Infection: Yes Other/Comment: hx urosepsis - PSYCHIATRIC Hx Psychophysiologic Disorder: Yes Hx Anxiety: Yes - SURGICAL HISTORY Hx Cholecystectomy: Yes Hx Orthopedic Surgery: Yes (r hip fx) - ANESTHESIA Hx Anesthesia: No Hx Anesthesia Reactions: No Hx Malignant Hyperthermia: No Meds Allergies/Adverse Reactions: Allergies Allergy/AdvReac Type Severity Reaction Status Date / Time levofloxacin [From Levaquin] Allergy Intermediate RASH Verified 08/16/17 13:30 Penicillins Allergy URTICARIA Verified 08/16/17 13:30 lev Allergy ITCHING Uncoded 08/16/17 13:30 - Medications Medications: Current Medications Sodium Chloride (Sodium Chloride 0.9%) 1,000 mls @ 60 mls/hr IV .[id number] [facility] Last Admin: 08/30/17 11:10 Dose: 60 mls/hr Meropenem 500 mg/ Sodium (Chloride) 50 mls @ 100 mls/hr IVPB Q12 [facility] PRN Reason: Protocol Stop: 09/06/17 14:01 Lactulose (Enulose) 20 gm PO BID [facility] Last Admin: 08/30/17 11:31 Dose: Not Given Lisinopril (Zestril) 10 mg PO DAILY [facility] Last Admin: 08/30/17 11:30 Dose: Not Given Magnesium Oxide (Mag-Ox) 400 mg PO BID [facility] Last Admin: 08/30/17 11:31 Dose: Not Given Pantoprazole Sodium (Protonix Ec Tab) 40 mg PO DAILY [facility] Last Admin: 08/30/17 11:31 Dose: Not Given Rifaximin (Xifaxan) 550 mg PO BID [facility] PRN Reason: Protocol Last Admin: 08/30/17 11:30 Dose: Not Given Physical Exam - Constitutional Appears: Confused, Chronically Ill - Head Exam Head Exam: ATRAUMATIC, NORMOCEPHALIC - Eye Exam Eye Exam: Normal appearance - Neck Exam Neck exam: Positive for: Normal Inspection - Respiratory Exam Respiratory Exam: Clear to Auscultation Bilateral, NORMAL BREATHING PATTERN. absent: Rales, Rhonchi, Wheezes, Respiratory Distress - Cardiovascular Exam Cardiovascular Exam: REGULAR RHYTHM, +S1, +S2 - GI/Abdominal Exam GI & Abdominal Exam: Distended, Hyperactive Bowel Sounds. absent: Guarding, Organomegaly, Rebound, Rigid, Tenderness - Extremities Exam Extremities exam: Positive for: joint swelling, pedal edema - Neurological Exam Neurological exam: Altered - Psychiatric Exam Additional comments: could not assess due to AMS - Skin Skin Exam: Dry, Intact, Normal Color, Warm Results - Vital Signs Recent Vital Signs: Last Vital Signs Temp 97.5 F L 08/30/17 11:07 Pulse 83 08/30/17 11:30 Resp 20 08/30/17 11:07 BP 160/77 H 08/30/17 11:30 Pulse Ox 100 08/30/17 11:07 - Labs Result Diagrams: 08/30/17 07:00 08/30/17 07:00 Labs: Laboratory Results - last 24 hr 08/29/17 08/30/17 08/30/17 23:45 07:00 07:00 WBC RBC Hgb Hct MCV MCH MCHC RDW Plt Count MPV Gran % Lymph % (Auto) [place] % (Auto) Eos % (Auto) Baso % (Auto) Gran # Lymph # (Auto) [place] # (Auto) Eos # (Auto) Baso # (Auto) Sodium 144 Potassium 5.2 H Chloride 117 H Carbon Dioxide 21 Anion Gap 12 BUN 26 H Creatinine 1.2 Est GFR ( Amer) 51 Est GFR (Non-Af Amer) 42 Random Glucose 82 Calcium 8.4 Total Bilirubin 2.1 H AST 74 H ALT 42 Alkaline Phosphatase 168 H Ammonia 84 H Total Protein 7.0 Albumin 2.0 L Globulin 5.0 Albumin/Globulin Ratio 0.4 L Urine Color Urine Appearance Urine pH Ur Specific [place] Urine Protein Urine Glucose (UA) Urine Ketones Urine Blood Urine Nitrate Urine Bilirubin Urine Urobilinogen Ur Leukocyte Esterase Blood Type A POSITIVE Antibody Screen Negative Crossmatch See Detail BBK History Checked Patient has bt 08/30/17 08/30/17 07:00 14:45 WBC 5.0 RBC 2.81 L Hgb 8.5 L Hct 25.6 L MCV 91.1 D MCH 30.2 MCHC 33.2 RDW 15.8 H Plt Count 70 L MPV 12.0 H Gran % 65.2 Lymph % (Auto) 24.8 [place] % (Auto) 7.0 H Eos % (Auto) 2.6 Baso % (Auto) 0.4 Gran # 3.25 Lymph # (Auto) 1.2 [place] # (Auto) 0.4 Eos # (Auto) 0.1 Baso # (Auto) 0.02 Sodium Potassium Chloride Carbon Dioxide Anion Gap BUN Creatinine Est GFR ( Amer) Est GFR (Non-Af Amer) Random Glucose Calcium Total Bilirubin AST ALT Alkaline Phosphatase Ammonia Total Protein Albumin Globulin Albumin/Globulin Ratio Urine Color Yellow Urine Appearance Clear Urine pH 7.0 Ur Specific [place] 1.010 Urine Protein Negative Urine Glucose (UA) Negative Urine Ketones Trace H Urine Blood Negative Urine Nitrate Negative Urine Bilirubin Negative Urine Urobilinogen 0.2 Ur Leukocyte Esterase Negative Blood Type Antibody Screen Crossmatch BBK History Checked Assessment & Plan - Assessment and Plan (Free Text) Assessment: This is an 87-year-old female with a past medical history of autoimmune hepatitis, myelodysplastic syndrome, thrombocytopenia, chronic anemia and hypertension, cryptogenic cirrhosis who presents with toxic metabolic encephalopathy TME, etiology likely multifactorial 2/2 Hepatic encephalopathy vs VRE Decompensated Cryptogenic cirrhosis HE 2/2 to above Normocytic Anemia Plan: -continue lactulose AK q 6 hrs until 2 BM daily -start xifaxan, once the pt is able to swallow safely -aspiration precautions -NPO -recommend abd U/S to evaluate ascities -may benefit from therapeutic abdominal paracentesis, once acute infection and HE resolves -recommend restricted blood transfusion -hgb >8 -maintain 2 large bore IVs -trend H/H -MELD 08/30/17 -zach restart diet after passing swallow eval from GI standpoint <Kishan Ball - Last Filed: 08/30/17 19:38> Meds - Medications Medications: Current Medications Sodium Chloride (Sodium Chloride 0.9%) 1,000 mls @ 60 mls/hr IV .[id number] [facility] Last Admin: 08/30/17 11:10 Dose: 60 mls/hr Meropenem 500 mg/ Sodium (Chloride) 50 mls @ 100 mls/hr IVPB Q12 [facility] PRN Reason: Protocol Stop: 09/06/17 14:01 Last Admin: 08/30/17 15:55 Dose: 100 mls/hr Lactulose (Enulose) 20 gm PO BID [facility] Last Admin: 08/30/17 16:05 Dose: 20 gm Lisinopril (Zestril) 10 mg PO DAILY [facility] Last Admin: 08/30/17 11:30 Dose: Not Given Magnesium Oxide (Mag-Ox) 400 mg PO BID [facility] Last Admin: 08/30/17 11:31 Dose: Not Given Pantoprazole Sodium (Protonix Ec Tab) 40 mg PO DAILY [facility] Last Admin: 08/30/17 11:31 Dose: Not Given Rifaximin (Xifaxan) 550 mg PO BID [facility] PRN Reason: Protocol Last Admin: 08/30/17 11:30 Dose: Not Given Results - Vital Signs Recent Vital Signs: Last Vital Signs Temp 97.3 F L 08/30/17 16:00 Pulse 83 08/30/17 16:00 Resp 20 08/30/17 16:00 BP 156/76 H 08/30/17 16:00 Pulse Ox 100 08/30/17 16:00 - Labs Result Diagrams: 08/30/17 07:00 08/30/17 07:00 Labs: Laboratory Results - last 24 hr 08/29/17 08/30/17 08/30/17 23:45 07:00 07:00 WBC RBC Hgb Hct MCV MCH MCHC RDW Plt Count MPV Gran % Lymph % (Auto) [place] % (Auto) Eos % (Auto) Baso % (Auto) Gran # Lymph # (Auto) [place] # (Auto) Eos # (Auto) Baso # (Auto) Sodium 144 Potassium 5.2 H Chloride 117 H Carbon Dioxide 21 Anion Gap 12 BUN 26 H Creatinine 1.2 Est GFR ( Amer) 51 Est GFR (Non-Af Amer) 42 Random Glucose 82 Calcium 8.4 Total Bilirubin 2.1 H AST 74 H ALT 42 Alkaline Phosphatase 168 H Ammonia 84 H Total Protein 7.0 Albumin 2.0 L Globulin 5.0 Albumin/Globulin Ratio 0.4 L Procalcitonin Urine Color Urine Appearance Urine pH Ur Specific [place] Urine Protein Urine Glucose (UA) Urine Ketones Urine Blood Urine Nitrate Urine Bilirubin Urine Urobilinogen Ur Leukocyte Esterase Blood Type A POSITIVE Antibody Screen Negative Crossmatch See Detail BBK History Checked Patient has bt 08/30/17 08/30/17 08/30/17 07:00 09:30 14:45 WBC 5.0 RBC 2.81 L Hgb 8.5 L Hct 25.6 L MCV 91.1 D MCH 30.2 MCHC 33.2 RDW 15.8 H Plt Count 70 L MPV 12.0 H Gran % 65.2 Lymph % (Auto) 24.8 [place] % (Auto) 7.0 H Eos % (Auto) 2.6 Baso % (Auto) 0.4 Gran # 3.25 Lymph # (Auto) 1.2 [place] # (Auto) 0.4 Eos # (Auto) 0.1 Baso # (Auto) 0.02 Sodium Potassium Chloride Carbon Dioxide Anion Gap BUN Creatinine Est GFR ( Amer) Est GFR (Non-Af Amer) Random Glucose Calcium Total Bilirubin AST ALT Alkaline Phosphatase Ammonia Total Protein Albumin Globulin Albumin/Globulin Ratio Procalcitonin 0.16 L Urine Color Yellow Urine Appearance Clear Urine pH 7.0 Ur Specific [place] 1.010 Urine Protein Negative Urine Glucose (UA) Negative Urine Ketones Trace H Urine Blood Negative Urine Nitrate Negative Urine Bilirubin Negative Urine Urobilinogen 0.2 Ur Leukocyte Esterase Negative Blood Type Antibody Screen Crossmatch BBK History Checked Attending/Attestation - Attestation I have personally seen and examined this patient.: Yes I have fully participated in the care of the patient.: Yes I have reviewed all pertinent clinical information: Yes Notes (Text): 08/30/17 19:35 87 year old female with h/o Cirrhosis c/b hepatic encephalopathy admitted with recurrence. Prior workup for chronic liver diseases have been negative and their is no h/o alcoholism. She doesn't have any recent h/o colonoscopy, but recurrent CT findings consistent with colitis, raise the possibility that she could have UC +/- PSC as a cause her disease. Management probably wouldn't change regardless. Would recommend treatment of encephalopathy with rifaxamin and lactulose. Check stool cultures/C.diff to r/o infectious colitis and check fecal calprotectin. Abdominal us to ro ascites. Supportive measures.
[2017-08-30] MEDS: Meropenem 500 MG in Sodium Chloride 0.9% 50 ML IVPB SCH (15:55)
--- NOTE | 2017-08-30 16:38 | CP.PCM.CON ---
History of Present Illness - History of Present Illness History of Present Illness: 87 year old female with PMH of UTI with Hafnei alvei, Myelodysplastic syndrome, DM, HTN, Hypothyroidism, history of right hip surgery, S/P cholecystectomy, liver cirrhosis, GERD, history of ESBL-producing E. coli UTI was brought in from the alf because of lethargy and forgetfulness. There was no note of fever, no vomiting, no loss of consciousness, no vomiting, no diarrhea. When I saw the patient, she is still somewhat lethargic. No fever is noted so far on this admission. Infectious Diseases consult is requested to further evaluate and manage. Review of Systems - Review of Systems All systems: reviewed and no additional remarkable complaints except (as per HPI ) Past Patient History - Infectious Disease Hx of Infectious Diseases: None - Tetanus Immunizations Tetanus Immunization: Unknown - Past Social History Smoking Status: Unknown If Ever Smoked - CARDIAC Hx Hypertension: Yes - PULMONARY Hx Respiratory Disorders: Yes Hx Pneumonia: Yes - NEUROLOGICAL Hx Neurological Disorder: (syncope) Hx Dizziness: Yes Hx Transient Ischemic Attacks (TIA): No - HEENT Hx HEENT Problems: No - RENAL Hx Chronic Kidney Disease: Yes Other/Comment: uti - ENDOCRINE/METABOLIC Hx Hypothyroidism: Yes - HEMATOLOGICAL/ONCOLOGICAL Hx Blood Disorders: Yes (myelodysplastic syndrome) Hx Anemia: Yes Hx Cirrhosis: Yes (autoimmune hepatitis/hep encephalopathy) - INTEGUMENTARY Hx Dermatological Problems: Yes - MUSCULOSKELETAL/RHEUMATOLOGICAL Hx Falls: Yes - GASTROINTESTINAL Hx Gastrointestinal Disorders: Yes (GERD,CROHNS,CHOLECYSTECTOMY,ULCER) Hx Diverticulitis: Yes Other/Comment: gastritis - GENITOURINARY/GYNECOLOGICAL Hx Genitourinary Disorders: Yes (VRE,ESBL,INCONTINENT,RETENTION) Hx Urinary Tract Infection: Yes Other/Comment: hx urosepsis - PSYCHIATRIC Hx Psychophysiologic Disorder: Yes Hx Anxiety: Yes - SURGICAL HISTORY Hx Cholecystectomy: Yes Hx Orthopedic Surgery: Yes (r hip fx) - ANESTHESIA Hx Anesthesia: No Hx Anesthesia Reactions: No Hx Malignant Hyperthermia: No Meds Allergies/Adverse Reactions: Allergies Allergy/AdvReac Type Severity Reaction Status Date / Time levofloxacin [From Levaquin] Allergy Intermediate RASH Verified 08/16/17 13:30 Penicillins Allergy URTICARIA Verified 08/16/17 13:30 lev Allergy ITCHING Uncoded 08/16/17 13:30 - Medications Medications: Current Medications Sodium Chloride (Sodium Chloride 0.9%) 1,000 mls @ 60 mls/hr IV .[id number] [facility] Lactulose (Enulose) 20 gm PO BID [facility] Last Admin: 08/29/17 21:24 Dose: Not Given Lisinopril (Zestril) 10 mg PO DAILY [facility] Magnesium Oxide (Mag-Ox) 400 mg PO BID [facility] Last Admin: 08/29/17 21:24 Dose: Not Given Pantoprazole Sodium (Protonix Ec Tab) 40 mg PO DAILY [facility] Rifaximin (Xifaxan) 550 mg PO BID [facility] PRN Reason: Protocol Last Admin: 08/29/17 21:24 Dose: Not Given Physical Exam - Constitutional Appears: Chronically Ill, Other (somewhat lethargic) - Head Exam Head Exam: NORMAL INSPECTION - Neck Exam Neck exam: Negative for: Meningismus - Respiratory Exam Respiratory Exam: Decreased Breath Sounds - Cardiovascular Exam Cardiovascular Exam: +S1, +S2 - GI/Abdominal Exam GI & Abdominal Exam: Distended, Soft. absent: Tenderness Results - Vital Signs Recent Vital Signs: Last Vital Signs Temp 97.6 F 08/30/17 06:49 Pulse 84 08/30/17 06:49 Resp 22 08/30/17 06:49 BP 157/69 H 08/30/17 06:49 Pulse Ox 100 08/29/17 17:54 - Labs Result Diagrams: 08/30/17 07:00 08/30/17 07:00 Labs: Laboratory Results - last 24 hr 08/29/17 08/30/17 08/30/17 23:45 07:00 07:00 WBC RBC Hgb Hct MCV MCH MCHC RDW Plt Count MPV Gran % Lymph % (Auto) [place] % (Auto) Eos % (Auto) Baso % (Auto) Gran # Lymph # (Auto) [place] # (Auto) Eos # (Auto) Baso # (Auto) Sodium 144 Potassium 5.2 H Chloride 117 H Carbon Dioxide 21 Anion Gap 12 BUN 26 H Creatinine 1.2 Est GFR ( Amer) 51 Est GFR (Non-Af Amer) 42 Random Glucose 82 Calcium 8.4 Total Bilirubin 2.1 H AST 74 H ALT 42 Alkaline Phosphatase 168 H Ammonia 84 H Total Protein 7.0 Albumin 2.0 L Globulin 5.0 Albumin/Globulin Ratio 0.4 L Blood Type A POSITIVE Antibody Screen Negative Crossmatch See Detail BBK History Checked Patient has bt 08/30/17 07:00 WBC 5.0 RBC 2.81 L Hgb 8.5 L Hct 25.6 L MCV 91.1 D MCH 30.2 MCHC 33.2 RDW 15.8 H Plt Count 70 L MPV 12.0 H Gran % 65.2 Lymph % (Auto) 24.8 [place] % (Auto) 7.0 H Eos % (Auto) 2.6 Baso % (Auto) 0.4 Gran # 3.25 Lymph # (Auto) 1.2 [place] # (Auto) 0.4 Eos # (Auto) 0.1 Baso # (Auto) 0.02 Sodium Potassium Chloride Carbon Dioxide Anion Gap BUN Creatinine Est GFR ( Amer) Est GFR (Non-Af Amer) Random Glucose Calcium Total Bilirubin AST ALT Alkaline Phosphatase Ammonia Total Protein Albumin Globulin Albumin/Globulin Ratio Blood Type Antibody Screen Crossmatch BBK History Checked Assessment & Plan - Assessment and Plan (Free Text) Plan: Assessment probable hepatic metabolic encephalopathy, R/O SBP, R/O UTI history of sepsis secondary to E. coli and E. faecalis UTI, slowly improving history of urinary tract infection with Citrobacter and Enterobacter, S/P treatment and clinically better history of E. faecium UTI history of healthcare-associated pneumonia history of chronic thrombocytopenia history of urinary tract infection with ESBL E. coli S/P UTI with Hafnei alvei Myelodysplastic syndrome DM HTN Hypothyroidism history of right hip surgery S/P cholecystectomy liver cirrhosis GERD Plan gave a dose of IV Vanco and started Merrem pending blood and urine cx Ammonia level is elevated overall prognosis is poor
--- NOTE | 2017-08-31 00:32 | PN ---
DATE: SUBJECTIVE: Patient is 87 years old, seen and examined, lethargic, will hardly open eyes on verbal command. Her belly seems to be distended. Patient is currently n.p.o. Discussed with the nurse. She will be given lactulose enema stat. PHYSICAL EXAMINATION: GENERAL: She is sleepy, hardly arousable. VITAL SIGNS: She is afebrile, pulse 83, respirations 20, blood pressure 157/76. LUNGS: Bilateral fair airflow. No rhonchi or crackle. HEART: S1, S2 audible. ABDOMEN: Slightly distended. NEUROLOGIC: She is lethargic. LABORATORY DATA: WBC is 5.0, hemoglobin 8.5, hematocrit 25.6, platelet of 70. PT 17.5, INR 1.5. Total chemistry: Sodium 144, potassium 5.2, chloride 117, CO2 of 21, BUN 26, creatinine 1.2, blood sugar of 82. Her procalcitonin 0.16, ammonia level 84. ASSESSMENT: 1. Autoimmune hepatitis. 2. Hepatic encephalopathy. 3. Recurrent urinary tract infection. 4. Pancytopenia. 5. Myelodysplastic syndrome. PLAN: We will continue . I just had a discussion with the patient's nurse. Patient seems to have woken up after she was given lactulose and she had a big bowel movement. We will get a swallow evaluation and we will follow up her CBC, CMP and ammonia level in the a.m. Kamaljit Pena MD
--- NOTE | 2017-08-31 06:45 | CP.PCM.PN ---
<Clay Mckenzie - Last Filed: 08/31/17 08:54> Subjective - Date & Time of Evaluation Date of Evaluation: 08/31/17 Time of Evaluation: 06:39 - Subjective Subjective: GI Progress note - Connie Mckenzie PGY2 Patient seen and examined at bedside this morning. No acute overnight events or new complaints reported. She is on contact precautions due to VRE in the urine. Per nursing, she reportedly had 1 bowel movement yesterday and no bowel movements overnight or as of this morning. 12 point ROS unable to be conducted due to patient mental status. Objective - Vital Signs/Intake and Output Vital Signs (last 24 hours): Temp Pulse Resp BP Pulse Ox 97.3 F L 83 20 156/76 H 100 08/30/17 16:00 08/30/17 16:00 08/30/17 16:00 08/30/17 16:00 08/30/17 16:00 - Medications Medications: Current Medications Sodium Chloride (Sodium Chloride 0.9%) 1,000 mls @ 60 mls/hr IV .[id number] [facility] Last Admin: 08/30/17 11:10 Dose: 60 mls/hr Meropenem 500 mg/ Sodium (Chloride) 50 mls @ 100 mls/hr IVPB Q12 [facility] PRN Reason: Protocol Stop: 09/06/17 14:01 Last Admin: 08/30/17 15:55 Dose: 100 mls/hr Lactulose (Enulose) 20 gm PO BID [facility] Last Admin: 08/30/17 16:05 Dose: 20 gm Lisinopril (Zestril) 10 mg PO DAILY [facility] Last Admin: 08/30/17 11:30 Dose: Not Given Magnesium Oxide (Mag-Ox) 400 mg PO BID [facility] Last Admin: 08/30/17 11:31 Dose: Not Given Pantoprazole Sodium (Protonix Ec Tab) 40 mg PO DAILY [facility] Last Admin: 08/30/17 11:31 Dose: Not Given Rifaximin (Xifaxan) 550 mg PO BID [facility] PRN Reason: Protocol Last Admin: 08/30/17 11:30 Dose: Not Given - Labs Labs: 08/30/17 07:00 08/30/17 07:00 PT 17.5 SECONDS (9.4-12.5) H 08/29/17 18:50 INR 1.52 (0.93-1.08) H 08/29/17 18:50 APTT 32.9 Seconds (25.1-36.5) 08/29/17 18:50 - Constitutional Appears: Confused, Chronically Ill - Head Exam Head Exam: ATRAUMATIC, NORMOCEPHALIC - Eye Exam Eye Exam: EOMI Pupil Exam: PERRL - Respiratory Exam Respiratory Exam: absent: Rales, Rhonchi, Wheezes - Cardiovascular Exam Cardiovascular Exam: +S1, +S2. absent: Gallop, JVD, Rubs - GI/Abdominal Exam GI & Abdominal Exam: Distended, Soft. absent: Guarding, Rigid, Tenderness Additional comments: distended abdomen hepatosplenomegaly - Extremities Exam Additional comments: lower extremity erythema bilaterally - Neurological Exam Additional comments: arousable but not oriented - Skin Skin Exam: Dry, Intact, Warm Additional comments: lower extremity cellulitis Assessment and Plan - Assessment and Plan (Free Text) Plan: 87yo female with history of autoimmune hepatitis, myelodysplastic syndrome, thrombocytopenia, chronic anemia, hypertension and cryptogenic cirrhosis presents with toxic metabolic encephalopathy 1. Toxic metabolic encephalopathy likely multifactorial secondary to hepatic encephalopathy vs VRE 2. Decompensated Cryptogenic cirrhosis 3. Hepatic encephalopathy 4. Normocytic Anemia Plan: -continue lactulose FL q 6 hrs until 2-3 bowel movements daily -start xifaxan once patient is able to swallow safely -Abdominal duplex pending to evaluate portal vein -IR consulted for paracentesis; pending cytology, culture, albumin, total protein -aspiration precautions -NPO -Recommend restricted blood transfusion with goal Hgb > 7; no overt signs of bleeding -maintain 2 large bore IVs -trend H/H -MELD score 16 -Child Houser Class C -2g sodium diet -cdiff culture -fecal calprotectin -Swallow evaluation Patient seen and case discussed with attending Dr. Curry <Angelia Curry - Last Filed: 08/31/17 15:24> Objective - Vital Signs/Intake and Output Vital Signs (last 24 hours): Temp Pulse Resp BP Pulse Ox 97.6 F 79 20 143/64 95 08/31/17 07:30 08/31/17 07:30 08/31/17 07:30 08/31/17 07:30 08/31/17 07:30 - Medications Medications: Current Medications Sodium Chloride (Sodium Chloride 0.9%) 1,000 mls @ 60 mls/hr IV .[id number] [facility] Last Admin: 08/30/17 11:10 Dose: 60 mls/hr Meropenem 500 mg/ Sodium (Chloride) 50 mls @ 100 mls/hr IVPB Q12 [facility] PRN Reason: Protocol Stop: 09/06/17 14:01 Last Admin: 08/31/17 12:45 Dose: 100 mls/hr Lisinopril (Zestril) 10 mg PO DAILY [facility] Last Admin: 08/30/17 11:30 Dose: Not Given Magnesium Oxide (Mag-Ox) 400 mg PO BID [facility] Last Admin: 08/30/17 11:31 Dose: Not Given Pantoprazole Sodium (Protonix Ec Tab) 40 mg PO DAILY [facility] Last Admin: 08/30/17 11:31 Dose: Not Given Rifaximin (Xifaxan) 550 mg PO BID [facility] PRN Reason: Protocol Last Admin: 08/30/17 11:30 Dose: Not Given - Labs Labs: 08/31/17 07:45 08/31/17 07:45 PT 18.2 SECONDS (9.4-12.5) H 08/31/17 07:45 INR 1.57 (0.93-1.08) H 08/31/17 07:45 APTT 32.9 Seconds (25.1-36.5) 08/29/17 18:50 Attending/Attestation - Attestation I have personally seen and examined this patient.: Yes I have fully participated in the care of the patient.: Yes I have reviewed all pertinent clinical information, including history, physical exam and plan: Yes Notes (Text): 08/31/17 14:39 Patient seen with director of medical services. This is a 87 year old female with history of autoimmune hepatitis (not biopsy proven), myelodysplastic syndrome ?, thrombocytopenia, chronic anemia, hypertension and cryptogenic cirrhosis presents with toxic metabolic encephalopathy. Will continue lactulose q 1 hour till 2 BM/day and get abdominal duplex to rule out PVT. IR consulted for tense ascites and paracentesis; pending cytology, culture, albumin, total protein. NPO Recommend restricted blood transfusion with goal Hgb > 7; no overt signs of bleeding. Current MELD score 16
[2017-08-31 08:09] LABS: HEMOGLOBIN 8.3 g/dL (12.0-16.0); MEAN CELL VOLUME 93.7 fl (80.0-105.0); MEAN CORPUSCULAR HEMOGLOBIN 30.6 pg (25.0-35.0); MEAN CORPUSCULAR HGB CONC 32.7 g/dl (31.0-37.0); MEAN PLATELET VOLUME 12.3 fl (7.0-11.0); RBC 2.71 10^6/uL (3.5-6.1); WHITE BLOOD COUNT 4.3 10^3/ul (4.5-11.0)
[2017-08-31 08:18] LABS: INR 1.57 (0.93-1.08); PROTHROMBIN TIME 18.2 SECONDS (9.4-12.5)
[2017-08-31 08:21] LABS: ALB/GLOB RATIO 0.4 (1.1-1.8); CALCIUM 8.3 mg/dL (8.4-10.5)
[2017-08-31] MEDS: Magnesium Oxide 400 mg Tab UD PO SCH ×2 (09:16→17:08)
--- NOTE | 2017-08-31 10:04 | US ---
PROCEDURE: Portal vein duplex ultrasound. CLINICAL HISTORY: Deteriorating liver function. Evaluate for portal vein thrombosis. PHYSICIAN(S): Denzel Weston M.D. FINDINGS: The exam is very limited by the patient's inability to cooperate, breathing pattern, and bowel gas. Limited imaging of the extrahepatic portal vein is patent with hepatopetal flow. Limited images of the central hepatic veins are patent No obvious ascites. IMPRESSION: 1. Very limited study. 2. Patent portal vein with hepatopetal flow
[2017-08-31] MEDS: Meropenem 500 MG in Sodium Chloride 0.9% 50 ML IVPB SCH ×2 (12:45→21:09)
[2017-08-31] MEDS: Lactulose 10 gm/15 ml (Rectal Use) PR SCH ×2 (12:46→17:17)
--- NOTE | 2017-08-31 15:00 | CP.PCM.PN ---
Subjective - Date & Time of Evaluation Date of Evaluation: 08/31/17 Time of Evaluation: 12:15 - Subjective Subjective: Comfortable, no fevers, not in distress, more awake today compared to yesterday. Objective - Vital Signs/Intake and Output Vital Signs (last 24 hours): Temp Pulse Resp BP Pulse Ox 97.3 F L 83 20 156/76 H 100 08/30/17 16:00 08/30/17 16:00 08/30/17 16:00 08/30/17 16:00 08/30/17 16:00 - Medications Medications: Current Medications Sodium Chloride (Sodium Chloride 0.9%) 1,000 mls @ 60 mls/hr IV .[id number] [facility] Last Admin: 08/30/17 11:10 Dose: 60 mls/hr Meropenem 500 mg/ Sodium (Chloride) 50 mls @ 100 mls/hr IVPB Q12 [facility] PRN Reason: Protocol Stop: 09/06/17 14:01 Last Admin: 08/30/17 15:55 Dose: 100 mls/hr Lactulose (Enulose) 20 gm PO BID [facility] Last Admin: 08/30/17 16:05 Dose: 20 gm Lactulose (Generlac) 200 gm [place] Q6H [facility] Lisinopril (Zestril) 10 mg PO DAILY [facility] Last Admin: 08/30/17 11:30 Dose: Not Given Magnesium Oxide (Mag-Ox) 400 mg PO BID [facility] Last Admin: 08/30/17 11:31 Dose: Not Given Pantoprazole Sodium (Protonix Ec Tab) 40 mg PO DAILY [facility] Last Admin: 08/30/17 11:31 Dose: Not Given Rifaximin (Xifaxan) 550 mg PO BID [facility] PRN Reason: Protocol Last Admin: 08/30/17 11:30 Dose: Not Given - Labs Labs: 08/31/17 07:45 08/31/17 07:45 PT 18.2 SECONDS (9.4-12.5) H 08/31/17 07:45 INR 1.57 (0.93-1.08) H 08/31/17 07:45 APTT 32.9 Seconds (25.1-36.5) 08/29/17 18:50 - Constitutional Appears: Chronically Ill - Head Exam Head Exam: NORMAL INSPECTION - ENT Exam ENT Exam: Mucous Membranes Moist - Neck Exam Neck Exam: absent: Meningismus - Respiratory Exam Respiratory Exam: Decreased Breath Sounds - Cardiovascular Exam Cardiovascular Exam: +S1, +S2 - GI/Abdominal Exam GI & Abdominal Exam: Distended, Soft. absent: Tenderness Assessment and Plan - Assessment and Plan (Free Text) Plan: Assessment probable hepatic metabolic encephalopathy, R/O UTI history of sepsis secondary to E. coli and E. faecalis UTI, slowly improving history of urinary tract infection with Citrobacter and Enterobacter, S/P treatment and clinically better history of E. faecium UTI history of healthcare-associated pneumonia history of chronic thrombocytopenia history of urinary tract infection with ESBL E. coli S/P UTI with Hafnei alvei Myelodysplastic syndrome DM HTN Hypothyroidism history of right hip surgery S/P cholecystectomy liver cirrhosis GERD Plan gave a dose of IV Vanco and continue Merrem day 2; blood cx are negative, follow up urine cx Ammonia level is elevated but is now decreased - continue Rifaximin and lactulose overall prognosis is poor
[2017-08-31] MEDS: Pantoprazole 40 mg EC Tab PO SCH (17:08)
--- NOTE | 2017-08-31 22:09 | PN ---
DATE: SUBJECTIVE: The patient is an 87-year-old, seen and examined. Much more awake, alert, oriented. Willing to eat and asking for food. No nausea, vomiting, or diarrhea. PHYSICAL EXAMINATION VITAL SIGNS: She is afebrile, pulse 79, respirations 20, blood pressure 143/64. HEENT: Bilateral good airflow. No rhonchi or crackle. HEART: S1 and S2 audible. ABDOMEN: Soft, nontender. No rebound. No guarding. NEUROLOGIC: She is awake and alert, able to communicate. She has generalized weakness. EXTREMITIES: Bilateral legs +1 edema. LABORATORY DATA: WBC 4.3, hemoglobin hematocrit 25.4, platelets 56. PT 10.2, INR 1.57. Chemistry: Sodium 146, potassium 5.1, chloride 116, CO2 of 22, BUN 27, creatinine 1.2, blood sugar of 56. Her blood cultures are negative. Urine is pending. She has abdominal sonogram done that shows patent portal vein with . ASSESSMENT: 1. Status post hepatic encephalopathy. 2. Autoimmune hepatitis. 3. History of hypertension. 4. History of recurrent urinary tract infection. PLAN: We can start the patient on soft food. We will follow up electrolytes in the a.m. If she remains stable, we will make discharge plans in the a.m. Kamaljit Pena MD
[2017-09-01] MEDS: Sodium Chloride 0.9% 1,000 ML IV SCH (03:31)
[2017-09-01 08:39] LABS: MEAN CORPUSCULAR HEMOGLOBIN 30.1 pg (25.0-35.0); MEAN PLATELET VOLUME 12.3 fl (7.0-11.0); RBC 2.66 10^6/uL (3.5-6.1); RED CELL DISTRIBUTION WIDTH 15.6 % (11.5-14.5); WHITE BLOOD COUNT 4.4 10^3/ul (4.5-11.0)
[2017-09-01 08:46] LABS: CALCIUM 8.1 mg/dL (8.4-10.5)
--- NOTE | 2017-09-01 08:52 | CP.PCM.PN ---
<Clay Mckenzie - Last Filed: 09/01/17 08:48> Subjective - Date & Time of Evaluation Date of Evaluation: 09/01/17 Time of Evaluation: 08:48 - Subjective Subjective: GI progress note - Connie Mckenzie PGY2 Patient seen and examined at bedside this morning. No acute overnight events or new complaints reported. She reportedly had 1 bowel movement overnight and none yet as of this morning. She is more awake, alert and oriented and has been able to tolerate oral intake. She denies abdominal pain, nausea, vomiting, fever, chills. Objective - Vital Signs/Intake and Output Vital Signs (last 24 hours): Temp Pulse Resp BP Pulse Ox 98.4 F 80 19 145/68 99 09/01/17 07:50 09/01/17 07:50 09/01/17 07:50 09/01/17 07:50 09/01/17 07:50 Intake and Output: 09/01/17 09/01/17 06:59 18:59 Intake Total 720 Output Total 0 Balance 720 - Medications Medications: Current Medications Sodium Chloride (Sodium Chloride 0.9%) 1,000 mls @ 60 mls/hr IV .[id number] [facility] Last Admin: 09/01/17 03:31 Dose: 60 mls/hr Meropenem 500 mg/ Sodium (Chloride) 50 mls @ 100 mls/hr IVPB Q12 [facility] PRN Reason: Protocol Stop: 09/06/17 14:01 Last Admin: 08/31/17 21:09 Dose: 100 mls/hr Lactulose (Enulose) 20 gm PO BID [facility] Last Admin: 08/31/17 17:08 Dose: 20 gm Lisinopril (Zestril) 10 mg PO DAILY [facility] Last Admin: 08/31/17 17:09 Dose: 10 mg Magnesium Oxide (Mag-Ox) 400 mg PO BID [facility] Last Admin: 08/31/17 17:08 Dose: 400 mg Pantoprazole Sodium (Protonix Ec Tab) 40 mg PO DAILY [facility] Last Admin: 08/31/17 17:08 Dose: 40 mg Rifaximin (Xifaxan) 550 mg PO BID [facility] PRN Reason: Protocol Last Admin: 08/31/17 17:08 Dose: 550 mg - Labs Labs: 09/01/17 08:20 09/01/17 08:20 PT 18.2 SECONDS (9.4-12.5) H 08/31/17 07:45 INR 1.57 (0.93-1.08) H 08/31/17 07:45 APTT 32.9 Seconds (25.1-36.5) 08/29/17 18:50 - Constitutional Appears: No Acute Distress, Chronically Ill - Head Exam Head Exam: ATRAUMATIC, NORMOCEPHALIC - Eye Exam Eye Exam: EOMI Pupil Exam: PERRL - ENT Exam ENT Exam: Mucous Membranes Moist - Neck Exam Neck Exam: Normal Inspection - Respiratory Exam Respiratory Exam: absent: Rales, Rhonchi, Wheezes - Cardiovascular Exam Cardiovascular Exam: +S1, +S2. absent: Clicks, Gallop, Rubs - GI/Abdominal Exam GI & Abdominal Exam: Distended, Soft. absent: Firm, Guarding, Rigid, Tenderness Additional comments: hepatosplenomegaly distended abdomen - Extremities Exam Extremities Exam: Pedal Edema Additional comments: bilateral lower extremity cellulitis - Neurological Exam Neurological Exam: Alert, Awake, Oriented x3 - Psychiatric Exam Psychiatric exam: Normal Affect, Normal Mood - Skin Skin Exam: Dry, Intact, Normal Color, Warm Assessment and Plan - Assessment and Plan (Free Text) Plan: 87yo female with history of autoimmune hepatitis, myelodysplastic syndrome, thrombocytopenia, chronic anemia, hypertension and cryptogenic cirrhosis presents with toxic metabolic encephalopathy 1. Decompensated Cryptogenic cirrhosis 2. Hepatic encephalopathy 3. Normocytic Anemia Plan: -continue lactulose titrated to 2-3 bowel movements daily -continue xifaxan 550mg PO BID -Recommend restricted blood transfusion with goal Hgb > 7; no overt signs of bleeding -2g sodium diet -fecal calprotectin pending -Prior MELD score of 16 -Child Houser Class C -No further GI intervention anticipated at this time, we will sign off this case. Please reconsult as deemed necessary, thank you for this consult. Patient seen and case discussed with attending Dr. Ball <Kishan Ball - Last Filed: 09/01/17 10:26> Objective - Vital Signs/Intake and Output Vital Signs (last 24 hours): Temp Pulse Resp BP Pulse Ox 98.4 F 80 19 145/68 99 09/01/17 07:50 09/01/17 07:50 09/01/17 07:50 09/01/17 07:50 09/01/17 07:50 Intake and Output: 09/01/17 09/01/17 06:59 18:59 Intake Total 720 Output Total 0 Balance 720 - Medications Medications: Current Medications Sodium Chloride (Sodium Chloride 0.9%) 1,000 mls @ 60 mls/hr IV .[id number] [facility] Last Admin: 09/01/17 03:31 Dose: 60 mls/hr Lactulose (Enulose) 20 gm PO BID [facility] Last Admin: 08/31/17 17:08 Dose: 20 gm Lisinopril (Zestril) 10 mg PO DAILY [facility] Last Admin: 08/31/17 17:09 Dose: 10 mg Magnesium Oxide (Mag-Ox) 400 mg PO BID [facility] Last Admin: 08/31/17 17:08 Dose: 400 mg Pantoprazole Sodium (Protonix Ec Tab) 40 mg PO DAILY [facility] Last Admin: 08/31/17 17:08 Dose: 40 mg Rifaximin (Xifaxan) 550 mg PO BID [facility] PRN Reason: Protocol Last Admin: 08/31/17 17:08 Dose: 550 mg - Labs Labs: 09/01/17 08:20 09/01/17 08:20 PT 18.2 SECONDS (9.4-12.5) H 08/31/17 07:45 INR 1.57 (0.93-1.08) H 08/31/17 07:45 APTT 32.9 Seconds (25.1-36.5) 08/29/17 18:50 Attending/Attestation - Attestation I have personally seen and examined this patient.: Yes I have fully participated in the care of the patient.: Yes I have reviewed all pertinent clinical information, including history, physical exam and plan: Yes Notes (Text): 09/01/17 10:25 87 year old female with h/o Cirrhosis c/b hepatic encephalopathy admitted with recurrence. She is now improved with mental status back to baseline. Continue lactulose/rifaxamin. Check fecal calprotectin if possible as it may be a clue to colitis/UC/PSC possible etiology. Consider diuretics per primary. No ascites on abdominal US. Will sign off.
[2017-09-01] MEDS: Pantoprazole 40 mg EC Tab PO SCH (11:50)
[2017-09-01] MEDS: Magnesium Oxide 400 mg Tab UD PO SCH ×2 (11:51→19:47)
--- NOTE | 2017-09-01 14:23 | PN ---
DATE: SUBJECTIVE: The patient is 87 years old seen and examined, fully awake, alert, oriented, communicative, eating and tolerating. PHYSICAL EXAMINATION VITAL SIGNS: She is afebrile. Pulse 80, respirations 19, blood pressure 145/60. LUNGS: Bilateral good air flow. No rhonchi or crackles. HEART: S1 and S2 audible. ABDOMEN: Soft, nontender, no rebound, no guarding. Her belly, she has tympanitic tone in the middle, but because of ventral hernia and her sides she has dull percussion note. NEUROLOGICAL: She is awake and alert, able to communicate. EXTREMITIES: Bilateral leg +2 edema. LABORATORY DATA: WBC is 4.4, hemoglobin 8, hematocrit 25, platelet of 44. PT 18.2, INR 1.57. Chemistry: Sodium 145, potassium 4.0, chloride 118, CO2 22, BUN 25, creatinine 1.2, blood sugar of 75. Her total bili 1.8, alkaline phosphatase is 158. Her ammonia level is 9. ASSESSMENT: 1. Status post hepatic encephalopathy. 2. Pancytopenia. 3. Thrombocytopenia. 4. Myelodysplastic syndrome. 5. Autoimmune hepatitis. PLAN: Currently, the patient is on magnesium supplement. She is on lactulose. Since the patient is eating and tolerating, we will discontinue her IV fluids. She is on Xifaxan. We will put her back on Lasix and spironolactone. The patient is scheduled to have possible paracentesis done to rule out SBP. We will follow up her electrolytes in the a.m. Kamaljit Pena MD
--- NOTE | 2017-09-01 15:18 | CP.PCM.PN ---
Subjective - Date & Time of Evaluation Date of Evaluation: 09/01/17 Time of Evaluation: 11:00 - Subjective Subjective: Comfortable, no fevers, more awake. Objective - Vital Signs/Intake and Output Vital Signs (last 24 hours): Temp Pulse Resp BP Pulse Ox 98.4 F 80 19 145/68 99 09/01/17 07:50 09/01/17 11:51 09/01/17 07:50 09/01/17 11:51 09/01/17 07:50 Intake and Output: 09/01/17 09/01/17 06:59 18:59 Intake Total 720 Output Total 0 Balance 720 - Medications Medications: Current Medications Furosemide (Lasix) 40 mg IVP DAILY [facility] Lactulose (Enulose) 20 gm PO BID [facility] Last Admin: 09/01/17 11:49 Dose: 20 gm Lisinopril (Zestril) 10 mg PO DAILY [facility] Last Admin: 09/01/17 11:51 Dose: 10 mg Magnesium Oxide (Mag-Ox) 400 mg PO BID [facility] Last Admin: 09/01/17 11:51 Dose: 400 mg Pantoprazole Sodium (Protonix Ec Tab) 40 mg PO DAILY [facility] Last Admin: 09/01/17 11:50 Dose: 40 mg Rifaximin (Xifaxan) 550 mg PO BID [facility] PRN Reason: Protocol Last Admin: 09/01/17 11:49 Dose: 550 mg Spironolactone (Aldactone) 25 mg PO DAILY [facility] - Labs Labs: 09/01/17 08:20 09/01/17 08:20 PT 18.2 SECONDS (9.4-12.5) H 08/31/17 07:45 INR 1.57 (0.93-1.08) H 08/31/17 07:45 APTT 32.9 Seconds (25.1-36.5) 08/29/17 18:50 - Constitutional Appears: Chronically Ill - Head Exam Head Exam: NORMAL INSPECTION - Respiratory Exam Respiratory Exam: Decreased Breath Sounds - Cardiovascular Exam Cardiovascular Exam: +S1, +S2 - GI/Abdominal Exam GI & Abdominal Exam: Soft. absent: Tenderness Assessment and Plan - Assessment and Plan (Free Text) Plan: Assessment probable hepatic metabolic encephalopathy, no evidence of sepsis history of sepsis secondary to E. coli and E. faecalis UTI, slowly improving history of urinary tract infection with Citrobacter and Enterobacter, S/P treatment and clinically better history of E. faecium UTI history of healthcare-associated pneumonia history of chronic thrombocytopenia history of urinary tract infection with ESBL E. coli S/P UTI with Hafnei alvei Myelodysplastic syndrome DM HTN Hypothyroidism history of right hip surgery S/P cholecystectomy liver cirrhosis GERD Plan will d/c antibiotics overall prognosis is poor
[2017-09-01 18:57] LABS: BODY FLUID TYPE PERITONEAL
--- NOTE | 2017-09-01 18:57 | US ---
PROCEDURE: Ultrasound guided paracentesis. HISTORY: Autoimmune cirrhosis. Ascites with abdominal pain and distension. Needs paracentesis. PHYSICIAN(S): Denzel Weston MD. TECHNIQUE: The relative risks and indications for the procedure were explained to the patient's family and informed written consent obtained. Sonography of the abdomen was performed in a supine position. This revealed a small to moderate amount of non-loculated ascites, greatest in the right lower quadrant. A puncture site was selected and the area was prepped and draped in the usual sterile fashion. 1% Xylocaine was used to anesthetize the skin and soft tissues. A 7 [place]ian paracentesis catheter was trocared into the right lower quadrantand 3700 cc of clear, straw-colored fluid aspirated. The appropriate labs were sent. IMPRESSION: Ultrasound-guided paracentesis in the right lower quadrant. 3700 cc of fluid were aspirated. Labs were sent
[2017-09-01 20:02] LABS: BF GROSS APPEARANCE CLEAR (CLEAR)
[2017-09-01 20:03] LABS: BODY FLUID TOTAL COUNT 100 (0-0)
[2017-09-02 08:01] VITALS: O2SAT 98
[2017-09-02 08:01] LABS: BASO # 0.02 K/mm3 (0.0-2.0); BASO % 0.4 % (0.0-3.0); EOS # 0.2 (0.0-0.7); EOS % 4.6 % (1.5-5.0); GRAN # 2.29 (1.4-6.5); GRAN % 50.1 % (50.0-68.0); HEMOGLOBIN 7.8 g/dL (12.0-16.0); LYMPH # 1.7 (1.2-3.4); LYMPH % 36.1 % (22.0-35.0); MEAN CELL VOLUME 93.4 fl (80.0-105.0); MEAN CORPUSCULAR HEMOGLOBIN 30.4 pg (25.0-35.0); MEAN CORPUSCULAR HGB CONC 32.5 g/dl (31.0-37.0); MEAN PLATELET VOLUME 10.8 fl (7.0-11.0); MONO # 0.4 (0.1-0.6); MONO % 8.8 % (1.0-6.0); RBC 2.57 10^6/uL (3.5-6.1); RED CELL DISTRIBUTION WIDTH 15.2 % (11.5-14.5); WHITE BLOOD COUNT 4.6 10^3/ul (4.5-11.0)
[2017-09-02 08:16] LABS: ALB/GLOB RATIO 0.4 (1.1-1.8); ALBUMIN 1.8 g/dL (3.0-4.8); CALCIUM 7.8 mg/dL (8.4-10.5)
[2017-09-02] MEDS: Magnesium Oxide 400 mg Tab UD PO SCH ×2 (10:41→17:49)
[2017-09-02] MEDS: Pantoprazole 40 mg EC Tab PO SCH (10:42)
[2017-09-02 15:27] VITALS: RESP 18
[2017-09-02 16:34] VITALS: TEMP 98
[2017-09-02 18:35] VITALS: BP 141/63; PULSE 80
--- NOTE | 2017-09-05 09:47 | DS ---
HISTORY OF PRESENT ILLNESS: The patient is 87-year-old, seen and examined, fully awake, alert, oriented, communicative, eating and tolerating. No fever, no chills. No nausea, no vomiting. No diarrhea. PHYSICAL EXAMINATION VITAL SIGNS: She is afebrile, pulse 83, respirations 20, blood pressure 131/60. LUNGS: Bilateral good airflow. No rhonchi or crackle. HEART: S1 and S2 audible. ABDOMEN: Soft, nontender. No rebound, no guarding. NEUROLOGIC: She is awake, alert, oriented, able to communicate. Has generalized weakness. EXTREMITIES: Bilateral legs, +1 edema. LABORATORY DATA: WBC is 4.6, hemoglobin 7.8, hematocrit 24, platelets 36,000. Chemistry: Sodium 143, potassium 4.4, chloride 117, CO2 21, BUN 20, creatinine 1.1, blood sugar of 93. Total bilirubin 1.3. ASSESSMENT 1. Status post hepatic encephalopathy. 2. Status post paracentesis and 3700 mL fluid was drained. 3. Autoimmune hepatitis. 4. Cirrhosis of liver. 5. Coagulopathy. 6. Myelodysplastic syndrome. 7. Pancytopenia. PLAN: Currently, the patient is on spironolactone. She is on lactulose 20 g twice a day, Lasix 40 mg daily, magnesium, Xifaxan and lisinopril. We will continue that. She will be discharged to [facility]. Kamaljit Pena MD
== END 2017-09-02 21:27 | DRG 441 ==
LOC: ED 17:27 → ERH 22:04 → 5RSO 08-30 01:03
PROVIDERS: ADMIT Internal Medicine; ATTEND Internal Medicine
PROC: 0W9G3ZZ Drainage of Peritoneal Cavity, Percutaneous Approach (ICD-10-PCS; principal; 2017-09-01 16:00)
DX: K72.90 Hepatic failure, unspecified without coma (principal); N18.6 End stage renal disease; G92 Toxic encephalopathy; D61.818 Other pancytopenia; R18.8 Other ascites; E11.22 Type 2 diabetes mellitus with diabetic chronic kidney disease; E11.51 Type 2 diabetes mellitus with diabetic peripheral angiopathy without gangrene; I12.0 Hypertensive chronic kidney disease with stage 5 chronic kidney disease or end stage renal disease; E66.01 Morbid (severe) obesity due to excess calories; L97.819 Non-pressure chronic ulcer of other part of right lower leg with unspecified severity; E11.622 Type 2 diabetes mellitus with other skin ulcer; D46.9 Myelodysplastic syndrome, unspecified; K75.4 Autoimmune hepatitis; K74.69 Other cirrhosis of liver; I25.10 Atherosclerotic heart disease of native coronary artery without angina pectoris; E78.5 Hyperlipidemia, unspecified; E03.9 Hypothyroidism, unspecified; K21.9 Gastro-esophageal reflux disease without esophagitis; K29.70 Gastritis, unspecified, without bleeding; E83.59 Other disorders of calcium metabolism; Z86.73 Personal history of transient ischemic attack (TIA), and cerebral infarction without residual deficits; Z99.2 Dependence on renal dialysis; Z87.01 Personal history of pneumonia (recurrent); Z90.49 Acquired absence of other specified parts of digestive tract; Z87.440 Personal history of urinary (tract) infections; Z98.61 Coronary angioplasty status; Z87.891 Personal history of nicotine dependence

== ENCOUNTER 2017-09-06 21:17 | Inpatient (IN) | payer MEDICARE, OTHER ==
--- NOTE | 2017-09-06 21:41 | ED PDOC ---
Arrival/HPI - General Time Seen by Provider: 09/06/17 21:38 Historian: Patient, Other (PMD) - History of Present Illness Narrative History of Present Illness (Text): 09/06/17 21:38 A 87 year old female, whose past medical history includes diabetes, hypertension , hypothyroidism, recurrent UTI's, hepatic encephalopathy, liver cirrhosis, thrombocytopenia, myelodysplastic syndrome and GERD, sent into the emergency department by PMD for abnormal labs. Dr. Pena reports a potassium of 5.8, hemoglobin of 7.7 and ammonia of 260's. On evaluation, patient denies any pain or discomfort. Patient denies any fever, chills, nausea, vomiting, diarrhea, abdominal pain, urinary changes, vaginal bleeding, hematuria, hematochezia, chest pain, shortness of breath, headache, dizziness, weakness or any other complaints. Limited history by patient. Daughter arrives and gives history of patient being more weak and confused. PMD: Dr. Pena Past Medical History - Provider Review Nursing Documentation Reviewed: Yes - Infectious Disease Hx of Infectious Diseases: None - Tetanus Immunization Tetanus Immunization: Unknown - Cardiac Hx Hypertension: Yes - Pulmonary Hx Respiratory Disorders: Yes Hx Pneumonia: Yes - Neurological Hx Neurological Disorder: (syncope) Hx Dizziness: Yes Hx Transient Ischemic Attacks (TIA): No - HEENT Hx HEENT Disorder: No - Renal Hx Renal Disorder: Yes Other/Comment: uti - Endocrine/Metabolic Hx Diabetes Mellitus Type 2: Yes - Hematological/Oncological Hx Blood Disorders: Yes (myelodysplastic syndrome) Hx Anemia: Yes Hx Cirrhosis: Yes (autoimmune hepatitis/hep encephalopathy) - Integumentary Hx Dermatological Disorder: Yes - Musculoskeletal/Rheumatological Hx Falls: Yes - Gastrointestinal Hx Gastrointestinal Disorders: Yes (GERD,CROHNS,CHOLECYSTECTOMY,ULCER) Hx Diverticulitis: Yes Other/Comment: gastritis - Genitourinary/Gynecological Hx Genitourinary Disorders: Yes (VRE,ESBL,INCONTINENT,RETENTION) Hx Urinary Tract Infection: Yes Other/Comment: hx urosepsis - Psychiatric Hx Psychophysiologic Disorder: Yes Hx Anxiety: Yes Hx Substance Use: No - Surgical History Hx Cholecystectomy: Yes Hx Orthopedic Surgery: Yes (r hip fx) - Anesthesia Hx Anesthesia: No Hx Anesthesia Reactions: No Hx Malignant Hyperthermia: No - Suicidal Assessment Feels Threatened In Home Enviroment: No Family/Social History - Physician Review Nursing Documentation Reviewed: Yes Family/Social History: No Known Family HX Smoking Status: Unknown If Ever Smoked Hx Alcohol Use: Yes (occasional wine with dinner) Hx Substance Use: No Hx Substance Use Treatment: No Allergies/Home Meds Allergies/Adverse Reactions: Allergies levofloxacin [From Levaquin] Allergy (Intermediate, Verified 09/06/17 21:49) RASH Penicillins Allergy (Verified 09/06/17 21:50) URTICARIA lev Allergy (Uncoded 09/06/17 21:50) ITCHING Home Medications: Home Meds Medication Instructions Recorded Confirmed Lactulose 20 gm PO BID 04/21/17 08/29/17 Magnesium Oxide [Mag-Ox] 400 mg PO BID 04/21/17 08/29/17 rifAXIMin [Xifaxan] 550 mg PO BID 04/21/17 08/29/17 Ondansetron [Zofran Tab] 4 mg PO Q4 PRN 08/16/17 08/29/17 Pantoprazole [Protonix EC Tab] 40 mg PO DAILY 08/16/17 08/29/17 Review of Systems - Physician Review All systems were reviewed & negative as marked: Yes - Review of Systems Constitutional: Other (Abnormal labs). absent: Fevers, Night Sweats Respiratory: absent: SOB Cardiovascular: absent: Chest Pain Gastrointestinal: absent: Abdominal Pain, Diarrhea, Nausea, Vomiting, Hematochezia Genitourinary Female: absent: Dysuria, Frequency, Hematuria, Urine Output Changes, Vaginal Bleeding Neurological: absent: Headache, Dizziness, Focal Weakness Physical Exam Vital Signs Pulse Resp BP Pulse Ox 09/06/17 21:40 76 18 125/54 L 100 Appearance: Positive for: Well-Appearing, Non-Toxic, Comfortable Pain Distress: None Mental Status: Positive for: Alert and Oriented X 3 - Systems Exam Head: Present: Atraumatic, Normocephalic Pupils: Present: PERRL Extroacular Muscles: Present: EOMI Conjunctiva: Present: Normal (pink in color) Mouth: Present: Moist Mucous Membranes Neck: Present: Normal Range of Motion Respiratory/Chest: Present: Clear to Auscultation, Good Air Exchange. No: Respiratory Distress, Accessory Muscle Use Cardiovascular: Present: Regular Rate and Rhythm, Normal S1, S2. No: Murmurs Abdomen: Present: Distention (slightly distended), Normal Bowel Sounds. No: Tenderness, Peritoneal Signs Back: Present: Normal Inspection Upper Extremity: Present: Normal Inspection, NORMAL PULSES. No: Cyanosis, Edema Lower Extremity: Present: Normal Inspection, Edema (+2 pitting edema bilaterally ), NORMAL PULSES. No: CALF TENDERNESS Neurological: Present: GCS=15, CN II-XII Intact, Speech Normal. No: Other ( icterus) Skin: Present: Warm, Dry, Normal Color. No: Rashes, Other (Jaundice) Psychiatric: Present: Alert, Oriented x 3, Normal Insight, Normal Concentration Medical Decision Making ED Course and Treatment: 09/06/17 21:38 Impression: A 87 year old female sent in for abnormal labs. Patient denies any complaints. Differential Diagnosis included but are not limited to: Hepatic encephalopathy vs. Ascites vs. Anemia chronic disease Plan: -- Chest xray -- EKG -- Labs -- Blood and Urine culture -- Urinalysis -- Reassess and disposition Progress Notes: Reviewed EKG, NSR at 77 bpm. RBBB. No change from previous EKG on 08/29/2017. 09/06/17 23:[address] Pena and will be admitted to Remote Telemetry for Hepatic Encephalpathy and Ascites. CXR no infiltrates. Lactulose ordered. Hgb 10. Potassium normal range. - Lab Interpretations Lab Results: 09/06/17 22:20 09/06/17 22:20 Lab Results 09/06/17 22:20: pO2 34, VBG pH 7.28 L, VBG pCO2 49.0, VBG HCO3 23.0, VBG Total CO2 24.5, VBG O2 Sat (Calc) 67.8 H, VBG Base Excess -4.1 L, VBG Potassium 5.0, Sodium 140.0, Chloride 114.0 H, Glucose 137 H, Lactate 2.0, FiO2 21.0, Venous Blood Potassium 5.0 09/06/17 22:20: Sodium 141, Chloride 113 H, Potassium 4.8, Carbon Dioxide 23, Anion Gap 11, BUN 23 H, Creatinine 1.2, Est GFR ( Amer) 51, Est GFR (Non- Af Amer) 42, Random Glucose 141 H, Calcium 8.6, Phosphorus 3.5, Magnesium 1.6 L , Total Bilirubin 1.3, AST 81 H, ALT 45, Alkaline Phosphatase 195 H D, Lactate Dehydrogenase 536, Total Creatine Kinase 26 L, Troponin I < 0.01, Total Protein 7.6, Albumin 2.2 L, Globulin 5.4, Albumin/Globulin Ratio 0.4 L 09/06/17 22:20: PT 16.8 H, INR 1.46 H, APTT 33.8 09/06/17 22:20: WBC 4.5, RBC 3.57, Hgb 10.9 L D, Hct 33.1 L, MCV 92.7, MCH 30.5 , MCHC 32.9, RDW 16.0 H, Plt Count 56 L, MPV 14.0 H, Gran % 47.4 L, Lymph % ( Auto) 38.8 H, Preble % (Auto) 7.1 H, Eos % (Auto) 5.8 H, Baso % (Auto) 0.9, Gran # 2.14, Lymph # (Auto) 1.8, Preble # (Auto) 0.3, Eos # (Auto) 0.3, Baso # (Auto) 0.04 - RAD Interpretation Radiology Orders: 09/06/17 21:57 CXR [CHEST PORTABLE] [RAD] Stat - EKG Interpretation Interpreted by ED Physician: Yes Type: 12 lead EKG - Medication Orders Current Medication Orders: Ondansetron HCl (Zofran Inj) 4 mg IVP Q4H PRN PRN Reason: Nausea/Vomiting - Scribe Statement The provider has reviewed the documentation as recorded by the Tanishaibfabián Hirsch Provider Scribe Attestation: All medical record entries made by the Scribfabián were at my direction and personally dictated by me. I have reviewed the chart and agree that the record accurately reflects my personal performance of the history, physical exam, medical decision making, and the department course for this patient. I have also personally directed, reviewed, and agree with the discharge instructions and disposition. Disposition/Present on Arrival - Present on Arrival Any Indicators Present on Arrival: No History of DVT/PE: No History of Uncontrolled Diabetes: No Urinary Catheter: No History Surgical Site Infection Following: None - Disposition Have Diagnosis and Disposition been Completed?: Yes Diagnosis: Hepatic encephalopathy, Ascites Disposition Time: 23:22 Patient Plan: Admission Condition: FAIR Referrals: Kamaljit Pena MD [Primary Care Provider] - Follow up with primary
[2017-09-06 21:49] VITALS: BMI 30.2
[2017-09-06 22:35] LABS: BASO # 0.04 K/mm3 (0.0-2.0); BASO % 0.9 % (0.0-3.0); EOS # 0.3 (0.0-0.7); EOS % 5.8 % (1.5-5.0); GRAN # 2.14 (1.4-6.5); GRAN % 47.4 % (50.0-68.0); HEMOGLOBIN 10.9 g/dL (12.0-16.0); LYMPH # 1.8 (1.2-3.4); LYMPH % 38.8 % (22.0-35.0); MEAN CELL VOLUME 92.7 fl (80.0-105.0); MEAN CORPUSCULAR HEMOGLOBIN 30.5 pg (25.0-35.0); MEAN CORPUSCULAR HGB CONC 32.9 g/dl (31.0-37.0); MONO # 0.3 (0.1-0.6); MONO % 7.1 % (1.0-6.0); RBC 3.57 10^6/uL (3.5-6.1); WHITE BLOOD COUNT 4.5 10^3/ul (4.5-11.0)
[2017-09-06 22:38] LABS: VENOUS BLOOD GAS BASE EXCESS -4.1 mmol/L (0.0-2.0); VENOUS BLOOD GAS PO2 34 mm/Hg (30-55); VENOUS BLOOD PH 7.28 (7.32-7.43)
[2017-09-06 22:46] LABS: INR 1.46 (0.93-1.08); PARTIAL THROMBOPLASTIN TIME 33.8 Seconds (25.1-36.5); PROTHROMBIN TIME 16.8 SECONDS (9.4-12.5)
[2017-09-06 22:53] LABS: ALB/GLOB RATIO 0.4 (1.1-1.8); ALBUMIN 2.2 g/dL (3.0-4.8); ALT/SGPT 45 U/L (7-56); AST/SGOT 81 U/L (14-36); BLOOD UREA NITROGEN 23 mg/dL (7-21); CALCIUM 8.6 mg/dL (8.4-10.5); GFR AFRICAN-AMERICAN 51; GFR NON-AFRICAN AMERICAN 42
[2017-09-06 22:58] LABS: TROPONIN I < 0.01 ng/mL
[2017-09-07] MEDS: Pantoprazole 40 mg EC Tab PO SCH (05:19)
--- NOTE | 2017-09-07 06:25 | HP ---
HISTORY OF PRESENT ILLNESS: The patient is an 87-year-old female, known to me from multiple previous admissions, had blood work done today and I got a call from the [facility] that her potassium is 5.8, her hemoglobin was found to be 7.7 in the emergency room and also her ammonia level was 269. The patient was found to be little lethargic, so she was sent to emergency room for further evaluation. According to the daughter, she has a good day yesterday; however, today she was little lethargic, did not eat that well. No history of fever, no chills. No nausea or vomiting. No diarrhea. The patient was recently admitted with hepatic encephalopathy. She was found to have cirrhotic ascites, has had paracentesis done and 3700 mL of the fluid was removed. PAST MEDICAL HISTORY: Significant for: 1. Pancytopenia. 2. Myelodysplastic syndrome. 3. Autoimmune hepatitis. 4. Hepatic encephalopathy, multiple admissions for that. 5. Electrolyte imbalance. 6. Morbid obesity. 7. Deconditioning, difficulty walking. 8. Bilateral leg edema. 9. Hypothyroidism. ALLERGY: SHE IS ALLERGIC TO LEVAQUIN AND PENICILLIN. MEDICATIONS: At home, she is on Xifaxan 550 twice a day, Aldactone 25 mg daily, Protonix 40 mg daily, magnesium 400 mg twice a day, lisinopril 10 mg daily, lactulose 20 g twice a day, Lasix 40 mg daily. SOCIAL HISTORY: She lives with her daughter. Used to smoke in the remote past, and used to drink wine with her dinner. PHYSICAL EXAMINATION: GENERAL: She is sleepy, but arousable, somewhat confused. VITAL SIGNS: She is afebrile, pulse 76, respirations 18, blood pressure 125/54. LUNGS: Bilateral fair airflow. Decreased breath sounds at bases. HEART: S1 and S2 audible. ABDOMEN: Soft. Nontender. No rebound. No guarding. NEUROLOGIC: The patient is awake, alert, oriented, communicative. LABORATORY EXAM: WBC is 4.5, hemoglobin 10.9, hematocrit 33.1, platelets 56. PT 16.8, INR 1.46. Chemistry: Sodium 141, potassium 4.8, chloride 113, CO2 23, BUN 23, creatinine 1.2, blood sugar of 141, magnesium 1.6, AST 81, ALT 45, alk phos 195. LDH is 536. X-ray of chest is unremarkable. ASSESSMENT: 1. Hepatic encephalopathy. 2. Cirrhosis of liver. 3. Hypertension. 4. Autoimmune hepatitis. 5. Pancytopenia. 6. History of anemia. PLAN: The patient will be admitted. We will start her on spironolactone. We will continue lactulose, start her on Lasix and start her on Xifaxan, and request Dr. Denzel Weston to reevaluate for paracentesis. GI evaluation by Dr. Curry is requested. Kamaljit Pena MD
[2017-09-07 07:36] LABS: VENOUS BLOOD GAS BASE EXCESS -2.4 mmol/L (0.0-2.0); VENOUS BLOOD GAS PO2 50 mm/Hg (30-55); VENOUS BLOOD PH 7.33 (7.32-7.43)
[2017-09-07 07:38] LABS: BASO # 0.02 K/mm3 (0.0-2.0); BASO % 0.4 % (0.0-3.0); EOS # 0.3 (0.0-0.7); EOS % 5.7 % (1.5-5.0); GRAN # 1.87 (1.4-6.5); GRAN % 41.1 % (50.0-68.0); HEMOGLOBIN 8.8 g/dL (12.0-16.0); LYMPH % 44.7 % (22.0-35.0); MEAN CELL VOLUME 91.7 fl (80.0-105.0); MEAN CORPUSCULAR HEMOGLOBIN 30.3 pg (25.0-35.0); MEAN CORPUSCULAR HGB CONC 33.1 g/dl (31.0-37.0); MONO # 0.4 (0.1-0.6); MONO % 8.1 % (1.0-6.0); RBC 2.9 10^6/uL (3.5-6.1); RED CELL DISTRIBUTION WIDTH 15.7 % (11.5-14.5); WHITE BLOOD COUNT 4.6 10^3/ul (4.5-11.0)
[2017-09-07 07:47] LABS: ALB/GLOB RATIO 0.4 (1.1-1.8); ALBUMIN 1.8 g/dL (3.0-4.8); CALCIUM 8.3 mg/dL (8.4-10.5)
--- NOTE | 2017-09-07 08:49 | RAD ---
HISTORY: Gibson altered mental status. COMPARISON: 08/30/2017. FINDINGS: LUNGS: No active pulmonary disease. PLEURA: No significant pleural effusion identified, no pneumothorax apparent. CARDIOVASCULAR: No radiographic findings to suggest acute or significant cardiovascular disease. OSSEOUS STRUCTURES: No significant abnormalities. VISUALIZED UPPER ABDOMEN: Normal. OTHER FINDINGS: None. IMPRESSION: No active disease. No significant interval change compared to the prior examination(s).
[2017-09-07] MEDS ORDERED: Magnesium Sulfate 1 gm in D5W 1 GM/100 ML BAG IV ONE (09:17)
--- NOTE | 2017-09-07 09:28 | CP.PCM.CON ---
<Romi Franco - Last Filed: 09/07/17 18:48> History of Present Illness - History of Present Illness History of Present Illness: GI Fellow PGY4 Consult Note This is a 87yF with pmhx of of autoimmune hepatitis, cryptogenic cirrhosis, myelodysplastic syndrome, thrombocytopenia, chronic anemia and hypertension who presented from PCP for abnormal labs. Pt was just discharged from [facility] a few days ago for ascites and HE and had a paracentesis with 3700 cc removed and neg for SBP. Pt is not able to give any pertinent information today, she and all relevant information is obtained from EMR and staff. There is no none prior endoscopies or colonoscopies. She was previously diagnosed with autoimmune hepatitis. RN denies any BRBPR, melena, or hematemesis. Her hgb was found to be 10, baseline 8.5-9. Pt is on lasix and spironolactone and lactulose as outpt. ROS: A 12pt ROS was negative except as above Past medical history: GERD, hypothyroidism, thrombocytopenia, liver cirrhosis, chronic anemia, diabetes mellitus, recurrent UTI, hypertension, myelodysplastic syndrome Past surgical history: Cholecystectomy, right hip fracture with open reduction and internal fixation Social history: History of smoking, occasional wine with dinner, denies drugs Family history: Noncontributory at this time Endoscopy Hx: unknown Past Patient History - Infectious Disease Hx of Infectious Diseases: None - Tetanus Immunizations Tetanus Immunization: Unknown - Past Social History Smoking Status: Unknown If Ever Smoked - CARDIAC Hx Hypertension: Yes - PULMONARY Hx Respiratory Disorders: Yes Hx Pneumonia: Yes - NEUROLOGICAL Hx Neurological Disorder: (syncope) Hx Dizziness: Yes Hx Transient Ischemic Attacks (TIA): No - HEENT Hx HEENT Problems: No - RENAL Hx Chronic Kidney Disease: Yes Other/Comment: uti - ENDOCRINE/METABOLIC Hx Diabetes Mellitus Type 2: Yes - HEMATOLOGICAL/ONCOLOGICAL Hx Blood Disorders: Yes (myelodysplastic syndrome) Hx Anemia: Yes Hx Cirrhosis: Yes (autoimmune hepatitis/hep encephalopathy) - INTEGUMENTARY Hx Dermatological Problems: Yes - MUSCULOSKELETAL/RHEUMATOLOGICAL Hx Falls: Yes - GASTROINTESTINAL Hx Gastrointestinal Disorders: Yes (GERD,CROHNS,CHOLECYSTECTOMY,ULCER) Hx Diverticulitis: Yes Other/Comment: gastritis - GENITOURINARY/GYNECOLOGICAL Hx Genitourinary Disorders: Yes (VRE,ESBL,INCONTINENT,RETENTION) Hx Urinary Tract Infection: Yes Other/Comment: hx urosepsis - PSYCHIATRIC Hx Psychophysiologic Disorder: Yes Hx Anxiety: Yes - SURGICAL HISTORY Hx Cholecystectomy: Yes Hx Orthopedic Surgery: Yes (r hip fx) - ANESTHESIA Hx Anesthesia: No Hx Anesthesia Reactions: No Hx Malignant Hyperthermia: No Meds Allergies/Adverse Reactions: Allergies Allergy/AdvReac Type Severity Reaction Status Date / Time levofloxacin [From Levaquin] Allergy Intermediate RASH Verified 09/06/17 21:49 Penicillins Allergy URTICARIA Verified 09/06/17 21:50 lev Allergy ITCHING Uncoded 09/06/17 21:50 - Medications Medications: Current Medications Furosemide (Lasix) 40 mg IVP DAILY [facility] Magnesium Sulfate/Dextrose (Magnesium Sulfate 1 Gm/100 Ml D5w) 1 gm in 100 mls @ 100 mls/hr IV ONCE ONE Stop: 09/07/17 10:16 Lactulose (Enulose) 20 gm PO BID [facility] Lisinopril (Zestril) 10 mg PO DAILY [facility] Magnesium Oxide (Mag-Ox) 400 mg PO BID [facility] Ondansetron HCl (Zofran Inj) 4 mg IVP Q4H PRN PRN Reason: Nausea/Vomiting Pantoprazole Sodium (Protonix Ec Tab) 40 mg PO 0600 [facility] Last Admin: 09/07/17 05:19 Dose: Not Given Rifaximin (Xifaxan) 550 mg PO BID [facility] PRN Reason: Protocol Spironolactone (Aldactone) 25 mg PO DAILY [facility] Physical Exam - Constitutional Appears: Non-toxic, No Acute Distress, Confused - Head Exam Head Exam: ATRAUMATIC, NORMAL INSPECTION, NORMOCEPHALIC - Eye Exam Eye Exam: EOMI, Normal appearance, PERRL Pupil Exam: PERRL - ENT Exam ENT Exam: Mucous Membranes Moist - Neck Exam Neck exam: Positive for: Normal Inspection - Respiratory Exam Respiratory Exam: Clear to Auscultation Bilateral, NORMAL BREATHING PATTERN - Cardiovascular Exam Cardiovascular Exam: REGULAR RHYTHM - GI/Abdominal Exam GI & Abdominal Exam: Distended, Firm, Normal Bowel Sounds, Tenderness - Rectal Exam Rectal Exam: Deferred - Extremities Exam Extremities exam: Positive for: pedal edema, tenderness - Back Exam Back exam: NORMAL INSPECTION - Neurological Exam Neurological exam: Alert - Psychiatric Exam Psychiatric exam: Agitated - Skin Skin Exam: Dry, Erythema, Intact, Normal Color, Warm Results - Vital Signs Recent Vital Signs: Last Vital Signs Temp 98.6 F 09/07/17 08:38 Pulse 86 09/07/17 08:38 Resp 20 09/07/17 08:38 BP 114/61 09/07/17 08:38 Pulse Ox 100 09/07/17 08:38 - Labs Result Diagrams: 09/07/17 07:00 09/07/17 07:00 Labs: Laboratory Results - last 24 hr 09/06/17 09/07/17 09/07/17 23:11 07:00 07:00 WBC RBC Hgb Hct MCV MCH MCHC RDW Plt Count MPV Gran % Lymph % (Auto) Robeson % (Auto) Eos % (Auto) Baso % (Auto) Gran # Lymph # (Auto) Robeson # (Auto) Eos # (Auto) Baso # (Auto) pO2 VBG pH VBG pCO2 VBG HCO3 VBG Total CO2 VBG O2 Sat (Calc) VBG Base Excess VBG Potassium Sodium 143 Chloride 114 H Glucose Lactate FiO2 Potassium 4.7 Carbon Dioxide 23 Anion Gap 11 BUN 23 H Creatinine 1.2 Est GFR ( Amer) 51 Est GFR (Non-Af Amer) 42 Random Glucose 101 Calcium 8.3 L Magnesium 1.6 L Total Bilirubin 1.3 AST 65 H ALT 42 Alkaline Phosphatase 157 H Ammonia 84 H Total Protein 6.6 Albumin 1.8 L Globulin 4.8 Albumin/Globulin Ratio 0.4 L Venous Blood Potassium Blood Type A POSITIVE Antibody Screen Negative BBK History Checked Patient has bt 09/07/17 09/07/17 09/07/17 07:00 07:00 07:00 WBC 4.6 RBC 2.90 L Hgb 8.8 L D Hct 26.6 L MCV 91.7 MCH 30.3 MCHC 33.1 RDW 15.7 H Plt Count 34 L* MPV 13.0 H Gran % 41.1 L Lymph % (Auto) 44.7 H Robeson % (Auto) 8.1 H Eos % (Auto) 5.7 H Baso % (Auto) 0.4 Gran # 1.87 Lymph # (Auto) 2.0 Robeson # (Auto) 0.4 Eos # (Auto) 0.3 Baso # (Auto) 0.02 pO2 50 VBG pH 7.33 VBG pCO2 45.0 VBG HCO3 23.7 VBG Total CO2 25.1 VBG O2 Sat (Calc) 87.3 H VBG Base Excess -2.4 L VBG Potassium 4.7 Sodium 139.0 Chloride 116.0 H Glucose 98 Lactate 1.4 FiO2 21.0 Potassium Carbon Dioxide Anion Gap BUN Creatinine Est GFR ( Amer) Est GFR (Non-Af Amer) Random Glucose Calcium Magnesium Total Bilirubin AST ALT Alkaline Phosphatase Ammonia 49 H Total Protein Albumin Globulin Albumin/Globulin Ratio Venous Blood Potassium 4.7 Blood Type Antibody Screen BBK History Checked Assessment & Plan - Assessment and Plan (Free Text) Assessment: This is an 87-year-old female with a past medical history of autoimmune hepatitis, myelodysplastic syndrome, thrombocytopenia, chronic anemia and hypertension, cryptogenic cirrhosis who presents with abdominal distention and mild confusion. 1. Decompensated cirrhosis secondary to ascites and HE, MELD 13 2. Acites 3. HE stage 2 4. Anemia P Plan: -MELD 13 -continue lactulose bid until 2-3 BM daily -continue xifaxan 550mg bid -recommend abd U/S to evaluate ascities -may benefit from therapeutic abdominal paracentesis, will need to send fluid studies to r/o SBP -If more than 5L removed, will need albumin repletion -Anemia stable with hgb 10.6 -Low salt diet -Lasix and spironolactone 100mg daily, hold lisinopril -Will continue to follow closely <Angelia Curry - Last Filed: 09/07/17 19:22> Meds - Medications Medications: Current Medications Amlodipine Besylate (Norvasc) 10 mg PO DAILY [facility] Last Admin: 09/07/17 18:02 Dose: 10 mg Furosemide (Lasix) 40 mg IVP DAILY [facility] Last Admin: 09/07/17 10:56 Dose: 40 mg Lactulose (Enulose) 20 gm PO BID [facility] Last Admin: 09/07/17 18:02 Dose: 20 gm Magnesium Oxide (Mag-Ox) 400 mg PO BID [facility] Last Admin: 09/07/17 18:01 Dose: 400 mg Ondansetron HCl (Zofran Inj) 4 mg IVP Q4H PRN PRN Reason: Nausea/Vomiting Pantoprazole Sodium (Protonix Ec Tab) 40 mg PO 0600 [facility] Last Admin: 09/07/17 05:19 Dose: Not Given Rifaximin (Xifaxan) 550 mg PO BID [facility] PRN Reason: Protocol Last Admin: 09/07/17 18:01 Dose: 550 mg Spironolactone (Aldactone) 100 mg PO DAILY [facility] Results - Vital Signs Recent Vital Signs: Last Vital Signs Temp 99.7 F H 09/07/17 16:00 Pulse 89 09/07/17 16:00 Resp 20 09/07/17 16:00 BP 162/67 H 09/07/17 18:02 Pulse Ox 99 09/07/17 16:00 - Labs Result Diagrams: 09/07/17 07:00 09/07/17 07:00 Labs: Laboratory Results - last 24 hr 09/06/17 09/07/17 09/07/17 23:11 07:00 07:00 WBC RBC Hgb Hct MCV MCH MCHC RDW Plt Count MPV Gran % Lymph % (Auto) Robeson % (Auto) Eos % (Auto) Baso % (Auto) Gran # Lymph # (Auto) Robeson # (Auto) Eos # (Auto) Baso # (Auto) pO2 VBG pH VBG pCO2 VBG HCO3 VBG Total CO2 VBG O2 Sat (Calc) VBG Base Excess VBG Potassium Sodium 143 Chloride 114 H Glucose Lactate FiO2 Potassium 4.7 Carbon Dioxide 23 Anion Gap 11 BUN 23 H Creatinine 1.2 Est GFR ( Amer) 51 Est GFR (Non-Af Amer) 42 Random Glucose 101 Calcium 8.3 L Magnesium 1.6 L Total Bilirubin 1.3 AST 65 H ALT 42 Alkaline Phosphatase 157 H Ammonia 84 H Total Protein 6.6 Albumin 1.8 L Globulin 4.8 Albumin/Globulin Ratio 0.4 L Venous Blood Potassium Blood Type A POSITIVE Antibody Screen Negative BBK History Checked Patient has bt 09/07/17 09/07/17 09/07/17 07:00 07:00 07:00 WBC 4.6 RBC 2.90 L Hgb 8.8 L D Hct 26.6 L MCV 91.7 MCH 30.3 MCHC 33.1 RDW 15.7 H Plt Count 34 L* MPV 13.0 H Gran % 41.1 L Lymph % (Auto) 44.7 H Robeson % (Auto) 8.1 H Eos % (Auto) 5.7 H Baso % (Auto) 0.4 Gran # 1.87 Lymph # (Auto) 2.0 Robeson # (Auto) 0.4 Eos # (Auto) 0.3 Baso # (Auto) 0.02 pO2 50 VBG pH 7.33 VBG pCO2 45.0 VBG HCO3 23.7 VBG Total CO2 25.1 VBG O2 Sat (Calc) 87.3 H VBG Base Excess -2.4 L VBG Potassium 4.7 Sodium 139.0 Chloride 116.0 H Glucose 98 Lactate 1.4 FiO2 21.0 Potassium Carbon Dioxide Anion Gap BUN Creatinine Est GFR ( Amer) Est GFR (Non-Af Amer) Random Glucose Calcium Magnesium Total Bilirubin AST ALT Alkaline Phosphatase Ammonia 49 H Total Protein Albumin Globulin Albumin/Globulin Ratio Venous Blood Potassium 4.7 Blood Type Antibody Screen BBK History Checked Attending/Attestation - Attestation I have personally seen and examined this patient.: Yes I have fully participated in the care of the patient.: Yes I have reviewed all pertinent clinical information: Yes Notes (Text): 09/07/17 19:15 Patient seen with GI fellow. This is a 87 year old female with history of autoimmune hepatitis (not biopsy proven), myelodysplastic syndrome ?, thrombocytopenia, chronic anemia, hypertension and cryptogenic cirrhosis presents with fluid overload. Discharged few days ago. Will increase aldactone to 100 mg po daily and lasix at 40 mg po daily. Will continue lactulose daily- titrate to till 2 BM/day. Current MELD score 17. Low salt diet.
[2017-09-07] MEDS: Magnesium Oxide 400 mg Tab UD PO SCH ×2 (10:58→18:01)
--- NOTE | 2017-09-07 12:20 | PN ---
DATE: SUBJECTIVE: The patient is 87 years old seen and examined, lying in bed, complained of aches and pains, complained of back pain, complained of leg pain. PHYSICAL EXAMINATION VITAL SIGNS: She is afebrile, pulse 86, respirations 20, blood pressure 114/61. LUNGS: Bilateral clear air flow. No rhonchi or crackles. HEART: S1 and S2 audible. ABDOMEN: Soft. No rebound, no guarding. EXTREMITIES: Bilateral legs, +2 edema. NEUROLOGIC: She does have ascites. LABORATORY EXAM: WBC is 4.6, hemoglobin 8.8, hematocrit 26.6, platelets of 34,000. Chemistry: Sodium 143, potassium 4.7, chloride 114, CO2 23, BUN 23, creatinine 1.2, blood sugar of 101, magnesium 1.6, total bili 1.3. Ammonia level last night was 84, it is 49 now. ASSESSMENT 1. Status post hepatic encephalopathy. 2. Cirrhosis of liver. 3. Autoimmune hepatitis. 4. Anemia. 5. Pancytopenia. 6. Myelodysplastic syndrome. 7. Hypomagnesemia. 8. Bilateral leg edema. PLAN: Continue the patient on spironolactone, lactulose, Lasix and magnesium. Dr. Denzel Weston to evaluate the patient if she needs paracentesis. We will follow up her CBC and CMP in the morning. Kamaljit Pena MD
--- NOTE | 2017-09-07 17:15 | CARD ---
APPROVED REPORT EKG Measurement Heart [id number] <Conclusion> Sinus rhythm Left axis deviation Right bundle branch block Septal infarct, age undetermined Possible Lateral infarct, age undetermined Abnormal ECG
[2017-09-08 06:25] LABS: BASO # 0.02 K/mm3 (0.0-2.0); BASO % 0.4 % (0.0-3.0); EOS # 0.2 (0.0-0.7); EOS % 5.2 % (1.5-5.0); GRAN # 1.98 (1.4-6.5); GRAN % 42.8 % (50.0-68.0); HEMOGLOBIN 8.2 g/dL (12.0-16.0); LYMPH % 42.3 % (22.0-35.0); MEAN CELL VOLUME 92.3 fl (80.0-105.0); MEAN CORPUSCULAR HEMOGLOBIN 30.3 pg (25.0-35.0); MEAN CORPUSCULAR HGB CONC 32.8 g/dl (31.0-37.0); MEAN PLATELET VOLUME 10.8 fl (7.0-11.0); MONO # 0.4 (0.1-0.6); MONO % 9.3 % (1.0-6.0); RBC 2.71 10^6/uL (3.5-6.1); RED CELL DISTRIBUTION WIDTH 15.8 % (11.5-14.5); WHITE BLOOD COUNT 4.6 10^3/ul (4.5-11.0)
[2017-09-08] MEDS: Pantoprazole 40 mg EC Tab PO SCH (06:34)
[2017-09-08 07:05] LABS: ALB/GLOB RATIO 0.4 (1.1-1.8); ALBUMIN 1.7 g/dL (3.0-4.8); CALCIUM 8.2 mg/dL (8.4-10.5)
--- NOTE | 2017-09-08 09:04 | CP.PCM.PN ---
<Romi Franco - Last Filed: 09/08/17 09:04> Subjective - Date & Time of Evaluation Date of Evaluation: 09/08/17 Time of Evaluation: 07:00 - Subjective Subjective: GI Fellow PGY4 Progress Note Pt seen and evaluated at bedside, pt doing okay with no complaints. Pt a little confused and frustrated. +BM ROS: A 12pt ROS was negative except as above. Objective - Vital Signs/Intake and Output Vital Signs (last 24 hours): Temp Pulse Resp BP Pulse Ox 97.5 F L 81 20 110/48 L 100 09/08/17 08:17 09/08/17 08:17 09/08/17 08:17 09/08/17 08:17 09/08/17 08:17 Intake and Output: 09/08/17 09/08/17 06:59 18:59 Intake Total 420 Balance 420 - Medications Medications: Current Medications Amlodipine Besylate (Norvasc) 10 mg PO DAILY [facility] Last Admin: 09/07/17 18:02 Dose: 10 mg Furosemide (Lasix) 40 mg IVP DAILY [facility] Last Admin: 09/07/17 10:56 Dose: 40 mg Lactulose (Enulose) 20 gm PO BID [facility] Last Admin: 09/07/17 18:02 Dose: 20 gm Magnesium Oxide (Mag-Ox) 400 mg PO BID [facility] Last Admin: 09/07/17 18:01 Dose: 400 mg Ondansetron HCl (Zofran Inj) 4 mg IVP Q4H PRN PRN Reason: Nausea/Vomiting Pantoprazole Sodium (Protonix Ec Tab) 40 mg PO 0600 [facility] Last Admin: 09/08/17 06:34 Dose: Not Given Rifaximin (Xifaxan) 550 mg PO BID [facility] PRN Reason: Protocol Last Admin: 09/07/17 18:01 Dose: 550 mg Spironolactone (Aldactone) 100 mg PO DAILY [facility] - Labs Labs: 09/08/17 05:30 09/08/17 05:30 PT 16.8 SECONDS (9.4-12.5) H 09/06/17 22:20 INR 1.46 (0.93-1.08) H 09/06/17 22:20 APTT 33.8 Seconds (25.1-36.5) 09/06/17 22:20 - Constitutional Appears: Non-toxic, No Acute Distress - Head Exam Head Exam: ATRAUMATIC, NORMAL INSPECTION, NORMOCEPHALIC - Eye Exam Eye Exam: EOMI, Normal appearance, PERRL Pupil Exam: PERRL - ENT Exam ENT Exam: Mucous Membranes Dry - Respiratory Exam Respiratory Exam: Clear to Ausculation Bilateral, NORMAL BREATHING PATTERN - Cardiovascular Exam Cardiovascular Exam: REGULAR RHYTHM - GI/Abdominal Exam GI & Abdominal Exam: Distended, Soft, Normal Bowel Sounds. absent: Rigid, Tenderness - Extremities Exam Extremities Exam: Pedal Edema - Neurological Exam Neurological Exam: Alert, Awake - Psychiatric Exam Psychiatric exam: Agitated - Skin Skin Exam: Dry, Intact, Normal Color, Warm Assessment and Plan - Assessment and Plan (Free Text) Assessment: This is an 87-year-old female with a past medical history of autoimmune hepatitis, myelodysplastic syndrome, thrombocytopenia, chronic anemia and hypertension, cryptogenic cirrhosis who presents with abdominal distention and mild confusion. 1. Decompensated cirrhosis secondary to ascites and HE, MELD 13 on admission 2. Acites 3. HE stage 2 4. Anemia Plan: -continue lactulose bid until 2-3 BM daily -continue xifaxan 550mg bid -recommend therapeutic abdominal paracentesis, will need to send fluid studies to r/o SBP -If more than 5L removed, will need albumin repletion -Anemia stable with hgb, no bleeding -Low salt diet -Lasix and spironolactone 100mg daily, hold lisinopril -Fecal calprotectini -Will continue to follow closely <Kishan Ball - Last Filed: 09/08/17 09:07> Objective - Vital Signs/Intake and Output Vital Signs (last 24 hours): Temp Pulse Resp BP Pulse Ox 97.5 F L 81 20 110/48 L 100 09/08/17 08:17 09/08/17 08:17 09/08/17 08:17 09/08/17 08:17 09/08/17 08:17 Intake and Output: 09/08/17 09/08/17 06:59 18:59 Intake Total 420 Balance 420 - Medications Medications: Current Medications Amlodipine Besylate (Norvasc) 10 mg PO DAILY [facility] Last Admin: 09/07/17 18:02 Dose: 10 mg Furosemide (Lasix) 40 mg IVP DAILY [facility] Last Admin: 09/07/17 10:56 Dose: 40 mg Lactulose (Enulose) 20 gm PO BID [facility] Last Admin: 09/07/17 18:02 Dose: 20 gm Magnesium Oxide (Mag-Ox) 400 mg PO BID [facility] Last Admin: 09/07/17 18:01 Dose: 400 mg Ondansetron HCl (Zofran Inj) 4 mg IVP Q4H PRN PRN Reason: Nausea/Vomiting Pantoprazole Sodium (Protonix Ec Tab) 40 mg PO 0600 [facility] Last Admin: 09/08/17 06:34 Dose: Not Given Rifaximin (Xifaxan) 550 mg PO BID [facility] PRN Reason: Protocol Last Admin: 09/07/17 18:01 Dose: 550 mg Spironolactone (Aldactone) 100 mg PO DAILY [facility] - Labs Labs: 09/08/17 05:30 09/08/17 05:30 PT 16.8 SECONDS (9.4-12.5) H 09/06/17 22:20 INR 1.46 (0.93-1.08) H 09/06/17 22:20 APTT 33.8 Seconds (25.1-36.5) 09/06/17 22:20 Attending/Attestation - Attestation I have personally seen and examined this patient.: Yes I have fully participated in the care of the patient.: Yes I have reviewed all pertinent clinical information, including history, physical exam and plan: Yes Notes (Text): 09/08/17 09:06 87 year old female with h/o cirrhosis admitted with hepatic encephalopathy and ascites. REcommend lactulose/rifaxamin. Recommend paracentesis. Supportive care. Check fecal calpro considering questionable h/o colitis.
[2017-09-08] MEDS: Magnesium Oxide 400 mg Tab UD PO SCH ×2 (10:50→18:49)
[2017-09-08] MEDS: Meropenem 500 MG in Sodium Chloride 0.9% 50 ML IVPB SCH (21:43)
--- NOTE | 2017-09-09 05:10 | CON ---
DATE: 09/08/2017 LOCATION: The patient is seen earlier today in room 370, bed 1. CHIEF COMPLAINT: The patient has periods of confusion and unable to get accurate history, times 1 day duration. HISTORY OF PRESENT ILLNESS: This is an 87-year-old female coming from a [place] [facility] with a history of myelodysplastic syndrome, autoimmune hepatitis, history of morbid obesity, history of hypothyroidism, history of recurrent urinary tract infection, liver cirrhosis, hypertension and diabetes, who is admitted with diagnosis of hepatic encephalopathy and ascites. Infectious Disease consultation requested. The patient is confused at this point. There have been no fevers reported. REVIEW OF SYSTEMS: Reveals no fevers reported, no chills reported and it is unclear if there has been any abdominal pain or diarrhea or constipation and no headaches or blurred vision. PAST MEDICAL HISTORY: Significant for myelodysplastic syndrome, autoimmune hepatitis, obesity, hypothyroidism, recurrent urinary tract infection, liver cirrhosis, hypertension, diabetes. PAST SURGICAL HISTORY: Significant for right hip surgery and cholecystectomy. ALLERGIES: THE PATIENT IS ALLERGIC TO LEVAQUIN AND PENICILLIN. MEDICATIONS: At [place] [facility] includes spironolactone, Zofran, furosemide, rifaximin, Protonix, lisinopril. PHYSICAL EXAMINATION: GENERAL: The patient is in bed, in no acute distress. She is somewhat confused to person and place. VITAL SIGNS: Temperature 99.7, heart rate of 81, blood pressure is 110/40, respiratory rate of 20. The patient's oxygen saturation is noted at 99. HEENT: Unremarkable. NECK: Supple. LUNGS: Decreased breath sounds. HEART: Normal S1, S2. ABDOMEN: Soft, nontender, no rebound, no guarding, no masses. LABORATORY DATA: Reveals white count of 4.6, hemoglobin of 8, platelets of 31, and coagulation is noted. Chemistries revealed a BUN of 24, creatinine of 1.3, AST is 79, ALT is 50, alkaline phosphatase is 152. The patient had a chest x-ray which was negative. Blood cultures, which were negative. ASSESSMENT AND PLAN: This is an 87-year-old female, a [place] [facility] patient, with myelodysplastic syndrome, autoimmune hepatitis, obesity, hypothyroidism, recurrent urinary tract infection, liver cirrhosis, hypertension, diabetes and the patient with a history of; 1. The patient is admitted with confusion, change of mental status and must rule out spontaneous bacterial peritonitis versus urine as the source of infection for the change in mental status. We will start the patient on meropenem and order urinalysis and urine cultures. I will check on the cell count in the ascitic fluid and cultures from the ascitic fluid. We will make further recommendations upon availability of initial results. We will follow closely with you. Arden Byrne MD
[2017-09-09] MEDS: Meropenem 500 MG in Sodium Chloride 0.9% 50 ML IVPB SCH ×3 (05:18→21:30)
[2017-09-09] MEDS: Pantoprazole 40 mg EC Tab PO SCH (05:18)
--- NOTE | 2017-09-09 07:36 | CP.PCM.PN ---
<Romi Franco - Last Filed: 09/09/17 08:59> Subjective - Date & Time of Evaluation Date of Evaluation: 09/09/17 Time of Evaluation: 07:00 - Subjective Subjective: GI Fellow PGY4 Progress Note Pt seen and evaluated at bedside, pt doing okay with no complaints of N/V, mild abdominal pain. Pt a little confused and frustrated. +BM ROS: A 12pt ROS was negative except as above. Objective - Vital Signs/Intake and Output Vital Signs (last 24 hours): Temp Pulse Resp BP Pulse Ox 97.5 F L 83 20 101/48 L 100 09/08/17 08:17 09/08/17 22:00 09/08/17 08:17 09/08/17 10:50 09/08/17 08:17 Intake and Output: 09/09/17 09/09/17 06:59 18:59 Intake Total 300 Balance 300 - Medications Medications: Current Medications Amlodipine Besylate (Norvasc) 10 mg PO DAILY [facility] Last Admin: 09/08/17 10:50 Dose: Not Given Furosemide (Lasix) 40 mg IVP DAILY [facility] Last Admin: 09/08/17 10:49 Dose: 40 mg Meropenem 500 mg/ Sodium (Chloride) 50 mls @ 100 mls/hr IVPB Q8 [facility] PRN Reason: Protocol Stop: 09/17/17 22:01 Last Admin: 09/09/17 05:18 Dose: 100 mls/hr Lactulose (Enulose) 20 gm PO BID [facility] Last Admin: 09/08/17 18:49 Dose: 20 gm Magnesium Oxide (Mag-Ox) 400 mg PO BID [facility] Last Admin: 09/08/17 18:49 Dose: 400 mg Ondansetron HCl (Zofran Inj) 4 mg IVP Q4H PRN PRN Reason: Nausea/Vomiting Pantoprazole Sodium (Protonix Ec Tab) 40 mg PO 0600 [facility] Last Admin: 09/09/17 05:18 Dose: 40 mg Rifaximin (Xifaxan) 550 mg PO BID [facility] PRN Reason: Protocol Last Admin: 09/08/17 18:49 Dose: 550 mg Spironolactone (Aldactone) 100 mg PO DAILY [facility] Last Admin: 09/08/17 10:49 Dose: 100 mg - Labs Labs: 09/08/17 05:30 09/08/17 05:30 PT 16.8 SECONDS (9.4-12.5) H 09/06/17 22:20 INR 1.46 (0.93-1.08) H 09/06/17 22:20 APTT 33.8 Seconds (25.1-36.5) 09/06/17 22:20 - Constitutional Appears: Non-toxic, No Acute Distress - Head Exam Head Exam: ATRAUMATIC, NORMAL INSPECTION, NORMOCEPHALIC - Eye Exam Eye Exam: EOMI, Normal appearance, PERRL - ENT Exam ENT Exam: Mucous Membranes Dry - Respiratory Exam Respiratory Exam: Decreased Breath Sounds, Wheezes, NORMAL BREATHING PATTERN - Cardiovascular Exam Cardiovascular Exam: REGULAR RHYTHM - GI/Abdominal Exam GI & Abdominal Exam: Distended, Firm, Tenderness, Normal Bowel Sounds. absent: Guarding, Rigid, Organomegaly - Extremities Exam Extremities Exam: Pedal Edema - Neurological Exam Neurological Exam: Alert, Awake - Psychiatric Exam Psychiatric exam: Normal Affect, Normal Mood - Skin Skin Exam: Dry, Erythema, Intact, Normal Color, Warm Assessment and Plan - Assessment and Plan (Free Text) Assessment: This is an 87-year-old female with a past medical history of autoimmune hepatitis, myelodysplastic syndrome, thrombocytopenia, chronic anemia and hypertension, cryptogenic cirrhosis who presents with abdominal distention and mild confusion. 1. Decompensated cirrhosis secondary to ascites and HE, MELD 13 on admission 2. Acites 3. HE stage 2 4. Anemia Plan: -Continue supportive care -continue lactulose bid until 2-3 BM daily -continue xifaxan 550mg bid -Plan for paracentesis today, will need to send fluid studies to r/o SBP -If more than 5L removed, will need albumin repletion -Anemia stable with hgb, no bleeding -Low salt diet -Recommend changing to po Lasix as Cr is rising -Continue spironolactone 100mg daily, hold lisinopril -Fecal calprotectin with hx of colitis -IV abx per ID for VRE -Please call with any questions or concerns <Alessandro Noble - Last Filed: 09/09/17 14:40> Objective - Vital Signs/Intake and Output Vital Signs (last 24 hours): Temp Pulse Resp BP Pulse Ox 97.7 F 76 20 128/60 98 09/09/17 06:00 09/09/17 06:00 09/09/17 06:00 09/09/17 11:36 09/09/17 06:00 Intake and Output: 09/09/17 09/09/17 06:59 18:59 Intake Total 300 Balance 300 - Medications Medications: Current Medications Amlodipine Besylate (Norvasc) 10 mg PO DAILY [facility] Last Admin: 09/09/17 11:36 Dose: 10 mg Furosemide (Lasix) 40 mg IVP DAILY [facility] Last Admin: 09/09/17 11:35 Dose: 40 mg Meropenem 500 mg/ Sodium (Chloride) 50 mls @ 100 mls/hr IVPB Q8 [facility] PRN Reason: Protocol Stop: 09/17/17 22:01 Last Admin: 09/09/17 05:18 Dose: 100 mls/hr Lactulose (Enulose) 20 gm PO TID [facility] Magnesium Oxide (Mag-Ox) 400 mg PO BID [facility] Last Admin: 09/09/17 11:36 Dose: 400 mg Ondansetron HCl (Zofran Inj) 4 mg IVP Q4H PRN PRN Reason: Nausea/Vomiting Pantoprazole Sodium (Protonix Ec Tab) 40 mg PO 0600 [facility] Last Admin: 09/09/17 05:18 Dose: 40 mg Rifaximin (Xifaxan) 550 mg PO BID [facility] PRN Reason: Protocol Last Admin: 09/09/17 11:37 Dose: 550 mg Spironolactone (Aldactone) 100 mg PO DAILY [facility] Last Admin: 09/09/17 11:36 Dose: 100 mg - Labs Labs: 09/09/17 06:00 09/09/17 06:00 PT 16.8 SECONDS (9.4-12.5) H 09/06/17 22:20 INR 1.46 (0.93-1.08) H 09/06/17 22:20 APTT 33.8 Seconds (25.1-36.5) 09/06/17 22:20 Attending/Attestation - Attestation I have personally seen and examined this patient.: Yes I have fully participated in the care of the patient.: Yes I have reviewed all pertinent clinical information, including history, physical exam and plan: Yes Notes (Text): 09/09/17 14:35 I have seen and examined patient with GI fellow. No acute events overnight, she is seen resting comfortably in bed, patient daughter at bedside. She denies abdominal pain, nausea, vomiting, fever/chills. S/p paracentesis with reported 4 liters fluid removed. MDS AIH? Cryptogenic decompensated cirrhosis Hepatic encephalopathy Ascites - Low sodium diet as tolerated - Awaiting results of ascitic fluid studies - Continue with lactulose/xifaxan therapy for HE prevention - Continue with antibiotic therapy as per ID - Continue with diuretic regimen, monitor creatinine - Ultimately patient would benefit from evaluation at tertiary care facility for consideration of routine outpatient paracentesis. Patient is unlikely transplant candidate due to advanced age and medical comorbidities. Will continue to monitor patient clinical course.
[2017-09-09 07:42] LABS: BASO # 0.02 K/mm3 (0.0-2.0); BASO % 0.5 % (0.0-3.0); EOS # 0.2 (0.0-0.7); EOS % 6.1 % (1.5-5.0); GRAN # 1.35 (1.4-6.5); GRAN % 35.9 % (50.0-68.0); LYMPH # 1.7 (1.2-3.4); LYMPH % 44.7 % (22.0-35.0); MEAN CELL VOLUME 91.7 fl (80.0-105.0); MEAN CORPUSCULAR HEMOGLOBIN 30.2 pg (25.0-35.0); MEAN CORPUSCULAR HGB CONC 32.9 g/dl (31.0-37.0); MEAN PLATELET VOLUME 12.3 fl (7.0-11.0); MONO # 0.5 (0.1-0.6); MONO % 12.8 % (1.0-6.0); RBC 2.65 10^6/uL (3.5-6.1); RED CELL DISTRIBUTION WIDTH 15.6 % (11.5-14.5); WHITE BLOOD COUNT 3.8 10^3/ul (4.5-11.0)
[2017-09-09 08:18] LABS: ALB/GLOB RATIO 0.4 (1.1-1.8); ALBUMIN 1.7 g/dL (3.0-4.8); CALCIUM 7.9 mg/dL (8.4-10.5)
--- NOTE | 2017-09-09 09:40 | PN ---
DATE: 09/08/2017 SUBJECTIVE: The patient is an 87-year-old, seen and examined, fully awake, alert, and oriented. Daughter was at the bedside. She did eat well. PHYSICAL EXAMINATION VITAL SIGNS: She is afebrile, pulse 81, respirations 20, blood pressure 101/48. LUNGS: Bilateral fair airflow. No rhonchi or crackle. HEART: S1 and S2 audible. ABDOMEN: Soft. Has positive ascites and dull percussion note. EXTREMITIES: Bilateral leg +2 edema. LABORATORY DATA: WBC is 4.6, hemoglobin 8.2, hematocrit 25, platelets 31. Chemistry: Sodium 141, potassium 4.9, chloride 114, CO2 23, BUN 24, creatinine 1.3, blood sugar of 110. Magnesium is 1.7. ASSESSMENT: 1. Cardiac encephalopathy. 2. Cirrhotic ascites. 3. Pancytopenia. 4. Myelodysplastic syndrome. 5. Electrolyte imbalance. 6. Morbid obesity. 7. Deconditioning and difficulty walking. PLAN: The patient refused paracentesis yesterday; however, she is agreeable today. She will be taken by Dr. Denzel Weston for paracentesis and daughter wants to accompany her. We will follow up her CBC and CMP. Kamaljit Pena MD
[2017-09-09] MEDS: Magnesium Oxide 400 mg Tab UD PO SCH ×2 (11:36→17:57)
--- NOTE | 2017-09-09 18:42 | CP.PCM.PN ---
Subjective - Date & Time of Evaluation Date of Evaluation: 09/09/17 Time of Evaluation: 10:30 - Subjective Subjective: Comfortable, no fevers, not in distress, no abdominal pain currently. Objective - Vital Signs/Intake and Output Vital Signs (last 24 hours): Temp Pulse Resp BP Pulse Ox 97.5 F L 83 20 101/48 L 100 09/08/17 08:17 09/08/17 22:00 09/08/17 08:17 09/08/17 10:50 09/08/17 08:17 Intake and Output: 09/08/17 09/09/17 18:59 06:59 Intake Total 300 Balance 300 - Medications Medications: Current Medications Amlodipine Besylate (Norvasc) 10 mg PO DAILY [facility] Last Admin: 09/08/17 10:50 Dose: Not Given Furosemide (Lasix) 40 mg IVP DAILY [facility] Last Admin: 09/08/17 10:49 Dose: 40 mg Meropenem 500 mg/ Sodium (Chloride) 50 mls @ 100 mls/hr IVPB Q8 [facility] PRN Reason: Protocol Stop: 09/17/17 22:01 Last Admin: 09/09/17 05:18 Dose: 100 mls/hr Lactulose (Enulose) 20 gm PO BID [facility] Last Admin: 09/08/17 18:49 Dose: 20 gm Magnesium Oxide (Mag-Ox) 400 mg PO BID [facility] Last Admin: 09/08/17 18:49 Dose: 400 mg Ondansetron HCl (Zofran Inj) 4 mg IVP Q4H PRN PRN Reason: Nausea/Vomiting Pantoprazole Sodium (Protonix Ec Tab) 40 mg PO 0600 [facility] Last Admin: 09/09/17 05:18 Dose: 40 mg Rifaximin (Xifaxan) 550 mg PO BID [facility] PRN Reason: Protocol Last Admin: 09/08/17 18:49 Dose: 550 mg Spironolactone (Aldactone) 100 mg PO DAILY [facility] Last Admin: 09/08/17 10:49 Dose: 100 mg - Labs Labs: 09/08/17 05:30 09/08/17 05:30 PT 16.8 SECONDS (9.4-12.5) H 09/06/17 22:20 INR 1.46 (0.93-1.08) H 09/06/17 22:20 APTT 33.8 Seconds (25.1-36.5) 09/06/17 22:20 - Constitutional Appears: Chronically Ill - Head Exam Head Exam: NORMAL INSPECTION - ENT Exam ENT Exam: Mucous Membranes Moist - Neck Exam Neck Exam: absent: Meningismus - Respiratory Exam Respiratory Exam: Decreased Breath Sounds - Cardiovascular Exam Cardiovascular Exam: +S1, +S2 - GI/Abdominal Exam GI & Abdominal Exam: Soft. absent: Tenderness Assessment and Plan - Assessment and Plan (Free Text) Plan: Assessment R/O SBP, R/O UTI hepatic metabolic encephalopathy history of sepsis secondary to E. coli and E. faecalis UTI, slowly improving history of urinary tract infection with Citrobacter and Enterobacter, S/P treatment and clinically better history of E. faecium UTI history of healthcare-associated pneumonia history of chronic thrombocytopenia history of urinary tract infection with ESBL E. coli S/P UTI with Hafnei alvei Myelodysplastic syndrome DM HTN Hypothyroidism history of right hip surgery S/P cholecystectomy liver cirrhosis GERD Plan continue Merrem pending urine cx and plan for paracentesis for ascitic fluid analysis overall prognosis is poor
--- NOTE | 2017-09-09 18:56 | US ---
PROCEDURE: Ultrasound guided paracentesis. HISTORY: Recurrent ascites with abdominal pain and distension. Needs repeat paracentesis. PHYSICIAN(S): Denzel Weston MD. TECHNIQUE: The relative risks and indications for the procedure were explained to the patient's family and informed written consent obtained. Sonography of the abdomen was performed in a supine position. This revealed a small to moderate amount of non-loculated ascites, greatest in the right lower quadrant. A puncture site was selected and the area was prepped and draped in the usual sterile fashion. 1% Xylocaine was used to anesthetize the skin and soft tissues. A 7 [place] paracentesis catheter was trocared into the right lower quadrantand 4100 cc of clear, straw-colored fluid aspirated. No labs were sent IMPRESSION: Ultrasound-guided paracentesis in the right lower quadrant. 4100 cc of fluid were aspirated.
[2017-09-10] MEDS: Meropenem 500 MG in Sodium Chloride 0.9% 50 ML IVPB SCH ×3 (05:16→21:41)
[2017-09-10] MEDS: Pantoprazole 40 mg EC Tab PO SCH (05:17)
--- NOTE | 2017-09-10 06:54 | CP.PCM.PN ---
<Romi Franco - Last Filed: 09/10/17 09:45> Subjective - Date & Time of Evaluation Date of Evaluation: 09/10/17 Time of Evaluation: 08:00 - Subjective Subjective: GI Fellow PGY4 Progress Note Pt seen and evaluated at bedside, pt doing okay with no complaints of N/V, abdominal pain. Pt is s/p paracentesis and reports improved breathing. +BM ROS: A 12pt ROS was negative except as above. Objective - Vital Signs/Intake and Output Vital Signs (last 24 hours): Temp Pulse Resp BP Pulse Ox 98.1 F 88 19 114/64 97 09/09/17 23:30 09/10/17 05:06 09/09/17 23:30 09/09/17 23:30 09/09/17 23:30 Intake and Output: 09/09/17 09/10/17 18:59 06:59 Intake Total 900 Output Total 1 Balance 899 - Medications Medications: Current Medications Amlodipine Besylate (Norvasc) 10 mg PO DAILY [facility] Last Admin: 09/09/17 11:36 Dose: 10 mg Furosemide (Lasix) 40 mg IVP DAILY [facility] Last Admin: 09/09/17 11:35 Dose: 40 mg Meropenem 500 mg/ Sodium (Chloride) 50 mls @ 100 mls/hr IVPB Q8 [facility] PRN Reason: Protocol Stop: 09/17/17 22:01 Last Admin: 09/10/17 05:16 Dose: 100 mls/hr Lactulose (Enulose) 20 gm PO TID [facility] Last Admin: 09/09/17 17:57 Dose: 20 gm Magnesium Oxide (Mag-Ox) 400 mg PO BID [facility] Last Admin: 09/09/17 17:57 Dose: 400 mg Ondansetron HCl (Zofran Inj) 4 mg IVP Q4H PRN PRN Reason: Nausea/Vomiting Pantoprazole Sodium (Protonix Ec Tab) 40 mg PO 0600 [facility] Last Admin: 09/10/17 05:17 Dose: 40 mg Rifaximin (Xifaxan) 550 mg PO BID [facility] PRN Reason: Protocol Last Admin: 09/09/17 17:57 Dose: 550 mg Spironolactone (Aldactone) 100 mg PO DAILY [facility] Last Admin: 09/09/17 11:36 Dose: 100 mg - Labs Labs: 09/09/17 06:00 09/09/17 06:00 PT 16.8 SECONDS (9.4-12.5) H 09/06/17 22:20 INR 1.46 (0.93-1.08) H 09/06/17 22:20 APTT 33.8 Seconds (25.1-36.5) 09/06/17 22:20 - Constitutional Appears: Non-toxic, No Acute Distress - Head Exam Head Exam: ATRAUMATIC, NORMAL INSPECTION, NORMOCEPHALIC - Eye Exam Eye Exam: EOMI, Normal appearance, PERRL - ENT Exam ENT Exam: Mucous Membranes Dry - Respiratory Exam Respiratory Exam: Clear to Ausculation Bilateral, NORMAL BREATHING PATTERN - Cardiovascular Exam Cardiovascular Exam: REGULAR RHYTHM - GI/Abdominal Exam GI & Abdominal Exam: Soft, Normal Bowel Sounds. absent: Distended, Tenderness - Extremities Exam Extremities Exam: Pedal Edema - Neurological Exam Neurological Exam: Alert, Awake - Psychiatric Exam Psychiatric exam: Normal Affect, Normal Mood - Skin Skin Exam: Dry, Erythema, Intact, Normal Color, Warm Assessment and Plan - Assessment and Plan (Free Text) Assessment: This is an 87-year-old female with a past medical history of autoimmune hepatitis, myelodysplastic syndrome, thrombocytopenia, chronic anemia and hypertension, cryptogenic cirrhosis who presents with abdominal distention and mild confusion. 1. Decompensated cirrhosis secondary to ascites and HE, MELD 13 on admission 2. Acites 3. HE stage 2 4. Anemia -Continue supportive care -continue lactulose bid until 2-3 BM daily -continue xifaxan 550mg bid -Plan for paracentesis today, will need to send fluid studies to r/o SBP -If more than 5L removed, will need albumin repletion -Anemia stable with hgb, no bleeding -Low salt diet -Recommend changing to po Lasix as Cr is rising -Continue spironolactone 100mg daily, hold lisinopril -Fecal calprotectin with hx of colitis -IV abx per ID for VRE -Please call with any questions or concerns Plan: -Continue supportive care -continue lactulose bid until 2-3 BM daily -continue xifaxan 550mg bid -s/p paracentesis 4.1L removed, no fluid studies sent to r/o SBP even though ordered -Monitor renal function with IV lasixs and paracentesis for need of albumin repletion -Anemia stable with hgb, no bleeding -Low salt diet -Recommend changing to po Lasix as Cr is rising -Continue spironolactone 100mg daily, hold lisinopril -Fecal calprotectin with hx of colitis -IV abx per ID for VRE -Please call with any questions or concerns <Angelia Curry - Last Filed: 09/10/17 14:55> Objective - Vital Signs/Intake and Output Vital Signs (last 24 hours): Temp Pulse Resp BP Pulse Ox 98.1 F 85 19 118/60 97 09/09/17 23:30 09/10/17 10:00 09/09/17 23:30 09/10/17 10:51 09/09/17 23:30 Intake and Output: 09/10/17 09/10/17 06:59 18:59 Intake Total 900 Output Total 1 Balance 899 - Medications Medications: Current Medications Amlodipine Besylate (Norvasc) 10 mg PO DAILY [facility] Last Admin: 09/10/17 10:51 Dose: 10 mg Furosemide (Lasix) 40 mg IVP DAILY [facility] Last Admin: 09/10/17 10:51 Dose: 40 mg Meropenem 500 mg/ Sodium (Chloride) 50 mls @ 100 mls/hr IVPB Q8 [facility] PRN Reason: Protocol Stop: 09/17/17 22:01 Last Admin: 09/10/17 13:33 Dose: 100 mls/hr Lactulose (Enulose) 20 gm PO TID [facility] Last Admin: 09/10/17 13:33 Dose: 20 gm Magnesium Oxide (Mag-Ox) 400 mg PO BID [facility] Last Admin: 09/10/17 10:51 Dose: 400 mg Ondansetron HCl (Zofran Inj) 4 mg IVP Q4H PRN PRN Reason: Nausea/Vomiting Pantoprazole Sodium (Protonix Ec Tab) 40 mg PO 0600 [facility] Last Admin: 09/10/17 05:17 Dose: 40 mg Rifaximin (Xifaxan) 550 mg PO BID [facility] PRN Reason: Protocol Last Admin: 09/10/17 10:51 Dose: 550 mg Spironolactone (Aldactone) 100 mg PO DAILY [facility] Last Admin: 09/10/17 10:52 Dose: 100 mg - Labs Labs: 09/09/17 06:00 09/09/17 06:00 PT 16.8 SECONDS (9.4-12.5) H 09/06/17 22:20 INR 1.46 (0.93-1.08) H 09/06/17 22:20 APTT 33.8 Seconds (25.1-36.5) 09/06/17 22:20 Attending/Attestation - Attestation I have personally seen and examined this patient.: Yes I have fully participated in the care of the patient.: Yes I have reviewed all pertinent clinical information, including history, physical exam and plan: Yes Notes (Text): 09/10/17 14:47 I have seen and examined patient with GI fellow. 87 yr old F with cirrhosis decompensated with ascites s/p thearpeutic paracentesis. No acute events overnight and denies abdominal pain, nausea, vomiting, fever/chills. S/p paracentesis with reported 4 liters fluid removed. Fluid not sent for cytology. Already on merrem. Mental status at baseline. Vitals stable. Continue low salt diet as tolerated. Continue lactulose/ rifaximin. and diuretics. Monitor BMP daily. Ultimately patient would benefit from evaluation at tertiary care facility for consideration of routine outpatient paracentesis. Patient is unlikely transplant candidate due to advanced age and medical comorbidities. Will sign off now. Thank you for letting us participate in the care of your patient
[2017-09-10] MEDS: Magnesium Oxide 400 mg Tab UD PO SCH ×2 (10:51→17:52)
--- NOTE | 2017-09-10 17:06 | PN ---
DATE: 09/10/2017 SUBJECTIVE: The patient is in bed, in no acute distress. PHYSICAL EXAMINATION: VITAL SIGNS: Temperature is 98, blood pressure is 118/60, respiratory rate of 18. HEENT: Unremarkable. NECK: Supple. LUNGS: Have decreased breath sounds. HEART: Normal S1 and S2. ABDOMEN: Soft, nontender. LABORATORY DATA: Reveals the patient's white count of 3.8, hemoglobin of 8, platelets of 36. Chemistries reveals a BUN of 25 and creatinine of 1.2. Microbiology reveals the blood cultures are negative. ASSESSMENT AND PLAN: This is an 87-year-old white female who has hepatic metabolic encephalopathy with history of diabetes, hypertension, hyperthyroidism, cirrhosis of the liver, history of sepsis, admitted with a change of mental status and thus far, the blood cultures are negative. The ascitic fluid cultures are pending in the a.m. Urinalysis is pending. Urine culture is pending and the cell count on the ascitic fluid is also pending. On meropenem, day #3, appears to be improving. Arden Byrne MD
--- NOTE | 2017-09-10 21:46 | PN ---
DATE: 09/10/2017 HISTORY OF PRESENT ILLNESS: Ms. Nunes is an 87-year-old female transferred from [facility] because of lethargy. She has hepatic encephalopathy, pancytopenia. She has a diagnosis of MDS. Underwent abdominal paracentesis yesterday with Dr. Denzel Weston. PAST MEDICAL HISTORY: Pancytopenia, MDS, autoimmune hepatitis, hepatic encephalopathy, deconditioning, bilateral leg edema, hypothyroidism. ALLERGIES: TO PENICILLIN AND LEVAQUIN. PAST SURGICAL HISTORY: Unknown. PERSONAL HISTORY: Ex-smoker. History of alcohol abuse in the past. HOME MEDICATIONS: Aldactone, Protonix, magnesium, lisinopril, lactulose, Lasix 40 mg daily. REVIEW OF SYSTEMS: As per HPI. Rest of 12-point review of systems reviewed negative. PHYSICAL EXAMINATION GENERAL: Mild distress due to abdominal discomfort. Alert, oriented to time, place and person. VITAL SIGNS: Stable. Temperature 98.7, heart rate 80 per minute, respiratory rate 18 per minute, blood pressure 120/60. CHEST: Air entry present and equal bilaterally. No added sounds. CARDIOVASCULAR: S1 and S2 normal. No murmur. No gallop. ABDOMEN: Soft, nontender. Mildly distended. EXTREMITIES: 1+ edema. CENTRAL NERVOUS SYSTEM: Alert and oriented x3. LABORATORY DATA: White count 3.8, hemoglobin 8, hematocrit 24.3, platelet count 36,000. Sodium 142, potassium 4.6, glucose 113, creatinine 1.2. ASSESSMENT: 1. Hepatic encephalopathy. 2. Pancytopenia. 3. Myelodysplastic syndrome. 4. Ascites. PLAN: She is currently comfortable. No bleeding from any site. She has pancytopenia. Likely due to cirrhosis of liver. GI following. She is [facility] the shelter. Paracentesis done yesterday by Dr. Denzel Weston. Fluid chemistry is pending. Nika Bailey MD MTDJacinto
[2017-09-11] MEDS: Meropenem 500 MG in Sodium Chloride 0.9% 50 ML IVPB SCH ×3 (05:25→22:26)
[2017-09-11] MEDS: Pantoprazole 40 mg EC Tab PO SCH (05:25)
[2017-09-11] MEDS: Magnesium Oxide 400 mg Tab UD PO SCH ×2 (10:26→17:20)
--- NOTE | 2017-09-11 19:08 | PN ---
DATE: SUBJECTIVE: Patient is seen early this morning. She is much more awake. She is doing better although she still has periods of confusion. PHYSICAL EXAMINATION: VITAL SIGNS: Temperature is 98, blood pressure is 110/60, respiratory rate of 20, heart rate of 89. HEENT: Unremarkable. NECK: Supple. LUNGS: Have decreased breath sounds. HEART: Normal S1, S2. ABDOMEN: Soft, nontender. LABORATORY EXAMINATION: Reveals a white count of 3.8, hemoglobin of 8, platelets of 36. Chemistries reveals a BUN of 25, creatinine of 1.2. Microbiology reveals the blood cultures have no growth. ASSESSMENT AND PLAN: An 87-year-old white female who has hepatic encephalopathy and history of diabetes, hypertension, hyperthyroidism, cirrhosis of liver, history of sepsis, admitted with a change of mental status and urine is possible versus spontaneous bacterial peritonitis. Thus far, waiting for the urine culture and the blood cultures are reported to be negative. We are also waiting for the ascitic fluid culture and ascitic cell count also pending. Currently on meropenem, day number 4. Overall, prognosis quite poor. Waiting for urinalysis is also. Arden Byrne MD
--- NOTE | 2017-09-11 23:16 | CP.PCM.PN ---
Subjective - Date & Time of Evaluation Date of Evaluation: 09/11/17 Time of Evaluation: 11:00 - Subjective Subjective: DATE: 09/11/2017 HISTORY OF PRESENT ILLNESS: Ms. Nunes is an 87-year-old female transferred from [facility] because of lethargy. She has hepatic encephalopathy, pancytopenia. She has a diagnosis of MDS. Underwent abdominal paracentesis yesterday with Dr. Denzel Weston. No events overnight. She is agitated at times. PAST MEDICAL HISTORY: Pancytopenia, MDS, autoimmune hepatitis, hepatic encephalopathy, deconditioning, bilateral leg edema, hypothyroidism. ALLERGIES: TO PENICILLIN AND LEVAQUIN. PAST SURGICAL HISTORY: Unknown. PERSONAL HISTORY: Ex-smoker. History of alcohol abuse in the past. HOME MEDICATIONS: Aldactone, Protonix, magnesium, lisinopril, lactulose, Lasix 40 mg daily. REVIEW OF SYSTEMS: As per HPI. Rest of 12-point review of systems reviewed negative. PHYSICAL EXAMINATION GENERAL: Mild distress due to abdominal discomfort. Alert, oriented to time, place and person. VITAL SIGNS: Stable. reviewed. CHEST: Air entry present and equal bilaterally. No added sounds. CARDIOVASCULAR: S1 and S2 normal. No murmur. No gallop. ABDOMEN: Soft, nontender. Mildly distended. EXTREMITIES: 1+ edema. CENTRAL NERVOUS SYSTEM: Alert and oriented x3. LABORATORY DATA: reviewed. ASSESSMENT: 1. Hepatic encephalopathy. 2. Pancytopenia. 3. Myelodysplastic syndrome. 4. Ascites. PLAN: She is currently comfortable. No bleeding from any site. She has pancytopenia. Likely due to cirrhosis of liver. GI following. She is awaiting placement to the [facility]. Paracentesis done yesterday by Dr. Denzel Weston. Fluid chemistry is pending. Blood cultures negative. Ascitic culture cytology culture pending. Currently on IV antibiotics meropenem. ID note reviewed. Nika Bailey MD Objective - Vital Signs/Intake and Output Vital Signs (last 24 hours): Temp Pulse Resp BP Pulse Ox 98.6 F 75 19 105/54 L 97 09/11/17 16:00 09/11/17 16:00 09/11/17 16:00 09/11/17 16:00 09/11/17 16:00 - Medications Medications: Current Medications Amlodipine Besylate (Norvasc) 10 mg PO DAILY [facility] Last Admin: 09/11/17 10:26 Dose: 10 mg Furosemide (Lasix) 40 mg IVP DAILY [facility] Last Admin: 09/11/17 10:24 Dose: 40 mg Meropenem 500 mg/ Sodium (Chloride) 50 mls @ 100 mls/hr IVPB Q8 [facility] PRN Reason: Protocol Stop: 09/17/17 22:01 Last Admin: 09/11/17 22:26 Dose: 100 mls/hr Lactulose (Enulose) 20 gm PO TID [facility] Last Admin: 09/11/17 17:20 Dose: 20 gm Magnesium Oxide (Mag-Ox) 400 mg PO BID [facility] Last Admin: 09/11/17 17:20 Dose: 400 mg Ondansetron HCl (Zofran Inj) 4 mg IVP Q4H PRN PRN Reason: Nausea/Vomiting Pantoprazole Sodium (Protonix Ec Tab) 40 mg PO 0600 [facility] Last Admin: 09/11/17 05:25 Dose: 40 mg Rifaximin (Xifaxan) 550 mg PO BID [facility] PRN Reason: Protocol Last Admin: 09/11/17 17:19 Dose: 550 mg Spironolactone (Aldactone) 100 mg PO DAILY [facility] Last Admin: 09/11/17 10:24 Dose: 100 mg - Labs Labs: 09/09/17 06:00 09/09/17 06:00 PT 16.8 SECONDS (9.4-12.5) H 09/06/17 22:20 INR 1.46 (0.93-1.08) H 09/06/17 22:20 APTT 33.8 Seconds (25.1-36.5) 09/06/17 22:20
[2017-09-12] MEDS: Meropenem 500 MG in Sodium Chloride 0.9% 50 ML IVPB SCH ×2 (05:55→16:07)
[2017-09-12] MEDS: Pantoprazole 40 mg EC Tab PO SCH (05:56)
--- NOTE | 2017-09-12 08:26 | DS ---
HISTORY OF PRESENT ILLNESS: The patient is an 87-year-old, seen and examined, lying in bed, seems to be comfortable. PHYSICAL EXAMINATION: VITAL SIGNS: She is afebrile. Pulse 76, respirations 20, blood pressure 128/60. LUNGS: Bilateral good airflow. No rhonchi or crackles. HEART: S1 and S2 audible. ABDOMEN: Soft, nontender. Abdominal gut has significantly improved after paracentesis. EXTREMITIES: Bilateral legs, +2 edema. LABORATORY DATA: WBC is 3.8, hemoglobin 8, hematocrit 24.3, platelets 136. Chemistry: Sodium 142, potassium 4.6, chloride 113, CO2 of 24, BUN 25, creatinine 1.2, blood sugar of 76. AST 67, ammonia level was 900. ASSESSMENT AND PLAN: 1. Pancytopenia. 2. Cirrhotic ascites. 3. Autoimmune hepatitis. 4. Myelodysplastic syndrome. 5. Status post paracentesis. The patient is scheduled to be discharged today. She will be maintained on lactulose, Lasix, potassium. She will be transferred back to . Kamaljit Pena MD
[2017-09-12 08:28] VITALS: BP 112/50; PULSE 74; RESP 20; TEMP 97.9; O2SAT 96
[2017-09-12] MEDS: Magnesium Oxide 400 mg Tab UD PO SCH (10:41)
--- NOTE | 2017-09-12 14:18 | CP.PCM.PN ---
Subjective - Date & Time of Evaluation Date of Evaluation: 09/12/17 Time of Evaluation: 11:40 - Subjective Subjective: Comfortable, no fevers, not in distress. Objective - Vital Signs/Intake and Output Vital Signs (last 24 hours): Temp Pulse Resp BP Pulse Ox 97.9 F 74 20 112/50 L 96 09/12/17 08:27 09/12/17 08:27 09/12/17 08:27 09/12/17 10:41 09/12/17 08:27 Intake and Output: 09/12/17 09/12/17 06:59 18:59 Intake Total 180 Balance 180 - Medications Medications: Current Medications Amlodipine Besylate (Norvasc) 10 mg PO DAILY [facility] Last Admin: 09/12/17 10:41 Dose: 10 mg Furosemide (Lasix) 40 mg IVP DAILY [facility] Last Admin: 09/12/17 10:41 Dose: 40 mg Meropenem 500 mg/ Sodium (Chloride) 50 mls @ 100 mls/hr IVPB Q8 [facility] PRN Reason: Protocol Stop: 09/17/17 22:01 Last Admin: 09/12/17 05:55 Dose: 100 mls/hr Lactulose (Enulose) 20 gm PO TID [facility] Last Admin: 09/12/17 10:41 Dose: 20 gm Magnesium Oxide (Mag-Ox) 400 mg PO BID [facility] Last Admin: 09/12/17 10:41 Dose: 400 mg Ondansetron HCl (Zofran Inj) 4 mg IVP Q4H PRN PRN Reason: Nausea/Vomiting Pantoprazole Sodium (Protonix Ec Tab) 40 mg PO 0600 [facility] Last Admin: 09/12/17 05:56 Dose: 40 mg Spironolactone (Aldactone) 100 mg PO DAILY [facility] Last Admin: 09/12/17 10:40 Dose: 100 mg - Labs Labs: 09/09/17 06:00 09/09/17 06:00 PT 16.8 SECONDS (9.4-12.5) H 09/06/17 22:20 INR 1.46 (0.93-1.08) H 09/06/17 22:20 APTT 33.8 Seconds (25.1-36.5) 09/06/17 22:20 - Constitutional Appears: Chronically Ill - Head Exam Head Exam: NORMAL INSPECTION - ENT Exam ENT Exam: Mucous Membranes Moist - Neck Exam Neck Exam: absent: Meningismus - Respiratory Exam Respiratory Exam: Decreased Breath Sounds - Cardiovascular Exam Cardiovascular Exam: +S1, +S2 - GI/Abdominal Exam GI & Abdominal Exam: Soft. absent: Tenderness Assessment and Plan - Assessment and Plan (Free Text) Plan: Assessment R/O SBP, R/O UTI hepatic metabolic encephalopathy history of sepsis secondary to E. coli and E. faecalis UTI, slowly improving history of urinary tract infection with Citrobacter and Enterobacter, S/P treatment and clinically better history of E. faecium UTI history of healthcare-associated pneumonia history of chronic thrombocytopenia history of urinary tract infection with ESBL E. coli S/P UTI with Hafnei alvei Myelodysplastic syndrome DM HTN Hypothyroidism history of right hip surgery S/P cholecystectomy liver cirrhosis GERD Plan continue Merrem day 4 to complete 7 days overall prognosis is poor
--- NOTE | 2017-09-13 09:41 | DS ---
HISTORY OF PRESENT ILLNESS: Patient is 87 years old, seen and examined, doing well. Awake, alert, oriented and communicative. PHYSICAL EXAMINATION VITAL SIGNS: Patient is afebrile, pulse 74, respirations 20, blood pressure 112/50. LUNGS: Bilateral good airflow. No rhonchi or crackle. HEART: S1 and S2 audible. ABDOMEN: Soft, nontender. No rebound, no guarding. She does have fluid thrill. EXTREMITIES: Bilateral legs, +2 edema. LABORATORY DATA: WBC is 3.8, hemoglobin 8.0, hematocrit 24.3, platelets of 36,000. Chemistry: Sodium 142, potassium 4.6, chloride 113, CO2 24, BUN 25, creatinine 1.2, blood sugar of 76, albumin 1.7. ASSESSMENT 1. Autoimmune hepatitis. 2. Cirrhotic ascites. 3. Status post hepatic encephalopathy. 4. Electrolyte imbalance. 5. Pancytopenia. 6. Myelodysplastic syndrome. PLAN: Patient will be transferred to [facility] since [place] does not have bed. She needs to be on Xifaxan, she needs to be on spironolactone and lactulose. I will continue her on Lasix, magnesium supplementation and continue on amlodipine and Protonix. She can be transferred to [facility]. Kamaljit Pena MD
== END 2017-09-12 16:33 | DRG 432 ==
LOC: ED 21:17 → ERH 23:08 → 3RSO 09-07 01:11
PROVIDERS: ADMIT Internal Medicine; ATTEND Internal Medicine
PROC: 0W9G3ZZ Drainage of Peritoneal Cavity, Percutaneous Approach (ICD-10-PCS; principal; 2017-09-09 09:30)
DX: K74.69 Other cirrhosis of liver (principal); R18.8 Other ascites; G93.41 Metabolic encephalopathy; K72.90 Hepatic failure, unspecified without coma; D61.818 Other pancytopenia; E66.01 Morbid (severe) obesity due to excess calories; E83.42 Hypomagnesemia; E11.9 Type 2 diabetes mellitus without complications; D46.9 Myelodysplastic syndrome, unspecified; E03.9 Hypothyroidism, unspecified; K21.9 Gastro-esophageal reflux disease without esophagitis; K75.4 Autoimmune hepatitis; I10 Essential (primary) hypertension; E87.70 Fluid overload, unspecified; Z68.35 Body mass index [BMI] 35.0-35.9, adult; R26.2 Difficulty in walking, not elsewhere classified; Z87.891 Personal history of nicotine dependence; Z87.440 Personal history of urinary (tract) infections; Z90.49 Acquired absence of other specified parts of digestive tract; Z87.01 Personal history of pneumonia (recurrent)

== ENCOUNTER 2017-09-14 21:30 | Inpatient (IN) | payer MEDICARE, OTHER ==
[2017-09-14] MEDS ORDERED: Sodium Chloride 0.9% 1,000 ML IV SCH (22:00)
--- NOTE | 2017-09-14 22:02 | ED PDOC ---
Arrival/HPI - General Chief Complaint: Altered Mental Status Time Seen by Provider: 09/14/17 21:38 Historian: Patient - History of Present Illness Narrative History of Present Illness (Text): 09/14/17 22:01 An 87 year old female, whose past medical history includes diabetes, hypertension, recurrent UTIs, hepatic encephalopathy, liver cirrhosis, hypothyroidism, GERD, myelodysplastic syndrome, was brought in by EMS from [facility] to the emergency department for evaluation of AMS. Patient not responding, not following commands, limited ROS and HPI. PMD: Dr. Pena Symptom Onset: Sudden Symptom Course: Unchanged Activities at Onset: Rest Context: Other (fci) Past Medical History - Provider Review Nursing Documentation Reviewed: Yes - Infectious Disease Hx of Infectious Diseases: None - Tetanus Immunization Tetanus Immunization: Unknown - Cardiac Hx Hypertension: Yes - Pulmonary Hx Respiratory Disorders: Yes Hx Pneumonia: Yes - Neurological Hx Neurological Disorder: (syncope) Hx Dizziness: Yes Hx Transient Ischemic Attacks (TIA): No - HEENT Hx HEENT Disorder: No - Renal Hx Renal Disorder: Yes Other/Comment: uti - Endocrine/Metabolic Hx Diabetes Mellitus Type 2: Yes - Hematological/Oncological Hx Blood Disorders: Yes (myelodysplastic syndrome) Hx Anemia: Yes Hx Cirrhosis: Yes (autoimmune hepatitis/hep encephalopathy) - Integumentary Hx Dermatological Disorder: Yes - Musculoskeletal/Rheumatological Hx Falls: Yes - Gastrointestinal Hx Gastrointestinal Disorders: Yes (GERD,CROHNS,CHOLECYSTECTOMY,ULCER) Hx Diverticulitis: Yes Other/Comment: gastritis - Genitourinary/Gynecological Hx Genitourinary Disorders: Yes (VRE,ESBL,INCONTINENT,RETENTION) Hx Urinary Tract Infection: Yes Other/Comment: hx urosepsis - Psychiatric Hx Psychophysiologic Disorder: Yes Hx Anxiety: Yes Hx Substance Use: No - Surgical History Hx Cholecystectomy: Yes Hx Orthopedic Surgery: Yes (r hip fx) - Anesthesia Hx Anesthesia: No Hx Anesthesia Reactions: No Hx Malignant Hyperthermia: No - Suicidal Assessment Feels Threatened In Home Enviroment: No Family/Social History - Physician Review Nursing Documentation Reviewed: Yes Family/Social History: No Known Family HX Smoking Status: Unknown If Ever Smoked Hx Alcohol Use: Yes (occasional wine with dinner) Hx Substance Use: No Hx Substance Use Treatment: No Allergies/Home Meds Allergies/Adverse Reactions: Allergies levofloxacin [From Levaquin] Allergy (Intermediate, Verified 09/06/17 21:49) RASH Penicillins Allergy (Verified 09/06/17 21:50) URTICARIA lev Allergy (Uncoded 09/06/17 21:50) ITCHING Home Medications: Home Meds Medication Instructions Recorded Confirmed Magnesium Oxide [Mag-Ox] 400 mg PO BID 04/21/17 09/15/17 rifAXIMin [Xifaxan] 550 mg PO BID 04/21/17 09/15/17 Ondansetron [Zofran Tab] 4 mg PO Q4 PRN 08/16/17 09/15/17 Pantoprazole [Protonix EC Tab] 40 mg PO DAILY 08/16/17 09/15/17 Review of Systems - Review of Systems Systems not reviewed;Unavailable: Altered Mental Status Physical Exam Vital Signs Reviewed: Yes Vital Signs Temp Pulse Resp BP Pulse Ox 09/15/17 03:49 62 18 96/52 L 100 09/15/17 00:23 97.8 F 63 16 110/57 L 98 09/14/17 22:22 97.1 F L 66 16 101/51 L 99 Appearance: Positive for: Comfortable Pain Distress: None Mental Status: Positive for: other (alert, not verbally responsive to voice or sternal rub; AMS) - Systems Exam Head: Present: Atraumatic, Normocephalic Pupils: Present: PERRL Extroacular Muscles: Present: EOMI Conjunctiva: Present: Normal Mouth: Present: Moist Mucous Membranes Neck: Present: Normal Range of Motion. No: JVD Respiratory/Chest: Present: Clear to Auscultation, Good Air Exchange. No: Respiratory Distress, Accessory Muscle Use Cardiovascular: Present: Regular Rate and Rhythm, Normal S1, S2. No: Murmurs Abdomen: Present: Distention, Normal Bowel Sounds. No: Tenderness Lower Extremity: Present: Edema (pitting edema, left worse than right) Neurological: Present: Other (not verbally responsive to voice or sternal rub) Psychiatric: Present: Other (AMS). No: Normal Insight, Normal Concentration Medical Decision Making ED Course and Treatment: 09/14/17 22:02 Impression: An 87 year old female with AMS. Plan: -- CT head -- labs -- Urinalysis -- IV fluids -- Reassess and disposition Prior Visits: Notes and results from previous visits were reviewed. Patient was last seen in the emergency department on 09/06/17 for evaluation of abnormal labs. Progress Notes: 09/14/17 22:48 Patient's family states patient has a history of liver failure, cirrhosis. Family states patient has distended abdomen due to UTI or elevated ammonia levels. CT Head Without Intravenous Contrast FINDINGS: Brain: There is moderate diffuse cerebral atrophy present, consistent with this patient's age. There is moderate diffuse heterogeneity of the white matter attenuation, consistent with chronic white matter ischemic changes. Again demonstrated is a partially calcified mass along the posterior falx most consistent with a benign meningioma measuring 1.5 x 1.1 x 1.1 cm, unchanged. Coarse dural calcification is again noted adjacent to the anterior falx. No hemorrhage. Ventricles: The ventricular system demonstrates moderate diffuse compensatory enlargement. Bones/joints: Unremarkable. No acute fracture. Soft tissues: Unremarkable. Sinuses: Unremarkable as visualized. No acute sinusitis. Mastoid air cells: Unremarkable as visualized. No mastoid effusion. IMPRESSION: Age-related atrophy and chronic white matter ischemic changes, with no evidence of an acute intracranial abnormality. Stable posterior parasagittal meningioma. Dictated and Authenticated by: Shruthi Virk MD 09/15/2017 1:07 AM Eastern Time ([place] & [place]) 09/15/17 01:[address] Pena, who agrees and accepts patient to be admitted under her service. Will give patient Lactulose. Patient will be admitted to Telemetry for hepatoencephalopathy. - Critical Care Critical Care Minutes: 30 minutes - Lab Interpretations Lab Results: 09/14/17 23:00 09/14/17 23:00 Lab Results 09/14/17 23:25: Urine Color Yellow, Urine Appearance Clear, Urine pH 6.5, Ur Specific [place] 1.015, Urine Protein Negative, Urine Glucose (UA) Negative, Urine Ketones Negative, Urine Blood Negative, Urine Nitrate Negative, Urine Bilirubin Negative, Urine Urobilinogen 0.2, Ur Leukocyte Esterase Negative 09/14/17 23:00: Ammonia 111 H 09/14/17 23:00: Sodium 140, Chloride 110 H, Potassium 5.3 H, Carbon Dioxide 24, Anion Gap 12, BUN 33 H, Creatinine 1.5 H, Est GFR ( Amer) 40, Est GFR ( Non-Af Amer) 33, Random Glucose 133 H, Calcium 8.2 L, Total Bilirubin 1.0, AST 90 H D, ALT 52, Alkaline Phosphatase 196 H D, Lactate Dehydrogenase 534, Total Creatine Kinase 22 L, Troponin I < 0.01, Total Protein 7.3, Albumin 2.1 L, Globulin 5.2, Albumin/Globulin Ratio 0.4 L 09/14/17 23:00: pO2 42, VBG pH 7.41, VBG pCO2 40.0, VBG HCO3 25.4, VBG Total CO2 26.6, VBG O2 Sat (Calc) 80.0 H, VBG Base Excess 0.7, VBG Potassium 5.6 H, Sodium 139.0, Chloride 112.0 H, Glucose 134 H, Lactate 2.0, FiO2 21.0, Venous Blood Potassium 5.6 H 09/14/17 23:00: PT 16.8 H, INR 1.46 H 09/14/17 23:00: WBC 4.3 L, RBC 3.13 L, Hgb 9.3 L, Hct 28.0 L, MCV 89.5, MCH 29.7 , MCHC 33.2, RDW 15.5 H, Plt Count 66 L, MPV 12.9 H, Gran % 57.3, Lymph % (Auto ) 31.3, Wright % (Auto) 9.5 H, Eos % (Auto) 1.4 L, Baso % (Auto) 0.5, Gran # 2.48 , Lymph # (Auto) 1.4, Wright # (Auto) 0.4, Eos # (Auto) 0.1, Baso # (Auto) 0.02 I have reviewed the lab results: Yes - RAD Interpretation Radiology Orders: 09/14/17 22:13 HEAD W/O CONTRAST [CT] Stat - Medication Orders Current Medication Orders: Sodium Chloride (Sodium Chloride 0.9%) 1,000 mls @ 100 mls/hr IV .Q10H HEMANT Last Admin: 09/14/17 23:54 Dose: 100 mls/hr eMAR Start Stop Document 09/14/17 23:54 MS (Rec: 09/15/17 00:05 MS [id number]) Intravenous Solution Start Date 09/15/17 Start Time 22:30 Lactulose (Generlac) 200 gm WV ONCE ONE Stop: 09/15/17 07:01 Discontinued Medications Dextrose (Dextrose 50% Inj) 50 ml IVP STAT STA Stop: 09/15/17 01:18 Last Admin: 09/15/17 02:44 Dose: 50 ml IVP Administration Document 09/15/17 02:44 MS (Rec: 09/15/17 02:44 MS [id number]) Charges for Administration # of IVP Administrations 1 Calcium Gluconate 1,000 mg/ (Sodium Chloride) 110 mls @ 110 mls/hr IVPB ONCE ONE Stop: 09/15/17 02:16 Last Admin: 09/15/17 02:31 Dose: 110 mls/hr eMAR Start Stop Document 09/15/17 02:31 MS (Rec: 09/15/17 02:34 MS [id number]) Intravenous Solution Start Date 09/15/17 Start Time 02:33 End Date 09/15/17 End time 03:33 Total Infusion Time 60 Insulin Human Regular (Humulin R) 10 units IVP ONCE ONE Stop: 09/15/17 01:20 Last Admin: 09/15/17 02:44 Dose: 10 units MAR Blood Glucose Document 09/15/17 02:44 MS (Rec: 09/15/17 02:44 MS [id number]) Blood Glucose Finger Stick Blood Glucose (70-120) 133 IVP Administration Document 09/15/17 02:44 MS (Rec: 09/15/17 02:44 MS [id number]) Charges for Administration # of IVP Administrations 1 Lactulose (Generlac) 200 gm W[place] ONCE ONE Stop: 09/15/17 01:05 Last Admin: 09/15/17 02:41 Dose: 200 gm Sodium Bicarbonate (Sodium Bicarbonate 8.4% (50 Meq) Syringe) 50 meq IVP ONCE ONE Stop: 09/15/17 01:18 Last Admin: 09/15/17 02:46 Dose: 50 meq IVP Administration Document 09/15/17 02:46 MS (Rec: 09/15/17 02:47 MS [id number]) Charges for Administration # of IVP Administrations 1 - PA / ROOM SERVICE SERVER / Resident Statement MD/DO has reviewed & agrees with the documentation as recorded. - Scribe Statement The provider has reviewed the documentation as recorded by the Tanishaibe Sarah Duarte Provider Scribe Attestation: All medical record entries made by the Scribe were at my direction and personally dictated by me. I have reviewed the chart and agree that the record accurately reflects my personal performance of the history, physical exam, medical decision making, and the department course for this patient. I have also personally directed, reviewed, and agree with the discharge instructions and disposition. Disposition/Present on Arrival - Present on Arrival Any Indicators Present on Arrival: No History of DVT/PE: No History of Uncontrolled Diabetes: No Urinary Catheter: No History of Decub. Ulcer: No History Surgical Site Infection Following: None - Disposition Have Diagnosis and Disposition been Completed?: Yes Diagnosis: Hepatic encephalopathy, Altered mental status, Hyperkalemia Disposition: HOSPITALIZED Disposition Time: 01:44 Patient Plan: Admission Patient Problems: Current Active Problems Problem Status Onset Hepatic encephalopathy Acute Altered mental status Acute Hyperkalemia Acute Condition: FAIR
[2017-09-14 23:28] LABS: BASO # 0.02 K/mm3 (0.0-2.0); BASO % 0.5 % (0.0-3.0); EOS # 0.1 (0.0-0.7); EOS % 1.4 % (1.5-5.0); GRAN # 2.48 (1.4-6.5); GRAN % 57.3 % (50.0-68.0); HEMOGLOBIN 9.3 g/dL (12.0-16.0); LYMPH # 1.4 (1.2-3.4); LYMPH % 31.3 % (22.0-35.0); MEAN CELL VOLUME 89.5 fl (80.0-105.0); MEAN CORPUSCULAR HEMOGLOBIN 29.7 pg (25.0-35.0); MEAN CORPUSCULAR HGB CONC 33.2 g/dl (31.0-37.0); MEAN PLATELET VOLUME 12.9 fl (7.0-11.0); MONO # 0.4 (0.1-0.6); MONO % 9.5 % (1.0-6.0); RBC 3.13 10^6/uL (3.5-6.1); RED CELL DISTRIBUTION WIDTH 15.5 % (11.5-14.5); WHITE BLOOD COUNT 4.3 10^3/ul (4.5-11.0)
[2017-09-14 23:36] LABS: INR 1.46 (0.93-1.08); PROTHROMBIN TIME 16.8 SECONDS (9.4-12.5)
[2017-09-14 23:40] LABS: PH,URINE 6.5 (4.7-8.0); URINE BILIRUBIN NEGATIVE (NEGATIVE); URINE BLOOD NEGATIVE (NEGATIVE); URINE GLUCOSE (UA) NEGATIVE (NEGATIVE); URINE LEUKOCYTE ESTERASE NEGATIVE Leu/uL (NEGATIVE); URINE PROTEIN NEGATIVE mg/dL (<30 mg/dL); URINE UROBILINOGEN 0.2 E.U./dL (<1 E.U./dL)
[2017-09-14 23:45] LABS: URINE APPEARANCE CLEAR (CLEAR); URINE COLOR YELLOW (YELLOW)
[2017-09-14 23:57] LABS: TROPONIN I < 0.01 ng/mL
[2017-09-14 23:58] LABS: VENOUS BLOOD GAS BASE EXCESS 0.7 mmol/L (0.0-2.0); VENOUS BLOOD GAS PO2 42 mm/Hg (30-55); VENOUS BLOOD PH 7.41 (7.32-7.43)
[2017-09-15 00:22] LABS: ALB/GLOB RATIO 0.4 (1.1-1.8); ALBUMIN 2.1 g/dL (3.0-4.8); ALT/SGPT 52 U/L (7-56); AST/SGOT 90 U/L (14-36); BLOOD UREA NITROGEN 33 mg/dL (7-21); CALCIUM 8.2 mg/dL (8.4-10.5); GFR AFRICAN-AMERICAN 40; GFR NON-AFRICAN AMERICAN 33
[2017-09-15] MEDS ORDERED: Lactulose 10 gm/15 ml (Rectal Use) PR ONE ×2 (01:04→07:00)
--- NOTE | 2017-09-15 01:08 | CT ---
EXAM: CT Head Without Intravenous Contrast CLINICAL HISTORY: 87 years old, female; Signs and symptoms; Altered mental status/memory loss TECHNIQUE: Axial computed tomography images of the head/brain without intravenous contrast. All CT scans at this facility use one or more dose reduction techniques, viz.: automated exposure control; ma/kV adjustment per patient size (including targeted exams where dose is matched to indication; i.e. head); or iterative reconstruction technique. Coronal and sagittal reformatted images were created and reviewed. COMPARISON: CT - HEAD W/O CONTRAST 2017-08-29 20:14 FINDINGS: Brain: There is moderate diffuse cerebral atrophy present, consistent with this patient's age. There is moderate diffuse heterogeneity of the white matter attenuation, consistent with chronic white matter ischemic changes. Again demonstrated is a partially calcified mass along the posterior falx most consistent with a benign meningioma measuring 1.5 x 1.1 x 1.1 cm, unchanged. Coarse dural calcification is again noted adjacent to the anterior falx. No hemorrhage. Ventricles: The ventricular system demonstrates moderate diffuse compensatory enlargement. Bones/joints: Unremarkable. No acute fracture. Soft tissues: Unremarkable. Sinuses: Unremarkable as visualized. No acute sinusitis. Mastoid air cells: Unremarkable as visualized. No mastoid effusion. IMPRESSION: Age-related atrophy and chronic white matter ischemic changes, with no evidence of an acute intracranial abnormality. Stable posterior parasagittal meningioma.
[2017-09-15] MEDS ORDERED: Dextrose 50% SYRINGE Inj (50 ml) IVP STA (01:17)
[2017-09-15] MEDS ORDERED: Sodium Bicarbonate (8.4%) 50 Meq Syringe IVP ONE ×2 (01:17→02:45)
[2017-09-15] MEDS ORDERED: Insulin Regular 1 UNITS/0.01 ML ML IVP ONE (01:19)
[2017-09-15 04:37] LABS: VENOUS BLOOD GAS BASE EXCESS -1.1 mmol/L (0.0-2.0); VENOUS BLOOD GAS PO2 38 mm/Hg (30-55); VENOUS BLOOD PH 7.37 (7.32-7.43)
[2017-09-15 08:12] LABS: VENOUS BLOOD GAS BASE EXCESS -0.2 mmol/L (0.0-2.0); VENOUS BLOOD GAS PO2 57 mm/Hg (30-55); VENOUS BLOOD PH 7.42 (7.32-7.43)
[2017-09-15 08:23] LABS: CALCIUM 8.5 mg/dL (8.4-10.5)
[2017-09-15 17:56] VITALS: BMI 30.3
--- NOTE | 2017-09-15 22:10 | US ---
PROCEDURE: Ultrasound guided paracentesis. HISTORY: Cryptogenic cirrhosis. Recurrent ascites with abdominal pain and distension. Needs repeat paracentesis PHYSICIAN(S): Denzel Weston MD. TECHNIQUE: The relative risks and indications for the procedure were explained to the patient and informed written consent obtained. Sonography of the abdomen was performed in a supine position. This revealed a small to moderate amount of non-loculated ascites, greatest in the right lower quadrant. A puncture site was selected and the area was prepped and draped in the usual sterile fashion. 1% Xylocaine was used to anesthetize the skin and soft tissues. A 7 Algerian paracentesis catheter was trocared into the right lower quadrantand 2900 cc of clear, straw-colored fluid aspirated. IMPRESSION: Ultrasound-guided paracentesis in the right lower quadrant. 2900 cc of fluid were aspirated.
[2017-09-16 08:15] LABS: BASO # 0.04 K/mm3 (0.0-2.0); BASO % 0.9 % (0.0-3.0); EOS # 0.1 (0.0-0.7); EOS % 2.8 % (1.5-5.0); GRAN # 1.61 (1.4-6.5); GRAN % 35.2 % (50.0-68.0); HEMOGLOBIN 8.2 g/dL (12.0-16.0); LYMPH # 2.4 (1.2-3.4); LYMPH % 53.2 % (22.0-35.0); MEAN CELL VOLUME 89.2 fl (80.0-105.0); MEAN CORPUSCULAR HEMOGLOBIN 29.5 pg (25.0-35.0); MEAN CORPUSCULAR HGB CONC 33.1 g/dl (31.0-37.0); MEAN PLATELET VOLUME 12.3 fl (7.0-11.0); MONO # 0.4 (0.1-0.6); MONO % 7.9 % (1.0-6.0); RBC 2.78 10^6/uL (3.5-6.1); RED CELL DISTRIBUTION WIDTH 15.6 % (11.5-14.5); WHITE BLOOD COUNT 4.6 10^3/ul (4.5-11.0)
--- NOTE | 2017-09-16 08:33 | CP.PCM.CON ---
<Luiza Grijalva - Last Filed: 09/16/17 11:29> History of Present Illness - History of Present Illness History of Present Illness: PGY4 Initial GI Consult Iona Nunes is a 87yF with pmhx of of autoimmune hepatitis, cryptogenic cirrhosis, myelodysplastic syndrome, thrombocytopenia, chronic anemia and hypertension who presented from [place] for AMS. Pt was just discharged from [facility] a few days ago for ascites, HE, and UTI. She again was hospitalized a few weeks prior and had a paracentesis with 3700 cc removed and neg for SBP. Pt is not able to give any pertinent information today, she and all relevant information is obtained from EMR and staff. There is no none prior endoscopies or colonoscopies. She was previously diagnosed with autoimmune hepatitis. RN denies any BRBPR, melena, or hematemesis. Pt was given lastulose enemas and PO. She had 3 BMs overnight. She is alert but only oriented to person and not to place or time. Denies any abd pain. No overnight events. She had a paracentesis on 09/15/17 and 2.9L was extracted. ROS: A 12pt ROS was negative except as above Past medical history: GERD, hypothyroidism, thrombocytopenia, liver cirrhosis, chronic anemia, diabetes mellitus, recurrent UTI, hypertension, myelodysplastic syndrome Past surgical history: Cholecystectomy, right hip fracture with open reduction and internal fixation Social history: History of smoking, occasional wine with dinner, denies drugs Family history: Noncontributory at this time Endoscopy Hx: unknown Past Patient History - Infectious Disease Hx of Infectious Diseases: None - Tetanus Immunizations Tetanus Immunization: Unknown - Past Social History Smoking Status: Never Smoked - CARDIAC Hx Cardiac Disorders: No Hx Angina: No Hx Cardia Arrhythmia: No Hx Circulatory Problems: No Hx Congestive Heart Failure: No Hx Heart Murmur: No Hx Heart Transplant: No Hx Hypercholesterolemia: No Hx Hypertension: Yes Hx Internal Defibrillator: No Hx Mitral Valve Prolapse: No Hx Pacemaker: No Hx Peripheral Edema: No Hx Peripheral Vascular Disease: No - PULMONARY Hx Respiratory Disorders: No Hx Asthma: No Hx Bronchitis: No Hx Chronic Obstructive Pulmonary Disease (COPD): No Hx Emphysema: No Hx Pneumonia: No Hx Respiratory Aspiration: No Hx Respiratory Tract Infection: No Hx Sleep Apnea: No Hx Tuberculosis: No - NEUROLOGICAL Hx Neurological Disorder: No Hx Alzheimer's Disease: No HX Cerebrovascular Accident: No Hx Dementia: No Hx Dizziness: No Hx Meningitis: No Hx Migraine: No Hx Parkinson's Disease: No Hx Seizures: No Hx Transient Ischemic Attacks (TIA): No - HEENT Hx HEENT Problems: No Hx Blind: No Hx Cataracts: No Hx Deafness: No Hx Difficulty Chewing: No Hx Epistaxis: No Hx Glaucoma: No Hx Macular Degeneration: No - RENAL Hx Chronic Kidney Disease: No Hx Dialysis: No Hx Kidney Stones: No Hx Neurogenic Bladder: No Hx Pyelonephritis: No Hx Renal (Kidney) Cancer: No Hx Renal Failure: No - ENDOCRINE/METABOLIC Hx Endocrine Disorders: No Hx Adrenal Cancer: No Hx Diabetes Insipidus: No Hx Diabetes Mellitus Type 1: No Hx Diabetes Mellitus Type 2: Yes Hx Hyperthyroidism: No Hx Hypothyroidism: Yes Hx Systemic Lupus Erythematosus: No - HEMATOLOGICAL/ONCOLOGICAL Hx Blood Disorders: No Hx AIDS: No Hx Anemia: No Hx Cancer: No Hx Chemotherapy: No Hx Cirrhosis: Yes Hx Hemophilia: No Hx Hepatitis A: No Hx Hepatitis B: No Hx Hepatitis C: No Hx Human Immunodeficiency Virus (HIV): No Hx Metastesis: No Hx Shingles: No Hx Sickle Cell Disease: No Hx Unexplained Bleeding: No - INTEGUMENTARY Hx Dermatological Problems: No Hx Basil Cell: No Hx Eczema: No Hx Melanoma: No Hx Psoriasis: No Hx Squamous Cell: No - MUSCULOSKELETAL/RHEUMATOLOGICAL Hx Musculoskeletal Disorders: No Hx Arthritis: No Hx Back Pain: No Hx Degenerative Joint Disease: No Hx Falls: No Hx Fractures: No Hx Gout: No Hx Herniated Disk: No Hx Myasthenia Gravis: No Hx Osteoarthritis: No Hx Osteomyelitis: No Hx Osteoporosis: No Hx Rhabdomyolysis: No Hx Spinal Stenosis: No Hx Unsteady Gait: No - GASTROINTESTINAL Hx Gastrointestinal Disorders: No Hx Colostomy: No Hx Crohn's Disease: No Hx Diverticulitis: No Hx Gall Bladder Disease: No Hx Gastroesophageal Reflux: No Hx Ileostomy: No Hx Liver Failure: No Hx Pancreatitis: No HX Swallowing Problems: No Hx Ulcer: No - GENITOURINARY/GYNECOLOGICAL Hx Genitourinary Disorders: No Hx Hematuria: No Hx Incontinence: Yes Hx Sexually Transmitted Disorders: No Hx Urinary Tract Infection: Yes - PSYCHIATRIC Hx Psychophysiologic Disorder: No Hx Anxiety: Yes Hx Bipolar Disorder: No Hx Depression: No Hx Emotional Abuse: No Hx Hallucinations: No Hx Panic Symptoms: No Hx Paranoia: No Hx Post Traumatic Stress Disorder: No Hx Psychosis: No Hx Physical Abuse: No Hx Schizophrenia: No Hx Sexual Abuse: No - SURGICAL HISTORY Hx Surgeries: Yes Hx Amputation: No Hx Appendectomy: No Hx Cardiac Catheterization: No Hx Cholecystectomy: Yes Hx Coronary Stent: No Hx Gastric Bypass Surgery: No Hx Hysterectomy: No Hx Joint Replacement: Yes (right hip) Hx Kidney Transplant: No Hx Liver Transplant: No Hx Mastectomy: No Hx Musculoskeletal Surgery: No Hx Open Heart Surgery: No Hx Orthopedic Surgery: No Hx Splenectomy: No Hx Valve Replacement: No - ANESTHESIA Hx Anesthesia: No Hx Anesthesia Reactions: No Hx Malignant Hyperthermia: No Meds Allergies/Adverse Reactions: Allergies Allergy/AdvReac Type Severity Reaction Status Date / Time levofloxacin [From Levaquin] Allergy Intermediate RASH Verified 09/06/17 21:49 Penicillins Allergy URTICARIA Verified 09/06/17 21:50 lev Allergy ITCHING Uncoded 09/06/17 21:50 - Medications Medications: Current Medications Furosemide (Lasix) 40 mg IVP DAILY [facility] Last Admin: 09/15/17 16:04 Dose: Not Given Lactulose (Enulose) 20 gm PO TID [facility] Last Admin: 09/15/17 18:24 Dose: Not Given Spironolactone (Aldactone) 25 mg PO DAILY [facility] Physical Exam - Constitutional Appears: Confused, Cachectic - Head Exam Head Exam: ATRAUMATIC, NORMOCEPHALIC - Eye Exam Eye Exam: Normal appearance - ENT Exam ENT Exam: Mucous Membranes Moist, Normal Exam - Respiratory Exam Respiratory Exam: Clear to Auscultation Bilateral, NORMAL BREATHING PATTERN. absent: Rales, Rhonchi, Wheezes, Respiratory Distress - Cardiovascular Exam Cardiovascular Exam: REGULAR RHYTHM, +S1, +S2 - GI/Abdominal Exam GI & Abdominal Exam: Distended. absent: Firm, Guarding, Organomegaly, Rebound, Rigid, Tenderness - Extremities Exam Extremities exam: Negative for: joint swelling, pedal edema - Neurological Exam Neurological exam: Alert, Oriented x3 - Psychiatric Exam Psychiatric exam: Normal Affect, Normal Mood - Skin Skin Exam: Dry, Intact, Normal Color, Warm Results - Vital Signs Recent Vital Signs: Last Vital Signs Temp 98.8 F 09/16/17 06:00 Pulse 85 09/16/17 06:00 Resp 20 09/16/17 06:00 BP 130/51 L 09/16/17 02:00 Pulse Ox 100 09/16/17 06:00 - Labs Result Diagrams: 09/16/17 08:00 09/16/17 08:00 Labs: Laboratory Results - last 24 hr 09/15/17 09/15/17 09/15/17 08:54 16:04 21:37 WBC RBC Hgb Hct MCV MCH MCHC RDW Plt Count MPV Gran % Lymph % (Auto) Park % (Auto) Eos % (Auto) Baso % (Auto) Gran # Lymph # (Auto) Park # (Auto) Eos # (Auto) Baso # (Auto) POC Glucose (mg/dL) 81 66 83 09/16/17 09/16/17 07:44 08:00 WBC 4.6 RBC 2.78 L Hgb 8.2 L Hct 24.8 L MCV 89.2 MCH 29.5 MCHC 33.1 RDW 15.6 H Plt Count 89 L MPV 12.3 H Gran % 35.2 L Lymph % (Auto) 53.2 H Park % (Auto) 7.9 H Eos % (Auto) 2.8 Baso % (Auto) 0.9 Gran # 1.61 Lymph # (Auto) 2.4 Park # (Auto) 0.4 Eos # (Auto) 0.1 Baso # (Auto) 0.04 POC Glucose (mg/dL) 53 L Assessment & Plan - Assessment and Plan (Free Text) Assessment: This is an 87-year-old female with a past medical history of autoimmune hepatitis, myelodysplastic syndrome, thrombocytopenia, chronic anemia and hypertension, cryptogenic cirrhosis who presents with HE and abd distension 1. Decompensated cirrhosis secondary to ascites and HE, MELD 16 2. Acites 3. HE 4. Anemia P Plan: -MELD 16 -continue lactulose bid until 2-3 BM daily -continue xifaxan 550mg bid -Anemia stable -Low salt diet -Lasix and spironolactone 100mg daily -Will continue to follow closely -trend LFTs and INR daily D/W Dr. Curry <Angelia Curry - Last Filed: 09/16/17 22:07> Meds - Medications Medications: Current Medications Furosemide (Lasix) 40 mg IVP DAILY [facility] Last Admin: 09/16/17 09:58 Dose: 40 mg Dextrose/Sodium Chloride (Dextrose 5%/0.45% Ns 1000 Ml) 1,000 mls @ 75 mls/hr IV .[id number] [facility] Last Admin: 09/16/17 12:38 Dose: 75 mls/hr Lactulose (Enulose) 20 gm PO TID [facility] Last Admin: 09/16/17 20:12 Dose: Not Given Spironolactone (Aldactone) 25 mg PO DAILY [facility] Last Admin: 09/16/17 09:57 Dose: 25 mg Results - Vital Signs Recent Vital Signs: Last Vital Signs Temp 98.2 F 09/16/17 16:00 Pulse 81 09/16/17 20:00 Resp 23 09/16/17 20:00 BP 124/60 09/16/17 20:00 Pulse Ox 100 09/16/17 20:00 - Labs Result Diagrams: 09/16/17 08:00 09/16/17 08:00 Labs: Laboratory Results - last 24 hr 09/16/17 09/16/17 09/16/17 07:44 08:00 08:00 WBC 4.6 RBC 2.78 L Hgb 8.2 L Hct 24.8 L MCV 89.2 MCH 29.5 MCHC 33.1 RDW 15.6 H Plt Count 89 L MPV 12.3 H Gran % 35.2 L Lymph % (Auto) 53.2 H Park % (Auto) 7.9 H Eos % (Auto) 2.8 Baso % (Auto) 0.9 Gran # 1.61 Lymph # (Auto) 2.4 Park # (Auto) 0.4 Eos # (Auto) 0.1 Baso # (Auto) 0.04 Sodium 144 Potassium 4.6 Chloride 112 H Carbon Dioxide 24 Anion Gap 13 BUN 34 H Creatinine 1.4 H Est GFR ( Amer) 43 Est GFR (Non-Af Amer) 35 POC Glucose (mg/dL) 53 L Random Glucose 59 L Calcium 8.4 Magnesium 1.5 L Total Bilirubin 1.6 H AST 82 H ALT 45 Alkaline Phosphatase 168 H Ammonia Total Protein 6.4 Albumin 1.9 L Globulin 4.6 Albumin/Globulin Ratio 0.4 L 09/16/17 09/16/17 09/16/17 08:00 11:09 12:01 WBC RBC Hgb Hct MCV MCH MCHC RDW Plt Count MPV Gran % Lymph % (Auto) Park % (Auto) Eos % (Auto) Baso % (Auto) Gran # Lymph # (Auto) Park # (Auto) Eos # (Auto) Baso # (Auto) Sodium Potassium Chloride Carbon Dioxide Anion Gap BUN Creatinine Est GFR ( Amer) Est GFR (Non-Af Amer) POC Glucose (mg/dL) 45 L 49 L Random Glucose Calcium Magnesium Total Bilirubin AST ALT Alkaline Phosphatase Ammonia 14 Total Protein Albumin Globulin Albumin/Globulin Ratio 09/16/17 09/16/17 13:30 15:27 WBC RBC Hgb Hct MCV MCH MCHC RDW Plt Count MPV Gran % Lymph % (Auto) Park % (Auto) Eos % (Auto) Baso % (Auto) Gran # Lymph # (Auto) Park # (Auto) Eos # (Auto) Baso # (Auto) Sodium Potassium Chloride Carbon Dioxide Anion Gap BUN Creatinine Est GFR ( Amer) Est GFR (Non-Af Amer) POC Glucose (mg/dL) 145 H 204 H Random Glucose Calcium Magnesium Total Bilirubin AST ALT Alkaline Phosphatase Ammonia Total Protein Albumin Globulin Albumin/Globulin Ratio Attending/Attestation - Attestation I have personally seen and examined this patient.: Yes I have fully participated in the care of the patient.: Yes I have reviewed all pertinent clinical information: Yes Notes (Text): 09/16/17 22:06 I have seen and examined patient with GI fellow. 87 yr old F with cirrhosis decompensated with ascites. No acute events overnight and denies abdominal pain , nausea, vomiting, fever/chills. Admitted with altered mental status. Continue low salt diet as tolerated. Continue lactulose/ rifaximin and diuretics. Monitor BMP daily. Ultimately patient would benefit from evaluation at tertiary care facility for consideration of routine outpatient paracentesis. Patient is unlikely transplant candidate due to advanced age and medical comorbidities.
[2017-09-16 08:35] LABS: ALB/GLOB RATIO 0.4 (1.1-1.8); ALBUMIN 1.9 g/dL (3.0-4.8); CALCIUM 8.4 mg/dL (8.4-10.5)
[2017-09-16] MEDS ORDERED: Magnesium Sulfate 1 gm in D5W 1 GM/100 ML BAG IVPB ONE (09:54)
[2017-09-16] MEDS ORDERED: Dextrose 50% SYRINGE Inj (50 ml) ONE (12:11)
[2017-09-16] MEDS: Dextrose 5%/0.45% NS 1,000 ML IV SCH (12:38)
--- NOTE | 2017-09-16 16:04 | PN ---
DATE: SUBJECTIVE: The patient is 87-year-old, seen and examined, seems to be more alert but confused and disoriented. PHYSICAL EXAMINATION: VITAL SIGNS: She is afebrile, pulse 87, respirations 18, blood pressure 129/59. LUNGS: Bilateral good airflow. No rhonchi or crackle. HEART: S1 and S2 audible. ABDOMEN: Soft, has fluid thrill. EXTREMITIES: Bilateral legs +1 edema. LABORATORY DATA: WBC is 4.6, hemoglobin 8.2, hematocrit 24.8, platelet of 89. Chemistry: Sodium 144, potassium 4.6, chloride 112, CO2 of 24, BUN 34, creatinine 1.4, blood sugar of 49. Magnesium 1.5. Total bilirubin 1.6. ASSESSMENT: 1. Status post hepatic encephalopathy. 2. Cirrhotic ascites. 3. Pancytopenia. 4. Myelodysplastic syndrome. 5. Autoimmune hepatitis. 6. Status post paracentesis and 2900 mL fluid was removed. PLAN: We will continue the patient on Lasix, Aldactone and since her mental status has improved, we can start her on a liquid diet and we will advance as tolerated. Kamaljit Pena MD
[2017-09-17] MEDS: Dextrose 5%/0.45% NS 1,000 ML IV SCH ×2 (04:35→13:34)
[2017-09-17 08:19] LABS: BASO # 0.01 K/mm3 (0.0-2.0); BASO % 0.3 % (0.0-3.0); EOS # 0.2 (0.0-0.7); EOS % 4.4 % (1.5-5.0); GRAN # 1.29 (1.4-6.5); GRAN % 35.3 % (50.0-68.0); HEMOGLOBIN 8.4 g/dL (12.0-16.0); LYMPH # 1.9 (1.2-3.4); LYMPH % 51.2 % (22.0-35.0); MEAN CELL VOLUME 89.8 fl (80.0-105.0); MEAN CORPUSCULAR HEMOGLOBIN 29.5 pg (25.0-35.0); MEAN CORPUSCULAR HGB CONC 32.8 g/dl (31.0-37.0); MEAN PLATELET VOLUME 12.3 fl (7.0-11.0); MONO # 0.3 (0.1-0.6); MONO % 8.8 % (1.0-6.0); RBC 2.85 10^6/uL (3.5-6.1); RED CELL DISTRIBUTION WIDTH 15.5 % (11.5-14.5); WHITE BLOOD COUNT 3.7 10^3/ul (4.5-11.0)
[2017-09-17 08:35] LABS: INR 1.47 (0.93-1.08)
[2017-09-17 08:55] LABS: ALB/GLOB RATIO 0.4 (1.1-1.8); CALCIUM 8.2 mg/dL (8.4-10.5)
--- NOTE | 2017-09-17 12:49 | CP.PCM.PN ---
<Luiza Grijalva - Last Filed: 09/17/17 13:07> Subjective - Date & Time of Evaluation Date of Evaluation: 09/17/17 Time of Evaluation: 08:00 - Subjective Subjective: PGY4 GI Follow-up Pt seen and examined bedside Still confused Refusing PO lactulose Denies any abd pain tolerating diet ROS: 10 point ROS conducted Neg other than above Objective - Vital Signs/Intake and Output Vital Signs (last 24 hours): Temp Pulse Resp BP Pulse Ox 97.4 F L 71 13 134/53 L 100 09/17/17 12:00 09/17/17 12:00 09/17/17 12:00 09/17/17 12:00 09/17/17 12:00 - Medications Medications: Current Medications Furosemide (Lasix) 40 mg IVP DAILY [facility] Last Admin: 09/17/17 09:50 Dose: 40 mg Dextrose/Sodium Chloride (Dextrose 5%/0.45% Ns 1000 Ml) 1,000 mls @ 75 mls/hr IV .[id number] [facility] Last Admin: 09/17/17 04:35 Dose: 75 mls/hr Lactulose (Enulose) 20 gm PO TID [facility] Last Admin: 09/17/17 09:50 Dose: 20 gm Spironolactone (Aldactone) 25 mg PO DAILY [facility] Last Admin: 09/17/17 09:50 Dose: 25 mg - Labs Labs: 09/17/17 08:00 09/17/17 08:00 PT 17.0 SECONDS (9.4-12.5) H 09/17/17 08:00 INR 1.47 (0.93-1.08) H 09/17/17 08:00 - Constitutional Appears: No Acute Distress, Agitated - Head Exam Head Exam: ATRAUMATIC, NORMOCEPHALIC - Eye Exam Eye Exam: Normal appearance - ENT Exam ENT Exam: Mucous Membranes Moist, Normal Exam - Neck Exam Neck Exam: Normal Inspection - Respiratory Exam Respiratory Exam: Clear to Ausculation Bilateral, NORMAL BREATHING PATTERN. absent: Rales, Rhonchi, Wheezes - Cardiovascular Exam Cardiovascular Exam: REGULAR RHYTHM, +S1, +S2 - GI/Abdominal Exam GI & Abdominal Exam: Distended, Soft, Normal Bowel Sounds. absent: Guarding, Rigid - Extremities Exam Extremities Exam: Pedal Edema. absent: Joint Swelling - Neurological Exam Neurological Exam: Altered - Psychiatric Exam Additional comments: could not assess - Skin Skin Exam: Dry, Intact, Normal Color, Warm Assessment and Plan - Assessment and Plan (Free Text) Assessment: This is an 87-year-old female with a past medical history of autoimmune hepatitis, myelodysplastic syndrome, thrombocytopenia, chronic anemia and hypertension, cryptogenic cirrhosis who presents with HE and abd distension 1. Decompensated cirrhosis secondary to ascites and HE, MELD 16 2. Acites 3. HE 4. Anemia P Plan: -MELD 15 09/17/17 -continue lactulose PO q 1hr until 2 BM -if pt refused PO lactulose, can do enemas -continue xifaxan 550mg bid -Anemia stable -Low salt diet -Lasix and spironolactone 100mg daily -Will continue to follow closely -trend LFTs and INR daily D/W Dr. Curry <Angelia Curry - Last Filed: 09/17/17 14:37> Objective - Vital Signs/Intake and Output Vital Signs (last 24 hours): Temp Pulse Resp BP Pulse Ox 97.4 F L 71 13 134/53 L 100 09/17/17 12:00 09/17/17 12:00 09/17/17 12:00 09/17/17 12:00 09/17/17 12:00 - Medications Medications: Current Medications Furosemide (Lasix) 40 mg IVP DAILY [facility] Last Admin: 09/17/17 09:50 Dose: 40 mg Dextrose/Sodium Chloride (Dextrose 5%/0.45% Ns 1000 Ml) 1,000 mls @ 75 mls/hr IV .[id number] [facility] Last Admin: 09/17/17 13:34 Dose: 75 mls/hr Lactulose (Enulose) 20 gm PO TID [facility] Last Admin: 09/17/17 13:33 Dose: 20 gm Spironolactone (Aldactone) 25 mg PO DAILY [facility] Last Admin: 09/17/17 09:50 Dose: 25 mg - Labs Labs: 09/17/17 08:00 09/17/17 08:00 PT 17.0 SECONDS (9.4-12.5) H 09/17/17 08:00 INR 1.47 (0.93-1.08) H 09/17/17 08:00 Attending/Attestation - Attestation I have personally seen and examined this patient.: Yes I have fully participated in the care of the patient.: Yes I have reviewed all pertinent clinical information, including history, physical exam and plan: Yes Notes (Text): 09/17/17 14:36 I have seen and examined patient with GI fellow. 87 yr old F with cirrhosis decompensated with ascites admitted with HE now improving. No acute events overnight and denies abdominal pain, nausea, vomiting, fever/chills. No s/s of sepsis or GI bleeding. Continue low salt diet as tolerated. Continue lactulose / rifaximin and diuretics. Monitor BMP daily. Ultimately patient would benefit from evaluation at tertiary care facility for consideration of routine outpatient paracentesis. Patient is unlikely transplant candidate due to advanced age and medical co morbidities. Will sign off now. Thank you for letting us participate in the care of your patients
--- NOTE | 2017-09-17 22:43 | PN ---
DATE: SUBJECTIVE: Patient has no complaints of any chest pain. Patient states she has no headaches or dizziness although she is confused. PHYSICAL EXAMINATION: VITAL SIGNS: Temperature is 97.4, pulse of 71, blood pressure is 134/63, respirations 13. GENERAL: The patient is lying in bed, flat, comfortable. HEENT: No oral lesion. Anicteric sclerae. Moist mucosa. NECK: No JVD, adenopathy, or thyromegaly. CARDIOVASCULAR: S1 and S2, regular. No murmurs, rubs, or gallops. LUNGS: Clear to auscultation bilaterally. No wheeze, rales, or rhonchi. ABDOMEN: Bowel sounds are positive, soft, nontender, and nondistended. EXTREMITIES: No cyanosis, clubbing, or edema. LABORATORY DATA: White count of 3.7, hemoglobin of 8.4. Creatinine is 1.3. ASSESSMENT: 1. Hepatic encephalopathy. 2. Ascites, status post paracentesis of 2.9 L. 3. Cirrhosis. 4. Pancytopenia. 5. Myelodysplastic syndrome. 6. Autoimmune hepatitis. 7. PENICILLIN ALLERGY. PLAN: The patient is currently in the ICU. She is going to return to the general medical floor. The patient's chemistry shows the creatinine is 1.3. We will discontinue the patient's IV fluids at this point. Patient is on Aldactone and is on Lasix daily. John Mejía MD
--- NOTE | 2017-09-18 16:42 | PN ---
DATE: 09/18/2017 SUBJECTIVE: The patient has no complaints of any chest pain, shortness of breath or headaches. PHYSICAL EXAMINATION VITAL SIGNS: Temperature is 97.9, pulse of 82, blood pressure is 114/61, respirations 20. GENERAL: The patient is lying in bed, flat, comfortable. HEENT: No oral lesion. Anicteric sclerae. Moist mucosa. NECK: No JVD, adenopathy, or thyromegaly. CARDIOVASCULAR: S1 and S2, regular. No murmurs, rubs, or gallops. LUNGS: Clear to auscultation bilaterally. No wheeze, rales, or rhonchi. ABDOMEN: Bowel sounds are positive, soft, nontender and nondistended. EXTREMITIES: No cyanosis, clubbing or edema. LABORATORY DATA: White count of 3.7, hemoglobin 8.4. Creatinine is 1.3. ASSESSMENT: 1. Hepatic encephalopathy. 2. Ascites, status post paracentesis of 2.9 L. 3. Cirrhosis. 4. Pancytopenia. 5. Myelodysplastic syndrome. 6. Autoimmune hepatitis. 7. PENICILLIN ALLERGY. PLAN: The patient is currently on Aldactone, this is going to be continued. She is also on lactulose. Her hepatic encephalopathy is better. She is on Lasix. She is on a heart-healthy diet. The patient is going to begin physical therapy. Patient may need physical therapy. John Mejía MD
--- NOTE | 2017-09-20 05:55 | DS ---
HISTORY OF PRESENT ILLNESS: This is an 87-year-old female who had come in to the hospital with hepatic encephalopathy. The patient's hepatic encephalopathy has improved. She had ascites and had liters of ascitic fluid that was taken out by paracentesis. The patient has no complaints of any chest pain. No shortness of breath or headaches. She does have confusion, but I believe this may be baseline. She is able to follow simple commands. PHYSICAL EXAMINATION: VITAL SIGNS: Temperature is 97.9, pulse is 74, blood pressure 115/60, respirations are 20. GENERAL: The patient is lying in bed, flat, comfortable. HEENT: No oral lesion. Anicteric sclerae. Moist mucosa. NECK: No JVD, adenopathy, or thyromegaly. CARDIOVASCULAR: S1 and S2, regular. No murmurs, rubs, or gallops. LUNGS: Clear to auscultation bilaterally. No wheeze, rales, or rhonchi. ABDOMEN: Bowel sounds are positive, soft, nontender, and nondistended. EXTREMITIES: No cyanosis, clubbing, or edema. ASSESSMENT: 1. Hepatic encephalopathy, improved. 2. Ascites, status post paracentesis of 2.9 L. 3. Cirrhosis. 4. Pancytopenia. 5. Myelodysplastic syndrome. 6. Autoimmune hepatitis. 7. PENICILLIN ALLERGY. PLAN: The patient is currently comfortable. She is going to continue with her lactulose. She is on Aldactone. She is going to continue with the Lasix. She is on a heart-healthy diet. We will make plans for her to be discharged to [facility]. John Mejía MD
[2017-09-20 07:01] LABS: HEMOGLOBIN 8.3 g/dL (12.0-16.0); MEAN CELL VOLUME 88.8 fl (80.0-105.0); MEAN CORPUSCULAR HEMOGLOBIN 30.1 pg (25.0-35.0); MEAN CORPUSCULAR HGB CONC 33.9 g/dl (31.0-37.0); MEAN PLATELET VOLUME 11.4 fl (7.0-11.0); RBC 2.76 10^6/uL (3.5-6.1); RED CELL DISTRIBUTION WIDTH 14.9 % (11.5-14.5); WHITE BLOOD COUNT 5.3 10^3/ul (4.5-11.0)
[2017-09-20 07:33] LABS: ALB/GLOB RATIO 0.4 (1.1-1.8); ALBUMIN 1.7 g/dL (3.0-4.8); CALCIUM 7.7 mg/dL (8.4-10.5)
--- NOTE | 2017-09-20 14:53 | PN ---
DATE: SUBJECTIVE: The patient is 87 years old, seen and examined, seems to be awake and alert, able to communicate, but forgetful. PHYSICAL EXAMINATION VITAL SIGNS: The patient is afebrile, pulse 100, respirations 18, blood pressure 114/60. LUNGS: Bilateral good airflow. No rhonchi or crackle. HEART: S1 and S2 audible. ABDOMEN: Soft, nontender. No rebound. No guarding. Her ascites has reduced since she had 3 liters fluid drained. LABORATORY DATA: WBC is 5.3, hemoglobin 8.3, hematocrit 24.5, platelet of 78,000. Chemistry: Sodium 136, potassium 4.7, chloride 109, CO2 24, BUN 20, creatinine 1.2, blood sugar of 232. Her alkaline phosphatase is 149, AST 86. ASSESSMENT 1. Status post hepatic encephalopathy. 2. Hypertension. 3. Hyperlipidemia. 4. Pancytopenia. 5. Myelodysplastic syndrome. PLAN: We will continue the patient on current medications. We will continue on lactulose, continue on Lasix and also, continue on Xifaxan. Discussed with daughter for possible Aspira catheter placement, but she is not agreeable for now. She wants to take her home and she is reluctant to start hospice care also. We are trying to make arrangement for hospital bed along with insurance company to transfer her home. We will continue Lasix, added Xifaxan. She is on Aldactone and we will follow up CBC and CMP in the morning. Kamaljit Pena MD
--- NOTE | 2017-09-20 15:21 | CP.PCM.PN ---
Subjective - Date & Time of Evaluation Date of Evaluation: 09/20/17 Time of Evaluation: 03:00 - Subjective Subjective: This patient is very physically deconditioned and requires a hospital bed for frequent repositioning to alleviate pain due to ascites, s/p paracentesis, cirrhosis,myelodysplastic syndrome. Objective - Vital Signs/Intake and Output Vital Signs (last 24 hours): Temp Pulse Resp BP Pulse Ox 97.8 F 100 H 18 114/6 L 100 09/20/17 07:30 09/20/17 07:30 09/20/17 07:30 09/20/17 09:44 09/20/17 07:30 Intake and Output: 09/20/17 09/20/17 06:59 18:59 Intake Total 660 Balance 660 - Medications Medications: Current Medications Furosemide (Lasix) 40 mg IVP DAILY [facility] Last Admin: 09/20/17 09:44 Dose: 40 mg Lactulose (Enulose) 20 gm PO TID [facility] Last Admin: 09/20/17 14:30 Dose: 20 gm Rifaximin (Xifaxan) 550 mg PO BID [facility] PRN Reason: Protocol Spironolactone (Aldactone) 25 mg PO DAILY [facility] Last Admin: 09/20/17 09:44 Dose: 25 mg - Labs Labs: 09/20/17 06:15 09/20/17 06:15 PT 17.0 SECONDS (9.4-12.5) H 09/17/17 08:00 INR 1.47 (0.93-1.08) H 09/17/17 08:00
[2017-09-21 08:05] LABS: BASO # 0.02 K/mm3 (0.0-2.0); BASO % 0.4 % (0.0-3.0); EOS # 0.1 (0.0-0.7); EOS % 3.1 % (1.5-5.0); GRAN # 1.68 (1.4-6.5); GRAN % 37.7 % (50.0-68.0); LYMPH # 2.2 (1.2-3.4); LYMPH % 49.2 % (22.0-35.0); MEAN CELL VOLUME 88.5 fl (80.0-105.0); MEAN CORPUSCULAR HEMOGLOBIN 29.5 pg (25.0-35.0); MEAN CORPUSCULAR HGB CONC 33.3 g/dl (31.0-37.0); MEAN PLATELET VOLUME 11.5 fl (7.0-11.0); MONO # 0.4 (0.1-0.6); MONO % 9.6 % (1.0-6.0); RBC 2.34 10^6/uL (3.5-6.1); RED CELL DISTRIBUTION WIDTH 15.2 % (11.5-14.5); WHITE BLOOD COUNT 4.5 10^3/ul (4.5-11.0)
[2017-09-21 08:13] LABS: HEMOGLOBIN 6.9 g/dL (12.0-16.0)
[2017-09-21 08:26] LABS: ALB/GLOB RATIO 0.4 (1.1-1.8); ALBUMIN 1.5 g/dL (3.0-4.8); CALCIUM 7.6 mg/dL (8.4-10.5)
--- NOTE | 2017-09-21 16:46 | PN ---
DATE: SUBJECTIVE: The patient is an 87-year-old, seen and examined. More awake and alert. Eating and tolerating. OBJECTIVE: VITAL SIGNS: She is afebrile, pulse 67, respirations 19, blood pressure 104/51. LUNGS: Bilateral good airflow. No rhonchi or crackle. HEART: S1 and S2 audible. ABDOMEN: Soft. Has ascites, but better than before since she had fluid drained. EXTREMITIES: Bilateral legs +2 edema. LABORATORY EXAM: WBC is 4.5, hemoglobin 6.9, hematocrit 20.7, platelets 69. Chemistry: Sodium 134, potassium 4.6, chloride 109, CO2 24, BUN 21, creatinine 1.3, blood sugar of 203. ASSESSMENT AND PLAN: 1. Status post hepatic encephalopathy. 2. Pancytopenia. 3. Myelodysplastic syndrome. 4. Chronic bilateral legs stasis dermatitis. 5. Electrolyte imbalance. 6. Deconditioning and difficulty positioning herself in the bed and getting out of bed. So, the plan is we will transfuse 2 packed RBCs. We will continue on lactulose. Continue her on spironolactone and Lasix. Discussed with daughter yesterday about possibility of Aspira catheter. She does not want to go to any longterm rather want her to go home, as the arrangement for the hospital bed is made. Patient will receive blood transfusion today and will be transferred later on today or tomorrow morning. Kamaljit Pena MD
[2017-09-22 07:51] VITALS: RESP 18
[2017-09-22 08:14] LABS: MEAN CELL VOLUME 88.4 fl (80.0-105.0); MEAN CORPUSCULAR HEMOGLOBIN 30.1 pg (25.0-35.0); MEAN PLATELET VOLUME 11.4 fl (7.0-11.0); RBC 3.46 10^6/uL (3.5-6.1); RED CELL DISTRIBUTION WIDTH 15.1 % (11.5-14.5); WHITE BLOOD COUNT 4.8 10^3/ul (4.5-11.0)
[2017-09-22 08:17] LABS: HEMOGLOBIN 10.4 g/dL (12.0-16.0)
--- NOTE | 2017-09-22 12:41 | CP.PCM.PN ---
Subjective - Date & Time of Evaluation Date of Evaluation: 09/22/17 Time of Evaluation: 12:39 - Subjective Subjective: Pt is for discharged home today. Mid line removed from NEGRA (15 cm in length), pressure applied for 5 min. No bleeding or hematoma noted. Pt tolerated procedure well. Objective - Vital Signs/Intake and Output Vital Signs (last 24 hours): Temp Pulse Resp BP Pulse Ox 98.2 F 73 18 117/61 99 09/22/17 07:30 09/22/17 07:30 09/22/17 07:30 09/22/17 11:15 09/22/17 07:30 Intake and Output: 09/22/17 09/22/17 06:59 18:59 Intake Total 1050 Balance 1050 - Medications Medications: Current Medications Furosemide (Lasix) 40 mg IVP DAILY [facility] Last Admin: 09/22/17 11:15 Dose: 40 mg Lactulose (Enulose) 20 gm PO TID [facility] Last Admin: 09/22/17 11:15 Dose: 20 gm Rifaximin (Xifaxan) 550 mg PO BID [facility] PRN Reason: Protocol Last Admin: 09/22/17 11:14 Dose: 550 mg Spironolactone (Aldactone) 25 mg PO DAILY [facility] Last Admin: 09/22/17 11:14 Dose: 25 mg - Labs Labs: 09/22/17 08:00 09/21/17 07:45 PT 17.0 SECONDS (9.4-12.5) H 09/17/17 08:00 INR 1.47 (0.93-1.08) H 09/17/17 08:00
[2017-09-22 16:47] VITALS: BP 96/55; PULSE 72; TEMP 98; O2SAT 100
--- NOTE | 2017-09-23 06:15 | DS ---
HOSPITAL COURSE: The patient is 87-year-old, seen and examined. Yesterday's events noted, patient's hemoglobin dipped down to 6.9. She received 2 blood transfusions. Seems to be more alert today and less pale. PHYSICAL EXAMINATION: VITAL SIGNS: She is afebrile, pulse 72, respirations 18, blood pressure 96/55. LUNGS: Bilateral good air flow. No rhonchi or crackles. Decreased breath sounds at bases. HEART: S1 and S2 audible. ABDOMEN: Soft, nontender. No rebound, no guarding. NEUROLOGIC: The patient is awake, alert, oriented, able to have conversation. LABORATORY DATA: WBC is 4.8, hemoglobin 10.4, hematocrit 30.6, platelets of 56. Blood sugar is 119. ASSESSMENT: 1. Status post hepatic encephalopathy. 2. Autoimmune hepatitis. 3. Cirrhosis of liver. 4. Pancytopenia. 5. Myelodysplastic syndrome. 6. Deconditioning and difficulty walking. PLAN: We will continue the patient on spironolactone. She is on lactulose three times a day. She is on Lasix 40 mg daily and Xifaxan 550 twice a day. Arrangement has been made for hospital bed and portable commode, and patient will be discharged around 5:00, and she will be sent home. Patient's daughter, Nelda, does not want hospital care yet, and so we will discharge patient home. Kamaljit Pena MD
== END 2017-09-22 17:57 | disposition home or self-care (01) | DRG 433 ==
LOC: ED 21:30 → ERH 09-15 01:14 → ICU 09-15 08:59 → 5RNO 09-17 13:28
PROVIDERS: ADMIT Internal Medicine; ATTEND Internal Medicine
PROC: 0W9G3ZZ Drainage of Peritoneal Cavity, Percutaneous Approach (ICD-10-PCS; principal; 2017-09-15)
DX: K74.69 Other cirrhosis of liver (principal); D61.818 Other pancytopenia; R18.8 Other ascites; E87.5 Hyperkalemia; K72.90 Hepatic failure, unspecified without coma; K50.90 Crohn's disease, unspecified, without complications; D32.9 Benign neoplasm of meninges, unspecified; D46.9 Myelodysplastic syndrome, unspecified; E03.9 Hypothyroidism, unspecified; K21.9 Gastro-esophageal reflux disease without esophagitis; E11.9 Type 2 diabetes mellitus without complications; K75.4 Autoimmune hepatitis; R53.81 Other malaise; R26.2 Difficulty in walking, not elsewhere classified; E78.5 Hyperlipidemia, unspecified; I10 Essential (primary) hypertension; I87.2 Venous insufficiency (chronic) (peripheral); Z87.01 Personal history of pneumonia (recurrent); Z87.440 Personal history of urinary (tract) infections; Z87.891 Personal history of nicotine dependence; Z88.0 Allergy status to penicillin; Z90.49 Acquired absence of other specified parts of digestive tract; Z96.641 Presence of right artificial hip joint

== ENCOUNTER 2017-10-21 15:56 | Inpatient (IN) | payer MEDICARE, OTHER ==
[2017-10-21 16:41] VITALS: BMI 25.7
[2017-10-21] MEDS ORDERED: Morphine 4 mg/ml ISec IVP STA ×2 (17:23→18:55)
--- NOTE | 2017-10-21 17:32 | ED PDOC ---
Arrival/HPI - General Chief Complaint: Altered Mental Status Time Seen by Provider: 10/21/17 16:47 Historian: Patient, Family - History of Present Illness Narrative History of Present Illness (Text): 87yoF with cirrhosis, prior paracentesis, myelodysplastic disorder, pancytopenia , and who is having abdomen pain and generalized pain, but otherwise no n/v/mann/ dizziness/sob/chest pain. 10/21/17 17:29 Time/Duration: 24 hours Symptom Onset: Gradual Symptom Course: Unchanged Quality: Aching Severity Level: 2 Activities at Onset: Rest Context: Sitting Past Medical History - Provider Review Nursing Documentation Reviewed: Yes - Travel History Have you recently traveled outside [place] w/in the past 3 mons?: No - Infectious Disease Hx of Infectious Diseases: None - Tetanus Immunization Tetanus Immunization: Unknown - Cardiac Hx Pacemaker: No - Pulmonary Hx Respiratory Disorders: No Hx Asthma: No Hx Bronchitis: No Hx Chronic Obstructive Pulmonary Disease (COPD): No Hx Emphysema: No Hx Pneumonia: No Hx Respiratory Aspiration: No Hx Respiratory Tract Infection: No Hx Sleep Apnea: No Hx Tuberculosis: No - Neurological Hx Neurological Disorder: No Hx Alzheimer's Disease: No HX Cerebrovascular Accident: No Hx Dementia: No Hx Dizziness: No Hx Meningitis: No Hx Migraine: No Hx Parkinson's Disease: No Hx Seizures: No Hx Transient Ischemic Attacks (TIA): No - HEENT Hx HEENT Disorder: No Hx Blind: No Hx Cataracts: No Hx Deafness: No Hx Difficulty Chewing: No Hx Epistaxis: No Hx Glaucoma: No Hx Macular Degeneration: No - Renal Hx Renal Disorder: No Hx Dialysis: No Hx Kidney Stones: No Hx Neurogenic Bladder: No Hx Pyelonephritis: No Hx Renal Cancer: No Hx Renal Failure: No - Endocrine/Metabolic Hx Diabetes Mellitus Type 2: Yes Hx Hypothyroidism: Yes - Hematological/Oncological Hx Cancer: No - Integumentary Hx Dermatological Disorder: No Hx Basal Cell Carcinoma: No Hx Eczema: No Hx Melanoma: No Hx Psoriasis: No Hx Squamous Cell Carcinoma: No - Musculoskeletal/Rheumatological Hx Musculoskeletal Disorders: No Hx Arthritis: No Hx Back Pain: No Hx Degenerative Joint Disease: No Hx Falls: No Hx Fractures: No Hx Gout: No Hx Herniated Disk: No Hx Myasthenia Gravis: No Hx Osteoarthritis: No Hx Osteomyelitis: No Hx Osteoporosis: No Hx Rhabdomyolysis: No Hx Spinal Stenosis: No Hx Unsteady Gait: No - Gastrointestinal Hx Gastroesophageal Reflux: Yes - Genitourinary/Gynecological Hx Genitourinary Disorders: No Hx Hematuria: No Hx Incontinence: Yes Hx Sexually Transmitted Diseases: No Hx Urinary Tract Infection: Yes - Psychiatric Hx Psychophysiologic Disorder: No Hx Anxiety: Yes Hx Bipolar Disorder: No Hx Depression: No Hx Emotional Abuse: No Hx Hallucinations: No Hx Panic Disorder: No Hx Post Traumatic Stress Disorder: No Hx Psychosis: No Hx Physical Abuse: No Hx Schizophrenia: No Hx Sexual Abuse: No Hx Substance Use: No - Surgical History Hx Mastectomy: No - Anesthesia Hx Anesthesia: No Hx Anesthesia Reactions: No Hx Malignant Hyperthermia: No - Suicidal Assessment Feels Threatened In Home Enviroment: No Family/Social History - Physician Review Nursing Documentation Reviewed: Yes Family/Social History: No Known Family HX Smoking Status: Never Smoked Hx Alcohol Use: No Hx Substance Use: No Hx Substance Use Treatment: No Allergies/Home Meds Allergies/Adverse Reactions: Allergies levofloxacin [From Levaquin] Allergy (Intermediate, Verified 10/21/17 16:33) RASH Penicillins Allergy (Verified 10/21/17 16:33) URTICARIA lev Allergy (Uncoded 10/21/17 16:33) ITCHING Review of Systems - Review of Systems Constitutional: Normal Eyes: Normal ENT: Normal Respiratory: Normal Cardiovascular: Normal Gastrointestinal: Abdominal Pain Genitourinary Female: Normal Musculoskeletal: Normal Skin: Skin Lesions Neurological: Normal Endocrine: Normal Hemo/Lymphatic: Normal Psychiatric: Normal Physical Exam Vital Signs Reviewed: Yes Vital Signs Temp Pulse Resp BP Pulse Ox 10/21/17 23:22 97 H 21 113/59 L 95 10/21/17 16:34 97.9 F 96 H 22 128/58 L 99 Temperature: Afebrile Blood Pressure: Hypertensive Pulse: Regular Respiratory Rate: Normal Appearance: Positive for: Uncomfortable Pain Distress: None Mental Status: Positive for: Alert and Oriented X 3 - Systems Exam Head: Present: Atraumatic, Normocephalic Pupils: Present: PERRL Extroacular Muscles: Present: EOMI Conjunctiva: Present: Normal Ears: Present: Normal Mouth: Present: Moist Mucous Membranes Pharnyx: Present: Normal Nose (External): Present: Atraumatic Nose (Internal): Present: Normal Inspection Neck: Present: Normal Range of Motion Respiratory/Chest: Present: Clear to Auscultation, Good Air Exchange Cardiovascular: Present: Regular Rate and Rhythm Abdomen: Present: Tenderness, Other (mild generalized discomfort) Back: Present: Decubitus Ulcer (posterior 12cm by 10cm ulceration with exudates and scabbing) Upper Extremity: Present: Normal Inspection Lower Extremity: Present: Other (left hip ulceration and right foot with scabbing/ulceration) Neurological: Present: GCS=15, CN II-XII Intact, Speech Normal, Motor Func Grossly Intact Skin: Present: Warm, Other (see back and le) Psychiatric: Present: Alert, Oriented x 3, Normal Insight, Normal Concentration Medical Decision Making ED Course and Treatment: 87yoF with cirrhosis, prior paracentesis, myelodysplastic disorder, pancytopenia , and who is having abdomen pain and generalized pain, but otherwise no n/v/mann/ dizziness/sob/chest pain. wbc 10 hb 9.7 plts 125 trop 0.01 lactic 2.3 UA le trace t.bili 1.9 creatinine 1.1 bun 22 repeat lactic 2.2 cxr similar to 09/06/17 10/21/17 21:[address] a/p and right foot xray. will given ativan as pt son-law- and daughter stated confused. EXAM:CT Head Without Intravenous Contrast Dictated and Authenticated by: Ida Rosas MD 10/21/2017 10:35 PM FINDINGS: There is atrophy. There is chronic small vessel ischemic disease. There is no hemorrhage or edema. Again seen is a 1.5 x 1.1 cm partially calcified mass along the posterior wall is likely a meningioma. Trace mucosal thickening of a single ethmoid air cell unchanged. The osseous structures are normal. IMPRESSION: No acute findings. Chronic findings as above. CT - ABD PELVIS W/O PO OR IV CONT 2017-07-25 00:29 FINDINGS: Trace pleural fluid and atelectasis. There is stranding and fluid density in the subcutaneous fat consistent with overall edematous state. The edema has worsened significantly since the prior study. There is free fluid within the abdomen and pelvis markedly increased since prior study. Cholecystectomy clips are present. The liver, spleen, and pancreas appear grossly normal on this non-contrast study. Trace bilateral perinephric stranding. Possible tiny exophytic left renal lesion too small to characterize. Probable hiatal hernia with surrounding fluid. Evaluation is suboptimal without oral or intravenous contrast. Decompressed stomach with surrounding free fluid. A cluster of calcification is present within the cecum. The previously seen diffuse colonic wall thickening indicative of colitis is no longer present. There is a moderate amount of stool in the colon. The appendix is not identified however there are no secondary signs of appendicitis such as pericecal stranding. Evidence of prior surgery anterior pelvic wall. Left hip prosthesis. IMPRESSION: Diffuse anasarca markedly increased from prior. Ascites markedly increased. right foot xray degenerative changes. no gas. 10/21/17 23:21 10/21/17 23:28 d/w Dr. Pena who will admit pt and gave dose of doxycycline for possible foot ulcer infection wo ivf due to worsening anasarca/ascites. will order liquid diet. admit to med-surg. Reassessment Condition: Re-examined, Improved - Lab Interpretations Lab Results: 10/21/17 17:15 10/21/17 17:15 Lab Results 10/21/17 21:15: pO2 47, VBG pH 7.31 L, VBG pCO2 53.0, VBG HCO3 26.7, VBG Total CO2 28.3 H, VBG O2 Sat (Calc) 81.3 H, VBG Base Excess -0.4 L, VBG Potassium 4.6 , Sodium 140.0, Chloride 111.0 H, Glucose 92, Lactate 2.2 H, FiO2 21.0, Venous Blood Potassium 4.6 10/21/17 17:50: Urine Color Yellow, Urine Appearance Slight-cloudy, Urine pH 6.0 , Ur Specific [place] 1.020, Urine Protein Negative, Urine Glucose (UA) Negative , Urine Ketones Trace H, Urine Blood Negative, Urine Nitrate Negative, Urine Bilirubin Negative, Urine Urobilinogen 0.2, Ur Leukocyte Esterase Small H, Urine RBC TEST NOT PERFORMED, Urine WBC 5 - 10, Ur Epithelial Cells 10 - 12, Amorphous Sediment Trace 10/21/17 17:15: Ammonia 17 10/21/17 17:15: pO2 65 H, VBG pH 7.37, VBG pCO2 44.0, VBG HCO3 25.4, VBG Total CO2 26.8, VBG O2 Sat (Calc) 95.8 H, VBG Base Excess -0.2 L, VBG Potassium 4.3, Sodium 139.0, Chloride 111.0 H, Glucose 94, Lactate 2.3 H, FiO2 21.0, Venous Blood Potassium 4.3 10/21/17 17:15: PT 21.8 H, INR 1.89 H, APTT 37.1 H 10/21/17 17:15: Sodium 141, Chloride 110 H, Potassium 4.3, Carbon Dioxide 22, Anion Gap 13, BUN 22 H, Creatinine 1.1, Est GFR ( Amer) 57, Est GFR (Non- Af Amer) 47, Random Glucose 96, Calcium 7.8 L, Magnesium 1.7, Total Bilirubin 1.9 H, AST 49 H D, ALT 34, Alkaline Phosphatase 137 H D, Lactate Dehydrogenase 428, Total Creatine Kinase 39, Troponin I < 0.01, Total Protein 7.0, Albumin 2.1 L, Globulin 4.9, Albumin/Globulin Ratio 0.4 L 10/21/17 17:15: WBC 10.4 D, RBC 3.14 L, Hgb 9.7 L, Hct 28.8 L, MCV 91.7 D, MCH 30.9, MCHC 33.7, RDW 17.4 H, Plt Count 125, MPV 11.3 H, Gran % 65.9, Lymph % (Auto) 22.3, Posey % (Auto) 8.6 H, Eos % (Auto) 2.9, Baso % (Auto) 0.3, Gran # 6.87 H, Lymph # (Auto) 2.3, Posey # (Auto) 0.9 H, Eos # (Auto) 0.3, Baso # (Auto ) 0.03 I have reviewed the lab results: Yes - RAD Interpretation Radiology Orders: 10/21/17 17:24 CHEST PORTABLE [RAD] Stat 10/21/17 17:27 ABDOMEN & PELVIS [ABD & PELVIS W/O PO OR IV CONT] [CT] Stat FOOT RIGHT 3 VIEWS ROUTINE [RAD] Stat 10/21/17 21:17 HEAD W/O CONTRAST [CT] Stat - Medication Orders Current Medication Orders: Lactulose (Enulose) 20 gm PO TID [facility] Ondansetron HCl (Zofran Inj) 4 mg IVP Q6H PRN PRN Reason: Nausea/Vomiting Rifaximin (Xifaxan) 550 mg PO BID [facility] PRN Reason: Protocol Last Admin: 10/21/17 21:49 Dose: Not Given Non-Admin Reason: NPO Discontinued Medications Doxycycline Hyclate 100 mg/ (Sodium Chloride) 100 mls @ 100 mls/hr IVPB STAT STA PRN Reason: Protocol Stop: 10/21/17 18:27 Last Admin: 10/21/17 18:02 Dose: 100 mls/hr eMAR Start Stop Document 10/21/17 18:02 EWO (Rec: 10/21/17 18:02 [id number] Intravenous Solution Start Date 10/21/17 Start Time 18:02 End Date 10/21/17 End time 19:02 Total Infusion Time 60 Lactulose (Generlac) 200 gm FL ONCE ONE Stop: 10/21/17 19:13 Last Admin: 10/21/17 20:09 Dose: 200 gm Lorazepam (Ativan) 2 mg IVP ONCE ONE PRN Reason: Protocol Stop: 10/21/17 21:16 Last Admin: 10/21/17 21:32 Dose: 2 mg IVP Administration Document 10/21/17 21:32 RD (Rec: 10/21/17 21:32 RD [id number]) Charges for Administration # of IVP Administrations 1 Morphine Sulfate (Morphine) 2 mg IVP STAT STA Stop: 10/21/17 17:24 Last Admin: 10/21/17 18:01 Dose: 2 mg MAR Pain Assessment Document 10/21/17 18:01 EWO (Rec: 10/21/17 18:01 [id number] Pain Reassessment Is this a pain reassessment? No Sleep Is patient sleeping during reassessment? No Presence of Pain Presence of Pain Yes Pain Scale Used Pain Scale Used Numeric Description Description Constant Pain Behavior Moaning IVP Administration Document 10/21/17 18:01 EWO (Rec: 10/21/17 18:01 [id number]) Charges for Administration # of IVP Administrations 1 Morphine Sulfate (Morphine) 2 mg IVP STAT STA Stop: 10/21/17 18:56 Last Admin: 10/21/17 19:03 Dose: 2 mg MAR Pain Assessment Document 10/21/17 19:03 EWO (Rec: 10/21/17 19:03 [id number][facility] Pain Reassessment Is this a pain reassessment? No Sleep Is patient sleeping during reassessment? No Presence of Pain Presence of Pain Yes Pain Scale Used Pain Scale Used FLACC IVP Administration Document 10/21/17 19:03 EW (Rec: 10/21/17 19:03 [id number]) Charges for Administration # of IVP Administrations 2 Ondansetron HCl (Zofran Inj) 4 mg IVP STAT STA Stop: 10/21/17 17:29 Last Admin: 10/21/17 18:02 Dose: 4 mg IVP Administration Document 10/21/17 18:02 EWO (Rec: 10/21/17 18:02 [id number] Charges for Administration # of IVP Administrations 1 Disposition/Present on Arrival - Present on Arrival Any Indicators Present on Arrival: No History of DVT/PE: No History of Uncontrolled Diabetes: No Urinary Catheter: No History of Decub. Ulcer: Yes History Surgical Site Infection Following: None - Disposition Have Diagnosis and Disposition been Completed?: Yes Diagnosis: Abdominal pain, Ascites Disposition: HOSPITALIZED Disposition Time: 23:30 Patient Plan: Admission Condition: STABLE Referrals: Kamaljit Pena MD [Primary Care Provider] - Follow up with primary Forms: [facility] ([place]ian)
[2017-10-21 17:44] LABS: VENOUS BLOOD GAS BASE EXCESS -0.2 mmol/L (0.0-2.0); VENOUS BLOOD GAS PO2 65 mm/Hg (30-55); VENOUS BLOOD PH 7.37 (7.32-7.43)
[2017-10-21 17:46] LABS: BASO # 0.03 K/mm3 (0.0-2.0); BASO % 0.3 % (0.0-3.0); EOS # 0.3 (0.0-0.7); EOS % 2.9 % (1.5-5.0); GRAN # 6.87 (1.4-6.5); GRAN % 65.9 % (50.0-68.0); HEMOGLOBIN 9.7 g/dL (12.0-16.0); LYMPH # 2.3 (1.2-3.4); LYMPH % 22.3 % (22.0-35.0); MEAN CELL VOLUME 91.7 fl (80.0-105.0); MEAN CORPUSCULAR HEMOGLOBIN 30.9 pg (25.0-35.0); MEAN CORPUSCULAR HGB CONC 33.7 g/dl (31.0-37.0); MEAN PLATELET VOLUME 11.3 fl (7.0-11.0); MONO # 0.9 (0.1-0.6); MONO % 8.6 % (1.0-6.0); RBC 3.14 10^6/uL (3.5-6.1); RED CELL DISTRIBUTION WIDTH 17.4 % (11.5-14.5); WHITE BLOOD COUNT 10.4 10^3/ul (4.5-11.0)
[2017-10-21 17:56] LABS: ALB/GLOB RATIO 0.4 (1.1-1.8); ALBUMIN 2.1 g/dL (3.0-4.8); ALT/SGPT 34 U/L (7-56); AST/SGOT 49 U/L (14-36); BLOOD UREA NITROGEN 22 mg/dL (7-21); CALCIUM 7.8 mg/dL (8.4-10.5); GFR AFRICAN-AMERICAN 57; GFR NON-AFRICAN AMERICAN 47
[2017-10-21 18:03] LABS: TROPONIN I < 0.01 ng/mL
[2017-10-21 18:06] LABS: INR 1.89 (0.93-1.08); PARTIAL THROMBOPLASTIN TIME 37.1 Seconds (25.1-36.5); PROTHROMBIN TIME 21.8 SECONDS (9.4-12.5)
[2017-10-21 18:14] LABS: URINE BILIRUBIN NEGATIVE (NEGATIVE); URINE BLOOD NEGATIVE (NEGATIVE); URINE GLUCOSE (UA) NEGATIVE (NEGATIVE); URINE LEUKOCYTE ESTERASE SMALL Leu/uL (NEGATIVE); URINE PROTEIN NEGATIVE mg/dL (<30 mg/dL); URINE UROBILINOGEN 0.2 E.U./dL (<1 E.U./dL)
[2017-10-21 18:15] LABS: URINE APPEARANCE SLIGHT-CLOUDY (CLEAR); URINE COLOR YELLOW (YELLOW)
[2017-10-21 18:21] LABS: URINE AMORPHOUS SEDIMENT TRACE
[2017-10-21] MEDS ORDERED: Lactulose 10 gm/15 ml (Rectal Use) PR ONE (19:12)
[2017-10-21 21:23] LABS: VENOUS BLOOD GAS BASE EXCESS -0.4 mmol/L (0.0-2.0); VENOUS BLOOD GAS PO2 47 mm/Hg (30-55); VENOUS BLOOD PH 7.31 (7.32-7.43)
--- NOTE | 2017-10-21 22:35 | CT ---
EXAM: CT Head Without Intravenous Contrast EXAM DATE/TIME: 10/21/2017 9:17 PM CLINICAL HISTORY: 87 years old, female; Signs and symptoms; Altered mental status/memory loss; Age related cognitive decline; Additional info: Confusion TECHNIQUE: Axial computed tomography images of the head/brain without intravenous contrast. All CT scans at this facility use one or more dose reduction techniques, viz.: automated exposure control; ma/kV adjustment per patient size (including targeted exams where dose is matched to indication; i.e. head); or iterative reconstruction technique. Coronal and sagittal reformatted images were created and reviewed. COMPARISON: CT - HEAD W/O CONTRAST 2017-09-15 00:40 FINDINGS: There is atrophy. There is chronic small vessel ischemic disease. There is no hemorrhage or edema. Again seen is a 1.5 x 1.1 cm partially calcified mass along the posterior wall is likely a meningioma. Trace mucosal thickening of a single ethmoid air cell unchanged. The osseous structures are normal. IMPRESSION: No acute findings. Chronic findings as above.
--- NOTE | 2017-10-21 23:05 | CT ---
EXAM: CT Abdomen and Pelvis Without Intravenous Contrast EXAM DATE/TIME: 10/21/2017 5:27 PM CLINICAL HISTORY: 87 years old, female; Pain; Abdominal pain; Acute; Additional info: 87yof abdomen pain TECHNIQUE: Axial computed tomography images of the abdomen and pelvis without intravenous contrast. All CT scans at this facility use one or more dose reduction techniques, viz.: automated exposure control; ma/kV adjustment per patient size (including targeted exams where dose is matched to indication; i.e. head); or iterative reconstruction technique. Coronal and sagittal reformatted images were created and reviewed. COMPARISON: CT - ABD PELVIS W/O PO OR IV CONT 2017-07-25 00:29 FINDINGS: Trace pleural fluid and atelectasis. There is stranding and fluid density in the subcutaneous fat consistent with overall edematous state. The edema has worsened significantly since the prior study. There is free fluid within the abdomen and pelvis markedly increased since prior study. Cholecystectomy clips are present. The liver, spleen, and pancreas appear grossly normal on this non-contrast study. Trace bilateral perinephric stranding. Possible tiny exophytic left renal lesion too small to characterize. Probable hiatal hernia with surrounding fluid. Evaluation is suboptimal without oral or intravenous contrast. Decompressed stomach with surrounding free fluid. A cluster of calcification is present within the cecum. The previously seen diffuse colonic wall thickening indicative of colitis is no longer present. There is a moderate amount of stool in the colon. The appendix is not identified however there are no secondary signs of appendicitis such as pericecal stranding. Evidence of prior surgery anterior pelvic wall. Left hip prosthesis. IMPRESSION: Diffuse anasarca markedly increased from prior. Ascites markedly increased.
--- NOTE | 2017-10-22 05:58 | HP ---
DATE OF EXAM: HISTORY OF PRESENT ILLNESS: The patient is an 87-year-old who has history of autoimmune hepatitis, cirrhosis of liver, has multiple admissions because of hepatic encephalopathy. She was discharged on 09/22 and I got a call this morning that patient seems to be confused, disoriented, lethargic, not eating, has multiple wounds on body and also has a heel ulcer so I advised them to bring her to emergency room for further evaluation. According to daughter, her abdomen has been significantly swollen. Patient recently had paracentesis on 09/12. PAST MEDICAL HISTORY: She has significant past medical history for; 1. Hypertension. 2. Autoimmune hepatitis. 3. Myelodysplastic syndrome. 4. Pancytopenia. 5. Electrolyte imbalance. 6. Deconditioning. ALLERGIES: SHE IS ALLERGIC TO LEVAQUIN AND PENICILLIN. MEDICATIONS: At home, she is on Xifaxan, she is on Lasix, lactulose, Protonix and spironolactone. REVIEW OF SYSTEMS: Generalized swelling, abdominal distension, lethargy and multiple body wounds. PHYSICAL EXAMINATION: GENERAL: She is lethargic. VITAL SIGNS: She is afebrile, pulse 96, respirations 22, blood pressure 128/58. LUNGS: Bilateral fair airflow. No rhonchi or crackle. HEART: S1, S2 audible. ABDOMEN: Distended with fluid thrill EXTREMITIES: Bilateral legs +2 edema. LABORATORY EXAM: Sodium 141, potassium 4.8, chloride 110, CO2 of 22, BUN 22, creatinine 1.1, blood sugar 196, magnesium 1.7, total bili 1.9, ammonia is 17. WBC 10.4, hemoglobin 9.7, hematocrit 28, platelet of 125. ASSESSMENT: 1. Hepatic encephalopathy. 2. Myelodysplastic syndrome. 3. Autoimmune hepatitis. 4. Electrolyte imbalance. 5. Heel ulcer. PLAN: We will give her lactulose enema. We will request Dr. Gardner for consult, Dr. Curry for consult and will monitor her electrolytes in the a.m. Kamaljit Pena MD
[2017-10-22 07:39] LABS: ALB/GLOB RATIO 0.4 (1.1-1.8); CALCIUM 7.7 mg/dL (8.4-10.5)
[2017-10-22 07:41] LABS: BASO # 0.03 K/mm3 (0.0-2.0); BASO % 0.2 % (0.0-3.0); EOS # 0.3 (0.0-0.7); EOS % 2.4 % (1.5-5.0); GRAN # 7.97 (1.4-6.5); GRAN % 62.8 % (50.0-68.0); HEMOGLOBIN 9.6 g/dL (12.0-16.0); LYMPH # 3.1 (1.2-3.4); MEAN CELL VOLUME 92.5 fl (80.0-105.0); MEAN CORPUSCULAR HEMOGLOBIN 31.2 pg (25.0-35.0); MEAN CORPUSCULAR HGB CONC 33.7 g/dl (31.0-37.0); MEAN PLATELET VOLUME 10.7 fl (7.0-11.0); MONO # 1.4 (0.1-0.6); MONO % 10.6 % (1.0-6.0); RBC 3.08 10^6/uL (3.5-6.1); RED CELL DISTRIBUTION WIDTH 17.6 % (11.5-14.5); WHITE BLOOD COUNT 12.7 10^3/ul (4.5-11.0)
--- NOTE | 2017-10-22 13:16 | RAD ---
HISTORY: 87yoF, pain COMPARISON: Comparison chest 09/06/2017 FINDINGS: LUNGS: Poor inspiration with low lung volumes, crowded bronchovascular markings and mild bibasilar atelectasis. Elevation right hemidiaphragm possibly due to eventration or scalloping. PLEURA: No significant pleural effusion identified, no pneumothorax apparent. CARDIOVASCULAR: Cardiomegaly OSSEOUS STRUCTURES: No significant abnormalities. VISUALIZED UPPER ABDOMEN: Normal. OTHER FINDINGS: None. IMPRESSION: No active disease.
--- NOTE | 2017-10-22 13:24 | RAD ---
PROCEDURE: Right foot dated 10/21/2017 HISTORY: 87yoF, right foot ulceration COMPARISON: No prior study available comparison. FINDINGS: BONES: The no evidence of acute displaced fracture nor dislocation. . Possible early cortical destructive changes involving the posterior calcaneus with diminution and irregularity of the overlying soft tissues suggesting ulceration in this location. Clinical correlation recommended. Followup MRI recommended. Diffuse demineralization JOINTS: Significant hallux valgus deformity with DJD 1st MTP joint. There is lateral subluxation of the 2nd 3rd and 4th proximal phalanges likely secondary and related to the at aforementioned hallux valgus deformity. In addition, there are hammertoe deformities of the 2nd 3rd and 4th digits. Multi articular degenerative osteoarthritis also present. SOFT TISSUES: Diffuse soft tissue swelling likely due to cellulitis. As mentioned above, there may be a posterior calcaneal ulceration with loss of soft tissues. No obvious subcutaneous emphysema. Recommend followup MRI for further evaluation to assess for OTHER FINDINGS: None. IMPRESSION: Possible early cortical destructive changes involving the posterior calcaneus with diminution and irregularity of the overlying soft tissues suggesting ulceration in this location. Clinical correlation recommended. Followup MRI recommended. . Diffuse soft tissue swelling consistent with cellulitis.
[2017-10-22] MEDS: Dextrose 5%/0.45% NS 1,000 ML IV SCH (18:09)
--- NOTE | 2017-10-22 23:47 | CARD ---
APPROVED REPORT EKG Measurement Heart [id number] <Conclusion> Sinus tachycardia Right bundle branch block Left anterior fascicular block Bifascicular block Septal infarct, age undetermined Possible Lateral infarct, age undetermined Abnormal ECG
--- NOTE | 2017-10-23 02:06 | CON ---
DATE: HISTORY OF PRESENT ILLNESS: An 87-year-old female seen at bedside for consultation, evaluation and management of a right gangrenous heel ulceration. The patient is a poor historian and seems confused, disoriented and lethargic. She does not know what year it is or who the president is, when asked. PAST MEDICAL HISTORY: Patient's medical history is significant for hepatitis, mild dysplastic syndrome, pancytopenia, essential hypertension, peripheral arterial disease, cirrhosis of the liver and hepatic encephalopathy. ALLERGIES: THE PATIENT'S ALLERGIES INCLUDE LEVAQUIN AND PENICILLIN. HOME MEDICATIONS: Include spironolactone, Protonix, lactulose, Lasix, Xifaxan. FAMILY HISTORY: Unremarkable. PAST SURGICAL HISTORY: Is unobtainable. PHYSICAL EXAMINATION: VITAL SIGNS: Reveal a temperature of 97.6, pulse rate of 88, blood pressure of 108/51, respiratory rate of 20. EXTREMITIES: Nonpalpable pedal pulses noted bilaterally, +1 nonpitting lower extremity edema noted bilaterally. Lower extremity skin presents thin, shiny and discolored bilaterally. The patient is unable to detect 5.07 g monofilament wire testing bilaterally. Capillary filling time is delayed x10. All nail plates are noted to be elongated, dystrophic, discolored with severe subungual fungal debris. There is a full-thickness gangrenous heel ulceration on the right heel that encompasses the entire plantar aspect of the heel. Base of the ulcer is primarily a mixture of necrotic and gangrenous tissue. There is no viable granular tissue present. There is no active purulence. However, there is serous drainage. The wound does not probe to tendon or bone at this time. LABORATORY DATA: Reveal white count is 12.7, hemoglobin of 9.6, hematocrit of 28.5, platelet count of 111. There is no microbiology report noted. X-ray report reveals possible early cortical destructive changes of the posterior calcaneus and diffuse soft tissue swelling consistent with cellulitis. ASSESSMENT: Full-thickness gangrenous ulceration on the right heel. PLAN: The patient's wound was examined. Culture was taken and submitted for sensitivities. Recommend Infectious Disease consult to evaluate culture and sensitivity report and prescribe accordingly. We will order arterial Doppler and seek Vascular consult for vascular evaluation. The wound was cleansed with normal sterile saline and we will apply Iodosorb cream in an effort to decrease the bacterial load and slightly desiccate the wound. We will order foam multi-podus boot to offload the heel and we will order an MRI to determine if osteomyelitis is present. The patient will be seen and followed daily, and we will await all testing results. Gal Stone DPM
[2017-10-23 07:44] LABS: BASO # 0.03 K/mm3 (0.0-2.0); BASO % 0.3 % (0.0-3.0); EOS # 0.3 (0.0-0.7); EOS % 2.8 % (1.5-5.0); GRAN # 7.99 (1.4-6.5); GRAN % 68.7 % (50.0-68.0); HEMOGLOBIN 8.6 g/dL (12.0-16.0); LYMPH # 2.1 (1.2-3.4); LYMPH % 18.4 % (22.0-35.0); MEAN CELL VOLUME 93.2 fl (80.0-105.0); MEAN CORPUSCULAR HEMOGLOBIN 30.7 pg (25.0-35.0); MEAN PLATELET VOLUME 10.5 fl (7.0-11.0); MONO # 1.1 (0.1-0.6); MONO % 9.8 % (1.0-6.0); RBC 2.8 10^6/uL (3.5-6.1); RED CELL DISTRIBUTION WIDTH 17.5 % (11.5-14.5); WHITE BLOOD COUNT 11.6 10^3/ul (4.5-11.0)
[2017-10-23 07:53] LABS: ALB/GLOB RATIO 0.4 (1.1-1.8); ALBUMIN 1.7 g/dL (3.0-4.8); CALCIUM 7.6 mg/dL (8.4-10.5)
[2017-10-23] MEDS: CADEXOMER IODINE 0.9% GEL 10G TOP SCH (10:55)
[2017-10-23] MEDS: Dextrose 5%/0.45% NS 1,000 ML IV SCH (11:41)
--- NOTE | 2017-10-23 18:20 | CP.PCM.CON ---
History of Present Illness - History of Present Illness History of Present Illness: Podiatry Consult Note - Dr. Gardner/Chase 87F with extensive PMHx seen and evaluated at bedside for right heel wound. HPI and ROS unable to be obtained at this visit likely due to AMS. Review of Systems - Review of Systems Systems not reviewed;Unavailable: Altered Mental Status Past Patient History - Infectious Disease Hx of Infectious Diseases: None - Tetanus Immunizations Tetanus Immunization: Unknown - Past Social History Smoking Status: Never Smoked - CARDIAC Hx Pacemaker: No - PULMONARY Hx Respiratory Disorders: No Hx Asthma: No Hx Bronchitis: No Hx Chronic Obstructive Pulmonary Disease (COPD): No Hx Emphysema: No Hx Pneumonia: No Hx Respiratory Aspiration: No Hx Respiratory Tract Infection: No Hx Sleep Apnea: No Hx Tuberculosis: No - NEUROLOGICAL Hx Neurological Disorder: No Hx Alzheimer's Disease: No HX Cerebrovascular Accident: No Hx Dementia: No Hx Dizziness: No Hx Meningitis: No Hx Migraine: No Hx Parkinson's Disease: No Hx Seizures: No Hx Transient Ischemic Attacks (TIA): No - HEENT Hx HEENT Problems: No Hx Blind: No Hx Cataracts: No Hx Deafness: No Hx Difficulty Chewing: No Hx Epistaxis: No Hx Glaucoma: No Hx Macular Degeneration: No - RENAL Hx Chronic Kidney Disease: No Hx Dialysis: No Hx Kidney Stones: No Hx Neurogenic Bladder: No Hx Pyelonephritis: No Hx Renal (Kidney) Cancer: No Hx Renal Failure: No - ENDOCRINE/METABOLIC Hx Diabetes Mellitus Type 2: Yes Hx Hypothyroidism: Yes - HEMATOLOGICAL/ONCOLOGICAL Hx Cancer: No - INTEGUMENTARY Hx Dermatological Problems: No Hx Basil Cell: No Hx Eczema: No Hx Melanoma: No Hx Psoriasis: No Hx Squamous Cell: No - MUSCULOSKELETAL/RHEUMATOLOGICAL Hx Falls: (unable to get information) - GASTROINTESTINAL Hx Gastroesophageal Reflux: Yes - GENITOURINARY/GYNECOLOGICAL Hx Incontinence: Yes - PSYCHIATRIC Hx Anxiety: Yes - SURGICAL HISTORY Hx Mastectomy: No - ANESTHESIA Hx Anesthesia: No Hx Anesthesia Reactions: No Hx Malignant Hyperthermia: No Meds Allergies/Adverse Reactions: Allergies Allergy/AdvReac Type Severity Reaction Status Date / Time levofloxacin [From Levaquin] Allergy Intermediate RASH Verified 10/21/17 16:33 Penicillins Allergy URTICARIA Verified 10/21/17 16:33 lev Allergy ITCHING Uncoded 10/21/17 16:33 - Medications Medications: Current Medications Cadexomer Iodine (Iodosorb) 0 gm TOP DAILY [facility] Last Admin: 10/23/17 10:55 Dose: 10 gm Dextrose/Sodium Chloride (Dextrose 5%/0.45% Ns 1000 Ml) 1,000 mls @ 60 mls/hr IV .[id number] [facility] Last Admin: 10/23/17 11:41 Dose: 60 mls/hr Meropenem (Merrem Iv 1 Gm Premix) 50 mls @ 100 mls/hr IVPB Q12 [facility] PRN Reason: Protocol Stop: 11/01/17 18:16 Lactulose (Enulose) 20 gm PO TID [facility] Last Admin: 10/23/17 17:38 Dose: 20 gm Ondansetron HCl (Zofran Inj) 4 mg IVP Q6H PRN PRN Reason: Nausea/Vomiting Rifaximin (Xifaxan) 550 mg PO BID [facility] PRN Reason: Protocol Last Admin: 10/23/17 10:55 Dose: 550 mg Physical Exam - Constitutional Appears: Well, Non-toxic, No Acute Distress - Extremities Exam Additional comments: VASC: DP and PT pulses nonpalpable secondary to edema. Temperature gradient warm to warm b/l. +2 pitting edema noted to bilateral LE. NEURO: Unable to assess. DERM: RLE boggy, necrotic eschar noted to posterior aspect of right heel; malodor present; no drainage; no purulence; periwound erythema noted; hyperkeratotic rim. LLE hyperpigmentation with mild erythema noted to posterior aspect of left heel. ORTHO: Pain on palpation heel wounds b/l. Results - Vital Signs Recent Vital Signs: Last Vital Signs Temp 97.8 F 10/23/17 16:00 Pulse 80 10/23/17 16:00 Resp 18 10/23/17 16:00 BP 100/50 L 10/23/17 16:00 Pulse Ox 96 10/23/17 16:00 - Labs Result Diagrams: 10/23/17 07:00 10/23/17 07:00 Labs: Laboratory Results - last 24 hr 10/23/17 10/23/17 10/23/17 07:00 07:00 07:00 WBC 11.6 H RBC 2.80 L Hgb 8.6 L Hct 26.1 L MCV 93.2 MCH 30.7 MCHC 33.0 RDW 17.5 H Plt Count 104 L MPV 10.5 Gran % 68.7 H Lymph % (Auto) 18.4 L [place] % (Auto) 9.8 H Eos % (Auto) 2.8 Baso % (Auto) 0.3 Gran # 7.99 H Lymph # (Auto) 2.1 [place] # (Auto) 1.1 H Eos # (Auto) 0.3 Baso # (Auto) 0.03 Sodium 138 Potassium 4.5 Chloride 109 H Carbon Dioxide 27 Anion Gap 7 L BUN 24 H Creatinine 1.3 H Est GFR ( Amer) 47 Est GFR (Non-Af Amer) 39 Random Glucose 101 Calcium 7.6 L Total Bilirubin 1.4 H AST 37 H ALT 33 Alkaline Phosphatase 113 Ammonia 17 Total Protein 6.1 Albumin 1.7 L Globulin 4.3 Albumin/Globulin Ratio 0.4 L Assessment & Plan - Assessment and Plan (Free Text) Assessment: 87F with extensive PMHx with 1) Full-thickness gangrenous ulceration right heel 2) deep tissue injury left heel Plan: Patient seen and evaluated Discussed with attending, Dr. Gardner Afebrile, WBC 11.6 (yesterday 12.7) Right foot XR: Possible early cortical destructive changes involving posterior calcaneus Right heel wound culture obtained - prelim gram negative mary ID consulted, f/u recs f/u arterial dopplers Continue local wound care - xeroform, DSD to right heel; optifoam left heel Continue multipodus boots at all times while in bed Podiatry will continue to follow
[2017-10-23] MEDS: Meropenem IV 1 gm in NS 50 ML IVPB SCH ×2 (20:07→21:22)
--- NOTE | 2017-10-24 04:37 | CON ---
DATE: 10/23/2017 CHIEF COMPLAINT: Weakness and pain allover. HISTORY OF PRESENT ILLNESS: This is an 87-year-old female with past medical history significant for cirrhosis, myelodysplastic syndrome, pancytopenia, diabetes mellitus, hypothyroidism, who is admitted with weakness and the patient is weak and poor historian. REVIEW OF SYSTEMS: Twelve-point review of systems is performed. There is low-grade fevers; mild shortness of breath; abdominal pain, nonspecific; mild headaches; and there is also minimal cough. No dysuria is reported. No chest pain now. PAST MEDICAL HISTORY: Significant for cirrhosis, myelodysplastic syndrome, autoimmune hepatitis and obesity, hypothyroidism, recurrent urinary tract infections, diabetes, and hypertension. PAST SURGICAL HISTORY: Significant for hip surgery and cholecystectomy. ALLERGIES: PATIENT IS ALLERGIC TO LEVAQUIN AND PENICILLIN. MEDICATIONS: Include spironolactone, Lasix, Protonix, lisinopril. Medications at home reviewed. PHYSICAL EXAMINATION: GENERAL: Patient is in bed. Chronically ill, debilitated with temperature of 97, heart rate of 98, respiratory rate up to 22, and blood pressure 99/50. VITAL SIGNS: Pulse oximetry shows saturation at 95%. HEENT: Unremarkable. NECK: Supple. LUNGS: Have decreased breath sounds. HEART: Normal S1, S2. ABDOMEN: Mild tenderness. No rebound, no guarding, no masses. LABORATORY EXAMINATION: Reveals a white count of 12,700, hemoglobin of 9, platelets of 111 with 62% granulocytosis. Chemistries reveal a BUN of 24, creatinine is 1.2. Urinalysis is noted. Microbiology reveals the right foot culture has gram-negative mary, urine culture is negative, blood cultures are negative. The microbiology from previous admissions revealed the patient has ascitic fluid with Cryptococcus, urine culture with VRE and Escherichia coli. Patient with multiple urine cultures positive for Klebsiella, which has been pansensitive in the past and Dr. Stone's consultation from today is noted and the patient had a CT scan of the abdomen and pelvis, which showed diffuse anasarca, ascites markedly increased, and patient had a chest x-ray, atelectasis but no active disease and a CAT scan of the head, which is negative. ASSESSMENT AND PLAN: This is an 87-year-old female with cirrhosis, diabetes, autoimmune hepatitis, hypothyroidism, myelodysplastic syndrome, pancytopenia, hypertension, anxiety with sepsis and confusion with gram-negative mary, right heel gangrenous ulcer and cellulitis, must also rule out underlying spontaneous bacterial peritonitis. We will start the patient on meropenem since the patient is allergic to Levaquin and penicillin and recommend GI evaluation with possible evaluation of the ascitic fluid to rule out spontaneous bacterial peritonitis and we will check on the blood cultures and the urine cultures and wound cultures from the right heel and we will make further recommendations on availability of initial workup results in this patient who is in poor condition. Arden Byrne MD
[2017-10-24] MEDS: Meropenem IV 1 gm in NS 50 ML IVPB SCH ×2 (09:19→21:56)
--- NOTE | 2017-10-24 09:49 | PN ---
DATE: 10/22/2017 SUBJECTIVE: The patient is 87 years old, seen and examined, seems to be confused, disoriented, minimal response to painful stimuli. PHYSICAL EXAMINATION: VITAL SIGNS: She is afebrile, pulse 88, respirations 20, blood pressure 108/51. LUNGS: Bilateral good airflow. No rhonchi or crackle. HEART: S1 and S2 audible. ABDOMEN: Soft, but distended with fluid thrill. Bilateral leg +2 edema. SKIN: She has necrotic ulcer of the right heel. LABORATORY EXAM: WBC IS 12.7, hemoglobin 9.6, hematocrit 28.5, platelet of 111. Chemistry: Sodium 139, potassium 4.6, chloride 110, CO2 of 23, BUN 24, creatinine 1.2, blood sugar of 79, ammonia level is 25. ASSESSMENT: 1. Hepatic encephalopathy. 2. Right heel necrotic ulcer. 3. Myelodysplastic syndrome. 4. Pancytopenia. 5. Electrolyte imbalance. 6. Lethargy. PLAN: The patent is currently on lactulose. She is on Xifaxan. Start her on IV fluid. Monitor her electrolyte for a.m. Kamaljit Pena MD
--- NOTE | 2017-10-24 10:03 | PN ---
DATE: 10/23/2017 HISTORY OF PRESENT ILLNESS: Ms. Nunes is 87-year-old female with multiple admissions, history of hepatic encephalopathy. She was admitted with increased confusion, disorientation and lethargic, not able to eat and drink. She has MDS with pancytopenia, also developed arthritis. PAST MEDICAL HISTORY: Hypertension, autoimmune hepatitis, MDS, pancytopenia, deconditioning. ALLERGIES: LEVAQUIN, PENICILLIN. HOME MEDICATIONS: Xifaxan, Lasix, lactulose, Protonix, spironolactone. REVIEW OF SYSTEMS: Lethargy, abdominal distension, generalized weakness. Rest of 12-point review of systems reviewed and negative. PHYSICAL EXAMINATION: GENERAL: Lethargic. VITAL SIGNS: Afebrile. Temperature 98.6, respiratory rate 22 per minute, blood pressure 130/60. HEENT: Pallor positive. NECK: No lymphadenopathy. CHEST: Air entry present and equal bilateral. No added sounds. CARDIOVASCULAR: S1 and S2 normal. No murmur. No gallop. ABDOMEN: Soft, nontender. No hepatosplenomegaly and distended. EXTREMITIES: 2+ edema. CENTRAL NERVOUS SYSTEM: Lethargic, not oriented. LABORATORY DATA: White count 11.6, hemoglobin 8.6, hematocrit 26.1, platelets 104. Sodium 138, potassium 4.5, creatinine 1.3. ASSESSMENT AND PLAN: 1. Hepatic encephalopathy. 2. Myelodysplastic syndrome. 3. Autoimmune hepatitis. 4. Heel ulcer. 5. Electrolyte imbalance. PLAN: She is on supportive care. Heel ulcer managed by Dr. Gardner, Podiatry. GI consultation was requested. Currently on lactulose and Xifaxan, will continue that. Blood count stable. Does not require any blood transfusion or platelet transfusion. Creatinine elevated 1.3. We will continue to monitor. Overall prognosis poor. Nika Bailey MD
[2017-10-24] MEDS: CADEXOMER IODINE 0.9% GEL 10G TOP SCH (10:44)
--- NOTE | 2017-10-24 14:37 | US ---
PROCEDURE: Lower extremity RALPH exam HISTORY: Peripheral vascular disease with pain and right heel ulceration PHYSICIAN(S): Denzel Weston MD. FINDINGS: The exam is limited by calcified, noncompressible vessels at all levels. The resting ABIs are not obtainable. The brachial systolic pressures are symmetric. The low thigh pressures are noncompressible. The low thigh PVR waveforms are relatively normal and symmetric. The calf PVR waveforms augment normally. The ankle and metatarsal waveforms are relatively normal and symmetric. Pressure measurements are limited by calcification IMPRESSION: 1. Limited study due to calcified vessels. 2. The PVR waveforms are relatively normal and symmetric at all levels.
--- NOTE | 2017-10-24 14:53 | CP.PCM.PN ---
Subjective - Date & Time of Evaluation Date of Evaluation: 10/24/17 Time of Evaluation: 14:49 - Subjective Subjective: Podiatry Progress note: Dr. Gardner/Dr. Stone 87 year old female seen and evaluated at bedside for right heel wound and deep tissue injury to the left heel. Unable to communicate with the patient due to AMS. Objective - Vital Signs/Intake and Output Vital Signs (last 24 hours): Temp Pulse Resp BP Pulse Ox 97.4 F L 93 H 20 97/49 L 89 L 10/24/17 08:16 10/24/17 08:16 10/24/17 08:16 10/24/17 08:16 10/24/17 08:16 Intake and Output: 10/24/17 10/24/17 06:59 18:59 Intake Total 320 Balance 320 - Medications Medications: Current Medications Cadexomer Iodine (Iodosorb) 0 gm TOP DAILY [facility] Last Admin: 10/23/17 10:55 Dose: 10 gm Dextrose/Sodium Chloride (Dextrose 5%/0.45% Ns 1000 Ml) 1,000 mls @ 60 mls/hr IV .[id number] [facility] Last Admin: 10/23/17 11:41 Dose: 60 mls/hr Meropenem (Merrem Iv 1 Gm Premix) 50 mls @ 100 mls/hr IVPB Q12 [facility] PRN Reason: Protocol Stop: 11/01/17 18:16 Last Admin: 10/24/17 09:19 Dose: 100 mls/hr Lactulose (Enulose) 20 gm PO TID [facility] Last Admin: 10/24/17 09:19 Dose: 20 gm Ondansetron HCl (Zofran Inj) 4 mg IVP Q6H PRN PRN Reason: Nausea/Vomiting Rifaximin (Xifaxan) 550 mg PO BID [facility] PRN Reason: Protocol Last Admin: 10/24/17 09:19 Dose: 550 mg - Labs Labs: 10/23/17 07:00 10/23/17 07:00 PT 21.8 SECONDS (9.4-12.5) H 10/21/17 17:15 INR 1.89 (0.93-1.08) H 10/21/17 17:15 APTT 37.1 Seconds (25.1-36.5) H 04/20/18 17:15 - Constitutional Appears: Well, Non-toxic, No Acute Distress - Extremities Exam Additional comments: VASC: DP and PT pulses nonpalpable secondary to edema. Temperature gradient warm to warm b/l. +2 pitting edema noted to bilateral LE. DERM: RLE boggy, necrotic eschar noted to posterior aspect of right heel; malodor present; no drainage; no purulence; periwound erythema noted; hyperkeratotic rim with periwound maceration, LLE hyperpigmentation with mild erythema noted to posterior aspect of left heel. NEURO: Unable to assess. ORTHO: Pain on palpation heel wounds b/l. Assessment and Plan - Assessment and Plan (Free Text) Assessment: 87F with extensive PMHx with 1) Full-thickness gangrenous ulceration right heel 2) deep tissue injury left heel Plan: Patient seen and evaluated with attending Dr. Gardner Afebrile, WBC 11.6 as of yesterday Right foot XR: Possible early cortical destructive changes involving posterior calcaneus Right heel wound culture obtained - Proteus Mirabilis ID consulted - Meropenem q12 f/u arterial dopplers - Calcified vessels with fair waveform Continue local wound care - Dakins solution soaked 4x4, ABD, Kerlix three times a day;Optifoam on the left heel - Nursing communication for the dressing changes Continue multipodus boots at all times while in bed Podiatry will continue to follow
--- NOTE | 2017-10-24 17:48 | CON ---
DATE: 10/24/2017 TIME: 05:00 p.m. CHIEF COMPLAINT/HISTORY OF PRESENT ILLNESS: I know from previous paracentesis. She has a history of autoimmune hepatitis and frequent admissions for cirrhosis and hepatic encephalopathy. On this admission, I was asked to see her concerning her right heel ulcer and vascular disease. The patient is not responsive to verbal stimuli. She has a large gangrenous right heel ulcer. Her pulses distally are not palpable, but she demonstrates significant calcification at all levels on her RALPH/PVR exam. Her resting ABIs are not obtainable. However, her PVR waveforms are pulsatile with relatively normal upstrokes at all levels. RECOMMENDATIONS: Mrs. Nunes is not a good candidate for revascularization and I am not sure that she is demonstrating significant occlusive disease at this point. Initially, treatment should be centered on offloading, wound care and antibiotics. I spoke with Dr. Stone concerning the situation and will not plan on any vascular intervention at this time. Denzel Weston MD MTDD
--- NOTE | 2017-10-24 17:54 | PN ---
DATE: SUBJECTIVE: The patient is 87 years old, seen and examined, seems to be lethargic, pale. Daughter by the bedside. Not in any distress. PHYSICAL EXAMINATION: VITAL SIGNS: She is afebrile, pulse 93, respirations 20, blood pressure 97/49. LUNGS: Bilateral fair airflow. No rhonchi or crackle. HEART: S1 and S2 audible. ABDOMEN: Soft with fluid thrill. NEUROLOGIC: She is lethargic. LABORATORY EXAM: WBC is 11.6, hemoglobin 8.6, hematocrit 26, platelet of 104. Chemistry: Sodium 138, potassium 4.5, chloride 109, CO2 of 27, BUN 24, creatinine 1.3, blood sugar of 101. She has right heel necrotic changes and she also has sacral decubitus, is growing Proteus from her right foot wound. Urine cultures are negative. Blood cultures are negative. ASSESSMENT AND PLAN: 1. Hepatic encephalopathy. 2. Electrolyte imbalance. 3. Myelodysplastic syndrome. 4. History of hypertension. 5. Pancytopenia. PLAN: We will start her on pureed diet and advance as tolerated. We will continue on current IV fluids. Continue her on Xifaxan and start her on lactulose also. Local wound care is being done by Dr. Stone. Discussed with daughter about DNR. She has not decided. She will talk to her other siblings and will let me know by tomorrow. evaluated. She is a candidate for paracentesis that we can hold off for now. Kamaljit Pena MD
--- NOTE | 2017-10-24 19:01 | CP.PCM.PN ---
Subjective - Date & Time of Evaluation Date of Evaluation: 10/24/17 Time of Evaluation: 11:15 - Subjective Subjective: Patient is still somewhat confused but responds to simple commands, no fevers, no abdominal pain. Objective - Vital Signs/Intake and Output Vital Signs (last 24 hours): Temp Pulse Resp BP Pulse Ox 97.4 F L 93 H 20 97/49 L 89 L 10/24/17 08:16 10/24/17 08:16 10/24/17 08:16 10/24/17 08:16 10/24/17 08:16 Intake and Output: 10/24/17 10/24/17 06:59 18:59 Intake Total 320 Balance 320 - Medications Medications: Current Medications Cadexomer Iodine (Iodosorb) 0 gm TOP DAILY [facility] Last Admin: 10/24/17 10:44 Dose: 10 gm Dextrose/Sodium Chloride (Dextrose 5%/0.45% Ns 1000 Ml) 1,000 mls @ 60 mls/hr IV .[id number] [facility] Last Admin: 10/23/17 11:41 Dose: 60 mls/hr Meropenem (Merrem Iv 1 Gm Premix) 50 mls @ 100 mls/hr IVPB Q12 [facility] PRN Reason: Protocol Stop: 11/01/17 18:16 Last Admin: 10/24/17 09:19 Dose: 100 mls/hr Lactulose (Enulose) 20 gm PO TID [facility] Last Admin: 10/24/17 17:43 Dose: 20 gm Ondansetron HCl (Zofran Inj) 4 mg IVP Q6H PRN PRN Reason: Nausea/Vomiting Rifaximin (Xifaxan) 550 mg PO BID [facility] PRN Reason: Protocol Last Admin: 10/24/17 17:43 Dose: 550 mg Sodium Hypochlorite (Dakins Solution 0.5%) 10 ml TOP TID [facility] - Labs Labs: 10/23/17 07:00 10/23/17 07:00 PT 21.8 SECONDS (9.4-12.5) H 10/21/17 17:15 INR 1.89 (0.93-1.08) H 10/21/17 17:15 APTT 37.1 Seconds (25.1-36.5) H 10/21/17 17:15 - Constitutional Appears: Chronically Ill - Head Exam Head Exam: NORMAL INSPECTION - Neck Exam Neck Exam: absent: Meningismus - Respiratory Exam Respiratory Exam: Decreased Breath Sounds - Cardiovascular Exam Cardiovascular Exam: +S1, +S2 - GI/Abdominal Exam GI & Abdominal Exam: Distended, Soft. absent: Tenderness Assessment and Plan - Assessment and Plan (Free Text) Plan: Assessment sepsis due to right foot gangrenous ulcer R/O SBP with hepatic metabolic encephalopathy history of sepsis secondary to E. coli and E. faecalis UTI, slowly improving history of urinary tract infection with Citrobacter and Enterobacter, S/P treatment and clinically better history of E. faecium UTI history of healthcare-associated pneumonia history of chronic thrombocytopenia history of urinary tract infection with ESBL E. coli S/P UTI with Hafnei alvei Myelodysplastic syndrome DM HTN Hypothyroidism history of right hip surgery S/P cholecystectomy liver cirrhosis GERD Plan continue Merrem pending plan of Podiatry for the foot - patient may need amputation follow up GI plans for the ascites overall prognosis is poor
[2017-10-25] MEDS: Dextrose 5%/0.45% NS 1,000 ML IV SCH ×2 (06:18→22:04)
[2017-10-25 06:26] LABS: HEMOGLOBIN 8.5 g/dL (12.0-16.0); MEAN CELL VOLUME 93.1 fl (80.0-105.0); MEAN CORPUSCULAR HEMOGLOBIN 30.7 pg (25.0-35.0); MEAN CORPUSCULAR HGB CONC 32.9 g/dl (31.0-37.0); RBC 2.77 10^6/uL (3.5-6.1); RED CELL DISTRIBUTION WIDTH 17.7 % (11.5-14.5); WHITE BLOOD COUNT 11.7 10^3/ul (4.5-11.0)
[2017-10-25 06:42] LABS: ALB/GLOB RATIO 0.4 (1.1-1.8); ALBUMIN 1.8 g/dL (3.0-4.8); CALCIUM 7.4 mg/dL (8.4-10.5)
[2017-10-25] MEDS: Dakin's Topical 0.5%-Full Strength (480 ml) TOP SCH ×4 (08:00→17:58)
[2017-10-25] MEDS: Meropenem IV 1 gm in NS 50 ML IVPB SCH ×2 (10:48→22:00)
[2017-10-25] MEDS: Morphine 10 mg/5 ml Oral Soln PO SCH ×2 (11:00→18:08)
[2017-10-25] MEDS: CADEXOMER IODINE 0.9% GEL 10G TOP SCH (15:00)
--- NOTE | 2017-10-25 18:10 | CP.PCM.PN ---
<RudiFranciscofamilia - Last Filed: 10/25/17 18:08> Subjective - Date & Time of Evaluation Date of Evaluation: 10/25/17 Time of Evaluation: 18:08 - Subjective Subjective: Podiatry Progress note: Dr. Gardner/Dr. Stone 87 year old female seen and evaluated at bedside for right heel wound and deep tissue injury to the left heel. Unable to communicate with the patient due to AMS. Objective - Vital Signs/Intake and Output Vital Signs (last 24 hours): Temp Pulse Resp BP Pulse Ox 97.6 F 77 19 125/53 L 100 10/25/17 08:43 10/25/17 08:43 10/25/17 08:43 10/25/17 08:43 10/25/17 08:43 Intake and Output: 10/25/17 10/25/17 06:59 18:59 Intake Total 960 Balance 960 - Medications Medications: Current Medications Cadexomer Iodine (Iodosorb) 0 gm TOP DAILY [facility] Last Admin: 10/24/17 10:44 Dose: 10 gm Collagenase (Santyl) 3 gm TOP DAILY [facility] Stop: 10/31/17 23:00 Dextrose/Sodium Chloride (Dextrose 5%/0.45% Ns 1000 Ml) 1,000 mls @ 60 mls/hr IV .[id number] [facility] Last Admin: 10/25/17 06:18 Dose: 60 mls/hr Meropenem (Merrem Iv 1 Gm Premix) 50 mls @ 100 mls/hr IVPB Q12 [facility] PRN Reason: Protocol Stop: 11/01/17 18:16 Last Admin: 10/25/17 10:48 Dose: 100 mls/hr Lactulose (Enulose) 20 gm PO TID [facility] Last Admin: 10/25/17 10:47 Dose: 20 gm Morphine Sulfate (Morphine Oral Soln) 10 mg PO BID [facility] Last Admin: 10/25/17 11:00 Dose: Not Given Ondansetron HCl (Zofran Inj) 4 mg IVP Q6H PRN PRN Reason: Nausea/Vomiting Rifaximin (Xifaxan) 550 mg PO BID [facility] PRN Reason: Protocol Last Admin: 10/25/17 10:47 Dose: 550 mg Sodium Hypochlorite (Dakins Solution 0.5%) 10 ml TOP TID [facility] - Labs Labs: 10/25/17 05:45 10/25/17 05:45 PT 21.8 SECONDS (9.4-12.5) H 10/21/17 17:15 INR 1.89 (0.93-1.08) H 10/21/17 17:15 APTT 37.1 Seconds (25.1-36.5) H 10/21/17 17:15 - Constitutional Appears: Well, Non-toxic, No Acute Distress - Extremities Exam Additional comments: VASC: DP and PT pulses nonpalpable secondary to edema. Temperature gradient warm to warm b/l. +2 pitting edema noted to bilateral LE. DERM: RLE boggy, necrotic eschar noted to posterior aspect of right heel; malodor present; no drainage; no purulence; periwound erythema noted; hyperkeratotic rim with periwound maceration, LLE hyperpigmentation with mild erythema noted to posterior aspect of left heel. NEURO: Unable to assess. ORTHO: Pain on palpation heel wounds b/l. - Neurological Exam Neurological Exam: Alert, Awake, Oriented x3 - Psychiatric Exam Psychiatric exam: Normal Affect, Normal Mood Assessment and Plan - Assessment and Plan (Free Text) Assessment: 87F with extensive PMHx with 1) Full-thickness gangrenous ulceration right heel 2) deep tissue injury left heel Plan: Patient seen and evaluated with attending Dr. Stone Afebrile, WBC 11.7 Right foot XR: Possible early cortical destructive changes involving posterior calcaneus Right heel wound culture obtained - Proteus Mirabilis ID consulted - Meropenem q12 f/u arterial dopplers - Calcified vessels with fair waveform Continue local wound care - Dakins solution soaked 4x4, ABD, Kerlix three times a day;Optifoam on the left heel - Nursing communication for the dressing changes Continue multipodus boots at all times while in bed Podiatry will continue to follow <Gal Stone - Last Filed: 10/26/17 08:34> Objective - Vital Signs/Intake and Output Vital Signs (last 24 hours): Temp Pulse Resp BP Pulse Ox 98.8 F 76 18 120/67 97 10/25/17 16:00 10/25/17 16:00 10/25/17 16:00 10/25/17 16:00 10/25/17 16:00 Intake and Output: 10/26/17 10/26/17 06:59 18:59 Intake Total 870 Output Total 175 Balance 695 - Medications Medications: Current Medications Cadexomer Iodine (Iodosorb) 0 gm TOP DAILY [facility] Last Admin: 10/25/17 15:00 Dose: 10 gm Collagenase (Santyl) 3 gm TOP DAILY [facility] Stop: 10/31/17 23:00 Dextrose/Sodium Chloride (Dextrose 5%/0.45% Ns 1000 Ml) 1,000 mls @ 60 mls/hr IV .[id number] [facility] Last Admin: 10/25/17 22:04 Dose: 60 mls/hr Meropenem (Merrem Iv 1 Gm Premix) 50 mls @ 100 mls/hr IVPB Q12 [facility] PRN Reason: Protocol Stop: 11/01/17 18:16 Last Admin: 10/25/17 22:00 Dose: 100 mls/hr Lactulose (Enulose) 20 gm PO TID [facility] Last Admin: 10/25/17 18:07 Dose: 20 gm Morphine Sulfate (Morphine Oral Soln) 10 mg PO BID [facility] Last Admin: 10/25/17 18:08 Dose: 10 mg Ondansetron HCl (Zofran Inj) 4 mg IVP Q6H PRN PRN Reason: Nausea/Vomiting Rifaximin (Xifaxan) 550 mg PO BID [facility] PRN Reason: Protocol Last Admin: 10/25/17 18:09 Dose: 550 mg Sodium Hypochlorite (Dakins Solution 0.5%) 10 ml TOP TID [facility] Last Admin: 10/25/17 17:58 Dose: Not Given - Labs Labs: 10/26/17 06:50 10/25/17 05:45 PT 21.8 SECONDS (9.4-12.5) H 10/21/17 17:15 INR 1.89 (0.93-1.08) H 10/21/17 17:15 APTT 37.1 Seconds (25.1-36.5) H 10/21/17 17:15 Attending/Attestation - Attestation I have personally seen and examined this patient.: Yes I have fully participated in the care of the patient.: Yes I have reviewed all pertinent clinical information, including history, physical exam and plan: Yes
--- NOTE | 2017-10-25 22:12 | PN ---
DATE: SUBJECTIVE: The patient is 87-year-old, seen and examined. Looks lethargic, pale, jaundiced. Had a long discussion with patient's daughter. She does want her to be DNR and DNI. Otherwise, she wants all medical treatment. She is agreeable for debridement for her right heel ulcer and medical treatment. PHYSICAL EXAMINATION: VITAL SIGNS: She is afebrile, pulse 77, respiration 19, blood pressure 125/53. LUNGS: Bilateral good airflow. No rhonchi or crackle. HEART: S1 and S2 audible. ABDOMEN: Soft with fluid thrill. EXTREMITIES: Bilateral legs, +1 edema. Right heel is in the dressing. LABORATORY DATA: WBC 11.7, hemoglobin 8.5, hematocrit 25.8, platelets of 80. Chemistry: Sodium 140, potassium 4.5, chloride 110, CO2 of 23, BUN 24, creatinine 1.2, blood sugar 139. LFTs are within normal limits. Ammonia level is 23. ASSESSMENT: 1. Cirrhosis of liver 2. Autoimmune hepatitis. 3. Pancytopenia. 4. Right heel necrotic ulcer. PLAN: The patient is currently DNR and DNI. The patient wants medical treatment and she is willing to give her a trial of antibiotics for her wound healing and request for PICC line. To complete her course of antibiotic, once her mental status improve, daughter wants to take her home. Kamaljit Pena MD
--- NOTE | 2017-10-26 03:09 | PN ---
DATE: 10/25/2017 SUBJECTIVE: Patient is in bed, in no acute distress, nontoxic, was seen this morning; however, she is chronically debilitated . PHYSICAL EXAMINATION: VITAL SIGNS: Temperature is 98, blood pressure is 120/50, respiratory rate of 16. HEENT: Unremarkable. NECK: Supple. LUNGS: Have decreased breath sounds. HEART: Normal S1 and S2. ABDOMEN: Soft and nontender. LABORATORY EXAMINATION: Reveals the patient's white count of 11,700, hemoglobin of 8, platelets of 80. BUN of 24, creatinine of 1.2. Urinalysis is noted and microbiology is noted. Right foot culture has Proteus mirabilis and a sensitivity pansensitive. Review of orders reveals the patient to be on meropenem. ASSESSMENT AND PLAN: This is an 87-year-old female with sepsis due to right foot gangrenous ulcer, must rule out spontaneous bacterial peritonitis, hepatic metabolic encephalopathy and history of sepsis, Escherichia coli and Enterococcus faecalis urinary tract infection and patient with myelodysplastic syndrome, diabetes, hypertension, hypothyroidism, and liver cirrhosis, on meropenem. Overall prognosis is quite poor, should consider hospice setting for this patient. Review of orders confirms the meropenem to be active. Arden Byrne MD
[2017-10-26 07:14] LABS: MEAN CELL VOLUME 92.7 fl (80.0-105.0); MEAN CORPUSCULAR HEMOGLOBIN 30.8 pg (25.0-35.0); MEAN CORPUSCULAR HGB CONC 33.2 g/dl (31.0-37.0); MEAN PLATELET VOLUME 10.6 fl (7.0-11.0); RBC 2.6 10^6/uL (3.5-6.1); RED CELL DISTRIBUTION WIDTH 17.8 % (11.5-14.5); WHITE BLOOD COUNT 11.6 10^3/ul (4.5-11.0)
--- NOTE | 2017-10-26 09:56 | CP.PCM.PN ---
<Grijalva,Franciscoalondramichell - Last Filed: 10/26/17 09:53> Subjective - Date & Time of Evaluation Date of Evaluation: 10/26/17 Time of Evaluation: 09:53 - Subjective Subjective: Podiatry Progress note: Dr. Gardner/Dr. Stone 87 year old female seen and evaluated at bedside for right heel wound and deep tissue injury to the left heel. Appears to be resting in bed in NAD. Unable to communicate with the patient due to AMS. Objective - Vital Signs/Intake and Output Vital Signs (last 24 hours): Temp Pulse Resp BP Pulse Ox 98.8 F 76 18 120/67 97 10/25/17 16:00 10/25/17 16:00 10/25/17 16:00 10/25/17 16:00 10/25/17 16:00 Intake and Output: 10/26/17 10/26/17 06:59 18:59 Intake Total 870 Output Total 175 Balance 695 - Medications Medications: Current Medications Cadexomer Iodine (Iodosorb) 0 gm TOP DAILY [facility] Last Admin: 10/25/17 15:00 Dose: 10 gm Collagenase (Santyl) 3 gm TOP DAILY [facility] Stop: 10/31/17 23:00 Dextrose/Sodium Chloride (Dextrose 5%/0.45% Ns 1000 Ml) 1,000 mls @ 60 mls/hr IV .[id number] [facility] Last Admin: 10/25/17 22:04 Dose: 60 mls/hr Meropenem (Merrem Iv 1 Gm Premix) 50 mls @ 100 mls/hr IVPB Q12 [facility] PRN Reason: Protocol Stop: 11/01/17 18:16 Last Admin: 10/25/17 22:00 Dose: 100 mls/hr Lactulose (Enulose) 20 gm PO TID [facility] Last Admin: 10/25/17 18:07 Dose: 20 gm Morphine Sulfate (Morphine Oral Soln) 10 mg PO BID [facility] Last Admin: 10/25/17 18:08 Dose: 10 mg Ondansetron HCl (Zofran Inj) 4 mg IVP Q6H PRN PRN Reason: Nausea/Vomiting Rifaximin (Xifaxan) 550 mg PO BID [facility] PRN Reason: Protocol Last Admin: 10/25/17 18:09 Dose: 550 mg Sodium Hypochlorite (Dakins Solution 0.5%) 10 ml TOP TID [facility] Last Admin: 10/25/17 17:58 Dose: Not Given - Labs Labs: 10/26/17 06:50 10/25/17 05:45 PT 21.8 SECONDS (9.4-12.5) H 10/21/17 17:15 INR 1.89 (0.93-1.08) H 10/21/17 17:15 APTT 37.1 Seconds (25.1-36.5) H 10/21/17 17:15 - Constitutional Appears: Well, Non-toxic, No Acute Distress - Extremities Exam Additional comments: VASC: DP and PT pulses nonpalpable secondary to edema. Temperature gradient warm to warm b/l. +2 pitting edema noted to bilateral LE. DERM: RLE boggy, necrotic eschar noted to posterior aspect of right heel; malodor present; no drainage; no purulence; periwound erythema noted; hyperkeratotic rim with periwound maceration, LLE hyperpigmentation with mild erythema noted to posterior aspect of left heel. NEURO: Unable to assess. ORTHO: Pain on palpation heel wounds b/l. Assessment and Plan - Assessment and Plan (Free Text) Assessment: 87F with extensive PMHx with 1) Full-thickness gangrenous ulceration right heel 2) deep tissue injury left heel Plan: Patient seen and evaluated with attending Dr. Stone Afebrile, WBC 11.6 Right foot XR: Possible early cortical destructive changes involving posterior calcaneus Right heel wound culture obtained - Proteus Mirabilis ID consulted - Meropenem q12 f/u arterial dopplers - Calcified vessels with fair waveform Dressing changed Continue local wound care - Dakins solution soaked 4x4, ABD, Kerlix three times a day;Optifoam on the left heel - Nursing communication for the dressing changes Continue multipodus boots at all times while in bed Podiatry will continue to follow <Gal Stone - Last Filed: 10/26/17 15:17> Objective - Vital Signs/Intake and Output Vital Signs (last 24 hours): Temp Pulse Resp BP Pulse Ox 98.3 F 97 H 20 110/62 100 10/26/17 06:00 10/26/17 06:00 10/26/17 06:00 10/26/17 06:00 10/26/17 06:00 Intake and Output: 10/26/17 10/26/17 06:59 18:59 Intake Total 870 300 Output Total 175 Balance 695 300 - Medications Medications: Current Medications Cadexomer Iodine (Iodosorb) 0 gm TOP DAILY [facility] Last Admin: 10/26/17 11:42 Dose: Not Given Collagenase (Santyl) 3 gm TOP DAILY [facility] Stop: 10/31/17 23:00 Last Admin: 10/26/17 11:51 Dose: 1 applic Dextrose/Sodium Chloride (Dextrose 5%/0.45% Ns 1000 Ml) 1,000 mls @ 60 mls/hr IV .[id number] [facility] Last Admin: 10/25/17 22:04 Dose: 60 mls/hr Meropenem (Merrem Iv 1 Gm Premix) 50 mls @ 100 mls/hr IVPB Q12 [facility] PRN Reason: Protocol Stop: 11/01/17 18:16 Last Admin: 10/26/17 11:50 Dose: 100 mls/hr Lactulose (Enulose) 20 gm PO TID [facility] Last Admin: 10/26/17 14:11 Dose: Not Given Morphine Sulfate (Morphine Oral Soln) 10 mg PO BID [facility] Last Admin: 10/26/17 14:21 Dose: 10 mg Ondansetron HCl (Zofran Inj) 4 mg IVP Q6H PRN PRN Reason: Nausea/Vomiting Rifaximin (Xifaxan) 550 mg PO BID [facility] PRN Reason: Protocol Last Admin: 10/26/17 11:51 Dose: 550 mg Sodium Hypochlorite (Dakins Solution 0.5%) 10 ml TOP TID [facility] Last Admin: 10/26/17 14:47 Dose: Not Given - Labs Labs: 10/26/17 06:50 10/25/17 05:45 PT 21.8 SECONDS (9.4-12.5) H 10/21/17 17:15 INR 1.89 (0.93-1.08) H 10/21/17 17:15 APTT 37.1 Seconds (25.1-36.5) H 10/21/17 17:15 Attending/Attestation - Attestation I have personally seen and examined this patient.: Yes I have fully participated in the care of the patient.: Yes I have reviewed all pertinent clinical information, including history, physical exam and plan: Yes
[2017-10-26] MEDS: CADEXOMER IODINE 0.9% GEL 10G TOP SCH (11:42)
[2017-10-26] MEDS: Dakin's Topical 0.5%-Full Strength (480 ml) TOP SCH ×3 (11:42→18:20)
[2017-10-26] MEDS: Meropenem IV 1 gm in NS 50 ML IVPB SCH ×2 (11:50→21:42)
[2017-10-26] MEDS: Collagenase 250 Units/gm Ointment(30 gm) TOP SCH (11:51)
[2017-10-26] MEDS: Morphine 10 mg/5 ml Oral Soln PO SCH ×3 (12:05→17:59)
--- NOTE | 2017-10-26 17:47 | PN ---
DATE: SUBJECTIVE: The patient is 87 years old, seen and examined, seems to be much more alert, eating and tolerating. No nausea, vomiting. No diarrhea. PHYSICAL EXAMINATION: VITAL SIGNS: She is afebrile, pulse 97, respirations 20, blood pressure 110/62. LUNGS: Bilateral fair airflow. No rhonchi or crackle. HEART: S1 and S2 audible. ABDOMEN: Soft. Positive fluid thrill. EXTREMITIES: Right heel is in the dressing. According to Podiatry resident, she is getting Dakin's solution soaks 3 times a day and Santyl dressing. LABORATORY EXAM: WBC is 11.6, hemoglobin 8, hematocrit 24, platelet 102. Chemistry: Sodium 140, potassium 4.5, chloride 110, CO2 of 23, BUN 24, creatinine 1.2, blood sugar of 139, ammonia is 23. ASSESSMENT: 1. Right heel necrotic ulcer. Wound culture positive for Proteus mirabilis. 2. Autoimmune hepatitis. 3. Cirrhosis of liver. 4. Cirrhotic ascites. 5. Pancytopenia. 6. Myelodysplastic syndrome. 7. Deconditioning, difficulty walking. 8. Status post metabolic hepatic encephalopathy. 9. Hypothyroidism. PLAN: Currently, the patient is on meropenem. Today, she will have PICC line placed and since her oral intake is better, discontinue her IV fluid. Continue her on meropenem, Xifaxan. She is on lactulose, we will continue that. Discussed with daughter at length. She wished her to be DNR and agreed for PICC line placement and local wound care and she will get antibiotic at home. We will discuss with Motor Vehicle Escort Driver to make arrangement for that and possible discharge on Tuesday. Kamaljit Pena MD
[2017-10-26 18:13] LABS: BODY FLUID TYPE PERITONEAL/ASCITES
--- NOTE | 2017-10-26 18:53 | US ---
PROCEDURE: Ultrasound guided paracentesis. HISTORY: Advanced cirrhosis. Recurrent ascites. Rule out spontaneous bacterial peritonitis PHYSICIAN(S): Denzel Weston MD. TECHNIQUE: The relative risks and indications for the procedure were explained to the patient's family and informed written consent obtained. Sonography of the abdomen was performed in a supine position. This revealed a small amount of non-loculated ascites, greatest in the right mid abdomen. A puncture site was selected and the area was prepped and draped in the usual sterile fashion. 1% Xylocaine was used to anesthetize the skin and soft tissues. 21 gauge needle was advanced into the peritoneal space and 50 cc of clear straw-colored fluid aspirated. Cultures and cell count were sent. IMPRESSION: Ultrasound-guided paracentesis in the right mid abdomen. 50 cc of clear straw-colored fluid was sent.
--- NOTE | 2017-10-26 19:11 | CP.PCM.PN ---
Subjective - Date & Time of Evaluation Date of Evaluation: 10/26/17 Time of Evaluation: 09:55 - Subjective Subjective: GI progress note. Dr. Davis Pt seen and examined at bedside. No acute events overnight. Patient more alert this morning. Daughter at bedside. No episodes of N/V/D. No abdominal pain. No new complaints. Objective - Vital Signs/Intake and Output Vital Signs (last 24 hours): Temp Pulse Resp BP Pulse Ox 98.9 F 80 20 120/60 98 10/26/17 16:00 10/26/17 16:00 10/26/17 16:00 10/26/17 16:00 10/26/17 16:00 Intake and Output: 10/26/17 10/27/17 18:59 06:59 Intake Total 300 Balance 300 - Medications Medications: Current Medications Cadexomer Iodine (Iodosorb) 0 gm TOP DAILY [facility] Last Admin: 10/26/17 11:42 Dose: Not Given Collagenase (Santyl) 3 gm TOP DAILY [facility] Stop: 10/31/17 23:00 Last Admin: 10/26/17 11:51 Dose: 1 applic Meropenem (Merrem Iv 1 Gm Premix) 50 mls @ 100 mls/hr IVPB Q12 [facility] PRN Reason: Protocol Stop: 11/01/17 18:16 Last Admin: 10/26/17 11:50 Dose: 100 mls/hr Lactulose (Enulose) 20 gm PO TID [facility] Last Admin: 10/26/17 18:20 Dose: Not Given Morphine Sulfate (Morphine Oral Soln) 10 mg PO BID [facility] Last Admin: 10/26/17 17:59 Dose: Not Given Ondansetron HCl (Zofran Inj) 4 mg IVP Q6H PRN PRN Reason: Nausea/Vomiting Rifaximin (Xifaxan) 550 mg PO BID [facility] PRN Reason: Protocol Last Admin: 10/26/17 18:20 Dose: Not Given Sodium Hypochlorite (Dakins Solution 0.5%) 10 ml TOP TID [facility] Last Admin: 10/26/17 18:20 Dose: Not Given - Labs Labs: 10/26/17 06:50 10/25/17 05:45 PT 21.8 SECONDS (9.4-12.5) H 10/21/17 17:15 INR 1.89 (0.93-1.08) H 10/21/17 17:15 APTT 37.1 Seconds (25.1-36.5) H 10/21/17 17:15 - Constitutional Appears: Non-toxic, No Acute Distress - Head Exam Head Exam: ATRAUMATIC, NORMAL INSPECTION, NORMOCEPHALIC - Eye Exam Eye Exam: EOMI, Normal appearance - ENT Exam ENT Exam: Mucous Membranes Moist - Respiratory Exam Respiratory Exam: NORMAL BREATHING PATTERN. absent: Accessory Muscle Use, Respiratory Distress - Cardiovascular Exam Cardiovascular Exam: RRR. absent: JVD - GI/Abdominal Exam GI & Abdominal Exam: Soft, Tenderness. absent: Distended, Firm, Guarding, Rigid , Rebound - Neurological Exam Neurological Exam: Awake Additional comments: less lethargic compared to yesterday Assessment and Plan - Assessment and Plan (Free Text) Assessment: 87yo F with multifactorial encephalopathy, Hx of Hepatic encephalopathy. Presently, patient's ammonia level is normal. For US-guided paracenthesis today to r/o SBP. Plan: - f/u paracenthesis fluid analysis. - Continue Lactulose and Encourage Rifaximin - Continue diet as tolerated - On chart review, no gene studies for hemochromatosis available. We may consider ordering these as her immediate relatives may benefit from this information. Further recs as per Dr. Susan Bower PGY1
[2017-10-26 20:20] LABS: BF GROSS APPEARANCE SL CLOUDY (CLEAR)
[2017-10-26 20:22] LABS: BODY FLUID TOTAL COUNT 100 (0-0)
--- NOTE | 2017-10-26 20:46 | CP.PCM.PN ---
Subjective - Date & Time of Evaluation Date of Evaluation: 10/26/17 Time of Evaluation: 11:45 - Subjective Subjective: Not in distress, no fevers. Objective - Vital Signs/Intake and Output Vital Signs (last 24 hours): Temp Pulse Resp BP Pulse Ox 98.9 F 80 20 120/60 98 10/26/17 16:00 10/26/17 16:00 10/26/17 16:00 10/26/17 16:00 10/26/17 16:00 Intake and Output: 10/26/17 10/27/17 18:59 06:59 Intake Total 300 Balance 300 - Medications Medications: Current Medications Cadexomer Iodine (Iodosorb) 0 gm TOP DAILY [facility] Last Admin: 10/26/17 11:42 Dose: Not Given Collagenase (Santyl) 3 gm TOP DAILY [facility] Stop: 10/31/17 23:00 Last Admin: 10/26/17 11:51 Dose: 1 applic Meropenem (Merrem Iv 1 Gm Premix) 50 mls @ 100 mls/hr IVPB Q12 [facility] PRN Reason: Protocol Stop: 11/01/17 18:16 Last Admin: 10/26/17 11:50 Dose: 100 mls/hr Lactulose (Enulose) 20 gm PO TID [facility] Last Admin: 10/26/17 18:20 Dose: Not Given Morphine Sulfate (Morphine Oral Soln) 10 mg PO BID [facility] Last Admin: 10/26/17 17:59 Dose: Not Given Ondansetron HCl (Zofran Inj) 4 mg IVP Q6H PRN PRN Reason: Nausea/Vomiting Rifaximin (Xifaxan) 550 mg PO BID [facility] PRN Reason: Protocol Last Admin: 10/26/17 18:20 Dose: Not Given Sodium Hypochlorite (Dakins Solution 0.5%) 10 ml TOP TID [facility] Last Admin: 10/26/17 18:20 Dose: Not Given - Labs Labs: 10/26/17 06:50 10/25/17 05:45 PT 21.8 SECONDS (9.4-12.5) H 10/21/17 17:15 INR 1.89 (0.93-1.08) H 10/21/17 17:15 APTT 37.1 Seconds (25.1-36.5) H 10/21/17 17:15 - Constitutional Appears: Chronically Ill - Head Exam Head Exam: NORMAL INSPECTION - Neck Exam Neck Exam: absent: Meningismus - Respiratory Exam Respiratory Exam: Decreased Breath Sounds - Cardiovascular Exam Cardiovascular Exam: +S1, +S2 - GI/Abdominal Exam GI & Abdominal Exam: Soft. absent: Tenderness Assessment and Plan - Assessment and Plan (Free Text) Plan: Assessment sepsis due to right foot gangrenous ulcer R/O SBP with hepatic metabolic encephalopathy history of sepsis secondary to E. coli and E. faecalis UTI, slowly improving history of urinary tract infection with Citrobacter and Enterobacter, S/P treatment and clinically better history of E. faecium UTI history of healthcare-associated pneumonia history of chronic thrombocytopenia history of urinary tract infection with ESBL E. coli S/P UTI with Hafnei alvei Myelodysplastic syndrome DM HTN Hypothyroidism history of right hip surgery S/P cholecystectomy liver cirrhosis GERD Plan continue Merrem day 5 - Podiatry does not plan any surgery for the patient; complete at least 7 days of antibiotics follow up GI plans for the ascites overall prognosis is poor
--- NOTE | 2017-10-27 09:55 | CP.PCM.PN ---
<Maeve Grijalva - Last Filed: 10/27/17 09:53> Subjective - Date & Time of Evaluation Date of Evaluation: 10/27/17 Time of Evaluation: 09:53 - Subjective Subjective: Podiatry Progress note: Dr. Gardner/Dr. Stone 87 year old female seen and evaluated at bedside for right heel wound and deep tissue injury to the left heel. Appears to be resting in bed in NAD. Unable to communicate with the patient due to AMS. Objective - Vital Signs/Intake and Output Vital Signs (last 24 hours): Temp Pulse Resp BP Pulse Ox 98 F 95 H 18 121/61 100 10/27/17 08:26 10/27/17 08:26 10/27/17 08:26 10/27/17 08:26 10/27/17 08:26 Intake and Output: 10/27/17 10/27/17 06:59 18:59 Intake Total 220 Output Total 150 Balance 70 - Medications Medications: Current Medications Cadexomer Iodine (Iodosorb) 0 gm TOP DAILY [facility] Last Admin: 10/26/17 11:42 Dose: Not Given Collagenase (Santyl) 3 gm TOP DAILY [facility] Stop: 10/31/17 23:00 Last Admin: 10/26/17 11:51 Dose: 1 applic Meropenem (Merrem Iv 1 Gm Premix) 50 mls @ 100 mls/hr IVPB Q12 [facility] PRN Reason: Protocol Stop: 11/01/17 18:16 Last Admin: 10/26/17 21:42 Dose: 100 mls/hr Lactulose (Enulose) 20 gm PO TID [facility] Last Admin: 10/26/17 18:20 Dose: Not Given Morphine Sulfate (Morphine Oral Soln) 10 mg PO BID [facility] Last Admin: 10/26/17 17:59 Dose: Not Given Ondansetron HCl (Zofran Inj) 4 mg IVP Q6H PRN PRN Reason: Nausea/Vomiting Rifaximin (Xifaxan) 550 mg PO BID [facility] PRN Reason: Protocol Last Admin: 10/26/17 18:20 Dose: Not Given Sodium Hypochlorite (Dakins Solution 0.5%) 10 ml TOP TID [facility] Last Admin: 10/26/17 18:20 Dose: Not Given - Labs Labs: 10/26/17 06:50 10/25/17 05:45 PT 21.8 SECONDS (9.4-12.5) H 10/21/17 17:15 INR 1.89 (0.93-1.08) H 10/21/17 17:15 APTT 37.1 Seconds (25.1-36.5) H 10/21/17 17:15 - Constitutional Appears: Well, Non-toxic, No Acute Distress - Extremities Exam Additional comments: VASC: DP and PT pulses nonpalpable secondary to edema. Temperature gradient warm to warm b/l. +2 pitting edema noted to bilateral LE. DERM: RLE boggy, necrotic eschar noted to posterior aspect of right heel; malodor present; no drainage; no purulence; periwound erythema noted; hyperkeratotic rim with periwound maceration, LLE hyperpigmentation with mild erythema noted to posterior aspect of left heel. NEURO: Unable to assess. ORTHO: Pain on palpation heel wounds b/l. - Neurological Exam Neurological Exam: Alert, Awake, Oriented x3 - Psychiatric Exam Psychiatric exam: Normal Affect, Normal Mood Assessment and Plan - Assessment and Plan (Free Text) Assessment: 87F with extensive PMHx with 1) Full-thickness gangrenous ulceration right heel 2) deep tissue injury left heel Plan: Patient seen and evaluated with attending Dr. Stone Afebrile, WBC 11.6 as of yesterday Right foot XR: Possible early cortical destructive changes involving posterior calcaneus Right heel wound culture obtained - Proteus Mirabilis ID consulted - Meropenem q12 f/u arterial dopplers - Calcified vessels with fair waveform Dressing changed Continue local wound care - Dakins solution soaked 4x4, ABD, Kerlix three times a day;Optifoam on the left heel - Nursing communication for the dressing changes Continue multipodus boots at all times while in bed Podiatry will continue to follow <Gal Stone - Last Filed: 10/27/17 11:29> Objective - Vital Signs/Intake and Output Vital Signs (last 24 hours): Temp Pulse Resp BP Pulse Ox 98 F 95 H 18 121/61 100 10/27/17 08:26 10/27/17 08:26 10/27/17 08:26 10/27/17 08:26 10/27/17 08:26 Intake and Output: 10/27/17 10/27/17 06:59 18:59 Intake Total 220 Output Total 150 Balance 70 - Medications Medications: Current Medications Cadexomer Iodine (Iodosorb) 0 gm TOP DAILY [facility] Last Admin: 10/27/17 11:07 Dose: Not Given Collagenase (Santyl) 3 gm TOP DAILY [facility] Stop: 10/31/17 23:00 Last Admin: 10/27/17 11:08 Dose: 1 applic Meropenem (Merrem Iv 1 Gm Premix) 50 mls @ 100 mls/hr IVPB Q12 [facility] PRN Reason: Protocol Stop: 11/01/17 18:16 Last Admin: 10/27/17 11:06 Dose: 100 mls/hr Lactulose (Enulose) 20 gm PO TID [facility] Last Admin: 10/27/17 11:06 Dose: 20 gm Morphine Sulfate (Morphine Oral Soln) 10 mg PO BID [facility] Last Admin: 10/27/17 11:08 Dose: Not Given Ondansetron HCl (Zofran Inj) 4 mg IVP Q6H PRN PRN Reason: Nausea/Vomiting Rifaximin (Xifaxan) 550 mg PO BID [facility] PRN Reason: Protocol Last Admin: 10/27/17 11:06 Dose: 550 mg Sodium Hypochlorite (Dakins Solution 0.5%) 10 ml TOP TID [facility] Last Admin: 10/27/17 11:09 Dose: Not Given - Labs Labs: 10/26/17 06:50 10/25/17 05:45 PT 21.8 SECONDS (9.4-12.5) H 10/21/17 17:15 INR 1.89 (0.93-1.08) H 10/21/17 17:15 APTT 37.1 Seconds (25.1-36.5) H 10/21/17 17:15 Attending/Attestation - Attestation I have personally seen and examined this patient.: Yes I have fully participated in the care of the patient.: Yes I have reviewed all pertinent clinical information, including history, physical exam and plan: Yes
[2017-10-27] MEDS: Meropenem IV 1 gm in NS 50 ML IVPB SCH ×2 (11:06→22:01)
[2017-10-27] MEDS: CADEXOMER IODINE 0.9% GEL 10G TOP SCH (11:07)
[2017-10-27] MEDS: Morphine 10 mg/5 ml Oral Soln PO SCH ×2 (11:08→18:18)
[2017-10-27] MEDS: Collagenase 250 Units/gm Ointment(30 gm) TOP SCH (11:08)
[2017-10-27] MEDS: Dakin's Topical 0.5%-Full Strength (480 ml) TOP SCH ×3 (11:09→18:19)
--- NOTE | 2017-10-27 12:16 | PN ---
DATE: 10/27/2017 SUBJECTIVE: The patient is 87 years old, seen and examined, lying in bed, somewhat confused, forgetful, follow verbal commands. PHYSICAL EXAMINATION: VITAL SIGNS: She is afebrile, pulse 95, respirations 18, blood pressure 121/61. HEART: S1 and S2 audible. ABDOMEN: Soft. No rebound. No guarding. NEUROLOGIC: The patient is awake and alert, somewhat confused and disoriented. LABORATORY EXAM: WBC is 11.6, hemoglobin 8, hematocrit 24, platelet 102. Right foot cultures positive for Proteus mirabilis.. ASSESSMENT: 1. Autoimmune hepatitis. 2. Cirrhosis of liver. 3. Cirrhotic ascites. 4. Right heel gangrenous ulcer, getting chemical debridement by Podiatry team. 5. Status post hepatic encephalopathy. 6. Myelodysplastic syndrome. 7. Pancytopenia. PLAN: The patient will get PICC line today and then she will be sent home on antibiotic with local wound care. So hopefully if everything goes well, discharge plan for a.m. Kamaljit Pena MD
--- NOTE | 2017-10-27 13:15 | PN ---
DATE: 10/27/2017 SUBJECTIVE: Patient is seen earlier today in 374, bed 1. Patient's mental status is poor and no fevers. PHYSICAL EXAMINATION: VITAL SIGNS: Temperature is 98, blood pressure is 110/60, respiratory rate of 20, and heart rate of 97. HEENT: Unremarkable. NECK: Supple. LUNGS: Decreased breath sounds. HEART: Normal S1 and S2. ABDOMEN: Soft and nontender. No organomegaly. No rebound. No guarding. No masses. LABORATORY EXAMINATION: Reveals a white count of 11,600, hemoglobin of 8, and platelets of 102. BUN of 24, creatinine of 1.3. Right foot culture has Proteus mirabilis. Urine culture is negative. Blood cultures are negative. ASSESSMENT AND PLAN: An 87 year old with sepsis with right foot gangrenes and ulcers, must rule out spontaneous bacterial peritonitis and hepatic metabolic encephalopathy, history of sepsis, history of urinary tract infection Citrobacter, hypertension, diabetes, myelodysplastic syndrome, hypothyroidism, liver cirrhosis, gastroesophageal reflux disease, on day #6 of meropenem. We will discontinue the meropenem. Patient had paracentesis. We will switch to p.o Augmentin. PATIENT IS ALLERGIC TO PENICILLIN. Patient has actually had this adequate antibiotic. We will discontinue the antibiotics. Arden Byrne MD
--- NOTE | 2017-10-27 17:31 | CP.PCM.PN ---
Subjective - Date & Time of Evaluation Date of Evaluation: 10/27/17 Time of Evaluation: 10:55 - Subjective Subjective: Seen and examined at the bedside earlier today, chart review. Patient easily arousable but was a bit lethargic, as per nursing staff patient was awake this morning had some breakfast. Multiple activities this a.m. No acute overnight events reported. Patient for PICC placement today. Objective - Vital Signs/Intake and Output Vital Signs (last 24 hours): Temp Pulse Resp BP Pulse Ox 98 F 69 18 101/54 L 100 10/27/17 08:26 10/27/17 14:23 10/27/17 08:26 10/27/17 14:23 10/27/17 08:26 Intake and Output: 10/27/17 10/27/17 06:59 18:59 Intake Total 220 480 Output Total 150 200 Balance 70 280 - Medications Medications: Current Medications Cadexomer Iodine (Iodosorb) 0 gm TOP DAILY [facility] Last Admin: 10/27/17 11:07 Dose: Not Given Collagenase (Santyl) 3 gm TOP DAILY [facility] Stop: 10/31/17 23:00 Last Admin: 10/27/17 11:08 Dose: 1 applic Meropenem (Merrem Iv 1 Gm Premix) 50 mls @ 100 mls/hr IVPB Q12 [facility] PRN Reason: Protocol Stop: 11/01/17 18:16 Last Admin: 10/27/17 11:06 Dose: 100 mls/hr Lactulose (Enulose) 20 gm PO TID [facility] Last Admin: 10/27/17 16:07 Dose: Not Given Morphine Sulfate (Morphine Oral Soln) 10 mg PO BID [facility] Last Admin: 10/27/17 11:08 Dose: Not Given Ondansetron HCl (Zofran Inj) 4 mg IVP Q6H PRN PRN Reason: Nausea/Vomiting Rifaximin (Xifaxan) 550 mg PO BID [facility] PRN Reason: Protocol Last Admin: 10/27/17 11:06 Dose: 550 mg Sodium Hypochlorite (Dakins Solution 0.5%) 10 ml TOP TID [facility] Last Admin: 10/27/17 16:06 Dose: Not Given - Labs Labs: 10/26/17 06:50 10/25/17 05:45 PT 21.8 SECONDS (9.4-12.5) H 10/21/17 17:15 INR 1.89 (0.93-1.08) H 10/21/17 17:15 APTT 37.1 Seconds (25.1-36.5) H 10/21/17 17:15 - Constitutional Appears: No Acute Distress - Head Exam Head Exam: NORMOCEPHALIC - Eye Exam Eye Exam: Normal appearance (time). absent: Scleral icterus - ENT Exam ENT Exam: Mucous Membranes Moist - Respiratory Exam Respiratory Exam: NORMAL BREATHING PATTERN. absent: Respiratory Distress - Cardiovascular Exam Cardiovascular Exam: +S1, +S2 - GI/Abdominal Exam GI & Abdominal Exam: Soft, Normal Bowel Sounds. absent: Guarding, Tenderness, Rebound - Extremities Exam Extremities Exam: Pedal Edema. absent: Calf Tenderness - Neurological Exam Neurological Exam: Alert, Awake, Oriented x3 - Skin Skin Exam: Dry, Warm Assessment and Plan - Assessment and Plan (Free Text) Assessment: Assessment: Encephalopathy Status post paracentesis, 50 cc aspirated Autoimmune hepatitis Right heel gangrenous ulcer Plan: Follow-up paracentesis fluid analysis Continue lactulose Continue Xifaxan Diet as tolerated Plan for PICC line today Seen and discussed with Dr. Davis
[2017-10-28 07:20] LABS: BASO # 0.01 K/mm3 (0.0-2.0); BASO % 0.1 % (0.0-3.0); EOS # 0.3 (0.0-0.7); EOS % 2.4 % (1.5-5.0); GRAN # 8.66 (1.4-6.5); GRAN % 71.7 % (50.0-68.0); HEMOGLOBIN 8.2 g/dL (12.0-16.0); LYMPH # 2.1 (1.2-3.4); LYMPH % 17.2 % (22.0-35.0); MEAN CELL VOLUME 93.6 fl (80.0-105.0); MEAN CORPUSCULAR HEMOGLOBIN 30.8 pg (25.0-35.0); MEAN CORPUSCULAR HGB CONC 32.9 g/dl (31.0-37.0); MEAN PLATELET VOLUME 10.9 fl (7.0-11.0); MONO % 8.6 % (1.0-6.0); RBC 2.66 10^6/uL (3.5-6.1); RED CELL DISTRIBUTION WIDTH 17.8 % (11.5-14.5); WHITE BLOOD COUNT 12.1 10^3/ul (4.5-11.0)
[2017-10-28 07:31] LABS: IRON 51 ug/dL (45-180)
[2017-10-28 07:48] LABS: ALB/GLOB RATIO 0.4 (1.1-1.8); ALBUMIN 1.7 g/dL (3.0-4.8); CALCIUM 7.8 mg/dL (8.4-10.5)
[2017-10-28 07:58] LABS: % IRON SATURATION 54 % (20-55); TOTAL IRON BINDING CAPACITY 95 ug/dL (265-497)
[2017-10-28 08:51] VITALS: BP 101/51; PULSE 84; RESP 15; TEMP 98.3; O2SAT 97
[2017-10-28] MEDS: Meropenem IV 1 gm in NS 50 ML IVPB SCH (09:50)
[2017-10-28] MEDS: Collagenase 250 Units/gm Ointment(30 gm) TOP SCH (09:50)
[2017-10-28] MEDS: Morphine 10 mg/5 ml Oral Soln PO SCH (09:51)
[2017-10-28] MEDS: Dakin's Topical 0.5%-Full Strength (480 ml) TOP SCH (09:51)
[2017-10-28] MEDS: CADEXOMER IODINE 0.9% GEL 10G TOP SCH (09:52)
--- NOTE | 2017-10-28 13:04 | CP.PCM.PN ---
<Maeve Grijalva - Last Filed: 10/28/17 13:02> Subjective - Date & Time of Evaluation Date of Evaluation: 10/28/17 Time of Evaluation: 13:02 - Subjective Subjective: Podiatry Progress note: Dr. Gardner/Dr. Stone 87 year old female seen and evaluated at bedside for right heel wound and deep tissue injury to the left heel. Appears to be resting in bed in NAD. Unable to communicate with the patient due to AMS. Objective - Vital Signs/Intake and Output Vital Signs (last 24 hours): Temp Pulse Resp BP Pulse Ox 98.3 F 84 15 101/51 L 97 10/28/17 08:50 10/28/17 08:50 10/28/17 08:50 10/28/17 08:50 10/28/17 08:50 Intake and Output: 10/28/17 10/28/17 06:59 18:59 Output Total 425 Balance -425 - Medications Medications: Current Medications Cadexomer Iodine (Iodosorb) 0 gm TOP DAILY [facility] Last Admin: 10/28/17 09:52 Dose: Not Given Collagenase (Santyl) 3 gm TOP DAILY [facility] Stop: 10/31/17 23:00 Last Admin: 10/28/17 09:50 Dose: 1 applic Meropenem (Merrem Iv 1 Gm Premix) 50 mls @ 100 mls/hr IVPB Q12 [facility] PRN Reason: Protocol Stop: 11/01/17 18:16 Last Admin: 10/28/17 09:50 Dose: 100 mls/hr Lactulose (Enulose) 20 gm PO TID [facility] Last Admin: 10/28/17 09:51 Dose: 20 gm Morphine Sulfate (Morphine Oral Soln) 10 mg PO BID [facility] Last Admin: 10/28/17 09:51 Dose: 10 mg Ondansetron HCl (Zofran Inj) 4 mg IVP Q6H PRN PRN Reason: Nausea/Vomiting Rifaximin (Xifaxan) 550 mg PO BID [facility] PRN Reason: Protocol Last Admin: 10/28/17 09:50 Dose: 550 mg Sodium Hypochlorite (Dakins Solution 0.5%) 10 ml TOP TID [facility] Last Admin: 10/28/17 09:51 Dose: Not Given - Labs Labs: 10/28/17 06:45 10/28/17 06:45 PT 21.8 SECONDS (9.4-12.5) H 10/21/17 17:15 INR 1.89 (0.93-1.08) H 10/21/17 17:15 APTT 37.1 Seconds (25.1-36.5) H 10/21/17 17:15 - Constitutional Appears: Well, Non-toxic, No Acute Distress - Extremities Exam Additional comments: VASC: DP and PT pulses nonpalpable secondary to edema. Temperature gradient warm to warm b/l. +2 pitting edema noted to bilateral LE. DERM: RLE boggy, necrotic eschar noted to posterior aspect of right heel; malodor present; no drainage; no purulence; periwound erythema noted; hyperkeratotic rim with periwound maceration, LLE hyperpigmentation with mild erythema noted to posterior aspect of left heel. NEURO: Unable to assess. ORTHO: Pain on palpation heel wounds b/l. Assessment and Plan - Assessment and Plan (Free Text) Assessment: 87F with extensive PMHx with 1) Full-thickness gangrenous ulceration right heel 2) deep tissue injury left heel Plan: Patient seen and evaluated with attending Dr. Stone Afebrile, WBC 12.1 Right foot XR: Possible early cortical destructive changes involving posterior calcaneus Right heel wound culture obtained - Proteus Mirabilis ID consulted - Meropenem q12 f/u arterial dopplers - Calcified vessels with fair waveform Dressing changed Continue local wound care - Dakins solution soaked 4x4, ABD, Kerlix three times a day;Optifoam on the left heel - Nursing communication for the dressing changes Continue multipodus boots at all times while in bed Podiatry will continue to follow <Gal Stone - Last Filed: 10/28/17 14:43> Objective - Vital Signs/Intake and Output Vital Signs (last 24 hours): Temp Pulse Resp BP Pulse Ox 98.3 F 84 15 101/51 L 97 10/28/17 08:50 10/28/17 08:50 10/28/17 08:50 10/28/17 08:50 10/28/17 08:50 Intake and Output: 10/28/17 10/28/17 06:59 18:59 Output Total 425 Balance -425 - Labs Labs: 10/28/17 06:45 10/28/17 06:45 PT 21.8 SECONDS (9.4-12.5) H 10/21/17 17:15 INR 1.89 (0.93-1.08) H 10/21/17 17:15 APTT 37.1 Seconds (25.1-36.5) H 10/21/17 17:15 Attending/Attestation - Attestation I have personally seen and examined this patient.: Yes I have fully participated in the care of the patient.: Yes I have reviewed all pertinent clinical information, including history, physical exam and plan: Yes
[2017-10-28 13:30] LABS: FOLATE 6.5 ng/mL
--- NOTE | 2017-10-28 13:39 | CP.PCM.PN ---
Subjective - Date & Time of Evaluation Date of Evaluation: 10/28/17 Time of Evaluation: 11:25 - Subjective Subjective: No fevers, not in distress. Objective - Vital Signs/Intake and Output Vital Signs (last 24 hours): Temp Pulse Resp BP Pulse Ox 98.3 F 84 15 101/51 L 97 10/28/17 08:50 10/28/17 08:50 10/28/17 08:50 10/28/17 08:50 10/28/17 08:50 Intake and Output: 10/28/17 10/28/17 06:59 18:59 Output Total 425 Balance -425 - Medications Medications: Current Medications Cadexomer Iodine (Iodosorb) 0 gm TOP DAILY [facility] Last Admin: 10/28/17 09:52 Dose: Not Given Collagenase (Santyl) 3 gm TOP DAILY [facility] Stop: 10/31/17 23:00 Last Admin: 10/28/17 09:50 Dose: 1 applic Meropenem (Merrem Iv 1 Gm Premix) 50 mls @ 100 mls/hr IVPB Q12 [facility] PRN Reason: Protocol Stop: 11/01/17 18:16 Last Admin: 10/28/17 09:50 Dose: 100 mls/hr Lactulose (Enulose) 20 gm PO TID [facility] Last Admin: 10/28/17 09:51 Dose: 20 gm Morphine Sulfate (Morphine Oral Soln) 10 mg PO BID [facility] Last Admin: 10/28/17 09:51 Dose: 10 mg Ondansetron HCl (Zofran Inj) 4 mg IVP Q6H PRN PRN Reason: Nausea/Vomiting Rifaximin (Xifaxan) 550 mg PO BID [facility] PRN Reason: Protocol Last Admin: 10/28/17 09:50 Dose: 550 mg Sodium Hypochlorite (Dakins Solution 0.5%) 10 ml TOP TID [facility] Last Admin: 10/28/17 09:51 Dose: Not Given - Labs Labs: 10/28/17 06:45 10/28/17 06:45 PT 21.8 SECONDS (9.4-12.5) H 10/21/17 17:15 INR 1.89 (0.93-1.08) H 10/21/17 17:15 APTT 37.1 Seconds (25.1-36.5) H 10/21/17 17:15 - Constitutional Appears: Chronically Ill - Head Exam Head Exam: NORMAL INSPECTION - Respiratory Exam Respiratory Exam: Decreased Breath Sounds - Cardiovascular Exam Cardiovascular Exam: +S1, +S2 - GI/Abdominal Exam GI & Abdominal Exam: Soft. absent: Tenderness Assessment and Plan - Assessment and Plan (Free Text) Plan: Assessment S/P sepsis due to right foot gangrenous ulcer R/O SBP with hepatic metabolic encephalopathy history of sepsis secondary to E. coli and E. faecalis UTI, slowly improving history of urinary tract infection with Citrobacter and Enterobacter, S/P treatment and clinically better history of E. faecium UTI history of healthcare-associated pneumonia history of chronic thrombocytopenia history of urinary tract infection with ESBL E. coli S/P UTI with Hafnei alvei Myelodysplastic syndrome DM HTN Hypothyroidism history of right hip surgery S/P cholecystectomy liver cirrhosis GERD Plan completed course of Merrem - will monitor off antibiotics since she is at risk for nosocomial infections overall prognosis is poor
--- NOTE | 2017-10-28 15:58 | CP.PCM.PN ---
Subjective - Date & Time of Evaluation Date of Evaluation: 10/28/17 Time of Evaluation: 11:00 - Subjective Subjective: Seen and examined at the bedside earlier this morning, chart review. Patient's daughter at bedside. Patient reported not to have bowel movement the past 2 or 3 days. Patient is more awake this morning and no reports of any nausea, vomiting, or abdominal pain. No acute overnight events. Objective - Vital Signs/Intake and Output Vital Signs (last 24 hours): Temp Pulse Resp BP Pulse Ox 98.3 F 84 15 101/51 L 97 10/28/17 08:50 10/28/17 08:50 10/28/17 08:50 10/28/17 08:50 10/28/17 08:50 Intake and Output: 10/28/17 10/28/17 06:59 18:59 Output Total 425 Balance -425 - Labs Labs: 10/28/17 06:45 10/28/17 06:45 PT 21.8 SECONDS (9.4-12.5) H 10/21/17 17:15 INR 1.89 (0.93-1.08) H 10/21/17 17:15 APTT 37.1 Seconds (25.1-36.5) H 10/21/17 17:15 - Constitutional Appears: No Acute Distress - Head Exam Head Exam: NORMOCEPHALIC - Eye Exam Eye Exam: Normal appearance. absent: Scleral icterus - ENT Exam ENT Exam: Mucous Membranes Moist - Respiratory Exam Respiratory Exam: NORMAL BREATHING PATTERN. absent: Respiratory Distress - Cardiovascular Exam Cardiovascular Exam: +S1, +S2 - GI/Abdominal Exam GI & Abdominal Exam: Soft, Normal Bowel Sounds. absent: Guarding, Tenderness, Rebound - Extremities Exam Extremities Exam: Pedal Edema. absent: Calf Tenderness - Neurological Exam Neurological Exam: Alert, Awake, Oriented x3 - Skin Skin Exam: Dry, Warm Assessment and Plan - Assessment and Plan (Free Text) Assessment: Assessment: Constipation Encephalopathy Status post paracentesis, 50 cc aspirated, acidic fluid negative for any bacterial growth Autoimmune hepatitis Right heel gangrenous ulcer Plan: Follow-up paracentesis fluid analysis Continue lactulose Continue Xifaxan Diet as tolerated Patient to be given an extra dose of lactulose now dose of Fleet enema. Case discussed with Dr. Pena. If patient has bowel movement possible discharge home today. Seen and discussed with Dr. Davis
--- NOTE | 2017-10-29 11:08 | DS ---
HISTORY OF PRESENT ILLNESS: Patient is an 87 years old, seen and examined, seems to be awake, alert, oriented, able to communicate, who was admitted because of worsening right heel wound and she was also confused and disoriented. Dr. Stone was involved and she was having local wound care. She was given antibiotics since she grew Proteus mirabilis from her foot. Blood culture and urine cultures were negative. She was given 1 week of antibiotics and according to ID, there is no more need of antibiotics and she should improve with local wound care. So she has been discharged home today. PHYSICAL EXAMINATION: GENERAL: On examination, she is awake and alert, able to communicate, answers simple questions. VITAL SIGNS: She is afebrile. Pulse 84, respirations 15, blood pressure 101/51. LUNGS: Bilateral fair airflow. No rhonchi or crackle. HEART: S1 and S2 audible. ABDOMEN: Soft, nontender, no rebound, no guarding. NEUROLOGIC: She is awake and alert, forgetful. LABORATORY EXAMINATION: WBC is 12.1, hemoglobin 8.2, hematocrit 24.9, platelets of 84. Chemistry: Sodium 141, potassium 5.1, chloride 110, CO2 24, BUN 29, creatinine 1.2, blood sugar of 130. TIBC is 93, total bili 1.7. ASSESSMENT AND PLAN: 1. Status post hepatic encephalopathy. 2. Autoimmune hepatitis. 3. Hypotension. 4. Pancytopenia. 5. Myelodysplastic syndrome. 6. Right heel necrotic ulcer. So plan is patient is being discharged home on her usual medications that include lactulose, , and intermittent Lasix and spironolactone. I spoke to Dr. Stone. He might be able to do house call and watch her wound, but visiting nurse will also visit patient's home and take care of her right heel wound. At this point, patient's daughter made her DNR; however, she wants all medical treatment. Kamaljit Pena MD
== END 2017-10-28 14:27 | disposition home or self-care (01) | DRG 871 ==
LOC: ED 15:56 → ERH 23:27 → 3RSO 10-22 01:31
PROVIDERS: ADMIT Internal Medicine; ATTEND Internal Medicine
PROC: 0W9G3ZZ Drainage of Peritoneal Cavity, Percutaneous Approach (ICD-10-PCS; principal; 2017-10-26 15:45)
DX: A41.9 Sepsis, unspecified organism (principal); E11.52 Type 2 diabetes mellitus with diabetic peripheral angiopathy with gangrene; L97.419 Non-pressure chronic ulcer of right heel and midfoot with unspecified severity; G93.41 Metabolic encephalopathy; L89.154 Pressure ulcer of sacral region, stage 4; L03.115 Cellulitis of right lower limb; R18.8 Other ascites; D61.818 Other pancytopenia; K75.4 Autoimmune hepatitis; K72.90 Hepatic failure, unspecified without coma; D46.9 Myelodysplastic syndrome, unspecified; I10 Essential (primary) hypertension; E11.621 Type 2 diabetes mellitus with foot ulcer; E03.9 Hypothyroidism, unspecified; K74.60 Unspecified cirrhosis of liver; E66.9 Obesity, unspecified; K21.9 Gastro-esophageal reflux disease without esophagitis; R26.2 Difficulty in walking, not elsewhere classified; B96.4 Proteus (mirabilis) (morganii) as the cause of diseases classified elsewhere; K59.00 Constipation, unspecified; F41.9 Anxiety disorder, unspecified; Z66 Do not resuscitate; Z87.440 Personal history of urinary (tract) infections; Z87.01 Personal history of pneumonia (recurrent); Z90.49 Acquired absence of other specified parts of digestive tract; Z88.0 Allergy status to penicillin; Z68.25 Body mass index [BMI] 25.0-25.9, adult